=== PATIENT | male | born 1965 | race Caucasian/White ===

== ENCOUNTER 2019-03-06 11:40 | Emergency (ER) | payer BC, SELFPAY ==
[2019-03-06 11:44] VITALS: BP 145/80; PULSE 71; RESP 18; TEMP 36.6; O2SAT 97; BMI 24.0
--- NOTE | 2019-03-06 11:58 | RAD_ITS ---
STUDY: X-RAY - RIGHT SHOULDER REASON FOR EXAM: Male, 53 years old. Injury. TECHNIQUE: 4 view(s) of the shoulder. COMPARISON: None. FINDINGS: Normal glenohumeral articulation. Normal acromioclavicular joint. Normal acromion. There is evidence of cystic changes of the glenoid most likely degenerative in nature. No acute abnormality is seen. The soft tissue structures are unremarkable. Normal visualized pulmonary apex. RAD/Shoulder min 2 Views IMPRESSION: Findings suggestive of degenerative changes of the glenoid. Electronically Signed: Andrzej Neal, at 12:48 EDT , Service support ,
[2019-03-06 13:06] VITALS: BP 126/85; PULSE 71; RESP 13; O2SAT 97
--- NOTE | 2019-03-06 14:09 | ED.VIS.GEN ---
History of Present Illness Chief Complaint: Upper Extremity Injury Informant: Patient Onset: Days - 5 Context: Gradual Onset Timing: Continuous Current Severity: Severe Maximum Severity: Severe Narrative: Patient is a 53-year-old male with no known medical history presenting with right shoulder pain. Patient states he has a very physical job and repeatedly throws things over his right shoulder. He denies any injury or trauma to the area. He denies associated numbness or tingling. He states he had pain for the past 5 days which is been worsening which is why he came to the emergency room. He has not taken anything at home for the pain. He is concerned because he has to work today and tomorrow. He denies any other complaints at this time including chest pain, shortness of breath, nausea, fever or chills. He has no associated rash. Patient does not regularly see a primary care doctor. Past Medical History - Allergies and Home Meds Allergies/Adverse Reactions: Allergies No Known Allergies Allergy (Verified 03/06/19 11:44) Primary Care Physician: Melina Bailey DO [Primary Care Provider] - Past Medical History: None Surgical History: noncontributory Smoking Status: Current every day smoker Review of Systems All systems negative except as indicated Musculoskeletal: Reports: Arthralgias - Right shoulder Physical Exam Vital Signs/Narrative: Vital Signs Temp Pulse Resp BP Pulse Ox 03/06/19 13:06 71 13 126/85 H 97 03/06/19 11:44 98 F 71 18 145/80 H 97 Inital Vital Signs reviewed: Yes General: Well nourished, Well developed, No Acute Distress Head: Normocephalic, Atraumatic Eyes: Perrl, EOMI ENT: Moist mucous membranes, No rhinorrhea Neck: Supple, Nontender Cardiovascular: Regular rate, Regular rhythm, No murmurs Respiratory: No distress, CTA bilaterally, Chest nontender Abdomen: Soft, Nontender Back: Nontender, Normal Inspection Extremities: No edema, Tenderness - Mild right shoulder tenderness to palpation diffusely, - - Normal range of motion in all planes of the right shoulder however pain is reproduced with abduction beyond 90 degrees Skin: Normal color, No rash Neurological: Alert, Oriented x3, Cranial nerves II-XII grossly intact, Normal Strength, Normal Sensation, - - Strength and sensation of intrinsic hand muscles normal Psychological: Normal affect, Normal Mood Diagnostic/Tx/Re-eval Diagnostic Data Shoulder X-Ray 03/06/19 11:58 IMPRESSION: Findings suggestive of degenerative changes of the glenoid. Electronically Signed: Andrzej Neal, at 12:48 EDT , Service support , - Medical Decision Making Patient evaluated for atraumatic right shoulder pain. He does not have an associated joint effusion or warmth of the joint. Do not suspect an infection or gouty arthropathy. X-ray shows degenerative changes consistent with osteoarthritis. Patient is treated with 600 mg ibuprofen for pain. He is neurovascularly intact. He is given a work note for today and tomorrow. He is counseled on rice therapy. He is counseled that he needs to follow-up with a primary care doctor. He will be referred to PCP. Patient is counseled on signs and symptoms requiring return to the emergency room. Patient verbalizes agreement and understand this plan. Patient discharged home in stable and improved condition. ED Disposition - Plan for ED Patient: Disposition: Home or Assisted Living Diagnosis: Right shoulder pain Instructions: SHOULDER PAIN (Uncertain Cause) Prescriptions: Ibuprofen [Motrin] 600 mg PO Q6H PRN PRN #20 tab PRN Reason: Pain Or Fever Prescription Printed Referrals: Melina Bailey DO [Primary Care Provider] - Additional Instructions: Please make sure to follow-up with her primary care doctor. Apply ice and icy hot to the shoulder. Rest the shoulder this weekend. Shoulder x-ray showed signs of arthritis which is likely cause of pain. Return to emergency room if you have worsening or changing symptoms.
[2019-03-06] MEDS: Ibuprofen 600 MG Tablet PO (14:21)
[2019-03-06 14:22] VITALS: RESP 18
== END 2019-03-06 14:23 | disposition home or self-care (01) ==
PROVIDERS: Emergency Provider Emergency Medicine; Family Provider Internal Medicine; PCP Internal Medicine
DX: M25.511 Pain in right shoulder (principal); F17.200 Nicotine dependence, unspecified, uncomplicated
CPT/HCPCS: 73030; 99283

== ENCOUNTER 2019-07-05 19:38 | Emergency (ER) | payer BC, SELFPAY ==
[2019-07-05 19:39] VITALS: BP 142/76; PULSE 80; RESP 18; TEMP 36.1; O2SAT 98; BMI 22.1
[2019-07-05 19:59] VITALS: BP 123/81; PULSE 80; RESP 16; O2SAT 97
--- NOTE | 2019-07-05 20:01 | RAD_ITS ---
We are attempting to reach an attending provider to discuss findings. An addendum with communication details will be sent when the communication is complete. STUDY: X-RAY CHEST REASON FOR EXAM: Male, 53 years old. RT SIDED CHEST PAIN RADIATING DOWN ARM X 1-2 WKS, WORSE TONIGHT TECHNIQUE: Single AP portable view of the chest. COMPARISON: None. FINDINGS: 5 cm round opacity in the mid left lung worrisome for a mass namely bronchogenic carcinoma. Correlation with CT the chest with contrast is recommended. There is no demonstrated pleural abnormality. Normal size heart. Normal mediastinum and katerina. Normal visualized pulmonary arteries. Normal visualized aortic arch and descending thoracic aorta. Normal visualized thoracic spine. Normal visualized ribs, clavicles, and shoulders. There is no demonstrated abnormality of the visualized soft tissue structures of the upper abdomen. RAD/Chest 1 View (Portable) IMPRESSION: Suspect left lung mass worrisome for bronchogenic carcinoma in correlation with CT the chest with contrast is recommended. Electronically Signed: Luis Pineda MD at 20:36 EST Tel , Service support ,
--- NOTE | 2019-07-05 20:01 | EKG12_ITS ---
Test Reason : CP Blood Pressure : / mmHG Vent. Rate : 072 BPM Atrial Rate : 072 BPM P-R Int : 144 ms QRS Dur : 094 ms QT Int : 402 ms P-R-T Axes : 011 075 057 degrees QTc Int : 440 ms Normal sinus rhythm Normal ECG Confirmed by EDGARD LENNON ([id number]), medical transcription editor HAMLET BAUTISTA ([id number]) on 07/08/2019 2:04:24 PM Referred By: GABY Confirmed By:EDGARD LENNON
[2019-07-05 20:04] VITALS: O2SAT 97
[2019-07-05 20:17] LABS: Absolute Lymphocyte Count 3.19 X10^3/uL (0.83-4.51); Absolute Neutrophil Count 6.7 X10^3/uL (2.0-7.7); Basophil# 0.11 X10^3/uL; Eosinophil# 0.58 X10^3/uL; Eosinophils% 5.2 % (0-5); Hematocrit 46.8 % (40-54); Hemoglobin 15.4 g/dL (13.0-16.5); Lymphocyte # 3.19 X10^3/ul (4.0); Lymphocyte % 28.4 % (19-41); Mean Corp Hgb Conc 32.9 g/dL (32-36); Mean Corpuscular Hgb 30.7 pg (27.0-32.0); Mean Corpuscular Volume 93.2 fL (80-94); Mean Platelet Vol. 8.8 fl (6.2-12.0); Monocyte% 5.3 % (0-10); NRBC Flagged by Analyzer 0 % (0-5); Neutrophil # 6.74 X10^3/uL (2.7-7.7); Neutrophil % 59.8 % (47-70); Platelet Count 304 K/mm3 (150-450); RBC Distribution Width CV 13.1 % (11.6-14.6); Red Blood Count 5.02 M/mm3 (4.6-6.2); White Blood Count 11.3 K/mm3 (4.4-11.0)
--- NOTE | 2019-07-05 20:25 | ED.VIS.GEN ---
History of Present Illness Chief Complaint: Chest Pain Informant: Patient Onset: Weeks Current Severity: Moderate Maximum Severity: Moderate Narrative: Patient presents with mid chest pain that radiates to the right shoulder and down his right arm for the past week or 2. Pain seems to be worsened recently. Patient was here couple months ago for right shoulder pain and it was felt that he had arthritis. He has not seen anyone for follow-up. Patient denies cardiac history. Past Medical History - Allergies and Home Meds Allergies/Adverse Reactions: Allergies No Known Allergies Allergy (Verified 07/05/19 20:04) Primary Care Physician: Jose Carlos Schultz MD [STAFF PHYSICIAN] - As soon as possible Mateus Velarde DO [STAFF PHYSICIAN] - As soon as possible Justin Ramachandran MD [NON-STAFF] - As soon as possible Past Medical History: None Surgical History: noncontributory Smoking Status: Current every day smoker Review of Systems General: Denies: Chills, Fever Eyes: Denies: Visual changes - bilaterally ENT: Denies: Bilateral ear pain Cardiovascular: Reports: Chest pain, - - Occasional increased pain with deep breath. Denies: Palpitations, Heart racing Respiratory: Denies: Dyspnea Gastrointestinal: Denies: Abdominal pain, Nausea, Vomiting, Diarrhea Genitourinary: Denies: Dysuria Musculoskeletal: Denies: Swelling, Extremity Pain Skin: Denies: Rash Neurological: Denies: Headache Allergy: Denies: Uticaria Physical Exam Vital Signs/Narrative: Vital Signs Temp Pulse Resp BP Pulse Ox 07/05/19 20:04 97 07/05/19 19:59 80 16 123/81 H 97 07/05/19 19:39 97.0 F L 80 18 142/76 H 98 Inital Vital Signs reviewed: Yes General: Well nourished, Well developed Head: Normocephalic ENT: Moist mucous membranes Neck: Supple Cardiovascular: Regular rate, Regular rhythm Respiratory: No distress, CTA bilaterally, Chest nontender Back: Nontender Extremities: Nontender Skin: Normal color, No rash Neurological: Alert, Oriented x3, Normal Strength, Normal Sensation Psychological: Normal affect Diagnostic/Tx/Re-eval Impressions Chest X-Ray 07/05/19 20:01 IMPRESSION: Suspect left lung mass worrisome for bronchogenic carcinoma in correlation with CT the chest with contrast is recommended. Electronically Signed: Luis Pineda MD at 20:36 EST Tel , Service support , ADDENDUM: 07/05/192109 IMPRESSION: Suspect left lung mass worrisome for bronchogenic carcinoma in correlation with CT the chest with contrast is recommended. N.B. : The above information has been verbally conveyed by Luis Pineda MD to Pamela Arellano MD, on 07/05/2019 21:03:16 (ET). Electronically Signed: Luis Pineda MD at 20:36 EST Tel , Service support , Chest CT 07/05/19 21:06 IMPRESSION: 6.5 cm probably malignant mass of the left lower lobe. Biopsy is recommended. Underlying COPD. Electronically Signed: Tomas Farrell MD at 21:40 EST , Service support , 07/05/19 20:01 Chest 1 View (Portable) [RAD] Stat 07/05/19 21:06 CT Chest [Chest WITH Contrast] [CT] Stat Laboratory Results 07/05/19 07/05/19 07/05/19 19:59 19:59 19:59 WBC 11.3 H RBC 5.02 Hgb 15.4 Hct 46.8 MCV 93.2 MCH 30.7 MCHC 32.9 RDW Std Deviation 45.0 H RDW Coeff of Isaiah 13.1 Plt Count 304 MPV 8.8 Immature Gran % (Auto) 0.300 Neut % (Auto) 59.8 Lymph % (Auto) 28.4 [place] % (Auto) 5.3 Eos % (Auto) 5.2 H Baso % (Auto) 1.0 Absolute Neuts (auto) 6.7 Absolute Lymphs (auto) 3.19 Nucleated RBC % 0 PT 13.6 INR 1.1 D-Dimer Quant (PE/DVT) Sodium 140 Potassium 4.2 Chloride 109 H Carbon Dioxide 27.0 Anion Gap 4 L BUN 19 H Creatinine 1.05 Estim Creat Clear Calc 81.18 Est GFR (MDRD) Af Amer 94 Est GFR (MDRD) Non-Af 78 BUN/Creatinine Ratio 18.1 Glucose 99 Calcium 8.5 Troponin I 0.143 H 07/05/19 19:59 WBC RBC Hgb Hct MCV MCH MCHC RDW Std Deviation RDW Coeff of Isaiah Plt Count MPV Immature Gran % (Auto) Neut % (Auto) Lymph % (Auto) [place] % (Auto) Eos % (Auto) Baso % (Auto) Absolute Neuts (auto) Absolute Lymphs (auto) Nucleated RBC % PT INR D-Dimer Quant (PE/DVT) 0.38 Sodium Potassium Chloride Carbon Dioxide Anion Gap BUN Creatinine Estim Creat Clear Calc Est GFR (MDRD) Af Amer Est GFR (MDRD) Non-Af BUN/Creatinine Ratio Glucose Calcium Troponin I - EKG Initial EKG Interpretation: Sinus Rhythm - Sinus at 72 with no acute ischemia. - Medical Decision Making Patient was given morphine, Toradol, and Zofran on arrival. Upon return of labs with elevation in troponin he is given aspirin. Test results are discussed with the patient. He does have evidence of a new left lung mass which is highly suspicious for malignancy. He also has an indeterminate troponin. I recommended hospitalization for further cardiac evaluation and to help arrange biopsy for this left lung mass. Patient is adamant that he wants to leave AGAINST MEDICAL ADVICE. Patient was advised that he may be having a heart attack. He was advised the symptoms can worsen and he can have sudden cardiac arrest and . He voices understanding and agreement. Family is with him at bedside and is aware of his decision. Phone numbers and addresses for oncology, pulmonology, and cardiology are provided for close follow-up. ED Disposition - Plan for ED Patient: Disposition: Home or Assisted Living Diagnosis: Lung tumor, Chest pain, Elevated troponin Referrals: Justin Ramachandran MD [NON-STAFF] - As soon as possible Mateus Velarde DO [STAFF PHYSICIAN] - As soon as possible Jose Carlos Schultz MD [STAFF PHYSICIAN] - As soon as possible Additional Instructions: As discussed, your chest xray and CT scan confirms a lung mass in your left lung. A biopsy is needed to determine how best to treat this. It appears highly suspicious for a cancerous tumor. Follow-up with Pulmonology and Oncology as soon as possible. Your bloodwork for your heart is also abnormal. Please return to the emergency room immediately if you choose to pursue further care. Please follow-up with the independent film maker as soon as possible if you are not willing to be admitted to the emergency room. As discussed, you could be having a heart attack. If this progressed you could go into cardiac arrest and .
[2019-07-05 20:31] LABS: International Normalized Ratio 1.1; Prothrombin Time (Protime)PT. 13.6 SECONDS (11.7-14.9)
[2019-07-05 20:34] LABS: Anion Gap 4 (5-15); BUN 19 mg/dL (7-18); BUN/Creat Ratio 18.1 RATIO (10-20); Calcium,Total 8.5 mg/dL (8.5-10.1); Chloride 109 mmol/L (98-107); Creatinine, Serum 1.05 mg/dL (0.70-1.30); EST Glomerular Filtration Rate 78 mL/min (>60); Est Glom Filt Rate - Afr Amer 94 mL/min (>60); Estimated Creatinine Clearance 81.18 ml/min; Glucose 99 mg/dL (74-106); Potassium 4.2 mmol/L (3.5-5.1); Sodium Level 140 mmol/L (136-145)
[2019-07-05 20:43] LABS: D-Dimer Quantitative (DVT/PE) 0.38 FEU/ug/m (0.27-0.49)
[2019-07-05] MEDS: Ondansetron 4 MG/2 ML Vial IV (20:53)
[2019-07-05] MEDS: Ketorolac 30 MG/ML Syringe IV (20:55)
[2019-07-05] MEDS: Morphine 4 MG/ML Syringe IV (20:56)
[2019-07-05] MEDS: 0.9% Normal Saline 1,000 ML 150 ML IV (20:59)
--- NOTE | 2019-07-05 21:06 | CT_ITS ---
STUDY: CT CHEST WITH CONTRAST REASON FOR EXAM: Male, 53 years old. ABNORMAL CXR, PT PRESENTS WITH RT SIDED CHEST PAIN TODAY RADIATION DOSAGE (If Supplied By Facility): CTDIvol = ( 12.83 ) mGy, DLP = ( 522.60 ) mGycm TECHNIQUE: Transaxial imaging was performed following intravenous administration of IV 100mL Isovue-300. Individualized dose optimization techniques were used for this CT. COMPARISON: None. FINDINGS: Images are degraded by patient motion. There is hyperinflation of the lungs consistent with chronic obstructive lung disease (COPD). There is a lobulated and spiculated 6.5 cm mass in the left lower lobe almost certainly representing malignancy. Biopsy is recommended. There is evidence of underlying COPD. In the left lower lobe, inferior to the mass there is a parenchymal density suggestive of postobstructive pneumonitis No other evidence of infiltrate. No effusions. There is no demonstrated pleural abnormality. Normal heart and pericardium. Normal mediastinum. There is probable mild left hilar adenopathy. Normal enhanced pulmonary arteries. Normal aorta arch and descending thoracic aorta. There are multi-level degenerative changes of the thoracic spine. Numerous low-attenuation lesions throughout the liver are most likely cysts. Metastatic disease cannot be excluded however. CT/Chest WITH Contrast IMPRESSION: 6.5 cm probably malignant mass of the left lower lobe. Biopsy is recommended. Underlying COPD. Electronically Signed: Tomas Farrell MD at 21:40 EST , Service support ,
[2019-07-05] MEDS: Aspirin 81 MG TAB.CHEW 324 MG PO (21:55)
[2019-07-05 22:54] VITALS: PULSE 62; RESP 16; O2SAT 98
== END 2019-07-05 23:02 | disposition home or self-care (01) ==
PROVIDERS: Emergency Provider Emergency Medicine
DX: D49.1 Neoplasm of unspecified behavior of respiratory system (principal); R07.89 Other chest pain; R79.89 Other specified abnormal findings of blood chemistry; Z72.0 Tobacco use
CPT/HCPCS: 71045; 71260; 80048; 84484; 85025; 85379; 85610; 93005; 96361; 96374; 96375; 99285; J7030; Q9967; A4216; J2405

== ENCOUNTER 2019-07-09 09:46 | Observation (INO) | payer BC, SELFPAY ==
[2019-07-09] VITALS (9 sets, daily range): BP systolic 112–139; BP diastolic 71–107; PULSE 60–75; RESP 14–16; TEMP 36.4–36.6; O2SAT 95–99; BMI 22.6; BMI 23.3
--- NOTE | 2019-07-09 10:10 | CT_ITS ---
STUDY: CTA CHEST REASON FOR EXAM: Male, 53 years old. CHEST PAIN, KNOWN LLL MASS RADIATION DOSAGE (If Supplied By Facility): CTDIvol = ( 10.42 ) mGy, DLP = ( 324.71 ) mGycm TECHNIQUE: The examination was performed with the intravenous administration of 75cc ISOVUE 370. Post-processing of the angiographic images was performed, with multiplanar reformation and 3D reconstruction. Individualized dose optimization techniques were used for this CT. COMPARISON: 07/05/2019 FINDINGS: Normal enhancement of the main pulmonary artery and right and left pulmonary arteries. Normal enhancement of the bilateral peripheral pulmonary arteries. There is no demonstrated pulmonary embolism. Normal thoracic aorta and visualized great vessels. There is no demonstrated aortic dissection. Normal heart and pericardium. Scattered subcentimeter axillary and mediastinal lymph nodes. There are borderline enlarged perihilar lymph nodes measuring up to 1.4 cm in short axis dimension. There is peribronchial thickening. The lungs are hyper expanded, with flattening of the hemidiaphragms. There is underlying emphysema with stable suspicious 6.5 cm spiculated mass in the left lower lobe. Normal pleura. Normal chest wall structures. There are degenerative changes of thoracic spine. Limited cuts through the upper abdomen show low-density likely cysts within the liver but metastatic foci cannot be completely excluded. CT/CTA Chest W/WO Contrast IMPRESSION: No demonstrated PE, or thoracic aortic aneurysm or dissection Stable suspicious 6.5 cm spiculated left lower lobe mass Stable borderline enlarged perihilar adenopathy Low-density hepatic lesions, likely simple cysts Electronically Signed: Acosta Salas MD at 11:48 EST , Service support ,
--- NOTE | 2019-07-09 10:10 | EKG12_ITS ---
Test Reason : CP Blood Pressure : / mmHG Vent. Rate : 056 BPM Atrial Rate : 056 BPM P-R Int : 154 ms QRS Dur : 100 ms QT Int : 428 ms P-R-T Axes : -06 074 071 degrees QTc Int : 413 ms Sinus bradycardia Otherwise normal ECG Confirmed by STEVE FLEMING, ROSALINDA ([id number]), health editor LU ROBERTS ([id number]) on 07/14/2019 8:43:33 AM Referred By: Jack Rodriguez Confirmed By:RC WILSON MD
--- NOTE | 2019-07-09 10:15 | ED.VIS.CHEST ---
History of Present Illness Chief Complaint: Chest Pain Informant: Patient Onset: Today Activity at onset: Sleep Timing: Intermittent Quality: Heaviness Location: Right Chest Narrative: Patient is a 53-year-old male with history of left-sided lung mass questionably cancer presenting with chest pain. Patient states this morning he had a 10-minute episode of chest pain that woke him up from sleep. It did not radiate. He states it is in his right lower chest and felt more like a heaviness or pressure. Is not worse with deep breathing. 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 He was then sent to the emergency room for further evaluation of his chest pain. Patient states he also has an appointment to see a metallurgy teacher next week because during his last ER visit he had an elevated troponin. Patient did sign out AGAINST MEDICAL ADVICE at that time. Patient states he feels a slight pressure in that area. He notes he also an episode of sweating in his head in his hands earlier today. He denies any associated nausea, GI symptoms or symptoms. He denies any shortness of breath. He does have a chronic cough but feels it is slightly worse lately. He cannot tell me for how long. He denies any swelling of his legs. Denies any other complaints at this time. Past Medical History - Allergies and Home Meds Allergies/Adverse Reactions: Allergies No Known Allergies Allergy (Verified 07/09/19 09:46) Past Medical History: - - lung mass Surgical History: noncontributory Smoking Status: Current every day smoker - Family History Maternal Family History: Family History (Last Updated 07/09/19 @ 09:06 by Saskia Ambriz) Mother Heart disease COPD (chronic obstructive pulmonary disease) Kidney disease Aunt Diabetes Family History: Reports: COPD, Renal Disease Paternal Family History: Family History (Last Updated 07/09/19 @ 09:06 by Saskia Ambriz) Mother Heart disease COPD (chronic obstructive pulmonary disease) Kidney disease Aunt Diabetes Family History: Reports: Unknown Sibling Family History: Family History (Last Updated 07/09/19 @ 09:06 by Saskia Ambriz) Mother Heart disease COPD (chronic obstructive pulmonary disease) Kidney disease Aunt Diabetes Family History: Reports: Cancer Review of Systems General: Reports: Sweats. Denies: Chills, Fever Eyes: Denies: Visual changes - bilaterally, Diplopia ENT: Denies: Rhinorrhea, Sore throat Cardiovascular: Reports: Chest pain. Denies: Palpitations Respiratory: Reports: Cough. Denies: Dyspnea, Dyspnea on exertion Gastrointestinal: Denies: Abdominal pain, Nausea, Vomiting, Diarrhea, Melena, Hematochezia Genitourinary: Denies: Dysuria, Hematuria, Frequency Musculoskeletal: Denies: Back pain, Extremity Pain Skin: Denies: Rash, Wounds Neurological: Denies: Headache, Weakness, Numbness Physical Exam Vital Signs/Narrative: Vital Signs Temp Pulse Resp BP Pulse Ox 07/09/19 09:47 97.8 F 63 16 125/76 H 99 Inital Vital Signs reviewed: Yes General: Well nourished, Well developed, No Acute Distress Head: Normocephalic, Atraumatic Eyes: Perrl, EOMI ENT: Moist mucous membranes, No rhinorrhea, TM's clear Neck: Supple, Nontender, No JVD Cardiovascular: Regular rate, Regular rhythm, No murmurs Respiratory: No distress, Chest nontender, Rhonchi - mild expiratory . Negative for: Decreased Air Movement Abdomen: Soft, Nontender, Nondistended, Normal bowel sounds Back: Nontender, Normal Inspection Extremities: Nontender, No edema Skin: Normal color, No rash Neurological: Alert, Oriented x3, Cranial nerves II-XII grossly intact, Normal Strength, Normal Sensation Psychological: Normal affect, Normal Mood Diagnostic/Tx/Re-eval Chest X-Ray - ED: 1 View, Read by ED Physician, Read by Radiologist, No Acute Disease Clinical Impression(s) from Imaging Studies Chest CTA 07/09/19 10:10 IMPRESSION: No demonstrated PE, or thoracic aortic aneurysm or dissection Stable suspicious 6.5 cm spiculated left lower lobe mass Stable borderline enlarged perihilar adenopathy Low-density hepatic lesions, likely simple cysts Electronically Signed: Acosta Salas MD at 11:48 EST , Service support , Chest X-Ray 07/09/19 10:24 IMPRESSION: Stable 5 cm left lung mass unchanged since the previous study. No new suspicious or acute findings. Electronically Signed: Acosta Salas MD at 10:51 EST , Service support , Laboratory Data 07/09/19 07/09/19 10:25 10:25 WBC 9.3 RBC 5.24 Hgb 16.2 Hct 48.8 MCV 93.1 MCH 30.9 MCHC 33.2 RDW Std Deviation 45.1 H RDW Coeff of Isaiah 13.1 Plt Count 295 MPV 8.4 Immature Gran % (Auto) 0.300 Neut % (Auto) 62.0 Lymph % (Auto) 27.5 [place] % (Auto) 5.8 Eos % (Auto) 3.4 Baso % (Auto) 1.0 Absolute Neuts (auto) 5.8 Absolute Lymphs (auto) 2.56 Nucleated RBC % 0 Sodium 138 Potassium 4.2 Chloride 107 Carbon Dioxide 28.0 Anion Gap 3 L BUN 12 Creatinine 0.83 Estim Creat Clear Calc 107.10 Est GFR (MDRD) Af Amer 124 Est GFR (MDRD) Non-Af 102 BUN/Creatinine Ratio 14.5 Glucose 90 Calcium 9.1 Troponin I 0.062 H - Rhythm Strip Rhythm Strip: Sinus Rhythm Rate: 56 Ectopy: None - EKG Initial EKG Interpretation: Sinus Rhythm, - - Sinus bradycardia at a rate of 56 Normal intervals Normal axis Normal ST segments Treatment: Aspirin ADRIÁN Risk: Elevated Enzymes Score: 1 - Medical Decision Making Patient is evaluated for episode of chest pain. Chest pain is still present but slightly improving. He is given aspirin the emergency room. He was recently diagnosed with a left-sided lung mass. It is highly concerning for lung cancer. CTA obtained because of my concern for PE. This is negative. Troponin is mildly elevated at 0.06. It is slightly lower than it was during his last ER visit. At that time patient left AGAINST MEDICAL ADVICE. I did recommend that patient should come in for further cardiac evaluation as I am concerned that his pain could be an anginal equivalent. He eventually agrees. Patient does state that he is very nervous about coming to the hospital. He is given a nicotine patch as well as Ativan to help. Patient is stable for general medical floor at time of disposition. ED Disposition - Plan for ED Patient: Disposition: [facility] Diagnosis: Chest pain
--- NOTE | 2019-07-09 10:24 | RAD_ITS ---
STUDY: X-RAY CHEST REASON FOR EXAM: Male, 53 years old. Chest pain/pressure, history of lung mass TECHNIQUE: 2 AP portable views COMPARISON: 07/05/2019 FINDINGS: EKG leads overlie the chest. Stable appearance of a 5 cm rounded opacity in the left lower lung field unchanged from the previous study. The lungs are otherwise clear and expanded. There is no demonstrated pleural abnormality. Normal size heart. Normal mediastinum and katerina. Normal visualized pulmonary arteries. Normal visualized aortic arch and descending thoracic aorta. Normal visualized thoracic spine. Normal visualized ribs, clavicles, and shoulders. There is no demonstrated abnormality of the visualized soft tissue structures of the upper abdomen. RAD/Chest 1 View (Portable) IMPRESSION: Stable 5 cm left lung mass unchanged since the previous study. No new suspicious or acute findings. Electronically Signed: Acosta Salas MD at 10:51 EST , Service support ,
[2019-07-09 10:37] LABS: Absolute Lymphocyte Count 2.56 X10^3/uL (0.83-4.51); Absolute Neutrophil Count 5.8 X10^3/uL (2.0-7.7); Basophil# 0.09 X10^3/uL; Eosinophil# 0.32 X10^3/uL; Eosinophils% 3.4 % (0-5); Hematocrit 48.8 % (40-54); Hemoglobin 16.2 g/dL (13.0-16.5); Lymphocyte # 2.56 X10^3/ul (4.0); Lymphocyte % 27.5 % (19-41); Mean Corp Hgb Conc 33.2 g/dL (32-36); Mean Corpuscular Hgb 30.9 pg (27.0-32.0); Mean Corpuscular Volume 93.1 fL (80-94); Mean Platelet Vol. 8.4 fl (6.2-12.0); Monocyte# 0.54 X10^3/uL; Monocyte% 5.8 % (0-10); NRBC Flagged by Analyzer 0 % (0-5); Neutrophil # 5.76 X10^3/uL (2.7-7.7); Platelet Count 295 K/mm3 (150-450); RBC Distribution Width CV 13.1 % (11.6-14.6); RBC Distribution Width SD 45.1 fl (35.1-43.9); Red Blood Count 5.24 M/mm3 (4.6-6.2); White Blood Count 9.3 K/mm3 (4.4-11.0)
[2019-07-09] MEDS: Aspirin 81 MG TAB.CHEW 324 MG PO (10:45)
[2019-07-09] MEDS: 0.9% Normal Saline 1,000 ML 1000 ML IV (10:45)
[2019-07-09 10:54] LABS: Anion Gap 3 (5-15); BUN 12 mg/dL (7-18); BUN/Creat Ratio 14.5 RATIO (10-20); Calcium,Total 9.1 mg/dL (8.5-10.1); Chloride 107 mmol/L (98-107); Creatinine, Serum 0.83 mg/dL (0.70-1.30); EST Glomerular Filtration Rate 102 mL/min (>60); Est Glom Filt Rate - Afr Amer 124 mL/min (>60); Glucose 90 mg/dL (74-106); Potassium 4.2 mmol/L (3.5-5.1); Sodium Level 138 mmol/L (136-145)
--- NOTE | 2019-07-09 13:10 | NURSING ---
PCU OBS MARLEEN GARDUNO
[2019-07-09] MEDS: LORazepam 2 MG/ML Syringe 0.5 MG IV (13:30)
--- NOTE | 2019-07-09 14:30 | EKG12_ITS ---
Test Reason : AM EKG Blood Pressure : / mmHG Vent. Rate : 061 BPM Atrial Rate : 061 BPM P-R Int : 168 ms QRS Dur : 096 ms QT Int : 442 ms P-R-T Axes : 035 040 059 degrees QTc Int : 444 ms Normal sinus rhythm Normal ECG When compared with ECG of 09-JUL-2019 13:54, MANUAL COMPARISON REQUIRED, DATA IS UNCONFIRMED Confirmed by STEVE FLEMING, ROSALINDA ([id number]), legal editor LU ROBERTS ([id number]) on 07/14/2019 8:57:45 AM Referred By: Jack Rodriguez Confirmed By:RC WILSON MD
--- NOTE | 2019-07-09 15:31 | PCM.HP.STD ---
Problem List (1) Chest pain Status: Acute Qualifiers: Chest pain type: precordial pain Qualified Code(s): R07.2 - Precordial pain History of Present Illness Date of Admission: 07/09/19 Chief Complaint: Chest pain The patient is a 53 year old M who was seen in the emergency room at [facility] with chief complaint of right-sided chest pain which began this morning, patient was at rest when the pain began, did not radiate into the arm or neck area, it was not accompanied by shortness of breath or diaphoresis. Patient describes the discomfort as an ache, it lasted approximately 10 minutes. He had also been seen in the emergency room on 07/05/2019 with a chief complaint of achy chest pain in the middle of his chest. At that time the patient stated that he became diaphoretic. He was worked up in the emergency room at that time and had an elevated troponin at 0.143, it was recommended at that time that he be admitted for further work-up but the patient refused and signed out AMA. A CT scan obtained on that date also showed a 6.5 cm spiculated mass of the left lower lobe concerning for a neoplasm. Patient was supposed to see a pulmonary physician today but had chest pain this morning and came to the ER for evaluation. Work-up in the ER today revealed an EKG which showed a normal sinus rhythm without evidence of ischemic changes, CTA of the chest was performed to rule out a PE, no PE was noted to be present and there was continued visualization of a 6.5 cm spiculated left lower lobe mass. Patient's troponin was elevated at 0.062, CBC and chemistry screen was unremarkable. Patient will be placed in observation status for chest pain, cardiac enzymes be cycled, if these remain negative he will undergo an exercise nuclear stress test tomorrow. Past Medical History Medical History: Medical History (Last Updated 07/08/19 @ 09:00 by Dory Myles) Chest pain (Acute) R07.9 Mass of left lung (Acute) R91.8 Allergies No Known Allergies Allergy (Verified 07/09/19 09:46) Home Medications: Ambulatory Orders Medication Instructions Recorded NK 07/09/19 Surgical History: no surgical history Psychiatric History: No pertinent psych hx Lives: Spouse/ Significant Other Smoking Status: Current every day smoker Tobacco Use: Cigarettes Alcohol: None Drugs: None - *Family History Maternal Family History: Family History (Last Updated 07/09/19 @ 09:06 by Saskia Ambriz) Mother Heart disease COPD (chronic obstructive pulmonary disease) Kidney disease Aunt Diabetes History Items: COPD, Renal Disease Paternal Family History: Family History (Last Updated 07/09/19 @ 09:06 by Saskia Ambriz) Mother Heart disease COPD (chronic obstructive pulmonary disease) Kidney disease Aunt Diabetes History Items: Unknown Sibling Family History: Family History (Last Updated 07/09/19 @ 09:06 by Saskia Ambriz) Mother Heart disease COPD (chronic obstructive pulmonary disease) Kidney disease Aunt Diabetes History Items: Cancer Review of Systems Constitutional: Denies: Anorexia, Chills, Fever, Night Sweats, Malaise, Weakness, Weight Change, Fatigue Eyes: Denies: Cataracts, Conjunctivae Inflammation, Double vision, Drainage, Redness, Vision Change HEENT: Denies: Difficulty Swallowing, Dysphasia, Ear Pain, Eye Pain, Hearing Changes, Nasal bleeding, Nasal Congestion, Post Nasal Drip Cardiovascular: Reports: Chest Pain. Denies: Claudication, Chest Pressure, Chest Tightness, Edema, Heaviness, Light Headedness, Orthopnea, Palpitations, Paroxysmal Noc. Dyspnea Respiratory: Denies: Cough, Hemoptysis, Pleuritic Pain, Shortness of Breath, Shortness of breath at rest, Shortness of breath upon exertion Gastrointestinal: Denies: Abdominal Pain, Constipation, Diarrhea, Hematemesis, Hematochezia, Nausea, Melena, Vomiting Genitourinary: Denies: Dysuria, Frequency, Hematuria, Hesitancy, Incontinence, Nocturia, Urgency Musculoskeletal: Denies: Foot Pain, Hand Pain, Joint Pain, Joint stiffness, Joint swelling, Joint Tenderness, Leg Pain Skin: Denies: Dryness, Pruritis, Rash Neurological: Denies: Balance problems, Blurred vision, Double vision, Slurred speech, Difficulty swallowing, Focal weakness, Headaches, Numbness, Tingling Psychiatric: Denies: Anxiety, Depression, Homicidal Ideations, Suicidal Ideations Endocrine: Denies: Change in Body Habitus, Heat/ Cold Intolerance, Polydipsia, Polyuria Hematologic/ Lymphatic: Denies: Adenopathy, Anemia, Easy Bruising, Easy Bleeding, Petechiae, Purpura VTE Information - Inpt Only VTE Present on Admission: No VTE Mechan Device Prophylaxis: None VTE Pharm Prophylaxis ordered?: Yes - Physical Exam Vitals/I&O's: Vital Signs Temp Pulse Resp BP Pulse Ox 97.8 F 62 16 139/107 H 99 07/09/19 09:47 07/09/19 13:32 07/09/19 13:32 07/09/19 13:32 07/09/19 13:32 Oxygen Delivery Method Room Air Weight: 75.75 kg Body Mass Index (BMI) 23.3 Intake and Output for Last 24 Hours 07/07/19 07/08/19 07/09/19 23:59 23:59 23:59 Intake Total 1000 / 1000 Balance 1000 / 1000 General: Alert, Oriented x3, Cooperative, No apparent distress, Well developed, Well nourished HEENT: Atraumatic, PERRLA, EOMI, Normocephalic Oral: Moist Mucosa Neck: Supple, No JVD, Negative Carotid Bruits, No Nuchal Rigidity, Trachea Midline, Thyroid Normal Size and Texture Lungs: Clear to auscultation, Normal air movement, No rhonchi, No wheeze, No rales Cardiovascular: Regular rate, Regular Rhythm, Normal S1, Normal S2, No murmurs, PMI Normal, No rub noted, No Gallop Abdomen: Bowel Sounds Present, Soft, Non Tender, Non-Distended Extremities: No clubbing, No cyanosis, No edema, Capillary Refill Less than 3 Seconds Skin: No rashes, No breakdown Musculoskeletal: No Tenderness to Palpation of Joints or Extremities Neurological: Cranial nerves II-XII grossly intact, Neuro grossly intact, Sensory exam intact to light touch and pain, Coordination normal Psych/Mental Status: Normal Affect, Appropriate, Alert and oriented to time, place, person, mood and affect Laboratory Results 07/09/19 10:25: WBC 9.3, RBC 5.24, Hgb 16.2, Hct 48.8, MCV 93.1, MCH 30.9, MCHC 33.2, RDW Std Deviation 45.1 H, RDW Coeff of Isaiah 13.1, Plt Count 295, MPV 8.4, Immature Gran % (Auto) 0.300, Neut % (Auto) 62.0, Lymph % (Auto) 27.5, Hardee % (Auto) 5.8, Eos % (Auto) 3.4, Baso % (Auto) 1.0, Absolute Neuts (auto) 5.8, Absolute Lymphs (auto) 2.56, Nucleated RBC % 0 07/09/19 10:25: Sodium 138, Potassium 4.2, Chloride 107, Carbon Dioxide 28.0, Anion Gap 3 L, BUN 12, Creatinine 0.83, Estim Creat Clear Calc 107.10, Est GFR (MDRD) Af Amer 124, Est GFR (MDRD) Non-Af 102, BUN/Creatinine Ratio 14.5, Glucose 90, Calcium 9.1, Troponin I 0.062 H 07/09/19 14:52: Troponin I 0.080 H Current Medications Lorazepam (Ativan) 1 mg PO Q6H PRN PRN PRN Reason: ANXIETY Morphine Sulfate () 4 mg IV Q3H PRN PRN PRN Reason: Pain Score 6-10/10 Temazepam (Restoril) 15 mg PO QHS PRN PRN PRN Reason: INSOMNIA Assessment/Plan All Active Problems (Last Updated 07/08/19 @ 09:00 by Dory Myles) Mediastinal lymphadenopathy (Acute) Chest pain (Acute) Mass of left lung (Acute) #1 chest pain-patient was placed in observation status on PCU, cardiac enzymes will be cycled, if they remain stable he will undergo a treadmill nuclear stress test tomorrow. #2 left lower lung mass-probably neoplastic, patient will need follow-up as an outpatient regarding this Code Visit OBSV E&M: 91461 Initial observation care L3
[2019-07-09] MEDS: Morphine 4 MG/ML Syringe IV (21:52)
[2019-07-09] MEDS: Temazepam 15 MG Capsule PO (21:52)
[2019-07-09] MEDS: Heparin Injection (Vial) 5,000 UNIT/ML VIAL 5000 UNIT SC (21:52)
[2019-07-10 02:59] VITALS: PULSE 64
[2019-07-10 03:50] VITALS: BP 113/74; PULSE 64; RESP 14; TEMP 36.7; O2SAT 96
--- NOTE | 2019-07-10 05:55 | EKG12_ITS ---
Test Reason : Blood Pressure : / mmHG Vent. Rate : 053 BPM Atrial Rate : 053 BPM P-R Int : 160 ms QRS Dur : 090 ms QT Int : 444 ms P-R-T Axes : -16 029 045 degrees QTc Int : 416 ms Sinus bradycardia Otherwise normal ECG When compared with ECG of 05-JUL-2019 19:47, No significant change was found Confirmed by STEVE FLEMING, ROSALINDA ([id number]), research editor LU ROBERTS ([id number]) on 07/14/2019 8:59:41 AM Referred By: Jack Rodriguez Confirmed By:RC WILSON MD
[2019-07-10 06:00] VITALS: BP 104/57; PULSE 59; RESP 14; TEMP 37; O2SAT 97
[2019-07-10 06:40] VITALS: PULSE 81
[2019-07-10] MEDS: LORazepam 1 MG Tablet PO (11:54)
[2019-07-10 11:56] VITALS: BP 129/76; PULSE 60; RESP 16; TEMP 37; O2SAT 98
--- NOTE | 2019-07-10 12:10 | DCINST_ITS ---
- Discharge Diagnoses Current Active Problems: Current Active and Chronic Problems (Last Updated 07/08/19 @ 09:00 by Dory Myles) Chest pain (Acute) You will use the following diet at home:: No restrictions Your food should be the consistency of: Regular Your liquids should be the consistency of: Regular/Thin Discharge Activity: Return to Normal Activity Weight Bearing Status: Full weight bearing Allergies/Adverse Reactions: Allergies No Known Allergies Allergy (Verified 07/09/19 09:46) Medications to take at Discharge NK 07/09/19 Primary Care Physician: Care Physician,No Primary [Primary Care Provider] - Test Results: Test results from this visit will be discussed in further detail at your follow- up appointment, if applicable. Please Follow Up With: Mateus Velarde, DO When: as soon as possible
--- NOTE | 2019-07-10 14:05 | STRESSREP_ITS ---
Stress Test Report Date: 07/10/2019 Procedure: Exercise tolerance test/imaging study Indications: Chest pain Consent: Per the patient Procedure: The patient exercised on a Pedro protocol for 7 minutes and 13 seconds achieving a peak heart rate of 130 bpm (83 % predicted maximal heart rate) with a peak blood pressure 140/84 mmHg and a peak MET capacity of 8.8 METs. The baseline ECG demonstrated sinus bradycardia. The peak exercise ECG demonstrated no significant ischemic changes. EKG during recovery revealed no significant ischemic changes [There were no cardiac dysrhythmias pretest, during exercise, or recovery]. The functional capacity was considered normal for age. There was [3/10 right-sided chest discomfort early in exercise which resolved later in exercise]. The examination was discontinued secondary to shortness of breath. Impression: 1. Stress test is negative for exercise-induced EKG changes of ischemia 2. Patient had right-sided chest discomfort early in exercise that resolved later in exercise. The test is negative for typical anginal chest pain. 3. Functional capacity is normal for age 4. Nuclear images pending Myocardial perfusion imaging study: Technique: The patient was injected with [12] mCi of technetium 99m Cardiolite and subsequently rest SPECT Cardiolite nuclear imaging was obtained in the horizontal long, vertical long, and short axis views. The patient exercised on a Pedro protocol. Please see above for details. The patient was injected with [33.6] mCi of technetium 99m Cardiolite and subsequently stress SPECT Cardiolite nuclear imaging was obtained in the horizontal long, vertical long, and short axis views. A gated Cardiolite study at peak stress was obtained. Interpretation: Rest and stress SPECT Cardiolite nuclear imaging status post realignment, normalization, and attenuation correction, demonstrates mildly decreased radioisotope uptake in the inferior wall before attenuation correction. After attenuation correction there is normalization of the radioisotope uptake in the inferior wall. This is suggestive of diaphragmatic attenuation artifact. Overall after attenuation correction there is no significant reversible or fixed defects suggestive of significant ischemia or infarction. The gated Cardiolite study demonstrates no significant regional wall motion abnormalities. The reported LVEF is 59 %. Impression: 1. There is no evidence of significant ischemia or infarction. 2. The gated Cardiolite study reports an LVEF of 59 %. This note was generated with [employer] software. It may contain incorrect words, spelling, and punctuation that were not noted in checking the note before signing.
--- NOTE | 2019-07-13 08:56 | DS.PCM_ITS ---
Discharge Date and Diagnosis Date of Admission: 07/09/19 Date of Discharge: 07/10/19 - Primary Discharge Diagnosis #1 musculoskeletal chest pain #2 left lower lung mass Hospital Course and Treatment Operations: None Procedures: Nuclear stress test Summary of Care Provided: The patient is a 53 year old M was seen in the emergency room at [facility] with a chief complaint of chest pain. Work-up in the emergency room included cardiac enzymes, EKG, and a CTA of the chest. CT of the chest showed no PE, there was noted the presence of a 6.5 cm spiculated left lower lobe lung mass which had been present on previous imaging studies and the patient was being worked up for this as an outpatient. Patient was placed in observation status on PCU, serial enzymes were cycled and these remained normal. On 07/10/2019, patient underwent a nuclear exercise stress test that was negative for reversible ischemia. On 07/10/2019, patient was seen and examined: On examination he appeared in good health and spirits. Vital signs as documented. Skin warm and dry and without overt rashes. Neck without JVD. Lungs clear. Heart exam notable for regular rhythm, normal sounds and absence of murmurs, rubs or gallops. Abdomen unremarkable and without evidence of organomegaly, masses, or abdominal aortic enlargement. Extremities nonedematous. Neuro: Cranial nerves II through XII are grossly intact, no focal motor deficits were noted, sensation to light touch and pinprick intact. Psych: Patient is alert and oriented x3, he does not appear anxious or depressed On 07/10/2019, patient was seen and examined and felt to be in stable condition for discharge home - Physical Exam Vitals/I&O's: Vital Signs Temp Pulse Resp BP Pulse Ox 98.6 F 60 16 129/76 H 98 07/10/19 11:56 07/10/19 11:56 07/10/19 11:56 07/10/19 11:56 07/10/19 11:56 Oxygen Delivery Method Room Air Weight: 73.6 kg Body Mass Index (BMI) 22.6 Discharge Activity: Return to Normal Activity Weight Bearing Status: Full weight bearing Home Medications: Medications to take at Discharge NK 07/09/19 Primary Care Physician: Care Physician,No Primary [Primary Care Provider] - Please Follow Up With: Mateus Velarde DO When: as soon as possible Disposition: Home Minutes spent on discharge:: 30 Patient Condition:: Stable Medical Necessity - Tobacco Use Smoking Status: Current every day smoker Tobacco Use: Cigarettes Meaningful Use Info Meaningful Use Diagnoses (Choose all that apply): None applicable Code Visit OBSV E&M: 96147 Observation care discharge
== END 2019-07-10 12:12 | disposition home or self-care (01) ==
LOC: ED 10:31 → PCU 13:39
PROVIDERS: Admitting Provider Internal Medicine; Emergency Provider Emergency Medicine; Referring Provider Internal Medicine; Visit Provider Internal Medicine
DX: R07.89 Other chest pain (principal); R22.2 Localized swelling, mass and lump, trunk; R00.1 Bradycardia, unspecified; F17.210 Nicotine dependence, cigarettes, uncomplicated
CPT/HCPCS: 36415; 71045; 71275; 78452; 80048; 84484; 85025; 93005; 93017; 96361; 96372; 96374; 96375; 99218; 99285; 99406; A9500; Q9967; A4216; G0378

== ENCOUNTER → 2019-07-18 08:58 | Outpatient (CLI) | payer BC, MEDICAID, SELFPAY ==
[2019-07-15 09:05] VITALS: BMI 22.6
[2019-07-18] VITALS (11 sets, daily range): BP systolic 109–127; BP diastolic 72–94; PULSE 63–79; RESP 11–23; TEMP 36.6; O2SAT 93–99; BMI 22.6
--- NOTE | 2019-07-18 | ASPIGT_PTH ---
PATIENT: LÁZARO MIMS LOC: CT U#:[id number] AGE/SX: 59/M ROOM: RE07/18/[address]: CRISTINA De Los Santos : 1965 BED: DIS: SPEC #: [id number] RECD: 07/18/19 13:00 STATUS: PAIGE TOLLIVER #: [id number] NOE: 07/18/19 00:[address]: Sulma Yoon NP DEPT: SURGICAL PATHOLOGY RECD BY: Randy Duran ENTERED: 07/18/19 13:01 SP TYPE: ASP RAD OTHR DR: No Primary Care Phys Tissues: Lung, NOS Procedures: FNA Specimen Adequacy Special Stain Group II Surgery Specimen Level IV Imprint (control) HEADER OPERATION: CT-guided left lung biopsy PRE-OP DIAGNOSIS: Left lung mass TISSUE SUBMITTED: Left lung mass 10 gauge MICROSCOPIC DIAGNOSIS Left lung mass, CT-guided needle core biopsy: Non-small cell carcinoma, adenocarcinoma. See comment. AM:analy 07/21/19 COMMENT The specimen is evaluated at the time of biopsy by Dr. Su. Immediate Evaluation = Malignant cells present derived from non-small cell carcinoma. Immunohistochemistry ([id number]) supports the lung primary. Clinical correlation is suggested. MICROSCOPIC DESCRIPTION Slides are reviewed. GROSS DESCRIPTION Received in fixative is one container labeled with the patient's name and designated left lung biopsy. The specimen consists of multiple irregular fragments of light key soft tissue that in aggregate measure 2 x 0.1 x <0.1 cm. The specimen is totally submitted in one cassette. One touch imprint is prepared at the time of core biopsy. / SJ:analy 07/18/19 TC:0 [facility]: [id number], [id number] ADDENDUM ADDENDUM ADDENDUM ADDENDUM ADDENDUM ADDENDUM 02/16/2020 11:06 ADDENDUM 02/16/2020 11:06 ADDENDUM 02/16/2020 11:06 ADDENDUM 02/16/2020 11:06 ADDENDUM 02/16/2020 11:06 PD-L1 (KEYTRUDA) IMMUNOHISTOCHEMICAL ANALYSIS FROM [facility] RESULTS: Tumor proportion score: 80% / Positive Please see complete report in e-chart or EMR
--- NOTE | 2019-07-18 | IMM_PTH ---
PATIENT: LÁZARO MIMS LOC: CT U#:[id number] AGE/SX: 59/M ROOM: RE07/18/[address]: CRISTINA De Los Santos : 1965 BED: DIS: SPEC #: [id number] RECD: 07/21/19 14:04 STATUS: SCOTTAnai REMarybeth #: [id number] NOE: 07/18/19 00:[address]: Sulma Yoon NP DEPT: IMMUNOHISTOCHEMISTRY RECD BY: hTalia Benson ENTERED: 07/21/19 14:06 SP TYPE: IMMUNO OTHR DR: No Primary Care Phys Tissues: Lung, NOS Procedures: Synapto (add) RCC (add) Thyroglobulin (add) NAPSIN A (add) Liam Ret (add) CD56 (add) CHROMO (add) CK20 (add) CK5-6 (add) CK7 (add) PIERSON-2 (add) HEP PAR (add) P53 (add) TTF1 (add) Pankeratin (initial) P40 (add) CD44 (add) PSAP (add) NSE (add) S-100 (add) PHYSICIAN & INSTITUTION [place] [id number] SPECIMEN INFORMATION: Tissue Source: Left lung mass Clinical Info: Left lung mass Specimen Number: [id number] CPT code: 64553, 24553 x19 METHODOLOGY: Deparaffinized sections of prefer/formalin-fixed tissue or PAP/DQ stained slides are incubated with monoclonal/polyclonal antibodies/oligonucleotide probes. Localization is made via biotin free immunoperoxidase method. Appropriate controls are performed and reacted as expected. Results on target cell population are indicated in the following table: RESULTS: ANTIBODY / CLONE RESULT AE1-3 (AE1/AE3/PCK26) positive CK7 (OV-TL12/30) positive CK20 (KS20.8) negative PIERSON-2 (SP21) positive S-100 (4C4.9) negative CD56 (123C3.D5) negative Chromo (LK2H10) negative Synapto (polyclonal) negative NSE Neuron Specific Enolase positive, focal TTF-1 (8G7G3/1) positive Napsin A (Rabbit Polyclonal) positive HepPar (OCh1E5) negative RCC (PN-15) negative PSAP (PASE/4LJ) negative Thyro (2H11+6E1) negative CALRET (polyclonal) negative anti-CD44 (SP37) negative CK5-6 (D5 & 1684) negative P40 (BC28) negative P53 (DO-7) positive, 3% These tests were developed and their performance characteristics determined by [facility]. They may not have been cleared or approved by the U.S. Food and Drug Administration. The FDA has determined that such clearance or approval is not necessary. The above immunohistochemical/dualISH markers are ordered and reviewed by the Pathologist. INTERPRETATION: Left lung, CT-guided biopsy: Consistent with adenocarcinoma of lung origin. AM:analy 07/22/19
--- NOTE | 2019-07-18 09:30 | CT_ITS ---
PROCEDURE: CT GUIDED CORE NEEDLE BIOPSY OF A left lower lobe LUNG LESION INDICATION: Male, 53 years old. LEFT LUNG BX PHYSICIAN: Dr. Val Alvarez CONSENT: Written informed consent was obtained having explained the risks, benefits and alternatives in detail with the patient who accepted the risks and agreed to proceed. Laboratory review and clinical assessment was performed. CONSCIOUS SEDATION PROTOCOL: The Drugs used were: 2 mg Versed, IV., and 50 mcg Fentanyl, IV. The sedation time was: 12 minutes. Conscious sedation was started at 10:09 AM and terminated at 10:21 AM. The conscious sedation protocol was independently monitored. RADIATION DOSAGE (If Supplied By Facility): CTDIvol = ( 14.5 ) mGy, DLP = ( 150.53 ) mGycm Individualized dose optimization techniques were used for this CT. TECHNIQUE: The patient was placed in the pleural position. A noncontrast CT was performed to localize the lesion in the left lower lobe . The skin surface was prepped and draped in a sterile fashion. 1% lidocaine was used for local anesthesia. Using CT guidance, a 20-gauge coaxial biopsy device was advanced to the periphery of the lesion. A total of 3 core specimens were obtained. The specimens were placed in a formalin solution. A post procedure CT demonstrated no adverse sequelae or pneumothorax. The patient tolerated the procedure well without adverse event. A negative biopsy does not exclude malignancy. Further imaging or clinical followup based on patient condition and degree of clinical suspicion for malignancy. Suggest rebiopsy, if biopsy results do not match with clinical scenario. CT/Biopsy/Inj or Needle Placement IMPRESSION: 1. CT directed core needle biopsy of the left lower lobe pulmonary nodule using CT image guidance with image documentation as described. Pathology results are pending. 2. Conscious Sedation protocol utilized with independent monitoring. Electronically Signed: Andrzej Neal, at 10:39 EST , Service support ,
[2019-07-18] MEDS: Midazolam 2 MG/2 ML Syringe IV (10:09)
[2019-07-18] MEDS: fentaNYL 100 MCG/2 ML Ampul IV (10:11)
--- NOTE | 2019-07-18 10:15 | RAD_ITS ---
STUDY: X-RAY CHEST REASON FOR EXAM: Male, 53 years old. Shortness of breath after lung biopsy TECHNIQUE: Respiratory and x-ray views were performed after lung biopsy COMPARISON: Earlier today FINDINGS: There is respiratory and axial belkis views were performed after left lung biopsy. No clear evidence of postbiopsy pneumothorax noted. There is no mediastinal shift. Stable appearance of the 5 cm mass in the left lower lobe. There is no demonstrated pleural abnormality. Normal size heart. Normal mediastinum and katerina. Normal visualized pulmonary arteries. Normal visualized aortic arch and descending thoracic aorta. Normal visualized thoracic spine. Normal visualized ribs, clavicles, and shoulders. There is no demonstrated abnormality of the visualized soft tissue structures of the upper abdomen. RAD/Chest Insp/Exp 2 View IMPRESSION: No demonstrated post biopsy pneumothorax Electronically Signed: Acosta Salas MD at 12:42 EST , Service support ,
--- NOTE | 2019-07-18 10:30 | RAD_ITS ---
STUDY: X-RAY CHEST REASON FOR EXAM: Male, 53 years old. IMMEDIATE POST LUNG BIOPSY IN AND EX AP CXR. TECHNIQUE: AP inspiration expiration views. COMPARISON: Comparison is made with prior chest radiograph dated July 05, 2019. FINDINGS: The patient is status post left lung biopsy. No evidence of pneumothorax on the immediate post left lung biopsy radiograph. RAD/Chest Insp/Exp 2 View IMPRESSION: No evidence of pneumothorax on the immediate post left lung biopsy radiograph. Electronically Signed: Andrzej Neal, at 14:08 EST , Service support ,
== END ==
PROVIDERS: Referring Provider Nurse Practitioner Acute Care; Visit Provider Nurse Practitioner Acute Care
DX: C34.32 Malignant neoplasm of lower lobe, left bronchus or lung (principal)
CPT/HCPCS: 32405; 71046; 77012; 88172; 88305; 88313; 88341; 88342; 99156; J7040; A4216

== ENCOUNTER → 2019-07-30 12:22 | Outpatient (CLI) | payer BC, SELFPAY ==
[2019-07-23 14:32] VITALS: BMI 22.6
[2019-07-29 08:37] VITALS: BMI 23.4
--- NOTE | 2019-07-31 05:53 | PFTCOMP_ITS ---
COMPLETE PULMONARY FUNCTION TEST INTERPRETATION Brief HPI: Patient is a 53 year old male, currently under the care of Sulma Yoon, who presents to [facility] for complete pulmonary function tests secondary to diagnosis of COPD. Respiratory therapist reports good effort and reproducible results. Interpretation: Forced expiration spirometry shows no large airways obstructive ventilatory defect with an FEV1 of 103% predicted. There is no significant bronchodilator response by strict ATS criteria. Spirograms are of good quality and plateau slowly, indicating slowly emptying areas of the lungs. The respiratory flow volume loop shows decreased expiratory flow rates at high lung volumes consistent with small airways obstruction. Lung volumes by body plethysmography show a normal total lung capacity at 7.67 L, 110% predicted. All other lung volumes are within normal limits. Diffusion capacity by carbon monoxide is normal at 89% predicted. The airway resistance is normal. No previous pulmonary function tests were available for review. Impression: These pulmonary function tests are grossly within normal limits. However, there is stigmata consistent with small airways disease
== END ==
PROVIDERS: Referring Provider Nurse Practitioner Acute Care; Visit Provider Nurse Practitioner Acute Care
DX: R06.02 Shortness of breath (principal)
CPT/HCPCS: 94060; 94726; 94729

== ENCOUNTER → 2019-08-07 12:05 | Outpatient (CLI) | payer BC, SELFPAY ==
[2019-07-29 08:37] VITALS: BMI 23.4
--- NOTE | 2019-08-07 12:07 | MRI_ITS ---
STUDY: MRI BRAIN WITH AND WITHOUT CONTRAST REASON FOR EXAM: Male, 53 years old. staging lung ca, no neuro symptoms TECHNIQUE: Standardized multiplanar fat and water weighted pulse sequences were obtained. IV Yes YES was administered for the contrast portion of the examination. COMPARISON: CTA of the chest dated July 09, 2019. PET/CT scan dated August 04, 2019. FINDINGS: Small 8.1 mm rounded subcutaneous nodule seen at the periphery of the mandible and mid right facial region. Normal size of the ventricles and extra-axial spaces for the patient''s age. Normal white matter tracts of the supratentorial brain. There is no evidence for recent intracranial ischemia or other cause of cytotoxic edema on diffusion weighted imaging (DWI). Normal T2* images of the brain without demonstrated susceptibility artifact. There is no demonstrated hemosiderin stain. Normal bilateral basal ganglia. Normal thalami. There is no extra-axial fluid accumulation. Normal flow voids within the major intracranial circulation suggesting patency by spin echo criteria. Normal venous enhancement. There is no enhancing intra-axial or extra-axial abnormality. No ring-enhancing lesions are seen. No demonstrated dural or meningeal enhancement. Normal sella turcica, pituitary gland, infundibular stalk, optic chiasm and hypothalamus. Normal tectal plate and pineal gland. Normal midbrain, glory and medulla. Normal cerebellum. Normal basal cisterns. Normal bilateral temporal bones. Normal bilateral internal auditory canals. Asymmetric blood flow signal seen in the portion of jugular vein within the jugular foramen versus slight dehiscence on the right which is nonpathologic. No demonstrated orbital abnormality, within the constraints of a routine brain study. Mild mucosal thickening is present in the frontal sinuses. Mild opacification of the right anterior ethmoid air cells also noted. Normal calvarium and skull base. Normal visualized soft tissue structures. MRI/Brain W/WO Contrast IMPRESSION: 1. No demonstrated acute or significant intracranial process. 2. No focal lesions are present. 3. No edema is present. 4. No ring-enhancing lesions are seen. No demonstrated dural or meningeal enhancement. Electronically Signed: Jovani Ahumada MD at 15:36 EDT , Service support ,
--- NOTE | 2019-08-08 11:21 | PCM.PSN.6M ---
PSN 6 Minute Walk Test - Interpretation Interpretation: The patient ambulated 1282 feet over the course of 6 minutes beginning on room air without assistive devices or breaks. Pretesting oxygen saturation was noted to be 98% on room air. With ambulation, the viv oxygen saturation was 94%. There was no significant exertional oxygen desaturation. - Recommendations Recommendations: There is no indication for the use of supplemental oxygen at this time.
== END ==
PROVIDERS: Referring Provider Nurse Practitioner Acute Care; Visit Provider Nurse Practitioner Acute Care
DX: C34.32 Malignant neoplasm of lower lobe, left bronchus or lung (principal); R06.02 Shortness of breath
CPT/HCPCS: 70553; 94618; A9575

== ENCOUNTER 2019-08-15 06:51 | Day surgery (SDC) | payer MEDICAID, SELFPAY ==
[2019-08-13 09:30] VITALS: BMI 23.6
[2019-08-15 07:22] VITALS: BP 118/70; PULSE 70; RESP 14; TEMP 36.4; O2SAT 96; BMI 22.6
[2019-08-15] MEDS: Lactated Ringers 1,000 ML 100 ML IV (07:35)
--- NOTE | 2019-08-15 07:55 | HP.PCM_ITS ---
History of Present Illness Date of Admission: 08/15/19 The patient is a 53 year old M who has a known history of lung cancer. PET scan revealed illumination of the wall of the stomach. EGD was recommended to rule this out. Patient is having no abdominal pain or blood in stool at this time. Past Medical/Surgical History - Planned Operation Planned Operative Procedure/s: EGD Date of Operative Procedure: 08/15/19 Permit Signed: Yes S.O.S: No Is This Patient Having a Total Joint: No - Previous Hospitalizations/Surgeries HX Hospitalizations: No HX of Surgeries: CYST REMOVAL CHILD Any Problems With Anesthesia: No You/Your Family Experience Fever (Hyperthermia) With Anes: No Cholinesterase deficiency: No - Cardiovascular Hx Chest Pain within Last 2 months: No - 07/09/19 PAIN R SHOULDER R/O THROUGH ER Hx of Irregular Heartbeat and/or Afib: No Hx Heart Attack: No Hx Congestive Heart Failure: No Hx Rheumatic Fever: No Hx Hypertension: No Hx Internal Defibrillator: No Hx Pacemaker: No Hx Cardiac Catheterization: No Hx Cardiac Surgery/Stents/Etc.: No Hx Stress Test: Yes - 07/10/19 [facility] HX Edema: No Hx Pain in Legs when Walking/Leg Cramps: Yes - Respiratory Chronic Cough: No HX of Shortness of Breath: No Hoarseness: No Hx Chronic Obstructive Pulmonary Disease (COPD): No Hx Asthma: No Hx Emphysema: No Hx Sleep Apnea: No Hx Oxygen Use at Home: No Hx Respiratory Tract Infection/Cold (presently): No Do You Snore Loudly (louder than talking or can be heard): Yes Do You Often Feel Tired/ Fatigued/ Sleepy Dring Daytime?: No Has Anyone Observed You Stop Breathing During Sleep?: No Result (for STOP score): Negative Hx Smoking: Yes Smoking Status: Current every day smoker - Gastrointestinal Hx Gastroesophageal Reflux: No Hx Gastrointestinal Disorders: No Hx Gastrointestinal Bleed: No Hx Ulcer: No Hx Hiatal Hernia: No Difficulty Chewing/Swallowing: No Recent Onset of Swallowing Problems: No Special diet followed at home: No Hx Unplanned Weight Loss of 20#: No HX Unplanned Weight Gain of 20#: No - Neurological Hx Seizures: No HX Syncope/Blackout Spells/Unconsciousness: No Hx CVA/Stroke: No Hx Transient Ischemic Attacks (TIA): No Hx Multiple Sclerosis: No Hx Parkinson's Disease: No Hx Head/Neck Injury: No Hx Headaches: No Hx Back Injury/Pain: No Recent Onset of Speech Difficulty: No Restless Legs: No Does patient have nerve stimulator: No - Blood Disorder Hx Leukemia: No Bleeding Tendencies: No Hx Deep Vein Thrombosis: No Hx High Cholesterol: No Blood Transmitted Disease: No Hx Hepatitis: No Hx Cirrhosis: No Hx Anemia: No Hx Blood Disorders: No - Genitourinary Hx Renal Disease: No Hx Dialysis: No - Musculoskeletal Hx Arthritis: No Hx Rheumatoid Arthritis: No Hx Gout: No Recent Onset of an Orthopedic Problem: No - Endocrine Hx Diabetes: No Thyroid Disease: No Hx Steroid Therapy: No - Psycho/Social Hx Substance Use: No Hx Alcohol Use: No Hx Anxiety: No Hx Depression: Yes Mental Illness: No Hx Dementia: No - Miscellaneous Hx Cancer: Yes - LUNG Recent Exposure to Contagious Disease: No Active MRSA: No Hx of C-Diff: No Any Loose Teeth: No Additional information pertinent to anesthesia:: SMOKES 1 1/2 PPD FOR 35+ YRS Allergies No Known Allergies Allergy (Verified 08/14/19 09:32) Maternal Family History: Family History (Last Reviewed 08/13/19 @ 09:[address] Ozzy Knight MD) Mother Heart disease COPD (chronic obstructive pulmonary disease) Kidney disease Aunt Diabetes COPD, Renal Disease Paternal Family History: Family History (Last Reviewed 08/13/19 @ 09:[address] Ozzy Knight MD) Mother Heart disease COPD (chronic obstructive pulmonary disease) Kidney disease Aunt Diabetes Unknown Sibling Family History: Family History (Last Reviewed 08/13/19 @ 09:[address] Ozzy Knight MD) Mother Heart disease COPD (chronic obstructive pulmonary disease) Kidney disease Aunt Diabetes Cancer - Discharge Is Pt Admitted From a [place] [facility], or a Jail: No Who Could Help: GIRLFRIEND After D/C, Where Do you Plan to Go: Return Home - Physical Exam Vitals/I&O's: Vital Signs Temp Pulse Resp BP Pulse Ox 97.6 F L 70 14 118/70 96 08/15/19 07:22 08/15/19 07:22 08/15/19 07:22 08/15/19 07:22 08/15/19 07:22 Oxygen Delivery Method Room Air Weight: 162 lb Body Mass Index (BMI) 22.6 General: Alert, Oriented x3 Neck: No JVD Lungs: Normal air movement Cardiovascular: Regular rate, Regular Rhythm Abdomen: Soft, Non Tender, Non-Distended Current Medications Lactated Ringer's () 1,000 mls @ 100 mls/hr IV .Q10H MACY Last Admin: 08/15/19 07:35 Dose: 100 mls/hr Documented by: Assessment/Plan All Active Problems (Last Reviewed 08/12/19 @ 14:08 by Anita Chopra) Shortness of breath (Acute) Adenocarcinoma of lung (Acute) Mediastinal lymphadenopathy (Acute) Chest pain (Acute) Mass of left lung (Acute) The patient had a PET scan which did show activity in the stomach which was rated as abnormal. Oncology would like an EGD to rule out stomach malignancy. I explained endoscopy in detail to the patient. I explained the risks including but not limited to stroke or heart attack with anesthesia, perforation of the GI tract, bleeding, infection. I explained that any of these could necessitate further emergency surgery. The patient understands and all questions were answered sufficiently. The patient wishes to proceed with procedure. On 07/29/2019 the [place] Department of Health ([facility]) Public Order signed by [facility] Director Sydni Meyer M.D., regarding the Management of Non-Essential Surgeries and Procedures for the purpose of preserving Personal Protective Equipment (PPE) and critical hospital capacity and resources within [place] went into effect as of 07/30/2019 at 5:00PM. According to the [facility] Public Order: This action will remain in full force and effect until the State of Emergency declared by the Governor no longer exists or the Director of the [facility] rescinds or modifies this Order. This [facility] order stated all non-essential or elective surgeries and procedures that utilize PPE should be delayed unless there is undue risk to the current or future health of a patient. After reviewing the aforementioned [facility] Public Order and the patients clinical case, I have determined that the scheduled procedure meets the criteria to go forward. Reason for performing procedure: There is a risk of metastasis or progression of staging. Ozzy Knight MD Pager: [facility] [address] [place] [address], [address] [place] [address] Office: Surgery Risks - Colonoscopy Risks Include but are not Limited To: Risks include but are not limited to: Bleeding, perforation requiring further surgery, inability to complete colonoscopy requiring barium enema.
--- NOTE | 2019-08-15 08:00 | GASB_PTH ---
PATIENT: LÁZARO MIMS LOC: EN U#:[id number] AGE/SX: 53/M ROOM: RE08/15/[address]: Dr. Ozzy Knight MD : 1965 BED: DIS: 08/15/2019 SPEC #: [id number] RECD: 08/15/19 08:39 STATUS: PAIGE UNRULY #: [id number] NOE: 08/15/19 08:[address]: Ozzy Knight DEPT: SURGICAL PATHOLOGY RECD BY: Randy Duran ENTERED: 08/15/19 10:29 SP TYPE: Gastric Bx OTHR DR: No Primary Care Phys Tissues: Gastric mucous membrane Procedures: Surgery Specimen Level IV HEADER OPERATION: EGD ([facility]) PRE-OP DIAGNOSIS: History lung CA; abnormal PET scan TISSUE SUBMITTED: Antrum biopsy for histo and H. pylori MICROSCOPIC DIAGNOSIS Antrum biopsy: Mild gastritis. See microscopic description and comment. SJ:analy 08/18/19 COMMENT The results of immunohistochemistry for Helicobacter pylori will be reported separately ([id number]). MICROSCOPIC DESCRIPTION Slides are reviewed. The specimen shows fragments of gastric mucosa with chronic inflammatory cell infiltrates in the lamina propria consisting of lymphocytes and plasma cells, consistent with mild chronic gastritis. GROSS DESCRIPTION Received in fixative is one container labeled with the patient's name and designated antrum biopsy. The specimen consists of multiple irregular fragments of light key soft tissue that in aggregate measure 0.8 x 0.2 x 0.1 cm. The specimen is totally submitted in one cassette. / SJ:rg 08/15/19 TC:3 CPT: 98316
--- NOTE | 2019-08-15 08:00 | IMM_PTH ---
PATIENT: LÁZARO MIMS LOC: EN U#:[id number] AGE/SX: 53/M ROOM: RE08/15/[address]: Dr. Ozzy Knight MD : 1965 BED: DIS: 08/15/2019 SPEC #: [id number] RECD: 08/15/19 10:35 STATUS: PAIGE REMarybeth #: [id number] NOE: 08/15/19 08:[address]: Ozzy Knight DEPT: IMMUNOHISTOCHEMISTRY RECD BY: Thalia Benson ENTERED: 08/15/19 10:35 SP TYPE: IMMUNO OTHR DR: No Primary Care Phys Tissues: Stomach, NOS Procedures: H Pylori (initial) PHYSICIAN & INSTITUTION [place] [address] SPECIMEN INFORMATION: Tissue Source: Antrum biopsy Clinical Info: History lung CA; abnormal PET scan Specimen Number: [id number] CPT code: 92729 METHODOLOGY: Deparaffinized sections of prefer/formalin-fixed tissue or PAP/DQ stained slides are incubated with monoclonal/polyclonal antibodies/oligonucleotide probes. Localization is made via biotin free immunoperoxidase method. Appropriate controls are performed and reacted as expected. Results on target cell population are indicated in the following table: RESULTS: ANTIBODY / CLONE RESULT H Pylori (polyclonal) negative These tests were developed and their performance characteristics determined by [facility]. They may not have been cleared or approved by the U.S. Food and Drug Administration. The FDA has determined that such clearance or approval is not necessary. INTERPRETATION: Antrum, biopsy: Negative for Helicobacter pylori organisms. SJ:analy 08/18/19
[2019-08-15 08:26] VITALS: BP 100/75; BP 118/70; PULSE 76; RESP 16; TEMP 36.5; O2SAT 95
[2019-08-15 08:31] VITALS: BP 118/70; BP 99/57; PULSE 75; RESP 16; O2SAT 94
[2019-08-15 08:36] VITALS: BP 118/70; BP 92/68; PULSE 74; RESP 16; O2SAT 95
[2019-08-15 08:41] VITALS: BP 118/70; BP 98/75; PULSE 76; RESP 16; TEMP 36.6; O2SAT 96
[2019-08-15 08:53] VITALS: BP 118/70
--- NOTE | 2019-08-27 09:16 | OP.CCLET_ITS ---
09/10/2019 No Primary Care Physician Re : Upper GI endoscopy procedure for Aravind Gill Dear Care Physician This procedure was performed on Thursday, August 15, 2019. My impressions and recommendations are as follows: Impressions : - Gastritis with hemorrhage. Biopsied. - Normal esophagus. - Normal examined duodenum. - No malignancy identified in stomach. Recommendations : - Discharge patient to home. - Resume previous diet. - Continue present medications. - Use Prilosec (omeprazole) 20 mg PO daily. My findings are described in the full procedure note, which is enclosed. If I can be of further assistance, please feel free to contact me at Doctor phone number(s): , Work: . Sincerely, Ozzy Knight MD 08/15/2019 8:23:42 AM This report has been signed electronically.
--- NOTE | 2019-08-27 09:16 | OP.EGD_ITS ---
Patient Name: Aravind Gill Procedure Date: 08/15/2019 7:44 AM Date of : 1965 Age: 53 Procedure: Upper GI endoscopy Indications: Abnormal PET scan of the GI tract Providers: Ozzy Knight MD Referring MD: Ozzy Knight MD Medicines: Monitored Anesthesia Care Patient Profile: This is a 53 year old male. Refer to note in patient chart for documentation of history and physical. Complications: No immediate complications. Estimated blood loss: Minimal. Procedure: Pre-Anesthesia Assessment: - Prior to the procedure, a History and Physical was performed, and patient medications and allergies were reviewed. The patient's tolerance of previous anesthesia was also reviewed. The risks and benefits of the procedure and the sedation options and risks were discussed with the patient. All questions were answered, and informed consent was obtained. Prior Anticoagulants: The patient has taken no previous anticoagulant or antiplatelet agents. After reviewing the risks and benefits, the patient was deemed in satisfactory condition to undergo the procedure. After obtaining informed consent, the endoscope was passed under direct vision. Throughout the procedure, the patient's blood pressure, pulse, and oxygen saturations were monitored continuously. The gastroscope was introduced through the mouth, and advanced to the second part of duodenum. The upper GI endoscopy was accomplished without difficulty. The patient tolerated the procedure well. Scope In: 8:14:03 AM Scope Out: 8:16:49 AM Total Procedure Duration Time 0 hours 2 minutes 46 seconds Findings: Scattered mild inflammation with hemorrhage was found in the prepyloric region of the stomach. Biopsies were taken with a cold forceps for histology. Biopsies were taken with a cold forceps for Helicobacter pylori testing. The examined esophagus was normal. The examined duodenum was normal. Stomach appeared normal with no malignancy identified Impression: - Gastritis with hemorrhage. Biopsied. - Normal esophagus. - Normal examined duodenum. - No malignancy identified in stomach. Recommendation: - Discharge patient to home. - Resume previous diet. - Continue present medications. - Use Prilosec (omeprazole) 20 mg PO daily. Procedure Code(s): --- Professional --- 05573, Esophagogastroduodenoscopy, flexible, transoral; with biopsy, single or multiple Diagnosis Code(s): --- Professional --- K29.71, Gastritis, unspecified, with bleeding R93.3, Abnormal findings on diagnostic imaging of other parts of digestive tract CPT copyright 2017 [employer]. All rights reserved. The codes documented in this report are preliminary and upon superintendent drilling review may be revised to meet current compliance requirements. Ozzy Knight MD 08/15/2019 8:23:42 AM This report has been signed electronically. Number of Addenda: 0 Note Initiated On: 08/15/2019 7:44 AM
== END 2019-08-15 08:54 | disposition home or self-care (01) ==
LOC: EN 06:54 → AC 06:54
PROVIDERS: Referring Provider Surgery; Visit Provider Surgery
PROC: 0DJ08ZZ Inspection of Upper Intestinal Tract, Via Natural or Artificial Opening Endoscopic (ICD-10-PCS; CPT 43235; principal; 2019-08-15 07:55)
DX: R93.3 Abnormal findings on diagnostic imaging of other parts of digestive tract (principal); K29.71 Gastritis, unspecified, with bleeding; Z85.118 Personal history of other malignant neoplasm of bronchus and lung; F17.200 Nicotine dependence, unspecified, uncomplicated; R59.0 Localized enlarged lymph nodes
CPT/HCPCS: 43239; 88305; 88342; J7120; J2405

== ENCOUNTER 2019-08-26 15:52 | Inpatient (IN) | payer MEDICAID, SELFPAY ==
[2019-08-26] VITALS (25 sets, daily range): BP systolic 100–129; BP diastolic 72–91; PULSE 79–98; RESP 11–23; TEMP 36.6–36.8; O2SAT 93–100; BMI 22.6; BMI 23.0; BMI 23.3; BMI 23.4
--- NOTE | 2019-08-26 16:04 | EKG12_ITS ---
Test Reason : STEMI Blood Pressure : / mmHG Vent. Rate : 085 BPM Atrial Rate : 085 BPM P-R Int : 160 ms QRS Dur : 088 ms QT Int : 418 ms P-R-T Axes : 049 048 115 degrees QTc Int : 497 ms Normal sinus rhythm Septal infarct , age undetermined T wave abnormality, consider anterolateral ischemia Abnormal ECG When compared with ECG of 26-AUG-2019 16:02, MANUAL COMPARISON REQUIRED, DATA IS UNCONFIRMED Confirmed by EDGARD CAGE ([id number]), pictures editor VANESSA ESQUEDA ([id number]) on 08/28/2019 10:35:36 AM Referred By: Edgard Cage Confirmed By:EDGARD CAGE
--- NOTE | 2019-08-26 16:06 | RAD_ITS ---
STUDY: X-RAY CHEST REASON FOR EXAM: Male, 53 years old. Chest pain. STEMI. TECHNIQUE: Single AP portable view of the chest. COMPARISON: PET/CT scan, August 04, 2019. Chest, July 18, 2019. FINDINGS: Telemetry wires overlie the chest. The lungs are expanded. There is a partially ill-defined 6.9 x 5 cm mass adjacent to the left hilum which correlates with the lower lobe mass seen on the PET/CT scan. Lungs are otherwise clear. There is no demonstrated pleural abnormality. Normal size heart. Normal mediastinum and katerina. Normal visualized pulmonary arteries. Normal visualized aortic arch and descending thoracic aorta. The thoracic spine is obscured by the mediastinum. There is degenerative osteoarthritis of the bilateral shoulders. There is no demonstrated abnormality of the visualized soft tissue structures of the upper abdomen. RAD/Chest 1 View (Portable) IMPRESSION: Left lower lobe mass. This appears essentially unchanged in size when compared to the PET scan and slightly decreased in size from prior chest film. Electronically Signed: Charlie De Guzman DO at 16:25 EDT Tel [phone], Service support ,
[2019-08-26] MEDS: TICAGRELOR 90 MG TABLET 180 MG PO (16:10)
[2019-08-26] MEDS: Aspirin 81 MG TAB.CHEW 324 MG PO (16:11)
[2019-08-26] MEDS: Heparin Injection (Vial) 5,000 UNIT/ML VIAL 4000 UNIT IV (16:14)
[2019-08-26] MEDS: 0.9% Normal Saline 1,000 ML 150 ML IV (16:23)
--- NOTE | 2019-08-26 16:30 | PCM.HP.STD ---
<Dory Crain - Last Filed: 08/26/19 17:05> Problem List (1) GERD (gastroesophageal reflux disease) Status: Chronic (2) Tobacco abuse Status: Chronic (3) Adenocarcinoma of lung Status: Chronic (4) Mediastinal lymphadenopathy Status: Chronic History of Present Illness Date of Admission: 08/26/19 Chief Complaint: Chest pain. The patient is a 53 year old M who presents to the emergency room due to chest pain. Patient reports intermittent chest pain over the past few days. Patient describes pressure in the center of his chest which radiates to his right chest and axillary region and down his right arm to elbow. He denies shortness of breath, dizziness, lightheadedness, palpitations. He reports associated diaphoresis and jitters. Hand tremors during exam. Patient states he has actually had this over the past month or so however worsened over the past few days. Denies history of heart disease. Patient was recently diagnosed with non-small cell lung cancer. He is not yet undergone treatment. Patient had normal stress test July 10, 2019. His other past medical history includes GERD and tobacco dependence. Past Medical History Past Medical History (Chronic Problems): Chronic Problems (Last Updated 08/26/19 @ 16:[address] Praveen Torres MD) GERD (gastroesophageal reflux disease) (Chronic) Tobacco abuse (Chronic) Adenocarcinoma of lung (Chronic) Mediastinal lymphadenopathy (Chronic) Medical History: Medical History (Last Updated 08/26/19 @ 16:[address] Praveen Torres MD) Adenocarcinoma of lung (Chronic) C34.90 Mediastinal lymphadenopathy (Chronic) R59.0 Allergies No Known Allergies Allergy (Verified 08/26/19 16:01) Home Medications: Ambulatory Orders Medication Instructions Recorded Omeprazole 20 mg PO DAILY #60 tablet. 08/15/19 Mirtazapine [Remeron] 15 mg PO QHS 30 Days #30 tab 08/26/19 Surgical History: - - CT-guided biopsy left lower lobe Psychiatric History: No pertinent psych hx Lives: Spouse/ Significant Other Smoking Status: Current every day smoker Alcohol: None Drugs: None - *Family History Maternal Family History: Family History (Last Reviewed 08/26/19 @ 16:38 by Dory Crain NP-C) Mother Heart disease COPD (chronic obstructive pulmonary disease) Kidney disease Aunt Diabetes History Items: COPD, Renal Disease Paternal Family History: Family History (Last Reviewed 08/26/19 @ 16:38 by CRISTINA Johnson) Mother Heart disease COPD (chronic obstructive pulmonary disease) Kidney disease Aunt Diabetes History Items: - - Denies known paternal medical history including cardiac history Sibling Family History: Family History (Last Reviewed 08/26/19 @ 16:38 by CRISTINA Johnson) Mother Heart disease COPD (chronic obstructive pulmonary disease) Kidney disease Aunt Diabetes History Items: Cancer Review of Systems Constitutional: Reports: - - Diaphoresis and tremors intermittently associated with chest pain. Denies: Chills, Fever, Weight Change HEENT: Denies: Head Aches, Sinus Congestion, Sinus Drainage Cardiovascular: Reports: Chest Pain. Denies: Edema, Light Headedness, Palpitations, Syncope Respiratory: Denies: Cough, Shortness of breath at rest, Sputum production Gastrointestinal: Denies: Abdominal Pain, Nausea, Vomiting Genitourinary: Denies: Dysuria Musculoskeletal: Denies: Joint Pain, Joint Tenderness Skin: Denies: Rash, Wounds Neurological: Denies: Numbness, Tingling, Focal weakness Psychiatric: Denies: Anxiety, Depression, Homicidal Ideations, Suicidal Ideations Hematologic/ Lymphatic: Denies: Easy Bruising, Easy Bleeding VTE Information - Inpt Only VTE Present on Admission: No VTE Mechan Device Prophylaxis: None VTE Pharm Prophylaxis ordered?: Yes - Physical Exam Vitals/I&O's: Vital Signs Temp Pulse Resp BP Pulse Ox 98.2 F 96 16 119/91 H 99 08/26/19 16:18 08/26/19 16:18 08/26/19 16:18 08/26/19 16:18 08/26/19 16:18 Oxygen Flow Rate (L/min) 2 Oxygen Delivery Method Nasal Cannula Weight: 164 lb 14.492 oz Body Mass Index (BMI) 23.0 General: Alert, Oriented x3, Cooperative, - - Appears anxious, upper extremity tremors HEENT: Atraumatic, PERRLA, EOMI, Normocephalic Oral: Dry Mucosa Neck: Supple, No JVD, Negative Carotid Bruits Lungs: Clear to auscultation, Diminished Cardiovascular: Regular rate, Regular Rhythm, Normal S1, Normal S2, No murmurs Abdomen: Bowel Sounds Present, Soft, Non Tender, Non-Distended Extremities: No clubbing, No cyanosis, No edema, Capillary Refill Less than 3 Seconds Skin: No rashes, No breakdown Musculoskeletal: No Tenderness to Palpation of Joints or Extremities Neurological: Cranial nerves II-XII grossly intact, Neuro grossly intact Psych/Mental Status: Anxious Laboratory Results 08/26/19 16:19: WBC Pending, RBC Pending, Hgb Pending, Hct Pending, MCV Pending, MCH Pending, MCHC Pending, RDW Std Deviation Pending, RDW Coeff of Isaiah Pending, Plt Count Pending, Neut % (Auto) Pending, Absolute Neuts (auto) Pending 08/26/19 16:19: PT Pending, INR Pending, APTT Pending 08/26/19 16:19: Sodium Pending, Potassium Pending, Chloride Pending, Carbon Dioxide Pending, Anion Gap Pending, BUN Pending, Creatinine Pending, Est GFR (MDRD) Af Amer Pending, Est GFR (MDRD) Non-Af Pending, BUN/Creatinine Ratio Pending, Glucose Pending, Calcium Pending, Troponin I Pending Current Medications Sodium Chloride () 1,000 mls @ 150 mls/hr IV .Q6H40M [facility] Last Admin: 08/26/19 16:23 Dose: 150 mls/hr Documented by: Assessment/Plan 1. STEMI- EKG with anterior ST elevation. Trop, BMP pending. Cath pending. Patient received asa Brilinta X1. Management per cardiology. 2. Non-small cell lung cancer- following with Dr. Ramachandran. Referred for thoracic surgery which was planned for the near future. 3. Tobacco dependence- encouraged cessation. 4. GERD- continue PPI. 5. Suspected COPD- following with Dr. Velarde, pulmonary medicine. Has not yet undergone PFTs. Continue outpatient follow-up. DVT prophylaxis- Lovenox sc This patient was seen by TINA JohnsonC under the supervision of Dr. Torres. <Praveen Torres - Last Filed: 08/26/19 17:42> History of Present Illness The patient is a 53 year old M [] Past Medical History Medical History: Medical History (Last Updated 08/26/19 @ 16:[address] Praveen Torres MD) Adenocarcinoma of lung (Chronic) C34.90 Mediastinal lymphadenopathy (Chronic) R59.0 Allergies No Known Allergies Allergy (Verified 08/26/19 16:01) - *Family History Maternal Family History: Family History (Last Reviewed 08/26/19 @ 16:38 by CRISTINA Johnson) Mother Heart disease COPD (chronic obstructive pulmonary disease) Kidney disease Aunt Diabetes Paternal Family History: Family History (Last Reviewed 08/26/19 @ 16:38 by CRISTINA Johnson) Mother Heart disease COPD (chronic obstructive pulmonary disease) Kidney disease Aunt Diabetes Sibling Family History: Family History (Last Reviewed 08/26/19 @ 16:38 by CRISTINA Johnson) Mother Heart disease COPD (chronic obstructive pulmonary disease) Kidney disease Aunt Diabetes - Physical Exam Vitals/I&O's: Vital Signs Temp Pulse Resp BP Pulse Ox 98.2 F 96 16 119/91 H 99 08/26/19 16:18 08/26/19 16:18 08/26/19 16:18 08/26/19 16:18 08/26/19 16:18 Oxygen Flow Rate (L/min) 2 Oxygen Delivery Method Nasal Cannula Weight: 164 lb 14.492 oz Body Mass Index (BMI) 23.0 Laboratory Results 08/26/19 16:19: WBC 12.2 H, RBC 5.05, Hgb 15.5, Hct 46.0, MCV 91.1, MCH 30.7, MCHC 33.7, RDW Std Deviation 42.0, RDW Coeff of Isaiah 12.7, Plt Count 267, MPV 9.0, Immature Gran % (Auto) 0.300, Neut % (Auto) 55.4, Lymph % (Auto) 31.8, Perkins % (Auto) 8.3, Eos % (Auto) 3.5, Baso % (Auto) 0.7, Absolute Neuts (auto) 6.8, Absolute Lymphs (auto) 3.89, Nucleated RBC % 0 08/26/19 16:19: PT 14.9, INR 1.2, APTT > 250.0 H* 08/26/19 16:19: Sodium 138, Potassium 3.5, Chloride 105, Carbon Dioxide 28.0, Anion Gap 5, BUN 17, Creatinine 0.94, Estim Creat Clear Calc 93.94, Est GFR (MDRD) Af Amer 107, Est GFR (MDRD) Non-Af 89, BUN/Creatinine Ratio 18.1, Glucose 111 H, Calcium 9.1, Troponin I 7.380 H* Current Medications Sodium Chloride () 1,000 mls @ 150 mls/hr IV .Q6H40M [facility] Last Admin: 08/26/19 16:23 Dose: 150 mls/hr Documented by: Assessment/Plan Hospitalist note: I am seeing this patient in conjunction with Dory Crain. I independently seen and examined the patient. History and physical, laboratory data and imaging studies reviewed and I concur with the above admission and treatment plan. Patient was referred to the emergency department by his oncologist for chest pain after he had virtual visit. Chest pain started 2 days ago, intermittent, pressure-like pain, 5-6 out of 10 in severity, radiates to the right side of his chest, associated with diaphoresis and hand tremors. He denied associated shortness of breath, palpitation, syncope or presyncope. STEMI alert was called to the emergency department because patient was found to have ST elevation in leads V2 and V3 which was more prominent in V3 as well as deep ST depression in leads V4, V5 and V6. His troponin was elevated at 7.3. Patient was taken for emergent cardiac catheterization, found to have proximal LAD disease, status post PTCA/ACOSTA to proximal LAD. He is being admitted for acute ST elevation AL status post emergent cardiac catheterization. - Physical Exam General: Alert, Oriented x3, Cooperative, No apparent distress. HEENT: Atraumatic, PERRLA, EOMI. Neck: Supple, No JVD, Negative Carotid Bruits, Trachea Midline, Thyroid Normal. Lungs: Clear to auscultation, Normal air movement, No rhonchi, No wheeze, No rales. Cardiovascular: Regular rate, Regular Rhythm, Normal S1, Normal S2, PMI Normal. Abdomen: Bowel Sounds Present, Soft, Non Tender, Non-Distended, No Hepato-splenomegaly. Extremities: No clubbing, No cyanosis, No edema Skin: No rashes, No breakdown Neurological: Cranial nerves are intact, neuro grossly intact Vital Signs are stable. Assessment and plan: #[address] elevation AL: Status post emergent cardiac catheterization, PTCA/ACOSTA to proximal LAD. Troponin was elevated. Routine blood work was remarkable for mild leukocytosis, otherwise normal. Chest x-ray showed left midlung mass consistent with recent diagnosis of lung cancer. Plan: Admit to ICU, critical care monitoring, complete bedrest, start aspirin daily, Brilinta twice daily, Coreg twice daily, statins, fasting lipid profile, 2D echocardiogram, repeat CBC and CMP tomorrow morning, IV fluids, Tylenol PRN, IV morphine PRN, urine drug screen, blood alcohol level. #2 other chronic medical problems: Stable, continue current medications as above. This note was generated with [employer] dictation software. It may contain incorrect words, spelling, and punctuation that were not noted in checking the note before signing. Inpatient E&M: 11908 Init Hosp L3
--- NOTE | 2019-08-26 16:34 | ED.DCSUM_ITS ---
- ER Visit Summary Date of Service: 08/26/19 Chief Complaint: Sternal and right-sided chest pain History of Present Illness: The patient is a 53 M recently diagnosed with lung cancer and history of reflux. Patient denies prior surgeries. For weeks may be months he has had right-sided chest pain. More recently to become sternal chest pain. States he had a negative stress test in June. He had a telemedicine visit today and there was concern to the chest pain so the same the ER for evaluation. Physical Examination: Middle-aged male vital signs are stable. Pulse ox 99% on 2 L. He does not look septic or toxic. He is having some mild midsternal and right-sided chest pain. HEENT exam unremarkable. Neck nontender no lymphadenopathy. Lungs clear to auscultation bilaterally. Heart regular rhythm rate about 90 no murmur. Chest wall nontender. Abdomen soft nontender. Extremities moves all 4. Calves are nontender without edema or cords. Equal symmetrical radial pulses. Neurologically is awake alert with no focal motor deficits. Test Results: Patient's EKG done shortly after arrival shows what looks like an acute anterior MD with ST elevation in leads V2, V3 and V4. With deep symmetrical T wave inversion in leads V4 5 and 6. This is changed from prior EKG from June. Portable chest x-ray 1 view read both by myself and the radiologist shows a left lower lung mass which she has known cancer no other acute abnormalities. Chemistries unremarkable. Troponin elevated 7.38 Emergency Department Course and Treatment: Patient has atypical chest pain symptoms. But his EKG appears to be either an acute or subacute MD. With Q waves anteriorly. I have already spoken interventional cardiology. Dr. Vernon Cage. Patient will be given p.o. aspirin, heparin bolus 4000 units and p.o. Brilinta. He was prepared for the [facility] and is being taken down there. Treatment Plan: To cardiac catheterization lab. Disposition: admission Impression: Acute anterior MD History left lower lobe lung cancer This note was generated with [employer] dictation software. It may contain incorrect words, spelling, and punctuation that were not noted in review of the chart prior to signing ED Disposition - Plan for ED Patient: Disposition: Acute Care [facility]
[2019-08-26 16:36] LABS: Absolute Lymphocyte Count 3.89 X10^3/uL (0.83-4.51); Absolute Neutrophil Count 6.8 X10^3/uL (2.0-7.7); Basophil# 0.08 X10^3/uL; Basophil% 0.7 % (0-1); Eosinophil# 0.43 X10^3/uL; Eosinophils% 3.5 % (0-5); Hemoglobin 15.5 g/dL (13.0-16.5); Lymphocyte # 3.89 X10^3/ul (4.0); Lymphocyte % 31.8 % (19-41); Mean Corp Hgb Conc 33.7 g/dL (32-36); Mean Corpuscular Hgb 30.7 pg (27.0-32.0); Mean Corpuscular Volume 91.1 fL (80-94); Monocyte# 1.01 X10^3/uL; Monocyte% 8.3 % (0-10); NRBC Flagged by Analyzer 0 % (0-5); Neutrophil # 6.77 X10^3/uL (2.7-7.7); Neutrophil % 55.4 % (47-70); Platelet Count 267 K/mm3 (150-450); RBC Distribution Width CV 12.7 % (11.6-14.6); Red Blood Count 5.05 M/mm3 (4.6-6.2); White Blood Count 12.2 K/mm3 (4.4-11.0)
[2019-08-26 16:47] LABS: International Normalized Ratio 1.2; Prothrombin Time (Protime)PT. 14.9 SECONDS (11.7-14.9)
[2019-08-26 17:05] LABS: Partial Thromboplast Time > 250.0 Seconds (24.1-36.2)
--- NOTE | 2019-08-26 17:11 | ED.RN ---
THIS NURSE CALLED CHINEDU PETIT AT [phone] AND INFORMED HER THAT PT WAS TAKEN TO [facility] AT 1640 AND WAS BEING PREPPED FOR PROCEDURE.
[2019-08-26 17:12] LABS: Anion Gap 5 (5-15); BUN 17 mg/dL (7-18); BUN/Creat Ratio 18.1 RATIO (10-20); Calcium,Total 9.1 mg/dL (8.5-10.1); Chloride 105 mmol/L (98-107); Creatinine, Serum 0.94 mg/dL (0.70-1.30); EST Glomerular Filtration Rate 89 mL/min (>60); Est Glom Filt Rate - Afr Amer 107 mL/min (>60); Estimated Creatinine Clearance 93.94 ml/min; Glucose 111 mg/dL (74-106); Potassium 3.5 mmol/L (3.5-5.1); Sodium Level 138 mmol/L (136-145)
--- NOTE | 2019-08-26 17:18 | ED.RN ---
CALLED AREN IN ICU AND GAVE THE PT'S FIANCE'S NAME & NUMBER, CHINEDU RAND [phone], SHE WOULD LIKE TO BE UPDATED ON PT'S CONDITION, AREN VERBALIZED ADEQUATE UNDERSTANDING.
--- NOTE | 2019-08-26 17:40 | ECHOD_ITS ---
Reason For Study: CAD/ASHD Procedure This was a 2D Doppler, Color Flow transthoracic echocardiogram. Exam performed portable in ICU/CCU. Left Ventricle Moderately dilated left ventricle. The estimated ejection fraction is 25 %. Stage 1 diastolic dysfunction. There are regional wall motion abnormalities as specified. Mid-Anterior : Akinetic. Mid-Lateral : Akinetic. Mid-anteroseptal : Akinetic. Anterior Warren : Akinetic. Right Ventricle Normal size and thickness. Normal systolic function. Atria Normal left atrium. Normal right atrium. Normal atrial septum. Mitral Valve The mitral valve is structurally normal. No prolapse or stenosis seen. Tricuspid Valve Normal tricuspid valve. Trivial tricuspid valve insufficiency. Right ventricular systolic pressure estimated to be 22 mmHg. Aortic Valve Trisinus/trileaflet aortic valve. Mild diffuse aortic valve thickening. Trivial aortic valve insufficiency. Pulmonic Valve Normal pulmonic valve. Great Vessels Normal aortic root. Normal arch. Normal inferior vena cava. Pericardium/Pleural No pericardial effusion. MMode/2D Measurements & Calculations LVIDd: 5.3 cm IVSd: 1.1 cm Ao root diam: 3.5 cm LVIDs: 4.4 cm LVPWd: 1.2 cm RVDd: 3.4 cm FS: 17.4 % LAV(MOD-bp): 61.7 ml EDV(MOD-sp4): 166.7 ml EDV(MOD-sp2): 134.2 ml LAV(MOD-bp) Indexed: 31.9 ml/m2 ESV(MOD-sp4): 115.0 ml EF(MOD-sp2): 35.2 % LAV(MOD-sp2): 60.8 ml EF(MOD-sp4): 31.0 % LAV(MOD-sp4): 54.9 ml SV(MOD-sp4): 51.6 ml SV(MOD-sp2): 47.2 ml LA A4 area: 18.4 cm2 LA dimension(2D): 4.0 cm RA A4 area: 14.2 cm2 Time Measurements MV dec time: 0.15 sec Doppler Measurements & Calculations MV E max lizandro: 75.8 cm/sec Lat Peak E' Lizandro: 12.2 cm/sec Med Peak E' Lizandro: 6.5 cm/sec MV A max lizandro: 84.8 cm/sec E/E' lat: 6.2 E/E' med: 11.6 MV E/A: 0.89 Ao V2 max: 97.5 cm/sec LV V1 max: 72.0 cm/sec PA V2 max: 82.5 cm/sec Ao max P.8 mmHg LV V1 max P.1 mmHg Ao V2 mean: 76.2 cm/sec LV V1 mean P.2 mmHg Ao mean P.5 mmHg LV V1 mean: 53.6 cm/sec Ao V2 VTI: 17.1 cm LV V1 VTI: 12.3 cm Interpretation Summary Moderately dilated left ventricle. The estimated ejection fraction is 25 %. There are regional wall motion abnormalities as specified. Trivial tricuspid valve insufficiency. Right ventricular systolic pressure estimated to be 22 mmHg. Stage 1 diastolic dysfunction. Trivial aortic valve insufficiency. There is no comparison study available. Ordering Physician: Olvin Cage Referring Physician: NO PCP Performed By: Smitha Babb RDCS, RVT
--- NOTE | 2019-08-26 17:49 | CL.I_ITS ---
Patient Name: LÁZARO MIMS Study Date: 08/26/2019 Performing: Olvin Cage MD Ht: 70.86 inches 180 cm : 1965 Wt: 165.35 lbs 75 kg Age: 53 Gender: male BSA: 1.94 PROCEDURE(S) PERFORMED OQ67-CKP/COR/LV KS13-UDX, ACOSTA AND/OR PTCA, ARTERY OR GRAFT, SINGLE VESSEL CLINICAL PROFILE AND CO-MORBIDITIES Patient presents with STEMI for emergent cardiac cath. Indications: ACS > 24 hrs, New Onset Angina <= 2 months, Suspected CAD, LV Dysfunction Heart Failure: NYHA Class: 1, Newly Diagnosed: Yes, Heart Failure Type: Systolic Stress/Imaging Stress/Image Study Performed: No Angina Classification Anginal Classification w/in 2 Weeks: CCS III CAD Presentations: Unstable angina. STEMI. Symptom onset Date/Time: 07/26/2019 Time Not Available Comorbidities/Risk Factors: Current/Recent Smoker (< 1year) Hypertension Dyslipidemia Chronic Lung Disease CONCLUSIONS Segmented LV systolic dysfunction- Severe LVEF: by LV gram 20 % Depressed Left Ventricular systolic function - Severe Elevated Left Ventricular End Diastolic Pressure Single vessel CAD of the LAD Successful PTCA/ACOSTA proximal LAD with a 3.0 x 24 Promus Synergy, post dilated throughout with a 3.5 x 8 NC Balloon; 75%-->0%, no dissection. Pt may have had previous occluded LAD recently with spontane ous reperfusion given severe anterior LV dysfuncition. RECOMMENDATIONS Referred for immediate PCI Highly recommend quitting all tobacco products Follow up with primary reptile keeper Risk factor modification ASA Indefinitley Plavix for at least 12 months Routine post interventional care Refer for Outpatient Cardiac Rehab Manual sheath removal per protocol Follow up with Dr. Cage Repeat echo in 3-4 months. Manual sheath removal as pt is too thin for closure. DESCRIPTION OF PROCEDURE The patient arrived to the procedure lab. The risks and benefits of the procedure as well as a full d escription of our services here and lack of surgical backup were fully explained to the patient and/o r their significant other prior to the catheterization. The Timeout was completed, verifying the leigh ann ect patient and procedure. The patient's procedural site was prepped and draped in the usual fashion. Local anesthetic was given subcutaneously to right groin region with Lidocaine 2%. Using a modified Seldinger technique, arterial access was obtained via the right femoral artery, a 6Fr sheath was inse rted.. Right Coronary Artery selective angiography was then performed in multiple views using a 4 Fr . 3DRC catheter. Left Coronary Artery selective angiography was performed in multiple views using a 6 Fr.. Left Ventriculography was performed in YUAN projection using a 4 Fr. Pigtail catheter. LV to AO pullback pressures were then recordedThe images were reviewed and options discussed. A decision was then made to proceed with an Intervention, IVUS or other adjunct procedure. ebu 3.5 Guide catheter was inserted and engaged into the LCA. runthrough Guide wire was advanced to the LAD. bmw Guide wire was advanced to the Diagonal. emerge 2.00 x 12 Balloon catheter was advanc ed across lesion in the LAD, proximal. PTCA balloon inflated at 8 atms for 12 secs. PTCA balloon infl ated at 6 atms for 11 secs. Angiogram performed post balloon dilatation. synergy 3.00x 24 Drug Elutin g stent was advanced across the lesion in the LAD, proximal. Angiogram performed post stent deploymen t. Balloon catheter was inserted post stent. Angiogram performed post stent deployment. nc emerge 3.5 x 8 Balloon catheter was inserted post stent. Angiogram performed post balloon dilatation. The art erial sheath was exchanged to upsize due to bleeding around the insertion site. The arterial sheath w as sutured in place and capped CORONARY ANGIOGRAPHY DOMINANCE: Right Dominant LEFT HEART ASSESSMENT Left Ventricular Ejection Fraction: by LV Gram 20 % LVEDP: 27 mmHg Elevated Left Ventricular End Diastolic Pressure Depressed Left Ventricular systolic function Anterior Hypokinesis - Severe LEFT MAIN: Angiographically normal LEFT ANTERIOR DESCENDING ARTERY: PROX LAD: 75 % Stenosis CIRCUMFLEX ARTERY: Non-obstructive RIGHT CORONARY ARTERY: Mild luminal irregularities less than 30% DISTAL RCA: Non-obstructive RT PDA: Proximal - No significant disease noted INTERVENTION INFORMATION LESION SITE: LAD (Proximal) Lesion Complexity: High/C, lesion at bifurcation: No, thrombus present: No, lesion length: 24 mm, cul prit lesion: Yes Pre Stenosis: 75 % Pre intervention ADRIÁN flow: 3 PROCEDURE: Drug Eluting Stent with pre and post dilatation Post Stenosis: 0 % Post intervention ADRIÁN flow: 3 Lesion Devices: Terumo .014 Runthrough Extra Floppy 180cm straight Adalberto Sci EMERGE MR 2.00x12 BALLOON Bassett .014 [employer] [place] Straight 190cm Converged Accesstronic 6 Fr EBU3.5 100cm Guide Catheter Adalberto Sci Synergy MR ACOSTA 3.00x24 Adalberto Sci NC EMERGE MR 3.50x08 BALLOON COMPLICATIONS No Complications PROCEDURE MEDICATIONS Oxygen: 2 L/min via nasal cannula Heparin 6000 unit(s) IV 08/26/2019 17:08:28 Nitro 200 mcg IC 08/26/2019 17:11:08 SUMMARY OF HEMODYNAMIC DATA Time AIR REST ECG 16:50:52 AO 107/67 (88) SA 17:04:24 LV 111/-5, 23 17:31:02 LV 112/-5, 27 17:31:09 LVp 109/-6, 27 17:31:19 AOp 110/66 (86) 17:31:24 Signed By Olvin Cage MD On 08/26/2019 17:48:25 Olvin Cage MD
--- NOTE | 2019-08-26 17:58 | EKG12_ITS ---
Test Reason : AM EKG Blood Pressure : / mmHG Vent. Rate : 092 BPM Atrial Rate : 092 BPM P-R Int : 148 ms QRS Dur : 098 ms QT Int : 418 ms P-R-T Axes : 037 010 089 degrees QTc Int : 516 ms Normal sinus rhythm Anteroseptal infarct , age undetermined T wave abnormality, consider lateral ischemia Prolonged QT Abnormal ECG When compared with ECG of 26-AUG-2019 18:04, MANUAL COMPARISON REQUIRED, DATA IS UNCONFIRMED Confirmed by EDGARD CAGE ([id number]), school photograph editor VANESSA ESQUEDA ([id number]) on 08/28/2019 10:36:02 AM Referred By: Edgard Cage Confirmed By:EDGARD CAGE
[2019-08-26 18:58] LABS: CPK Total, Creatine Kinase 122 U/L (39-308)
[2019-08-26 19:16] LABS: ACT Activated Clotting Time 191 sec (74-137)
[2019-08-26 19:31] LABS: Alcohol, Blood (Medical)-Serum < 3.0 mg/dL
[2019-08-26 20:16] LABS: ACT Activated Clotting Time 164 sec (74-137)
[2019-08-26 20:28] LABS: Amphetamine Urine VISTA NEGATIVE (<1000 ng/mL); Barbiturate Urine VISTA NEGATIVE (< 200 ng/mL); Benzodiazepine Urine VISTA NEGATIVE (< 200 ng/mL); Cocaine Urine VISTA NEGATIVE (< 300 ng/mL); Ecstacy Urine VISTA NEGATIVE (< 500 ng/mL); Methadone Urine VISTA NEGATIVE (< 300 ng/mL); PCP Urine VISTA NEGATIVE (< 25 ng/mL); THC Urine VISTA POSITIVE (< 50 ng/mL); Vista UDS pH Range 6
[2019-08-26] MEDS: Atorvastatin Calcium 80 MG Tablet PO (21:43)
[2019-08-26] MEDS: Carvedilol 3.125 MG TABLET PO (21:43)
[2019-08-27] VITALS (18 sets, daily range): BP systolic 93–108; BP diastolic 50–77; PULSE 86–105; RESP 17–23; TEMP 36.6–37; O2SAT 94–96; BMI 23.1
[2019-08-27] MEDS: diazePAM 5 MG Tablet PO (01:12)
[2019-08-27] MEDS: Morphine 4 MG/ML Syringe IV (02:37)
[2019-08-27 04:32] LABS: Absolute Lymphocyte Count 1.99 X10^3/uL (0.83-4.51); Absolute Neutrophil Count 9.9 X10^3/uL (2.0-7.7); Basophil# 0.07 X10^3/uL; Basophil% 0.5 % (0-1); Eosinophil# 0.39 X10^3/uL; Eosinophils% 2.9 % (0-5); Hematocrit 41.1 % (40-54); Hemoglobin 13.8 g/dL (13.0-16.5); Lymphocyte # 1.99 X10^3/ul (4.0); Lymphocyte % 14.7 % (19-41); Mean Corp Hgb Conc 33.6 g/dL (32-36); Mean Corpuscular Volume 92.4 fL (80-94); Mean Platelet Vol. 8.7 fl (6.2-12.0); Monocyte# 1.17 X10^3/uL; Monocyte% 8.6 % (0-10); NRBC Flagged by Analyzer 0 % (0-5); Neutrophil # 9.87 X10^3/uL (2.7-7.7); Neutrophil % 72.7 % (47-70); Platelet Count 225 K/mm3 (150-450); RBC Distribution Width CV 12.8 % (11.6-14.6); RBC Distribution Width SD 43.3 fl (35.1-43.9); Red Blood Count 4.45 M/mm3 (4.6-6.2); White Blood Count 13.6 K/mm3 (4.4-11.0)
[2019-08-27 04:48] LABS: AST(SGOT) 26 U/L (15-37); Alanine Aminotransfer ALT/SGPT 26 U/L (16-61); Albumin, Serum 3.2 g/dL (3.2-5.0); Alkaline Phosphatase 78 U/L (45-117); Anion Gap 5 (5-15); BUN 13 mg/dL (7-18); BUN/Creat Ratio 15.1 RATIO (10-20); Calcium,Total 8.2 mg/dL (8.5-10.1); Chloride 106 mmol/L (98-107); Cholesterol 163 mg/dL (200); Creatinine, Serum 0.86 mg/dL (0.70-1.30); EST Glomerular Filtration Rate 98 mL/min (>60); Est Glom Filt Rate - Afr Amer 118 mL/min (>60); Estimated Creatinine Clearance 103.37 ml/min; Globulin 3.1 g/dL (2.2-4.2); Glucose 101 mg/dL (74-106); High Density Lipoprotein 36 mg/dL; Potassium 4.3 mmol/L (3.5-5.1); Protein, Total 6.3 g/dL (6.4-8.2); Sodium Level 137 mmol/L (136-145); Triglycerides 96 mg/dL; Very Low Density Lipoprotein 19 mg/dL (5-40)
[2019-08-27] MEDS: Aspirin 81 MG TAB.CHEW PO (08:06)
[2019-08-27] MEDS: Losartan Potassium 25 MG Tablet 12.5 MG PO (08:07)
[2019-08-27] MEDS: Carvedilol 3.125 MG TABLET PO ×2 (08:07→20:54)
[2019-08-27] MEDS: Pantoprazole Sodium 20 MG Tablet PO (08:08)
[2019-08-27] MEDS: TICAGRELOR 90 MG TABLET PO ×2 (08:08→20:54)
[2019-08-27] MEDS: Mirtazapine 15 MG Tablet PO (08:08)
--- NOTE | 2019-08-27 08:49 | PCM.PN.CARD ---
Subjectve: Patient doing much better today. No 24-hour events. Telemetry negative. Hemoglobin and creatinine are within nominal limits. Right groin is clean/dry/intact, no thrills, bruits or hematoma. EKG shows normal sinus rhythm with resolved ST elevation in resolving anterior lateral T wave inversion. Patient does complain of back pain sleeping in his bed. Objective: Vital Signs Temp Pulse Resp BP Pulse Ox 98.6 F 93 18 100/72 95 08/27/19 04:00 08/27/19 07:00 08/27/19 07:00 08/27/19 07:00 08/27/19 07:00 Oxygen Flow Rate (L/min) 2 Oxygen Delivery Method Room Air Weight: 164 lb 10.965 oz Body Mass Index (BMI) 23.3 Intake and Output for Last 24 Hours 08/25/19 08/26/19 08/27/19 23:59 23:59 23:59 Intake Total 1120 / 1120 240 / 240 Output Total 450 / 450 450 / 450 Balance 670 / 670 -210 / -210 General: Awake, Alert, Oriented x 3 HEENT: PERRL, EOMI, Sclera Non Icteric Neck: Supple, Good ROM, No Lymph Node Enlargement Lungs: Clear to auscultation Cardiovascular: Regular Rhythm, Normal S1, Normal S2, No Murmurs, No Rubs, No Gallops, Pericardial Friction Rub Vascular: No Carotid Bruits, Normal Femoral Pulses, Normal Radial Pulses, Normal Dorsalis Pedal Pulse, Normal Posterior Tibial Pulses Abdomen: Bowel Sounds Present, Soft, Non Tender, No HSM, No Organomegaly Extremities: No Cyanosis, No Clubbing, No edema Neurological: No Focal Motor or Sensory Deficit 08/26/19 16:19: WBC 12.2 H, RBC 5.05, Hgb 15.5, Hct 46.0, MCV 91.1, MCH 30.7, MCHC 33.7, Plt Count 267, MPV 9.0, Immature Gran % (Auto) 0.300, Neut % (Auto) 55.4, Lymph % (Auto) 31.8, [place] % (Auto) 8.3, Eos % (Auto) 3.5, Baso % (Auto) 0.7, Absolute Neuts (auto) 6.8, Nucleated RBC % 0 08/26/19 16:19: PT 14.9, INR 1.2, APTT > 250.0 H* 08/26/19 16:19: Sodium 138, Potassium 3.5, Chloride 105, Carbon Dioxide 28.0, Anion Gap 5, BUN 17, Creatinine 0.94, Est GFR (MDRD) Af Amer 107, Est GFR (MDRD) Non-Af 89, BUN/Creatinine Ratio 18.1, Glucose 111 H, Calcium 9.1, Troponin I 7.380 H* 08/27/19 04:20: WBC 13.6 H, RBC 4.45 L, Hgb 13.8, Hct 41.1, MCV 92.4, MCH 31.0, MCHC 33.6, Plt Count 225, MPV 8.7, Immature Gran % (Auto) 0.600, Neut % (Auto) 72.7 H, Lymph % (Auto) 14.7 L, [place] % (Auto) 8.6, Eos % (Auto) 2.9, Baso % (Auto) 0.5, Absolute Neuts (auto) 9.9 H, Nucleated RBC % 0 08/27/19 04:20: Sodium 137, Potassium 4.3, Chloride 106, Carbon Dioxide 26.0, Anion Gap 5, BUN 13, Creatinine 0.86, Est GFR (MDRD) Af Amer 118, Est GFR (MDRD) Non-Af 98, BUN/Creatinine Ratio 15.1, Glucose 101, Calcium 8.2 L, Total Bilirubin 0.80, Triglycerides 96, Cholesterol 163, LDL Cholesterol 108, VLDL Cholesterol 19, HDL Cholesterol 36 L Rhythm: EKG: ECHO: Stress Test: Cardiac Cath: PCI: CT Surgery: Holter monitor: EPS: PPM: CXR: Chest CT Scan: Medical Necessity - Tobacco Use Smoking Status: Current every day smoker Tobacco Use: Cigarettes Assessment/Plan 1. Coronary artery disease: The patient presents with what appears to be stuttering presentation of midsternal chest pressure, culminating in a visit to the emergency room for presumed pulmonary embolus evaluation given his lung cancer, and found to have acute anterior lateral wall ST elevation myocardial infarction. Emergent catheterization demonstrated a critical lesion in his proximal LAD however the vessel was patent. A 3.0X 24 drug-eluting stent was placed in the proximal LAD postdilated through its entire course with a 3.5 mm noncompliant balloon with an excellent result. Final LV ejection fraction shows severe anterior apical hypokinesis with an EF around 20%. 2D echo is pending, and will repeat echo in 3 to 4 months time after cardiac rehab is been completed. In the meantime he will be treated with baby aspirin, Brilinta, Coreg, losartan and Lipitor therapy. The patient will require at least 3 months time of dual antiplatelet therapy given his drug-eluting proximal LAD stent. I would recommend if the patient requires surgical correction of his lung cancer that he be switched to Plavix in 30 days time as this may decrease complications of bleeding. I will defer this decision to Dr. Rosales. Patient has no other lesions that require intervention. A copy of the catheterization film was made on a CD to be given to Dr. Rosales when he visits him for his lung cancer evaluation in the near future. 2. LV dysfunction: The patient has severe LV dysfunction, but hopefully will improve with intervention, medical therapy, cardiac rehab and time. We will repeat his echocardiogram in 3 to 4 months time. If his EF does not improve, we may need to consider an AICD therapy. He does not have a left bundle branch block and therefore does not require LIVESTOCK NUTRITIONIST at this time. 3. The patient has a very faint high-pitched late systolic, possible pericardial friction rub versus a valvular regurgitant murmur.. We will monitor this going forward. 2D echo pending. 4. Tobacco cessation: I had a long thorough discussion with the patient regarding tobacco cessation, and strongly encouraged him to discontinue all tobacco and cannabis products. 5. Patient is agreed to stay overnight for 1 more day and if his telemetry is negative, vital signs are okay, and he is tolerating his medications he may be discharged home in an attempt to get to Dr. Rosales's visit [facility] given his lung cancer. 6. Thank you very much for the opportunity to participate in the cardiac care of your patient. Inpatient E&M: 39899 Subs Hosp L2
--- NOTE | 2019-08-27 10:10 | CASEMGMT ---
RN CM Face to Face with patient for initial transition planning/care coordination assessment. RN CM introduced self and role at [facility]. Patient sitting in chair, alert and oriented. Patient willing to participate in assessment and is able to answer all questions appropriately. Care providers, pharmacy, and demographics verified. Patient wishes to discharge home, denies need for home health at this time. Patient states he has no further needs or concerns at this time. CM to follow for discharge planning needs that may arise. PCP: None, list of PCP provided to patient Specialists: none Preferred Pharmacy: [facility] Insurance: Via Prescription Benefit: yes Living Will/HPOA: none, provided information LNOK: girlfriend Living Arrangements: Patient lives with girlfriend in 1 story home with no steps to enter. Patient is indpendent at home. Transportation: self, girlfriend's daughter DME/HHC: Patient denies any DME in the home. Patient denies previous HHC. Patient provided with [employer] savings card Disposition Plan: Patient to discharge home with family support and follow-up plans in place. Vickie HERNADEZ, RN, CM
--- NOTE | 2019-08-27 10:52 | NURSING ---
report called to GABBY Clark RN
--- NOTE | 2019-08-27 10:56 | CRPHASE1 ---
Patient Communication Former Patient:: Phase I PHII Cardiac Rehab Discussed with Patient:: Yes Guide to Cardiac Rehab Given to Patient:: Yes Cardiac Rehab Facility Choice List Given to Patient:: Yes - [facility] Choice Program [facility] CR PHII:: Communication Given to CR, Refer to [facility] Python Developer:: Olvin Cage Sessions:: 36 sessions - 3 days/wk, 12 weeks Risk Factors/Lifestyle Smoking Status: Current every day smoker Packs Smoked per Day: 1 Hx Hypertension: Yes Hx Diabetes Mellitus Type 2: No Height: 1.8 m Weight:: 74.8 kg BMI: 23.1 ETOH: No Caffeine: Yes Substance Abuse: No Risk Factor for Sedentary Lifestyle: Moderate Risk Family History: Family History (Last Reviewed 08/26/19 @ 16:38 by CRISTINA Johnson) Mother Heart disease COPD (chronic obstructive pulmonary disease) Kidney disease Aunt Diabetes Laboratory Values: Cardiac Rehab Phase I Labs Triglycerides 96 mg/dL (-199) 08/27/19 04:20 Cholesterol 163 mg/dL (200) 08/27/19 04:20 LDL Cholesterol 108 mg/dL (0-130) 08/27/19 04:20 HDL Cholesterol 36 mg/dL (40-) L 08/27/19 04:20 Issues Affecting Care:: None Knowledge of Condition:: Yes Learning Preferences: Verbal Hospital Course Cardiac Cath Date:: 08/26/19 Medical/Surgical History SC:: Yes Pulmonary:: Yes COPD:: Yes Diabetes:: No Hypertension:: Yes Discharge/Home/Social Eval Discharge Disposition: Home Marital Status: Cardiac Rehabilitation Info Cardiac Rehabilitation Program Information: Cardiac Rehabilitation is important for patients like you who are recovering from a heart problem. Cardiac rehabilitation programs are recognized as integral to the continued care of the patient with coronary heart disease. The cardiac rehabilitation program is designed to optimize a patient's physical, psychological, and social functioning. Health property caretaker work in cardiac rehabilitation programs and assist you with getting the treatments you need to get stronger and healthier - like exercise, healthy eating habits, and medications. Cardiac rehabilitation has been show to help people with heart problems live longer and have better life enjoyment than people who do not go to cardiac rehabilitation. Please contact the Cardiac Rehabilitation Program at [facility] at in two weeks if you have not heard from them.
--- NOTE | 2019-08-27 11:01 | CRPH1.INSTRU ---
General Education CAD and cardiac anatomy and function:: Patient communicates acknowledgment Explanation of diagnoses and procedures:: Patient communicates acknowledgment Sign/Symptoms of RI:: Patient communicates acknowledgment Antiplatelet therapy: Not instructed Proper use of NTG-SL: Not instructed Emergency procedures and activation of EMS: Not instructed Compliance of all prescribed medications: Not instructed Smoking Patient Nicotine/Smoking Risk Factors Are:: Cigarettes Recommendations Include:: Smoking cessation strategies/Smoking packet, Participation in a smoking cessation program Nicotine/Smoking Response Code:: Patient communicates acknowledgment Dyslipidemia Recommendations Include:: Lipid profile not available Overweight/Obesity Overweight/Obesity:: Patient communicates acknowledgment Hypertension Recommendations Include:: Maintain BP <130/85 Hypertension:: Patient communicates acknowledgment Heart Disease Patient Heart Disease Risk Factors Are:: Family history of heart disease < 65 years old Heart Disease Response Code:: Patient communicates acknowledgment Diabetes Patient Diabetes Risk Factors Are:: No documented hx of diabetes Metabolic Syndrome Patient Metabolic Syndrome Risk Factors Are [3 of 5]:: Hypertension Metabolic Syndrome Response Code:: Patient communicates acknowledgment Sedentary Recommendations Include:: Benefits of regular exercise, Monitored Outpatient Cardiac Rehab Sedentary Response Code:: Patient communicates acknowledgment Stress Patient Stress Risk Factors Are:: Patient denies stress as a risk factor
--- NOTE | 2019-08-27 11:10 | NURSING ---
to [id number] per WC, PRODUCTION CONTROL MANAGER in attendance
--- NOTE | 2019-08-27 13:10 | PCM.PROGNOTE ---
<Adi Crainssica - Last Filed: 08/27/19 13:18> Patient Problems: Active and Suspected Problems (Last Updated 08/27/19 @ 11:30 by Lou Heard) STEMI (ST elevation myocardial infarction) (Acute 08/26/19) Subjective: Patient seen and examined. Denies further chest pain. Anxious to return home. Plan to monitor overnight with anticipated discharge home tomorrow. - Physical Exam Vitals/I&O's: Vital Signs Temp Pulse Resp BP Pulse Ox 98.4 F 99 20 H 102/69 96 08/27/19 11:33 08/27/19 11:36 08/27/19 11:33 08/27/19 11:33 08/27/19 11:33 Oxygen Flow Rate (L/min) 2 Oxygen Delivery Method Room Air Weight: 164 lb 14.492 oz Body Mass Index (BMI) 23.3 Intake and Output for Last 24 Hours 08/25/19 08/26/19 08/27/19 23:59 23:59 23:59 Intake Total 1120 / 1120 340 / 340 Output Total 450 / 450 875 / 875 Balance 670 / 670 -535 / -535 General: Alert, Oriented x3, Cooperative HEENT: Atraumatic, PERRLA, EOMI, Normocephalic Neck: Supple, No JVD, Negative Carotid Bruits Lungs: Clear to auscultation, Diminished Cardiovascular: Regular rate, Regular Rhythm, Normal S1, Normal S2, Murmur Abdomen: Bowel Sounds Present, Soft, Non Tender, Non-Distended Extremities: No clubbing, No cyanosis, No edema, Capillary Refill Less than 3 Seconds Skin: No rashes, No breakdown Musculoskeletal: No Tenderness to Palpation of Joints or Extremities Neurological: Cranial nerves II-XII grossly intact, Neuro grossly intact Psych/Mental Status: Anxious Laboratory Results 08/26/19 16:19: WBC 12.2 H, RBC 5.05, Hgb 15.5, Hct 46.0, MCV 91.1, MCH 30.7, MCHC 33.7, RDW Std Deviation 42.0, RDW Coeff of Isaiah 12.7, Plt Count 267, MPV 9.0, Immature Gran % (Auto) 0.300, Neut % (Auto) 55.4, Lymph % (Auto) 31.8, [place]idan % (Auto) 8.3, Eos % (Auto) 3.5, Baso % (Auto) 0.7, Absolute Neuts (auto) 6.8, Absolute Lymphs (auto) 3.89, Nucleated RBC % 0 08/26/19 16:19: PT 14.9, INR 1.2, APTT > 250.0 H* 08/26/19 16:19: Sodium 138, Potassium 3.5, Chloride 105, Carbon Dioxide 28.0, Anion Gap 5, BUN 17, Creatinine 0.94, Estim Creat Clear Calc 93.94, Est GFR (MDRD) Af Amer 107, Est GFR (MDRD) Non-Af 89, BUN/Creatinine Ratio 18.1, Glucose 111 H, Calcium 9.1, Troponin I 7.380 H* 08/26/19 18:35: Ethyl Alcohol < 3.0 08/26/19 18:35: Total Creatine Kinase 122 08/26/19 19:01: Activated Clotting Time 191 H 08/26/19 20:00: Urine Opiates Screen NEGATIVE, Urine Methadone Screen NEGATIVE, Ur Barbiturates Screen NEGATIVE, Ur Phencyclidine Scrn NEGATIVE, Ur Amphetamines Screen NEGATIVE, U Methamphetamin-MDMA NEGATIVE, U Benzodiazepines Scrn NEGATIVE, Urine Cocaine Screen NEGATIVE, U Cannabinoids Screen POSITIVE H, Ur Drug Screen Comment 08/26/19 20:02: Activated Clotting Time 164 H 08/27/19 04:20: WBC 13.6 H, RBC 4.45 L, Hgb 13.8, Hct 41.1, MCV 92.4, MCH 31.0, MCHC 33.6, RDW Std Deviation 43.3, RDW Coeff of Isaiah 12.8, Plt Count 225, MPV 8.7, Immature Gran % (Auto) 0.600, Neut % (Auto) 72.7 H, Lymph % (Auto) 14.7 L, Sheridan % (Auto) 8.6, Eos % (Auto) 2.9, Baso % (Auto) 0.5, Absolute Neuts (auto) 9.9 H, Absolute Lymphs (auto) 1.99, Nucleated RBC % 0 08/27/19 04:20: Sodium 137, Potassium 4.3, Chloride 106, Carbon Dioxide 26.0, Anion Gap 5, BUN 13, Creatinine 0.86, Estim Creat Clear Calc 103.37, Est GFR (MDRD) Af Amer 118, Est GFR (MDRD) Non-Af 98, BUN/Creatinine Ratio 15.1, Glucose 101, Calcium 8.2 L, Total Bilirubin 0.80, AST 26, ALT 26, Alkaline Phosphatase 78, Total Protein 6.3 L, Albumin 3.2, Globulin 3.1, Albumin/Globulin Ratio 1.0, Triglycerides 96, Cholesterol 163, LDL Cholesterol 108, VLDL Cholesterol 19, HDL Cholesterol 36 L Current Medications Acetaminophen (Tylenol) 650 mg PO Q6H PRN PRN PRN Reason: Pain Score 1-10/Temp > 100.7 F Aspirin (Aspirin, Baby) 81 mg PO DAILY@0800 [facility] Last Admin: 08/27/19 08:06 Dose: 81 mg Documented by: Atorvastatin Calcium (Lipitor) 80 mg PO QHS [facility] Last Admin: 08/26/19 21:43 Dose: 80 mg Documented by: Atropine Sulfate () 0.5 mg IV UD PRN PRN Reason: HR <50 bpm Carvedilol (Coreg) 3.125 mg PO BID [facility] Last Admin: 08/27/19 08:07 Dose: 3.125 mg Documented by: Diazepam (Valium) 5 mg PO Q6H PRN PRN PRN Reason: BACK SPASMS/ANXIETY Last Admin: 08/27/19 01:12 Dose: 5 mg Documented by: Losartan Potassium (Cozaar) 12.5 mg PO DAILY [facility] Last Admin: 08/27/19 08:07 Dose: 12.5 mg Documented by: Metoclopramide HCl (Reglan) 5 mg IV Q6H PRN PRN PRN Reason: NAUSEA/VOMITING Mirtazapine (Remeron) 15 mg PO DAILY [facility] Last Admin: 08/27/19 08:08 Dose: 15 mg Documented by: Morphine Sulfate () 2 - 4 mg IV Q4H PRN PRN PRN Reason: Pain Score 1-10/10 Last Admin: 08/27/19 02:37 Dose: 4 mg Documented by: Nicotine (Nicoderm Cq (Pbkc)) 21 mg TRANSDERM. DAILY [facility] Last Admin: 08/27/19 10:41 Dose: Not Given Documented by: Ondansetron HCl (Zofran) 4 mg IV Q8H PRN PRN PRN Reason: NAUSEA/VOMITING Pantoprazole Sodium (Protonix) 20 mg PO DAILY [facility] Last Admin: 08/27/19 08:08 Dose: 20 mg Documented by: Sodium Chloride () 500 ml IV BOLUS PRN PRN Reason: VASO-VAGAL PROTOCOL Ticagrelor (Brilinta) 90 mg PO BID [facility] Last Admin: 08/27/19 08:08 Dose: 90 mg Documented by: Zolpidem Tartrate (Ambien (Generic)) 5 mg PO QHS PRN PRN PRN Reason: INSOMNIA Medical Necessity - Tobacco Use Smoking Status: Current every day smoker Tobacco Use: Cigarettes Assessment/Plan All Active Problems (Last Updated 08/27/19 @ 11:30 by Lou Heard) STEMI (ST elevation myocardial infarction) (Acute 08/26/19) 1. STEMI s/p PCI to proximal LAD-cardiac catheterization demonstrated 75% stenosis left anterior descending artery. Patient underwent immediate PTCA/ACOSTA to proximal LAD. Dr. Cage, cardiology following. Continue aspirin, Brilinta, statin, carvedilol, losartan. 2. Heart failure with reduced ejection fraction-echocardiogram demonstrates an EF of 25% with regional wall motion abnormalities, stage I diastolic dysfunction. Patient had prior stress test 07/10/2019 with EF 59% and no evidence of ischemia. Plan for repeat echo in 3 to 4 months. Continue carvedilol, losartan. 3. Non-small cell lung cancer- following with Dr. Ramachandran. Referred for thoracic surgery which was planned for the near future. 4. Tobacco dependence- encouraged cessation. 5. GERD- continue PPI. 6. Suspected COPD- following with Dr. Velarde, pulmonary medicine. Has not yet undergone PFTs. Continue outpatient follow-up. DVT prophylaxis- Lovenox sc This patient was seen by CRISTINA Johnson under the supervision of Dr. Cunningham. <Red Cunningham - Last Filed: 08/27/19 15:02> Subjective: Seen and examined in ICU. Patient does not have chest pain or shortness of breath. Further said could not sleep last night because of mattress and wants to go home. monitoring engineer shows sinus tachycardia at 108 bpm. - Physical Exam Vitals/I&O's: Vital Signs Temp Pulse Resp BP Pulse Ox 98.4 F 99 20 H 102/69 96 08/27/19 11:33 08/27/19 11:36 08/27/19 11:33 08/27/19 11:33 08/27/19 11:33 Oxygen Flow Rate (L/min) 2 Oxygen Delivery Method Room Air Weight: 164 lb 14.492 oz Body Mass Index (BMI) 23.3 Intake and Output for Last 24 Hours 08/25/19 08/26/19 08/27/19 23:59 23:59 23:59 Intake Total 1120 / 1120 340 / 340 Output Total 450 / 450 875 / 875 Balance 670 / 670 -535 / -535 General: Alert, Oriented x3, Cooperative HEENT: Atraumatic, PERRLA, EOMI, Normocephalic Neck: Supple, No JVD, Negative Carotid Bruits Lungs: Clear to auscultation, No rhonchi, No wheeze, No rales, Diminished - Air entry diminished in bilateral lung Cardiovascular: Regular rate, Regular Rhythm, Normal S1, Normal S2, Murmur - Colic murmur present over left lower sternal border Abdomen: Bowel Sounds Present, Soft, Non Tender, Non-Distended Extremities: No clubbing, No edema, Capillary Refill Less than 3 Seconds Skin: No rashes, No breakdown Musculoskeletal: No Tenderness to Palpation of Joints or Extremities, Arthritic Changes, Muscle Wasting Neurological: Cranial nerves II-XII grossly intact, Deep Tendon Reflexes 2+/4 and Symmetrical, Neuro grossly intact, Motor Exam 5/5 strength throughout Psych/Mental Status: Normal Affect, Appropriate Laboratory Results 08/26/19 16:19: WBC 12.2 H, RBC 5.05, Hgb 15.5, Hct 46.0, MCV 91.1, MCH 30.7, MCHC 33.7, RDW Std Deviation 42.0, RDW Coeff of Isaiah 12.7, Plt Count 267, MPV 9.0, Immature Gran % (Auto) 0.300, Neut % (Auto) 55.4, Lymph % (Auto) 31.8, Sheridan % (Auto) 8.3, Eos % (Auto) 3.5, Baso % (Auto) 0.7, Absolute Neuts (auto) 6.8, Absolute Lymphs (auto) 3.89, Nucleated RBC % 0 08/26/19 16:19: PT 14.9, INR 1.2, APTT > 250.0 H* 08/26/19 16:19: Sodium 138, Potassium 3.5, Chloride 105, Carbon Dioxide 28.0, Anion Gap 5, BUN 17, Creatinine 0.94, Estim Creat Clear Calc 93.94, Est GFR (MDRD) Af Amer 107, Est GFR (MDRD) Non-Af 89, BUN/Creatinine Ratio 18.1, Glucose 111 H, Calcium 9.1, Troponin I 7.380 H* 08/26/19 18:35: Ethyl Alcohol < 3.0 08/26/19 18:35: Total Creatine Kinase 122 08/26/19 19:01: Activated Clotting Time 191 H 08/26/19 20:00: Urine Opiates Screen NEGATIVE, Urine Methadone Screen NEGATIVE, Ur Barbiturates Screen NEGATIVE, Ur Phencyclidine Scrn NEGATIVE, Ur Amphetamines Screen NEGATIVE, U Methamphetamin-MDMA NEGATIVE, U Benzodiazepines Scrn NEGATIVE, Urine Cocaine Screen NEGATIVE, U Cannabinoids Screen POSITIVE H, Ur Drug Screen Comment 08/26/19 20:02: Activated Clotting Time 164 H 08/27/19 04:20: WBC 13.6 H, RBC 4.45 L, Hgb 13.8, Hct 41.1, MCV 92.4, MCH 31.0, MCHC 33.6, RDW Std Deviation 43.3, RDW Coeff of Isaiah 12.8, Plt Count 225, MPV 8.7, Immature Gran % (Auto) 0.600, Neut % (Auto) 72.7 H, Lymph % (Auto) 14.7 L, Sheridan % (Auto) 8.6, Eos % (Auto) 2.9, Baso % (Auto) 0.5, Absolute Neuts (auto) 9.9 H, Absolute Lymphs (auto) 1.99, Nucleated RBC % 0 08/27/19 04:20: Sodium 137, Potassium 4.3, Chloride 106, Carbon Dioxide 26.0, Anion Gap 5, BUN 13, Creatinine 0.86, Estim Creat Clear Calc 103.37, Est GFR (MDRD) Af Amer 118, Est GFR (MDRD) Non-Af 98, BUN/Creatinine Ratio 15.1, Glucose 101, Calcium 8.2 L, Total Bilirubin 0.80, AST 26, ALT 26, Alkaline Phosphatase 78, Total Protein 6.3 L, Albumin 3.2, Globulin 3.1, Albumin/Globulin Ratio 1.0, Triglycerides 96, Cholesterol 163, LDL Cholesterol 108, VLDL Cholesterol 19, HDL Cholesterol 36 L Current Medications Acetaminophen (Tylenol) 650 mg PO Q6H PRN PRN PRN Reason: Pain Score 1-10/Temp > 100.7 F Aspirin (Aspirin, Baby) 81 mg PO DAILY@0800 [facility] Last Admin: 08/27/19 08:06 Dose: 81 mg Documented by: Atorvastatin Calcium (Lipitor) 80 mg PO QHS [facility] Last Admin: 08/26/19 21:43 Dose: 80 mg Documented by: Atropine Sulfate () 0.5 mg IV UD PRN PRN Reason: HR <50 bpm Carvedilol (Coreg) 3.125 mg PO BID [facility] Last Admin: 08/27/19 08:07 Dose: 3.125 mg Documented by: Diazepam (Valium) 5 mg PO Q6H PRN PRN PRN Reason: BACK SPASMS/ANXIETY Last Admin: 08/27/19 01:12 Dose: 5 mg Documented by: Losartan Potassium (Cozaar) 12.5 mg PO DAILY [facility] Last Admin: 08/27/19 08:07 Dose: 12.5 mg Documented by: Metoclopramide HCl (Reglan) 5 mg IV Q6H PRN PRN PRN Reason: NAUSEA/VOMITING Mirtazapine (Remeron) 15 mg PO DAILY [facility] Last Admin: 08/27/19 08:08 Dose: 15 mg Documented by: Morphine Sulfate () 2 - 4 mg IV Q4H PRN PRN PRN Reason: Pain Score 1-10/10 Last Admin: 08/27/19 02:37 Dose: 4 mg Documented by: Nicotine (Nicoderm Cq (Pbkc)) 21 mg TRANSDERM. DAILY [facility] Last Admin: 08/27/19 10:41 Dose: Not Given Documented by: Ondansetron HCl (Zofran) 4 mg IV Q8H PRN PRN PRN Reason: NAUSEA/VOMITING Pantoprazole Sodium (Protonix) 20 mg PO DAILY [facility] Last Admin: 08/27/19 08:08 Dose: 20 mg Documented by: Sodium Chloride () 500 ml IV BOLUS PRN PRN Reason: VASO-VAGAL PROTOCOL Ticagrelor (Brilinta) 90 mg PO BID [facility] Last Admin: 08/27/19 08:08 Dose: 90 mg Documented by: Zolpidem Tartrate (Ambien (Generic)) 5 mg PO QHS PRN PRN PRN Reason: INSOMNIA Assessment/Plan This patient was seen in conjunction with INSURANCE CLAIMS SUPERVIS[employer]. I have independently interviewed and examined the patient and reviewed pertinent history, examination findings, laboratory and plan of management. I have reviewed the note and agree with the documented findings with the few additional points. In brief, patient is admitted for Midsternal chest pain and EKG finding consistent with STEMI. Patient underwent emergent cardiac cath as per STEMI protocol. Cardiac cath showed segmented severe LV systolic dysfunction with EF 20%. Single-vessel coronary disease proximal LAD 75% which required PCI/ACOSTA. Dr. Cage is following. Patient is on aspirin, Brilinta, statin, carvedilol and losartan. The echo was done and reported as below suggestive of acute on chronic systolic heart failure valvular heart disease Interpretation Summary Severe segmental systolic dysfunction. The estimated ejection fraction is 25 %. The left atrium is mildly enlarged. Mild-Moderate (1-2+) mitral valve insufficiency. Mild to moderate (1-2+) tricuspid valve insufficiency. Severe focal aortic valve calcification. Mild to moderate aortic stenosis. Mild (1+) aortic valve insufficiency. Right ventricular systolic pressure estimated to be 47 mmHg. Patient also non-small cell lung cancer being followed by Dr. Ramachandran, chest x-ray reviewed and chest x-ray intermittently reviewed and shows left lower lobe mass 6.9 x 5 cm adjacent to the left hilum. Patient has history of COPD and cigarette smoking, started in teenage about 1 pack/day, 40 pack years of his smoking. Looking cessation advised. Other comorbidities as mentioned above I have discussed my assessment with Dory BAXTER and orders have been reviewed. Total time of the visit including total time spent in counseling or coordination of care, (more than 50% of the total time, spent in obtaining medical information from nurses and other ancillary care providers) , review of labs and imaging is 35 minutes Clinical Impression(s) from Imaging Studies Chest X-Ray 08/26/19 16:06 IMPRESSION: Left lower lobe mass. This appears essentially unchanged in size when compared to the PET scan and slightly decreased in size from prior chest film. Electronically Signed: Charlie De Guzman DO at 16:25 EDT Tel [phone], Service support , Inpatient E&M: [id number] Subs Hosp L3
[2019-08-27] MEDS: Acetaminophen 325 MG Tablet 650 MG PO (20:47)
[2019-08-27] MEDS: Atorvastatin Calcium 80 MG Tablet PO (20:54)
[2019-08-28 02:43] VITALS: BP 97/70; PULSE 85; RESP 18; TEMP 36.9; O2SAT 97
[2019-08-28 02:58] VITALS: PULSE 83
[2019-08-28 06:06] LABS: Absolute Lymphocyte Count 2.63 X10^3/uL (0.83-4.51); Absolute Neutrophil Count 6.3 X10^3/uL (2.0-7.7); Basophil% 0.9 % (0-1); Eosinophil# 0.55 X10^3/uL; Eosinophils% 5.2 % (0-5); Hematocrit 45.2 % (40-54); Hemoglobin 15.3 g/dL (13.0-16.5); Lymphocyte # 2.63 X10^3/ul (4.0); Lymphocyte % 24.8 % (19-41); Mean Corp Hgb Conc 33.8 g/dL (32-36); Mean Corpuscular Hgb 30.6 pg (27.0-32.0); Mean Corpuscular Volume 90.4 fL (80-94); Mean Platelet Vol. 8.8 fl (6.2-12.0); Monocyte# 1.04 X10^3/uL; Monocyte% 9.8 % (0-10); NRBC Flagged by Analyzer 0 % (0-5); Neutrophil # 6.25 X10^3/uL (2.7-7.7); Neutrophil % 58.9 % (47-70); Platelet Count 259 K/mm3 (150-450); RBC Distribution Width CV 12.5 % (11.6-14.6); RBC Distribution Width SD 41.1 fl (35.1-43.9); White Blood Count 10.6 K/mm3 (4.4-11.0)
[2019-08-28 06:28] LABS: Anion Gap 10 (5-15); BUN 14 mg/dL (7-18); BUN/Creat Ratio 19.4 RATIO (10-20); Calcium,Total 8.4 mg/dL (8.5-10.1); Chloride 105 mmol/L (98-107); Creatinine, Serum 0.72 mg/dL (0.70-1.30); EST Glomerular Filtration Rate 120 mL/min (>60); Est Glom Filt Rate - Afr Amer 145 mL/min (>60); Glucose 98 mg/dL (74-106); Sodium Level 136 mmol/L (136-145)
[2019-08-28 06:34] VITALS: PULSE 85
[2019-08-28 07:36] VITALS: O2SAT 93
[2019-08-28 08:38] VITALS: BP 101/69; PULSE 86; RESP 16; TEMP 36.6; O2SAT 98
[2019-08-28] MEDS: Pantoprazole Sodium 20 MG Tablet PO (08:40)
[2019-08-28] MEDS: TICAGRELOR 90 MG TABLET PO (08:40)
[2019-08-28] MEDS: Aspirin 81 MG TAB.CHEW PO (08:40)
[2019-08-28] MEDS: Losartan Potassium 25 MG Tablet 12.5 MG PO (08:40)
[2019-08-28] MEDS: Carvedilol 3.125 MG TABLET PO (08:40)
[2019-08-28] MEDS: Mirtazapine 15 MG Tablet PO (08:41)
--- NOTE | 2019-08-28 09:42 | PCM.DC ---
- Discharge Diagnoses Current Active Problems: Current Active and Chronic Problems (Last Updated 08/27/19 @ 11:30 by Lou Heard) Ischemic cardiomyopathy (Chronic) EF 25% per echo done 08/27/19 Atherosclerosis of coronary artery (Chronic) STEMI (ST elevation myocardial infarction) (Acute 08/26/19) Stented coronary artery (Chronic 08/26/19) LVEF: by LV gram 20 %, Depressed Left Ventricular systolic function - Severe. Elevated Left Ventricular End Diastolic Pressure. Single vessel CAD of the LAD: Successful PTCA/ACOSTA proximal LAD with a 3.0 x 24 [employer]. Per [facility] @ [facility] 08/26/2019 GERD (gastroesophageal reflux disease) (Chronic) Tobacco abuse (Chronic) You will use the following diet at home:: Cardiac Your food should be the consistency of: Regular Your liquids should be the consistency of: Regular/Thin Discharge Activity: Return to Normal Activity Allergies/Adverse Reactions: Allergies No Known Allergies Allergy (Verified 08/26/19 16:01) Medications to take at Discharge Omeprazole 20 mg PO DAILY #60 tablet. 08/15/19 Mirtazapine [Remeron] 15 mg PO QHS 30 Days #30 tab 08/26/19 Aspirin [Aspirin, Baby] 81 mg PO DAILY@0800 tab.chew 08/28/19 Atorvastatin Calcium [Lipitor] 80 mg PO QHS #30 tab 08/28/19 Carvedilol [Coreg (Beta Michael)] 3.125 mg PO BID #60 tab 08/28/19 Losartan Potassium [Cozaar] 12.5 mg PO DAILY #30 tab 08/28/19 Ticagrelor [Brilinta] 90 mg PO BID #60 tab 08/28/19 The following prescriptions were given: Ticagrelor [Brilinta] 90 mg PO BID #60 tab Transmission Status: Pending to [facility] #30 Carvedilol [Coreg (Beta Michael)] 3.125 mg PO BID #60 tab Transmission Status: Pending to [facility] #30 Losartan Potassium [Cozaar] 12.5 mg PO DAILY #30 tab Transmission Status: Pending to [facility] #30 Atorvastatin Calcium [Lipitor] 80 mg PO QHS #30 tab Transmission Status: Pending to [facility] #30 Orders to be completed after discharge: Phase II, Outpatient Cardiac Rehab Location: None Selected Primary Care Physician: Care Physician,No Primary [Primary Care Provider] - Please follow up with your Primary Care Physician in: 1-2 weeks Test Results: Test results from this visit will be discussed in further detail at your follow-up appointment, if applicable. Please Follow Up With: Olvin Cage MD When: as directed Proposed Discharge Date: 08/28/19
--- NOTE | 2019-08-28 09:42 | PCM.PN.CARD ---
Subjectve: Patient doing very well this morning. Telemetry negative. Right groin is clean/dry/intact, no thrills, bruits or hematoma. Hemoglobin and creatinine are within normal limits. Objective: Vital Signs Temp Pulse Resp BP Pulse Ox 97.8 F 86 16 101/69 98 08/28/19 08:38 08/28/19 08:38 08/28/19 08:38 08/28/19 08:38 08/28/19 08:38 Oxygen Flow Rate (L/min) 2 Oxygen Delivery Method Room Air Weight: 165 lb 2.02 oz Body Mass Index (BMI) 23.3 Intake and Output for Last 24 Hours 08/26/19 08/27/19 08/28/19 23:59 23:59 23:59 Intake Total 1120 / 1120 840 / 840 240 / 240 Output Total 450 / 450 875 / 875 Balance 670 / 670 -35 / -35 240 / 240 General: Awake, Alert, Oriented x 3 HEENT: PERRL, EOMI, Sclera Non Icteric Neck: Supple, Good ROM, No Lymph Node Enlargement Lungs: Clear to auscultation Cardiovascular: Regular Rhythm, Normal S1, Normal S2, No Murmurs, No Rubs, No Gallops Vascular: No Carotid Bruits, Normal Femoral Pulses, Normal Radial Pulses, Normal Dorsalis Pedal Pulse, Normal Posterior Tibial Pulses Abdomen: Bowel Sounds Present, Soft, Non Tender, No HSM, No Organomegaly Extremities: No Cyanosis, No Clubbing, No edema Neurological: No Focal Motor or Sensory Deficit 08/28/19 05:54: WBC 10.6, RBC 5.00, Hgb 15.3, Hct 45.2, MCV 90.4, MCH 30.6, MCHC 33.8, Plt Count 259, MPV 8.8, Immature Gran % (Auto) 0.400, Neut % (Auto) 58.9, Lymph % (Auto) 24.8, [place] % (Auto) 9.8, Eos % (Auto) 5.2 H, Baso % (Auto) 0.9, Absolute Neuts (auto) 6.3, Nucleated RBC % 0 08/28/19 05:54: Sodium 136, Potassium 4.0, Chloride 105, Carbon Dioxide 21.0, Anion Gap 10, BUN 14, Creatinine 0.72, Est GFR (MDRD) Af Amer 145, Est GFR (MDRD) Non-Af 120, BUN/Creatinine Ratio 19.4, Glucose 98, Calcium 8.4 L Rhythm: EKG: ECHO: Stress Test: Cardiac Cath: PCI: CT Surgery: Holter monitor: EPS: PPM: CXR: Chest CT Scan: Medical Necessity - Tobacco Use Smoking Status: Current every day smoker Tobacco Use: Cigarettes Assessment/Plan 1. Coronary artery disease: The patient presents with what appears to be stuttering presentation of midsternal chest pressure, culminating in a visit to the emergency room for presumed pulmonary embolus evaluation given his lung cancer, and found to have acute anterior lateral wall ST elevation myocardial infarction. Emergent catheterization demonstrated a critical lesion in his proximal LAD however the vessel was patent. A 3.0X 24 drug-eluting stent was placed in the proximal LAD postdilated through its entire course with a 3.5 mm noncompliant balloon with an excellent result. Final LV ejection fraction shows severe anterior apical hypokinesis with an EF around 20%. 2D echo On 08/27/2019 showed the following: Moderately dilated left ventricle. The estimated ejection fraction is 25 %. There are regional wall motion abnormalities as specified. Trivial tricuspid valve insufficiency. Right ventricular systolic pressure estimated to be 22 mmHg. Stage 1 diastolic dysfunction. Trivial aortic valve insufficiency. There is no comparison study availab In the meantime he will be treated with baby aspirin, Brilinta, Coreg, losartan and Lipitor therapy. The patient will require at least 3 months time of dual antiplatelet therapy given his drug-eluting proximal LAD stent. I would recommend if the patient requires surgical correction of his lung cancer that he be switched to Plavix in 30 days time as this may decrease complications of bleeding. I will defer this decision to Dr. Rosales. Patient has no other lesions that require intervention. A copy of the catheterization film was made on a CD to be given to Dr. Rosales when he visits him for his lung cancer evaluation in the near future. 2. LV dysfunction: The patient has severe LV dysfunction, but hopefully will improve with intervention, medical therapy, cardiac rehab and time. We will repeat his echocardiogram in 3 to 4 months time. If his EF does not improve, we may need to consider an AICD therapy. He does not have a left bundle branch block and therefore does not require CONSUMER LOAN PROCESSOR at this time. 3. Patient may be discharged home today and follow-up with Dr. Cage going forward. 4. Tobacco cessation: I had a long thorough discussion with the patient regarding tobacco cessation, and strongly encouraged him to discontinue all tobacco and cannabis products. 5. Thank you very much for the opportunity to participate in the cardiac care of your patient.Patient would be discharged home and follow-up with Dr. Cage going forward. Inpatient E&M: [id number] Subs Hosp L2
--- NOTE | 2019-08-28 10:00 | EKG12_ITS ---
Test Reason : AM EKG Blood Pressure : / mmHG Vent. Rate : 079 BPM Atrial Rate : 079 BPM P-R Int : 156 ms QRS Dur : 100 ms QT Int : 398 ms P-R-T Axes : 008 047 049 degrees QTc Int : 456 ms Normal sinus rhythm T wave abnormality, consider anterolateral ischemia Abnormal ECG When compared with ECG of 27-AUG-2019 04:41, MANUAL COMPARISON REQUIRED, DATA IS UNCONFIRMED Confirmed by STEVE FLEMING, ROSALINDA ([id number]), makeup editor VANESSA ESQUEDA ([id number]) on 09/02/2019 9:17:30 AM Referred By: Olvin Cage Confirmed By:RC WILSON MD
[2019-08-28 12:10] LABS: ACT Activated Clotting Time 235 sec (74-137)
[2019-08-28 12:15] LABS: ACT Activated Clotting Time 180 sec (74-137)
--- NOTE | 2019-08-28 13:12 | DS.PCM_ITS ---
Discharge Date and Diagnosis Date of Admission: 08/26/19 Date of Discharge: 08/28/19 - Primary Discharge Diagnosis STEMI, s/p ACOSTA to proximal LAD. Ischemic CM Non small cell lung cancer Ongoing nicotine abuse GERD - Secondary Discharge Diagnosis Chronic Problems (Last Updated 08/27/19 @ 11:30 by Lou Heard) Ischemic cardiomyopathy (Chronic) EF 25% per echo done 08/27/19 Atherosclerosis of coronary artery (Chronic) Stented coronary artery (Chronic 08/26/19) LVEF: by LV gram 20 %, Depressed Left Ventricular systolic function - Severe. Elevated Left Ventricular End Diastolic Pressure. Single vessel CAD of the LAD: Successful PTCA/ACOSTA proximal LAD with a 3.0 x 24 Promus Synergy. Per [facility] @ [facility] 08/26/2019 GERD (gastroesophageal reflux disease) (Chronic) Tobacco abuse (Chronic) Adenocarcinoma of lung (Chronic) Mediastinal lymphadenopathy (Chronic) Hospital Course and Treatment Imaging Results: DIAGNOSTICS: RAD/Chest 1 View (Portable) IMPRESSION: Left lower lobe mass. This appears essentially unchanged in size when compared to the PET scan and slightly decreased in size from prior chest film. Echo: Interpretation Summary Moderately dilated left ventricle. The estimated ejection fraction is 25 %. There are regional wall motion abnormalities as specified. Trivial tricuspid valve insufficiency. Right ventricular systolic pressure estimated to be 22 mmHg. Stage 1 diastolic dysfunction. Trivial aortic valve insufficiency. There is no comparison study available. Left Heart Cath: CONCLUSIONS Segmented LV systolic dysfunction- Severe LVEF: by LV gram 20 % Depressed Left Ventricular systolic function - Severe Elevated Left Ventricular End Diastolic Pressure Single vessel CAD of the LAD Successful PTCA/ACOSTA proximal LAD with a 3.0 x 24 Promus Synergy, post dilated throughout with a 3.5 x 8 NC Balloon; 75%-->0%, no dissection. Pt may have had previous occluded LAD recently with spontaneous reperfusion given severe anterior LV dysfuncition. Consults: [place] - Cardiology Operations: None Procedures: 2-D Echocardiogram, Cardiac catheterization Summary of Care Provided: Hospital Course: The patient is a 53 year old M with pmhx of nicotine abuse, NSCLC followed by Dr. Ramachandran, who presented to the ER with c/o chest pain. He was found to have ST elevation in V2/V3, ST depression V4,5,6. Troponin was 7.3. He was taken for emergent heart cath with Dr. Cage and had a ACOSTA placed to the prox LAD. He went to the ICU following the stent placement and did well. Echo showed EF 25%, stage 1 diastolic dysfunction, regional wall abnormalities. He was transitioned to PCU with no events overnight. He was started on aspirin, brillinta, losartan, atorvastatin, and coreg. He had no further chest pain. He was discharged home in stable condition. He will follow up with his PCP in 1-2 weeks, and with cardiology as directed. He will need to follow up with his oncologist as previously directed regarding his lung cancer. He needs complete smoking cessation. This patient was seen by Hi Madden PA-C under the supervision of Dr. Rodriguez. [] - Physical Exam Vitals/I&O's: Vital Signs Temp Pulse Resp BP Pulse Ox 97.8 F 86 16 101/69 98 08/28/19 08:38 08/28/19 08:38 08/28/19 08:38 08/28/19 08:38 08/28/19 08:38 Oxygen Flow Rate (L/min) 2 Oxygen Delivery Method Room Air Weight: 165 lb 2.02 oz Body Mass Index (BMI) 23.3 Intake and Output for Last 24 Hours 08/26/19 08/27/19 08/28/19 23:59 23:59 23:59 Intake Total 1120 / 1120 840 / 840 240 / 240 Output Total 450 / 450 875 / 875 Balance 670 / 670 -35 / -35 240 / 240 General: Alert, Oriented x3, Cooperative HEENT: Atraumatic, PERRLA, EOMI, Normocephalic Neck: Supple, No JVD, Negative Carotid Bruits Lungs: Clear to auscultation, Normal air movement Cardiovascular: Regular rate, No murmurs Abdomen: Bowel Sounds Present, Soft, Non Tender Extremities: No edema, Capillary Refill Less than 3 Seconds Skin: No rashes, No breakdown Musculoskeletal: No Tenderness to Palpation of Joints or Extremities Neurological: Cranial nerves II-XII grossly intact Psych/Mental Status: Normal Affect, Appropriate, Alert and oriented to time, place, person, mood and affect Laboratory Results 08/26/19 17:03: Activated Clotting Time 180 H 08/26/19 17:31: Activated Clotting Time 235 H 08/28/19 05:54: WBC 10.6, RBC 5.00, Hgb 15.3, Hct 45.2, MCV 90.4, MCH 30.6, MCHC 33.8, RDW Std Deviation 41.1, RDW Coeff of Isaiah 12.5, Plt Count 259, MPV 8.8, Immature Gran % (Auto) 0.400, Neut % (Auto) 58.9, Lymph % (Auto) 24.8, Mathews % (Auto) 9.8, Eos % (Auto) 5.2 H, Baso % (Auto) 0.9, Absolute Neuts (auto) 6.3, Absolute Lymphs (auto) 2.63, Nucleated RBC % 0 08/28/19 05:54: Sodium 136, Potassium 4.0, Chloride 105, Carbon Dioxide 21.0, Anion Gap 10, BUN 14, Creatinine 0.72, Estim Creat Clear Calc 119.70, Est GFR (MDRD) Af Amer 145, Est GFR (MDRD) Non-Af 120, BUN/Creatinine Ratio 19.4, Glucose 98, Calcium 8.4 L Discharge Diet: Low fat/ Low Cholesterol, 2000 mg Sodium Diet Discharge Activity: Return to Normal Activity Home Medications: Medications to take at Discharge Omeprazole 20 mg PO DAILY #60 tablet. 08/15/19 Mirtazapine [Remeron] 15 mg PO QHS 30 Days #30 tab 08/26/19 Aspirin [Aspirin, Baby] 81 mg PO DAILY@0800 tab.chew 08/28/19 Atorvastatin Calcium [Lipitor] 80 mg PO QHS #30 tab 08/28/19 Carvedilol [Coreg (Beta Michael)] 3.125 mg PO BID #60 tab 08/28/19 Losartan Potassium [Cozaar] 12.5 mg PO DAILY #30 tab 08/28/19 Ticagrelor [Brilinta] 90 mg PO BID #60 tab 08/28/19 Following Prescrptions Were Given to Patient: Ticagrelor [Brilinta] 90 mg PO BID #60 tab Transmission Status: Received by [facility] Carvedilol [Coreg (Beta Michael)] 3.125 mg PO BID #60 tab Transmission Status: Received by [facility] Losartan Potassium [Cozaar] 12.5 mg PO DAILY #30 tab Transmission Status: Received by [facility] Atorvastatin Calcium [Lipitor] 80 mg PO QHS #30 tab Transmission Status: Received by [facility] Other Amb Orders: Phase II, Outpatient Cardiac Rehab Location: None Selected Primary Care Physician: Care Physician,No Primary [Primary Care Provider] - Please follow up with your Primary Care Physician in: 1-2 weeks Please Follow Up With: Olvin Cage MD When: as directed Disposition: Home Minutes spent on discharge:: 35 Patient Condition:: Stable Medical Necessity - Tobacco Use Smoking Status: Current every day smoker Tobacco Use: Cigarettes Meaningful Use Info Meaningful Use Diagnoses (Choose all that apply): AMI - AMI/Post PCI/Angioplasty Aspirin given w/in 24hrs of arrival?: Yes ASA at discharge?: Yes Antiplatelet Therapy at Discharge:: Yes Statins at discharge?: Yes Abhinav/ARB at discharge?: Yes Beta Michael at discharge?: Yes Done w/ Acute [place] measure.: Yes Documented LVEF (%): 35
--- NOTE | 2019-08-29 13:02 | CASEMGMT ---
TERRA DC PHONE CALL DC DATE: 08.28.2019 DC DISPOSITION: Home DC DIAGNOSIS: STEMI, s/p ACOSTA to proximal LAD LACE/STRATA: 04/15 F/U APPTS MADE PRIOR TO DC: yes with Dr. Cage, cardiology PRESCRIPTIONS ACQUIRED BY PT: yes Call to patient's home. Girlfriend answered, pt was sitting @ table with her. No questions re: dc instructions, appointments or medications. No care improvement suggestions given. Erika ALVAREZN RN ACM
== END 2019-08-28 10:23 | disposition home or self-care (01) | DRG 174 ==
LOC: ED 16:13 → ICU 18:54 → PCU 08-27 11:16
PROVIDERS: Emergency Medicine; Hospitalist; Internal Medicine; Admitting Provider Internal Medicine Cardiovascular Disease; Emergency Provider Emergency Medicine; Referring Provider Internal Medicine Cardiovascular Disease; Visit Provider Internal Medicine
DX: I21.09 ST elevation (STEMI) myocardial infarction involving other coronary artery of anterior wall (principal); C34.90 Malignant neoplasm of unspecified part of unspecified bronchus or lung; K21.9 Gastro-esophageal reflux disease without esophagitis; R59.0 Localized enlarged lymph nodes; F17.210 Nicotine dependence, cigarettes, uncomplicated; I25.110 Atherosclerotic heart disease of native coronary artery with unstable angina pectoris; I50.20 Unspecified systolic (congestive) heart failure; I11.0 Hypertensive heart disease with heart failure; E78.5 Hyperlipidemia, unspecified; I25.5 Ischemic cardiomyopathy
CPT/HCPCS: 36415; 71045; 80048; 80053; 80061; 80307; 80320; 82550; 84484; 85025; 85347; 85610; 85730; 92941; 93005; 93306; 93458; 96360; 97802; 99285; 99406; J7030; J7040; Q9957; Q9967; A4216; C1725; C1769; C1874; C1887; C1894; C9606; G0480

== ENCOUNTER → 2019-09-22 10:10 | Outpatient (CLI) | payer MEDICAID, SELFPAY ==
[2019-08-27 11:00] VITALS: BMI 23.1
[2019-09-09 08:47] VITALS: BMI 24.0
--- NOTE | 2019-09-22 10:16 | CR.ITP_ITS ---
Diagnosis - General Information Admitting Diagnosis: STEMI, S/P PCI INTERVENTION Personal Learning Style:: Audio/Visual Barriers to Learning: Cognitive/Learning Impairment, Low Literacy Stage of change r/t lifestyle modifications:: Contemplation Gave educational material for:: Treating Heart Disease, Emotions & Heart Disease, Stress Management & Relaxation, Sleep Disorders & Heart Disease, How The Heart Works, What it means to have Heart Disease, How Coronary Artery Disease is Diagnosed, Heart Procedures, What Heart Medications Do, Risk Factors & Modifications, Living an Active Life, Nutrition - Education/Goals Individual Counseling: Initial Assessment: Nicotine/Smoking, Abnormal Cholesterol Levels, High Blood Pressure Cardiac Rehabilitation Goals: 1. Maintain the individual as the primary focus of care. 2. To improve the patient's quality of life. 3. Identification of cardiac risk factors and provide cardiac risk factor management. 4. Enhance the psychosocial status of the patient. 5. Reconditioning enough to allow the patient to resume customary activities. 6. Control symptoms of cardiac disease Personal Goals: Initial Assessment: Quit smoking (participate in smoking cessation - <10 PER DAY NOW, Improve energy level, Improve knowledge of cardiac disease, Improve muscle strength and endurance, Improve diet and eating habits (eat healthier), Control risk factors (learn risk factor modification) Scale for measuring improvement of personal goals: Enter appropriate number in Comments. 2 = Unchanged. 3 = Slightly Better. 4 = Moderate Improvement. 5 = Met my Goal - Diagnosis & Disease Process Outcomes/Goals: Pt IDs own risk factors & lifestyle modifications by Session 10, Verbalizes symptoms of angina & response by session 3., Pt independently manages Plan/Interventions: Assist Pt to ID & engage in lifestyle modification to reduce CVD risk, Instruct on individual risk factors, Review symptoms of angina & emergency actions, Review secondary diagnosis & identify educational needs. - Safety Referral to Physical Therapy: No Referral to [facility] Case Management: No Fall Risk Assessed:: Yes Assistive Devices:: None Exercise - Initial Assessment - Visit Date of Eval: 09/22/19 - SCHEDULED TO START CR ON Session #:: 0 - INITIAL EVALUATION Mets: Pre-: >5 METS for 30 minutes by discharge - Physician Prescribed Exercise Modalities: Treadmill, Airdyne, NuStep Frequency: 3x/week for 12 weeks [36 sessions] Intensity: 60-80% of age predicted maximum heart rate reserve Current METSs:: 3.0 Target Heart Rate:: 107-140 Resting Blood Pressure: 112/74 EKG Type: NSR WITH T WAVE ABNORMALITY - ISCHEMIC CARDIOMYOPATHY Current Physical Activity or Exercising minutes: 0 - Outcomes & Goals Goals:: Verbalizes understanding of THR, RPE & goal METS by session 6, Documents in home exercise log/reports 30 min aerobic 5 day/wk by DC, Demonstrates accurate pulse taking by DC - Intervention & Plan Exercise Program Goals: Instruct on personal THR & RPE, Instruct on MET level & personal MET goal, Show patient to take own pulse /validate performance until accurate, Instruct on home exercise - Physical Activity Home Exercise Physical Activity - Home Exercise: Safe Exercise, Warm-up, Self-monitoring, Cool-Down, Home Exercise > 30 min Daily, Sitting Time <3 hours/daily - Outcomes & Goals Outcomes/Goals: Demonstrates correct Warm-up/exercise Cool-Down (S3) if = 2.5 METs, Verbalizes symptoms of exercise intolerance by Session 3 (S3), Demonstrate safe equipment use (S3) & follows exercise prescrition (6) - Intervention & Plan Plan/Intervention: Instruct warm-up & cool-down if exercising at > 2 METs, Instruct on symptoms of exercise intolerance & actions to take, Instruct & monitor on saf, Assess intial functional capacity & safety risk Nutrition - Initial Assessment - Program Goals Nutrition Program Goals: LDL <100 optimal. 100 - 129 Near optimal. 130 - 159 Borderline High. 160 - 189 High. Total Cholesterol <200 desirable. 200 - 239 Borderline High. >/= 240 High. HDL < 40 Low >/=60 High. Triglycerides <150 desirable. <199 optimal. VlDL 5 - 40. HgbA1C <7%. BMI <25 Patient has diagnosis of Hyperlipidemia (ICD E78)?: Yes - Visit Date of Assessment:: 09/22/19 Session #:: 0 - INITIAL EVALUATION - Cholesterol/Lipids Triglycerides (mg/dL): 96 Total Cholesterol (mg/dL): 163 LDL Cholesterol (mg/dL): 108 HDL Cholesterol (mg/dL): 36 Determine presence & major risk factors that modify LDL goal: Cigarette smoking, Hypertension or hypertensive medication, Low HDL cholesterol <40 mg/dL*, Family history of premature CHD in Male < 55 years: female <65 yearsFa Outcomes/Goals: Pt IDs own risk factors & lifestyle modifications by Session 10, Verbalizes symptoms of angina & response by session 3., Pt independently manages Intervention/Plan: Instruct on personal lipid levels & lipid goals/NCEP guidelines, Instruct on cholesterol - Diabetes (Other Core Measures) Diabetes Type: Not Applicable - Weight Mgt (Other Care) Not Applicable: Yes Height: 5 ft 10 in Weight:: 172 lb BMI: 24.7 Diagnosis Overweight/Obesity BMI> 30% ICD-10 E66: No Diagnosis High BMI/Morbid Obesity BMI> 35% ICD-10 Z68: No Outcomes/Goals: Pt sets, maintains & shows weight loss goal & trend during rehab Intervention/Plan: Instruct on ideal BMI & set weight loss goal w/patient - Healthy Eating Habits Outcomes/Goals:: Consume diet rich in vegs,fruits,whole grain/high fiber,fish,lean meat, Limit sat/trans fats,cholesterol & added salts & sugars Intervention/Plan:: Assess current eating habits - Education Gave educational materials for:: Healthy eating Medical - Initial Assessment - Visit Date of Eval: 09/22/19 Session #:: 0 - INITIAL EVALUATION - Medication Compliance Preventative Medication(s):: Aspirin, Ticagrelor/P2Y12 inhibitor, Statin/lipid, Beta sabra H/O mental health issues: depression, anxiety, or addiction?: No Doesn?t believe in the benefits of treatment?: No Believes medications are unnecessary or harmful?: No Has a concern about medication side effects?: No Outcomes/Goals: Verbalizes medications,desired effect & common side effects @ DC, Pt self-reports following medication regimen, Keeps card in wallet w/medications listed by DC Interventions/plans: Instruct on medication effects & side effects, Review medication list w/patient every two weeks, Instruct importance of taking meds as ordered & assist problem solving - Tobacco Use Tobacco Use: Cigarettes How many cigarettes do you smoke per day?: 10 Years Smokin Do you use smokeless tobacco?: No Outcomes/Goals: Smoking cessation achieved or maintained by discharge, Identify aids/strategies for achieving smoking cessation by session 6 Interventions/plan: Instruct on effects of smoking & provide smoking cessation resource, Assist pt to set quit date & provide encouragement, Assist pt to develop strategies to achieve/maintain quit date, Assist pt w/nicotine replacement & medication for cessation success - Hypertension Resting Blood Pressure:: 112/74 [place] [employer] Hypertension Guidelines: [place] [employer] Hypertension Guidelines. Normal BP Less than 120/80. Elevated BP 120/80. Hypertension Stage 1: BP 130-139/80-89. Hypertesnion Stage 2: BP 140 or higher/90 or higher. Hypertension Crisis: BP higher than 180/120 Outcomes/Goals: Able to verbalize/achieve optimal blood pressure <130/80, Incorporates diet changes & exercise for blood pressure control by DC Interventions/plan: Instruct on optimal blood pressure, hypertension & medications, Instruct on effects of sodium, alcohol, stress, exercise &hypertension - Tobacco Cessation Referral Smoking Cessation Referral:: Yes Individual Education/Counseling:: No Education Schedule Given:: Yes Psychosocial - Initial Assess - VIsit Date of Eval: 09/22/19 Session #:: 0 - INITIAL EVALUATION Not Applicable: No History of previous Mental disease:: No - Target Goals Target Goals: Assess presence or absence of depression. Using a valid screening tool, maximizes coping skills. Positive support system - Psychosocial Test Tool Used:: Ewa Bustillos QOL Cardiac, PHQ-9 Questionnaire phq-9 Severity: Severity. 1-4 Minimal Depression. 5-9 Mild Depression. 10-14 Moderate Depression. 15-19 Moderately Sever Depression. 20-27 Severe Depression. Rule: Total Score:: 2 - MINIMAL DEPRESSION - Referral to Behavioral Health PS - Interventions: Yes Attend Stress Management Classes, No Referral to Behavioral Health if PHQ-9 score >9: - SCORED 2, No Referral to [facility], No Referral to Physician if PHQ-9 if score is 5-9: - Outcomes/Goals: See list Psychosocial Outcomes/Goals:: ID's personal stressors & 2 strategies to manage stress by discharge - Intervention/Plan: See List Interventions/Plan:: Assess stressors,coping strategies & signs of derpression on admission, Instruct/assist pt to develop coping & personal stress Mgt strategies, Instruct patient to recognize signs & symptoms of depression, Instruct patient to recog Patient Health Questionnaire Initial Assessment 1. Little interest or pleasure in doing things: Not at all 2. Feeling down, depressed, or hopeless: Not at all 3. Trouble falling or staying asleep, or sleeping too much: Not at all 4. Feeling tired or having little energy: Not at all 5. Poor appetite or overeating: More than half the days 6. Feeling bad about yourself -- or that you are a failure or have let yourself or your family down: Not at all 7. Trouble concentrating on things, such as reading the newspaper or watching television: Not at all 8. Moving or speaking so slowly that other people could have noticed. Or the opposite - being so fidgety or restless that you have been moving around a lot more than usual: Not at all 9. Thoughts that you would be better off , or of hurting yourself in some way: Not at all How difficult have these problems made it for you to do your work, take care of things at home, or get along with other people?: Somewhat difficult Total Score: 2 JEREMY-Q SV Test - Statements CAD is a disease of the arteries in the heart: False Examples of risk factors for heart disease: True Angina is chest pain or discomfort: True The benefits of resistance training include: True Eating more meat and dairy products: False Anti-platelet medications such as aspirin are important: True The only effective way to manage stress: False An exercise warm-up slowly increases heart rate: True Prepared, processed foods usually have high sodium: False Depression is common after a heart attack: True The statin medications lower cholesterol: I Don't Know To control blood pressure, lower the amount of sodium: True If someone gets chest discomfort during walking: False Transfats are partially hydrogenated vegetable oils: I Don't Know Sleep apnea that is not treated increases the risk: I Don't Know To control cholesterol, one should become a vegetarian: False Someone knows if he/she is exercising at the right level: I Don't Know Diabetes cannot be prevented with exercise & health eating: False Stress is a large risk for heart attack: True A diet that can help lower blood pressure is rich in: I Don't Know - Total Score Total Correct Responses: 14 Self-Efficacy Initial Assessment We would like to know how confident you are in doing certain activities. Please select your confidence level for:: Select your confidence level for the following using the scale 1-10 where 1 is not at all confident and 10 is totally confident. Your score is the average of all 6 responses. Fatigue: How confident are you that you can keep the fatigue caused by your disease from interfering with the things you want to do? Select Number: 10 Physical Discomfort or Pain: How confident are you that you can keep the physical discomfort or pain of your disease from interfering with the things you want to do? Select Number: 10 Emotional Distress: How confident are you that you can keep the emotional distress caused by your disease from interfering with the things you want to do? Select Number: 10 Other Symptoms or Health Problems: How confident are you that you can keep other symptoms or health problems from interfering with the things you want to do? Select Number: 10 Different Tasks and Activities: How confident are you that you can do the different tasks and activities needed to manage your health condition so as to reduce your need to see a doctor? Select Number: 10 Medication: How confident are you that you can do things other than just taking medication to reduce how much your illness affects your everyday life? Select Number: 10 Total Score:: 10 Nutrition Survey - Nutrition Survey Instructions Scoring Instructions: Scoring is as follows: Yes = 1 points. No = 0 point. Patient score that is >/=12 is considered to be at potential nutritional risk and could benefit from a referral to a registered dietitian. - Nutrition Survey Initial Have you lost >10 lbs over the past 2 months without trying?: No Are you following a special diet at home for diabetes, low fat, or low salt?: No Are you interested in meeting with a dietitian for help understanding your diet?: Yes Do you eat less than 3 meals a day?: No Do you eat fatty meats (moody, sausage, ribs, etc), fried foods, desserts, large amounts of salad dressings, margarine, butter, or cheese most days?: Yes Do you have food allergies? [Enter types in comment field]: No Do you eat in restaurants more than 3 times a week?: No Do you season food with salt, seasoning salt, or garlic salt?: No Do you used canned, boxed, frozen meals, or soups, seasoning packets?: No Total Score:: 2
--- NOTE | 2019-09-22 10:16 | CR.HP_ITS ---
CR - History & Physical - General Arrival date:: 09/22/19 Arrival time:: 10:21 Date of Referral:: 08/26/19 Date of CR Evaluation:: 09/22/19 Referring Physician: DR. EDGARD LENNON Primary Diagnosis: STEMI, S/P PCI INTERVENTION - History of Present Cardiac Event Onset Date: Enter Onset Date of cardiac illnesses in Comment field below Acute Myocardial Infarction within 12 months:: Yes - STEMI 08/26/2019 PTCA or coronary stenting:: Yes - 08/26/2019 Type of Symptoms:: ACUTE CHEST PAIN, RIGHT SHOULDER PAIN, NAUSEA VOMITTING, Interventions with present event:: SENT TO LAB FOR BLOOD WORK AND WAS SENT TO EMERGENCY ROOM DISCOVERED HE WAS - Medications Home Medications: Ambulatory Orders Medication Instructions Recorded Mirtazapine [Remeron] 15 mg PO QHS 30 Days #30 tab 08/26/19 aspirin 81 mg chewable tablet 81 mg PO DAILY@0800 #30 tab 09/09/19 atorvastatin 80 mg tablet 80 mg PO QHS #30 tab 09/09/19 carvedilol 3.125 mg tablet 3.125 mg PO BID #60 tab 09/09/19 losartan 25 mg tablet 12.5 mg PO DAILY #30 tab 09/09/19 omeprazole 20 mg tablet,delayed 20 mg PO DAILY #30 tab 09/09/19 release ticagrelor 90 mg tablet 90 mg PO BID #60 tab 09/09/19 - Allergies Allergies/Adverse Reactions: Allergies No Known Allergies Allergy (Verified 09/03/19 13:07) - Sleep Disorder Evaluation Hx of Sleep Apnea: No Do you snore loudly (louder than talking or can be heard through closed doors)?: No - SIGNIFICANT OTHER DESCRIBES HE SNORED ALOT BEFORE THE STENT, BUT RESTING WELL NOW. Do you often feel tired/ fatigued/ sleepy during daytime?: No Has anyone observed you stop breathing during sleep?: No History of Hypertension (for STOP score): No STOP Results: Negative Advanced Directives - Advanced Directives Power of Medical Record Clerk: No Living Will: No Advance Directives Information Provided: Yes Advance Directives on File: No DNR Order?:: No - MOLST See MOLST form: No Past Medical History - Past Medical Illness Medical History: Past Medical History (Last Reviewed 09/09/19 @ 08:47 by Lou Heard) Ischemic cardiomyopathy (Chronic) I25.5 EF 25% per echo done 08/27/19 Atherosclerosis of coronary artery (Chronic) I25.10 STEMI (ST elevation myocardial infarction) (Acute) Onset Date: 08/26/19 I21.3 Adenocarcinoma of lung (Chronic) C34.90 Mediastinal lymphadenopathy (Chronic) R59.0 - Past Surgical History Surgical History: Past Surgical History (Last Reviewed 09/09/19 @ 08:47 by Lou Heard) Stented coronary artery (Chronic) Onset Date: 08/26/19 Z95.5 LVEF: by LV gram 20 %, Depressed Left Ventricular systolic function - Severe. Elevated Left Ventricular End Diastolic Pressure. Single vessel CAD of the LAD: Successful PTCA/ACOSTA proximal LAD with a 3.0 x 24 Promus Synergy. Per MAGI @ [facility] 08/26/2019 Surgical History: - - CT-guided biopsy left lower lobe - Family History Summary Family History: Family History (Last Reviewed 09/09/19 @ 08:47 by Lou Heard) Mother Heart disease COPD (chronic obstructive pulmonary disease) Kidney disease Aunt Diabetes Social History - Smoking History Smoking Status: Current every day smoker Years Smokin Hx Tobacco Use: Yes Hx Smoking Exposure: Yes - Alcohol Use Alcohol Usage: No - Substance Abuse Hx Substance Use: No - Occupation Occupation (List type of work in comments):: Unemployed - APPLIED FOR DIABILITY- [employer] - Hobbies, Recreation, Social Activities Hobbies: Other - HIKING, FISHING HUNTING Recreational Activities: I am able to engage in most, but not all activities Social Environment - Status Marital Status: Single - Current Living Arrangements Living Environment:: Spouse - Children How many children do you have?: 3 Do any of your children live nearby?: Yes - Safety Do you feel safe in your surroundings?: Yes Review of Systems - Review of Systems Hints: Right click = Denies (Slash). Left click = Reports ([place]) Review of Present Symptoms: Reports: Appetite - Normal - MORE THAN NORMAL, Sleep - Normal. Denies: Shortness of Breath at Rest, Shortness of Breath with Exertion, Dizziness/Lightheadedness, Fatigue, Heart Arrhythmia/Irregularities, Appetite - Special Diet, Sexual Changes - Pain Is Patient Pain Free?: Yes Pain Location: none Pain Level: 0/10 Risk Factor Assessment - Vital Signs Temperature: 97.7 F Respiratory Rate: 16 Blood Pressure: 112/74 - Pulse Pulse Rate: 68 Pulse Rhythm: Regular - 96 - Hypertension Blood Pressure Sitting - Left Arm: 112/74 - Blood Cholesterol/Lipids Total Cholesterol (mg/dL) Goal = less than 200 mg/dL: 163 HDL Cholesterol (mg/dL) Goal = less than 40 mg/dL: 36 LDL Cholesterol (mg/dL) Goal = less than 70 mg/dL: 108 Triglycerides (mg/dL) Goal = less than 150 mg/dL: 96 - Diabetes Nutrition Referral for Diabetes: No - Obesity Height: 5 ft 10 in Weight:: 172 lb Weight in Pounds: 172.0 lbs Weight Source: Standing Scale Body Mass Index (BMI): 24.7 Nutritional Referral for Obesity: No - Physical Inactivity Physical Inactivity: Recreational activity - HUNTING FISHING - Risk Stratification Risk Guidelines: Lowest Risk: Risk Factor for Diabetes, Risk Factor for Obesity, Risk Factor for Hypertension, Risk Factor for Depression, Moderate Risk: Risk Factor for Dyslipidemia, Risk Factor for Sedentary Lifestyle, Highest Risk: Risk Factor for Smoking - For Smoking Smoking Risk Guidelines: Smoking Low Risk: None or quit greater than 6 months ago. Smoking Moderate Risk: Smoker or quit 6 months or less ago. Smoking High Risk: Smoker - For Dyslipidemia Dyslipidemia Risk Guidelines: Low Risk: Moderate Risk: High Risk: 15-25% fat 25.1-29% fat >/= 30% fat. <7% sat fat 7-9% sat fat >9% sat fat. <150 mg chol 150-299 mg chol >/= 300 mg chol. LDL <100 LDL 100-129 LDL >/= 130. Chol/HDL ratio <5.0 Chol/HDL ratio 5.0-6.0 Chol/HDL ratio >6.0. Triglycerides <100 Triglycerides 100- 149 Triglycerides >/= 150 - For Diabetes Mellitus Diabetes Risk Guidelines: Diabetes Low Risk: HgA1c <6.5% and/or FBG <120. Diabetes Moderate Risk: HgA1c 6.6-7.9% and/or FBG 120-180. Diabetes High Risk: HgA1c >/= 8% and/or FBG >180 - For Obesity/Overweight Obesity/Overweight Risk Guidelines: Obesity Low Risk: BMI <25.0. Obesity Moderate Risk: BMI 25-29.9. Obesity High Risk: BMI >/= 30.0 - For Hypertension Hypertension Risk Guidelines: Hypertension Low Risk: Systolic <120 and Diastolic <80. Hypertension Moderate Risk: Systolic 120-139 and Diastolic 80-89. Hypertension High Risk: Systolic >/= 140 and Diastolic >/= 90 - For Sedentary Lifestyle Sedentary Lifestyle Risk Guidelines: Sedentary Lifestyle Low Risk: >/= 1,500 kcal/week. Sedentary Lifestyle Moderate Risk: 700-1,499 kcal/week. Sedentary Lifestyle High Risk: < 700 kcal/week - For Depression Depression Risk Guidelines: Depression Low Risk: Not clinically depressed. Depression Moderate Risk: Mildly depressed. Depression High Risk: Clinically depressed - Family History Family History: Family History (Last Reviewed 09/09/19 @ 08:47 by Lou Heard) Mother Heart disease COPD (chronic obstructive pulmonary disease) Kidney disease Aunt Diabetes Motivation - Motivation to Participate On a scale of 1 to 10, how prepared are you to commit to attending program?: 9 What do you see as barriers to successfully being able to complete the program?: NONE What do you see as the benefits of succesfully completing the program? In other words, what do you hope to get out of participating in the program?: FEELIG BETTER, BEING HEALTHIER Are there issues you are dealing with that will interfere with completing the program?: NO Do you have a spouse or signficant other, family or friends who will help support you to complete the program?: YES
[2019-09-22 10:44] VITALS: BP 112/74; BMI 24.7
[2019-09-22 10:57] VITALS: BP 112/74; PULSE 68; RESP 16; TEMP 36.5; BMI 24.7
== END ==
PROVIDERS: Referring Provider Internal Medicine Cardiovascular Disease; Visit Provider Internal Medicine Cardiovascular Disease
DX: K21.9 Gastro-esophageal reflux disease without esophagitis (principal); I25.5 Ischemic cardiomyopathy; I25.10 Atherosclerotic heart disease of native coronary artery without angina pectoris; R59.0 Localized enlarged lymph nodes; C34.90 Malignant neoplasm of unspecified part of unspecified bronchus or lung

== ENCOUNTER 2019-09-29 06:23 | Outpatient (RCR) | payer MEDICAID, SELFPAY ==
[2019-09-22 10:44] VITALS: BMI 24.7
[2019-09-22 10:57] VITALS: BMI 24.7
== END 2019-10-12 23:59 ==
LOC: CR 06:23
PROVIDERS: Referring Provider Internal Medicine Cardiovascular Disease; Visit Provider Internal Medicine Cardiovascular Disease
DX: I25.10 Atherosclerotic heart disease of native coronary artery without angina pectoris (principal); Z95.5 Presence of coronary angioplasty implant and graft; I25.2 Old myocardial infarction
CPT/HCPCS: 93798

== ENCOUNTER → 2019-10-02 10:23 | Outpatient (CLI) | payer MEDICAID, SELFPAY ==
[2019-08-27 11:00] VITALS: BMI 23.1
[2019-09-09 08:47] VITALS: BMI 24.0
[2019-09-22 10:44] VITALS: BMI 24.7
[2019-10-01 14:46] VITALS: BMI 24.0
--- NOTE | 2019-10-02 10:24 | ECHOD_ITS ---
Reason For Study: CAD, Isch. CMP Procedure This was a 2D Doppler, Color Flow transthoracic echocardiogram. Myocardial strain analysis was performed in this exam to aid in the assessment of cardiac function. Exam performed in department. Left Ventricle Moderately dilated left ventricle. The estimated ejection fraction is 35 %. Stage 1 diastolic dysfunction. There is moderate to severe global hypokinesis of the left ventricle. Right Ventricle Normal size and thickness. Normal systolic function. Atria Normal left atrium. Normal right atrium. Normal atrial septum. Mitral Valve The mitral valve is structurally normal. No prolapse or stenosis seen. Trivial mitral valve insufficiency. Tricuspid Valve Normal tricuspid valve. Trivial tricuspid valve insufficiency. Unable to estimate RV systolic pressure due to insufficient tricuspid regurgitant envelope. Aortic Valve Trisinus/trileaflet aortic valve. Normal aortic valve. Trivial aortic valve insufficiency. Pulmonic Valve Normal pulmonic valve. Trivial pulmonic valve insufficiency. Great Vessels Normal aortic root. Normal arch. Normal inferior vena cava. Inferior vena cava collapse with sniff. Pericardium/Pleural No pericardial effusion. MMode/2D Measurements & Calculations LVIDd: 5.3 cm IVSd: 0.81 cm Ao root diam: 3.4 cm LVIDs: 3.8 cm LVPWd: 0.76 cm RVDd: 3.4 cm FS: 28.3 % LAV(MOD-bp): 34.1 ml EDV(MOD-sp4): 98.2 ml EDV(MOD-sp2): 106.4 ml LAV(MOD-bp) Indexed: 17.6 ml/m2 ESV(MOD-sp4): 61.5 ml EF(MOD-sp2): 33.1 % LAV(MOD-sp2): 32.5 ml EF(MOD-sp4): 37.4 % LAV(MOD-sp4): 33.4 ml SV(MOD-sp4): 36.7 ml SV(MOD-sp2): 35.2 ml LA A4 area: 13.4 cm2 LA dimension(2D): 3.5 cm RA A4 area: 12.7 cm2 Doppler Measurements & Calculations MV E max lizandro: 48.4 cm/sec Lat Peak E' Lizandro: 7.2 cm/sec Med Peak E' Lizandro: 4.2 cm/sec MV A max lizandro: 74.4 cm/sec E/E' lat: 6.7 E/E' med: 11.5 MV E/A: 0.65 Ao V2 max: 105.6 cm/sec LV V1 max: 80.7 cm/sec PA V2 max: 66.3 cm/sec Ao max P.5 mmHg LV V1 max P.6 mmHg Interpretation Summary Moderately dilated left ventricle. The estimated ejection fraction is 35 %. Stage 1 diastolic dysfunction. There is moderate to severe global hypokinesis of the left ventricle. Trivial mitral valve insufficiency. Trivial tricuspid valve insufficiency. Unable to estimate RV systolic pressure due to insufficient tricuspid regurgitant envelope. Trivial aortic valve insufficiency. Trivial pulmonic valve insufficiency. The global longitudinal strain = -11.9% (abnormal). Compared to echo report dated 08/27/2019, LV function has had some mild improvement from 25% to 35%. The global longitudinal strain = -11.9% (abnormal). Ordering Physician: Olvin Cage Referring Physician: Olvin Cage Performed By: Ria Urrutia RDCS
== END ==
PROVIDERS: Referring Provider Internal Medicine Cardiovascular Disease; Visit Provider Internal Medicine Cardiovascular Disease
DX: I25.10 Atherosclerotic heart disease of native coronary artery without angina pectoris (principal); I21.3 ST elevation (STEMI) myocardial infarction of unspecified site; Z95.5 Presence of coronary angioplasty implant and graft; C34.90 Malignant neoplasm of unspecified part of unspecified bronchus or lung
CPT/HCPCS: 93306

== ENCOUNTER → 2019-10-30 06:47 | Outpatient (CLI) | payer MEDICAID, SELFPAY ==
[2019-09-22 10:44] VITALS: BMI 24.7
[2019-10-01 14:46] VITALS: BMI 24.0
[2019-10-30 07:14] VITALS: PULSE 63; PULSE 66; PULSE 72; PULSE 74; PULSE 76; PULSE 77; O2SAT 98; O2SAT 99
--- NOTE | 2019-10-30 10:40 | PCM.PSN.6M ---
PSN 6 Minute Walk Test - 6 Minute Walk Test 6 Minute Walk Test: 6 Minute Walk Test PSN:6-Minute Walk Test Start: 10/30/19 07:14 Freq: Status: Active Protocol: [id number].6MINW Document 10/30/19 07:14 TRINO (Rec: 10/30/19 07:16 TRINO [id number]) 6 Minute Walk Test Date Performed 10/30/19 Time Performed 07:00 Height 5 ft 11 in Weight: 175 lb Weight in Pounds 175.[address]: Mateus Velarde Assistive device used: None Pre-test Oxygen Delivery Method Room Air Pulse Ox (%) 99 Pulse Rate (60-100 beats/min) 63 Dyspnea Janet Scale (0-10) 0 Exertion Janet Scale (6-20) 6 1st minute Oxygen Delivery Method Room Air Pulse Ox (%) 99 Pulse Rate (60-100 beats/min) 74 2nd minute Oxygen Delivery Method Room Air Pulse Ox (%) 98 Pulse Rate (60-100 beats/min) 76 3rd minute Oxygen Delivery Method Room Air Pulse Ox (%) 98 Pulse Rate (60-100 beats/min) 77 4th minute Oxygen Delivery Method Room Air Pulse Ox (%) 98 Pulse Rate (60-100 beats/min) 74 5th minute Oxygen Delivery Method Room Air Pulse Ox (%) 98 Pulse Rate (60-100 beats/min) 72 6th minute Oxygen Delivery Method Room Air Pulse Ox (%) 98 Pulse Rate (60-100 beats/min) 74 Dyspnea Janet Scale (0-10) 0 Exertion Janet Scale (6-20) 11 Post-test Oxygen Delivery Method Room Air Pulse Ox (%) 99 Pulse Rate (60-100 beats/min) 66 Full Laps Walked 18 Partial Lap, Number of Tiles Walked 36 Total Distance Walked (ft) 1098 - Interpretation Interpretation: The patient ambulated 1098 feet over the course of 6 minutes beginning on room air without assistive devices or breaks. Pretesting oxygen saturation was noted to be 99% on room air. With ambulation, the viv oxygen saturation was 98%. There was no significant exertional oxygen desaturation. - Recommendations Recommendations: There is no indication for the use of supplemental oxygen at this time.
== END ==
PROVIDERS: Referring Provider Internal Medicine Critical Care Medicine; Visit Provider Internal Medicine Critical Care Medicine
DX: C34.90 Malignant neoplasm of unspecified part of unspecified bronchus or lung (principal)
CPT/HCPCS: 94618

== ENCOUNTER → 2019-12-25 10:41 | Outpatient (CLI) | payer MEDICAID, SELFPAY ==
[2019-11-04 08:14] VITALS: BMI 23.7
[2019-12-15 10:27] VITALS: BMI 23.4
--- NOTE | 2019-12-25 10:42 | ECHOD_ITS ---
Reason For Study: CAD/ASHD Procedure This was a 2D Doppler, Color Flow transthoracic echocardiogram. Myocardial strain analysis was performed in this exam to aid in the assessment of cardiac function. Exam performed in department. Left Ventricle Mild concentric left ventricular hypertrophy. Mildly dilated left ventricle. The estimated ejection fraction is 35-40 %. The global longitudinal strain = -17.5% (borderline). Stage 1 diastolic dysfunction. There is moderate global hypokinesis of the left ventricle. Right Ventricle Normal size and thickness. Normal systolic function. Atria Normal left atrium. Normal right atrium. Normal atrial septum. Mitral Valve The mitral valve is structurally normal. No prolapse or stenosis seen. Tricuspid Valve Normal tricuspid valve. Trivial tricuspid valve insufficiency. Right ventricular systolic pressure estimated to be 30 mmHg. Aortic Valve Trisinus/trileaflet aortic valve. Trivial aortic valve insufficiency. Pulmonic Valve Normal pulmonic valve. Trivial pulmonic valve insufficiency. Great Vessels Normal aortic root. Normal arch. Normal inferior vena cava. Inferior vena cava collapse with sniff. Pericardium/Pleural No pericardial effusion. MMode/2D Measurements & Calculations LVIDd: 4.9 cm IVSd: 1.3 cm Ao root diam: 3.2 cm LVIDs: 3.4 cm LVPWd: 1.2 cm RVDd: 3.4 cm FS: 30.5 % LAV(MOD-bp): 37.4 ml LA A4 area: 12.1 cm2 LA dimension(2D): 3.7 cm LAV(MOD-bp) Indexed: 18.8 ml/m2 LAV(MOD-sp2): 37.6 ml LAV(MOD-sp4): 29.7 ml RA A4 area: 13.4 cm2 Doppler Measurements & Calculations MV E max lizandro: 63.7 cm/sec Lat Peak E' Lizandro: 10.3 cm/sec Med Peak E' Lizandro: 9.4 cm/sec MV A max lizandro: 75.4 cm/sec E/E' lat: 6.2 E/E' med: 6.8 MV E/A: 0.85 Ao V2 max: 99.8 cm/sec LV V1 max: 68.9 cm/sec PA V2 max: 78.5 cm/sec Ao max P.0 mmHg LV V1 max P.9 mmHg Ao V2 mean: 71.0 cm/sec Ao mean P.2 mmHg Ao V2 VTI: 21.0 cm TR max lizandro: 247.6 cm/sec TR max P.5 mmHg Interpretation Summary Mild concentric left ventricular hypertrophy. Mildly dilated left ventricle. The estimated ejection fraction is 35-40 %. The global longitudinal strain = -17.5% (borderline). Stage 1 diastolic dysfunction. There is moderate global hypokinesis of the left ventricle. Trivial tricuspid valve insufficiency. Right ventricular systolic pressure estimated to be 30 mmHg. Trivial aortic valve insufficiency. Compared to echo report dated 10/02/2019, LV function has remained about the same, global longitudinal strain has improved from -11.9% to -17.5%. Ordering Physician: Keyon Schrader Referring Physician: Keyon Schrader Performed By: Desi Dacosta RDCS, RONNI
== END ==
PROVIDERS: Referring Provider Student in an Organized Health Care Education/Training Program; Visit Provider Student in an Organized Health Care Education/Training Program
DX: I21.3 ST elevation (STEMI) myocardial infarction of unspecified site (principal); C34.90 Malignant neoplasm of unspecified part of unspecified bronchus or lung; I25.10 Atherosclerotic heart disease of native coronary artery without angina pectoris
CPT/HCPCS: 93306

== ENCOUNTER → 2019-12-26 15:37 | Outpatient (CLI) | payer MEDICAID, SELFPAY ==
[2019-11-04 08:14] VITALS: BMI 23.7
[2019-12-15 10:27] VITALS: BMI 23.4
--- NOTE | 2019-12-26 15:38 | CT_ITS ---
STUDY: CT CHEST WITH CONTRAST REASON FOR EXAM: Male, 54 years old. LUNG CANCER RESTAGING RADIATION DOSAGE (If Supplied By Facility): CTDIvol = ( 14.627 ) mGy, DLP = ( 1176.27 ) mGycm TECHNIQUE: Transaxial imaging was performed following intravenous administration of IV 100mL Isovue-300. Individualized dose optimization techniques were used for this CT. COMPARISON: 07/09/2019. FINDINGS: The lungs are expanded. The previous noted left lower lobe lobulated mass measures 4.8 x 6.0 cm in the superior-inferior and anteroposterior dimensions in the sagittal plane, compared to 4.4 x 4.7 cm in the same dimensions in the sagittal plane. It measures 5.8 cm in the maximum axial dimension versus 4.7 cm on the previous study as measured on the sagittal images. That there is associated distal scarring/atelectasis in the left lung base laterally. Stable 3 mm pleural-based left upper lobe nodule, image 25 series 6. Normal heart and pericardium. Normal mediastinum. Normal hilar regions. Normal enhanced pulmonary arteries. Normal aorta arch and descending thoracic aorta. Degenerative vertebral changes. CT/Chest WITH Contrast IMPRESSION: Slightly larger left lower lobe lobulated mass as noted. Electronically Signed: Renato Dupree DO at 16:28 EDT Tel [phone], Service support ,
--- NOTE | 2019-12-26 15:38 | CT_ITS ---
STUDY: CT ABDOMEN AND PELVIS WITH CONTRAST REASON FOR EXAM: Male, 54 years old. RESTAGING FOR LUNG CANCER. RADIATION DOSAGE (If Supplied By Facility): CTDIvol = ( 14.627 ) mGy, DLP = ( 1176.27 ) mGycm TECHNIQUE: Transaxial images were obtained from the dome of the diaphragm to the symphysis pubis without oral contrast. IV 100mL Isovue-300 was administered. Sagittal and coronal images were reconstructed. Individualized dose optimization techniques were used for this CT. COMPARISON: None. FINDINGS: Up to 1.4 cm hypoattenuated nodules in the liver, likely cysts. Normal gallbladder and extrahepatic biliary system. Normal spleen. Normal pancreas. Normal bilateral adrenal glands. Subcentimeter cysts in the right kidney. Normal left kidney. Normal visualized stomach. Normal small intestine. Normal colon. The appendix is visualized and appears normal. Normal abdominal aorta. Normal inferior vena cava. Normal retroperitoneum. Normal urinary bladder. Fatty density at the inguinal canals. Normal abdominal wall. Degenerative vertebral changes. Minimal spondylolisthesis at L5-S1 with spondylolysis of L5. CT/Abdomen/Pelvis WITH Contrast IMPRESSION: Hepatic and right renal cysts. Mild fatty density in the inguinal canals. Electronically Signed: Renato Dupree DO at 16:38 EDT Tel [phone], Service support ,
== END ==
PROVIDERS: Referring Provider Student in an Organized Health Care Education/Training Program; Visit Provider Student in an Organized Health Care Education/Training Program
DX: C34.90 Malignant neoplasm of unspecified part of unspecified bronchus or lung (principal)
CPT/HCPCS: 71260; 74177; Q9967; A4216

== ENCOUNTER 2020-01-30 07:10 | Day surgery (SDC) | payer MEDICAID, SELFPAY ==
[2019-12-15 10:27] VITALS: BMI 23.4
[2020-01-20 14:56] VITALS: BMI 24.2
[2020-01-27 08:39] VITALS: BMI 24.3
[2020-01-30] VITALS (7 sets, daily range): BP systolic 106–120; BP diastolic 75–83; PULSE 59–69; RESP 16; TEMP 36.1–36.4; O2SAT 94–98; BMI 24.5
[2020-01-30] MEDS: Lactated Ringers 1,000 ML 100 ML IV (07:59)
--- NOTE | 2020-01-30 08:38 | HP.PCM_ITS ---
Problem List (1) Encounter for adjustment and management of vascular access device Status: Acute History and Physical Date of Admission: 01/30/20 Intake Vital Signs 01/20/20 BMI 24.2 01/20/20 Height 5 ft 11 in 01/20/20 Weight: 174 lb 01/20/20 BMI 24.3 01/20/20 BP 107/71 01/20/20 Blood Pressure Location Rt brachial 01/20/20 Position Sitting 01/20/20 Respiration 18 01/20/20 Pulse 91 01/20/20 Pulse Source Monitor 01/20/20 Temp 98.0 F 01/20/20 Temp Source Temporal 01/20/20 Pulse Oximetry (%) 96 01/20/20 Oxygen Delivery Method room air Intake Visit Reasons: PORT PLACEMENT Chief Complaint: Port Placement Health Sanitarian Required: No Accompanied by: Is patient in pain?: No Allergies No Known Allergies Allergy (Verified 01/20/20 14:55) Medications aspirin 81 mg chewable tablet 81 mg PO DAILY@0800 #30 tab 09/09/19 [Rx Confirmed 01/20/20] carvedilol 3.125 mg tablet 3.125 mg PO BID #60 tab 09/09/19 [Rx Confirmed 01/20/20] omeprazole 20 mg tablet,delayed release 20 mg PO DAILY #30 tab 09/09/19 [Rx Confirmed 01/20/20] ticagrelor 90 mg tablet 90 mg PO BID #60 tab 09/09/19 [Rx Confirmed 01/20/20] atorvastatin 80 mg tablet 80 mg PO QHS #30 tab 10/23/19 [Rx Confirmed 01/20/20] losartan 25 mg tablet 12.5 mg PO DAILY #15 tab 10/23/19 [Rx Confirmed 01/20/20] albuterol sulfate 90 mcg/actuation aerosol inhaler 2 puff INHALATION Q4H PRN #1 device 11/04/19 [Rx Confirmed 01/20/20] Lidocaine/Prilocaine [Lidocaine-Prilocaine Cream] 1 applicatio TP DAILY PRN PRN 30 Days #1 tube 01/15/20 [Rx Confirmed 01/20/20] Ondansetron [Zofran] 8 mg PO Q8H PRN PRN 10 Days #30 tab 01/15/20 [Rx Confirmed 01/20/20] Prochlorperazine Maleate 10 mg PO Q6H PRN PRN 10 Days #30 tab 01/15/20 [Rx Confirmed 01/20/20] PFSH Medical History Ischemic cardiomyopathy (Chronic) Atherosclerosis of coronary artery (Chronic) STEMI (ST elevation myocardial infarction) (Acute 08/26/19) Adenocarcinoma of lung (Chronic) Mediastinal lymphadenopathy (Chronic) Surgical History Stented coronary artery (Chronic 08/26/19) Family History Mother Heart disease COPD (chronic obstructive pulmonary disease) Kidney disease Aunt Diabetes Social History (Updated 01/20/20 @ 15:[address] Ozzy Knight MD) Smoking Status: Current every day smoker tobacco type: cigarettes HPI HPI HPI: LÁZARO MIMS, is a 54 M who presents to the office today for HPI HPI HPI: LÁZARO MIMS, is a 54 M who presents to the office today for Port placement. The patient was recently found to have left lower lobe lung cancer and requires chemotherapy. ROS General General: No weight change, appetite, fatigue, colon cancer, breast cancer or weakness HEENT HEENT: No difficulty swallowing, eye injury, eye surgery, swollen glands or hoarseness Endo Endocrine: No thyroid disease, diabetes mellitus, thyroid cancer, Hair loss, heat intolerance or cold intolerance Skin Skin: No rash or changing moles Breast Breast: No left breast lump, right breast lump, nipple discharge, breast pain, abnormal mammogram, abnormal US or breast enlargement Musc Musculoskeletal: No back problems, arthritis, rheumatoid arthritis, gout or joint pain Cardio Cardiovascular: Yes pacemaker, heart attack and heart stent; no murmur, heart disease, atrial fibrillation, high blood pressure, palpitations, shortness of breat with exertion or chest pain Psych Psychiatric: No depression, anxiety or hearing voices Resp Respiratory: Yes shortness of breath, No sleep apnea, No cough, No COPD, No asthma, No emphysema, No wheezing Gastro Gastrointestinal: No abdominal pain, No nausea or vomiting, No diarrhea, No constipation, No blood in stool, Yes acid reflux, No hemorrhoids, No ulcers, No gallbladder problem, No black,tarry stools Ede Hematologic: Yes blood thinners, No blood disorders, No bleeding, No anemia, No blood clots Neuro Neurologic: No system reviewed and no additional complaints, except as docu, No as per HPI, No abnormal walking, No abnormal hearing, No abnormal movements, No abnormal speech, No behavioral changes, No burning sensations, No confusion, No seizure-like activity, No unsteadiness, No dizziness, No localized weakness, No frequent falls, No headache(s), No lack of coordination, No loss of vision, No memory loss, No numbness, No other visual disturbances, No radiating pain, No restless legs, No sensory deficit, No fainting, No tingling, No tremor(s), No weakness, No other Exam Const General: cooperative Orientation: alert, oriented x3 Chest Breast Palpation: No nipple discharge Resp Effort & Inspection: normal respiratory effort Auscultation: clear to auscultation bilaterally Cardio Rate: regular rate Rhythm: regular rhythm Heart Sounds: no murmurs GI Inspection: non-distended Palpation: soft, nontender Assessment & Plan Problems 1. Adenocarcinoma of left lung C34.92 2. Encounter for insertion of venous access port Z45.2 Plan The patient has lung cancer and requires port. I discussed port placement with the patient in detail. I discussed the risks including not limited to bleeding, infection, pneumothorax, line infection, DVT. The patient understands the risks as well to proceed. Patient had heart stent in July and did stop his Brilinta for 1 week previously. I would recommend that he stop Brilinta for 1 week but continues aspirin for this procedure. We discussed the current risks associated with COVID-19. While it is understood that there is a community spread of COVID-19, the risk of kimberly COVID-19 while at [facility] ([facility]) is very low; however, the risk cannot be completely mitigated because of the community spread of the disease. We discussed in detail the risk of exposure to and/or potential harm posed by the COVID-19 virus with having a surgery/procedure at this time versus the risk of delaying the surgery/procedure. It is not possible to know either the risk of delaying the surgery or procedure or chance of getting an infection with perfect accuracy, but a joint decision was made to proceed at this time with the scheduled surgery/procedure as indicated on the consent form. Patient was notified that we will need to comply with any screening or testing [facility] wishes to perform or that surgery may be delayed for any positive results. Ozzy Knight MD Pager: [facility] [address] [place] [address] [address] [place] [address] Office: I have re-examined the patient. There are no clinical changes since date of exam.
[2020-01-30] MEDS: Cefazolin 2 GM in 0.9% Normal Saline 100 ML IV (08:39)
[2020-01-30] MEDS: Bupiv/Epi 0.5% Mpf 30 ML Vial (09:00)
--- NOTE | 2020-01-30 09:22 | OP.PCM_ITS ---
Problem List (1) Encounter for adjustment and management of vascular access device Status: Resolved Report of Operation Date of Procedure: 01/30/20 Pre-Operative Diagnosis: Need for vascular access for chemotherapy Post-Operative Diagnosis: Same Surgery/Procedure Performed:: Ultrasound and fluoroscopy guided right chest port placement utilizing right IJ Description of Procedure: After obtaining informed consent patient was brought back to the operating room MAC anesthesia was induced and the right chest and neck were prepped in normal sterile fashion. Ultrasound was used to evaluate both IJs and the right IJ was selected. Next, using a needle, the right IJ was accessed and a guidewire was passed on into the superior vena cava under fluoroscopy guidance. A small incision was made over the puncture site and the dilator introducer was placed over the guidewire. Next this was capped and the pocket was made for the port. 1% lidocaine with epinephrine was injected in the proposed port site. An incision was made with scalpel. Electrocautery was used to make a pocket under the skin and subcutaneous tissue. Hemostasis was obtained. Next, the catheter was tunneled up to the neck incision site and placed through the introducer. The peel-away introducer was removed and the position of the catheter was confirmed on fluoroscopy. Next, the catheter was trimmed and attached to the port with the locking device. Interrupted 2-0 Vicryl sutures were used to anchor the port to the chest wall and then the port was placed inside the pocket. The pocket was then flushed with saline and the port irrigated with saline. There was good blood return and the port flushed easily. Next, heparin was injected into the port. The skin was closed with subcutaneous interrupted 3-0 Vicryl sutures. A single 3-0 Vicryl sutures placed under the skin at the neck incision site. Steri-Strips were placed as well as op sites. Patient tolerated procedure well, was taken to PACU in stable condition. Chest x-ray will be obtained. Grafts/Implants Used: 8 Setswana PowerPort - Admit VTE Documentation VTE Mechan Device Prophylaxis: SCD's
--- NOTE | 2020-01-30 09:23 | DCINST_ITS ---
Discharge Diet: No Restrictions - Pain medication may cause nausea. You should typically eat light foods as you take your pain medication. Discharge Activity: Return to Normal Activity, May Shower - with your bandage in place in 1-2 days after surgery. DO NOT SHOWER WHEN YOUR PORT IS ACCESSED. Call your doctor if your incision/area has: Continuous Slow Oozing, Sudden Increased Bleeding, Increased Pain/ Swelling, Increased Redness Call your doctor if you observe: Fever of 101 or Higher Remove Dressing in (days):: 3 - When you remove the bandage, leave the steri- strips intact until they fall off. Allergies/Adverse Reactions: Allergies No Known Allergies Allergy (Verified 01/30/20 07:26) Medications to take at Discharge aspirin 81 mg chewable tablet 81 mg PO DAILY@0800 #30 tab 09/09/19 carvedilol 3.125 mg tablet 3.125 mg PO BID #60 tab 09/09/19 omeprazole 20 mg tablet,delayed release 20 mg PO DAILY #30 tab 09/09/19 ticagrelor 90 mg tablet 90 mg PO BID #60 tab 09/09/19 atorvastatin 80 mg tablet 80 mg PO QHS #30 tab 10/23/19 losartan 25 mg tablet 12.5 mg PO DAILY #15 tab 10/23/19 albuterol sulfate 90 mcg/actuation aerosol inhaler 2 puff INHALATION Q4H PRN #1 device 11/04/19 Ondansetron [Zofran] 8 mg PO Q8H PRN PRN 10 Days #30 tab 01/15/20 Prochlorperazine Maleate 10 mg PO Q6H PRN PRN 10 Days #30 tab 01/15/20 Test Results: Test results from this visit will be discussed in further detail at your follow- up appointment, if applicable. Please Follow Up With: Ozzy Knight MD When: Please call to schedule 2 week follow up appointment. [phone]
--- NOTE | 2020-01-30 09:25 | RAD_ITS ---
STUDY: X-RAY CHEST REASON FOR EXAM: Male, 54 years old. POST OP PORT INSERTION TECHNIQUE: Single AP portable view of the chest. COMPARISON: Comparison is made with prior study dated 08/26/2019. FINDINGS: A right-sided portacatheter has been placed. The tip is at the junction of the superior vena cava and right atrium. There is a 5.5 cm x 5.7 cm mass in the left lower lobe. There is no demonstrated pleural abnormality. Normal size heart. Normal mediastinum and katerina. Normal visualized pulmonary arteries. Normal visualized aortic arch and descending thoracic aorta. There are diffuse degenerative changes of the visualized thoracic spine. Normal visualized ribs, clavicles, and shoulders. There is no demonstrated abnormality of the visualized soft tissue structures of the upper abdomen. RAD/CXR for Line Placement IMPRESSION: The tip of the right leslee catheter is at the junction of the superior vena cava and right atrium. Left lower lobe mass. Electronically Signed: Andrzej Neal, at 9:53 EDT , Service support ,
== END 2020-01-30 10:12 | disposition home or self-care (01) ==
LOC: SDC 07:10 → AC 07:11
PROVIDERS: Anesthesiology; Referring Provider Surgery; Visit Provider Surgery
PROC: (CPT 36561; principal; 2020-01-30 08:45)
DX: Z45.2 Encounter for adjustment and management of vascular access device (principal); Z11.59 Encounter for screening for other viral diseases; I25.2 Old myocardial infarction; I25.10 Atherosclerotic heart disease of native coronary artery without angina pectoris; I25.5 Ischemic cardiomyopathy; R59.0 Localized enlarged lymph nodes; F17.210 Nicotine dependence, cigarettes, uncomplicated; K21.9 Gastro-esophageal reflux disease without esophagitis; E78.00 Pure hypercholesterolemia, unspecified; C34.32 Malignant neoplasm of lower lobe, left bronchus or lung; Z79.899 Other long term (current) drug therapy; Z79.82 Long term (current) use of aspirin; I10 Essential (primary) hypertension
CPT/HCPCS: 00532; 36561; 71045; 77001; 77386; 87635; C9803; J7120; C1788; U0003

== ENCOUNTER → 2020-02-09 08:38 | Outpatient (CLI) | payer MEDICAID, SELFPAY ==
[2019-12-15 10:27] VITALS: BMI 23.4
[2020-02-03 09:00] VITALS: BMI 24.3
[2020-02-03 09:08] VITALS: BMI 24.5
--- NOTE | 2020-02-09 08:39 | NM_ITS ---
CLINICAL: 84-year-old male with reported history of primary lung carcinoma with current complaint of low back discomfort. WHOLE BODY 99m Tc MDP RADIONUCLIDE BONE SCINTIGRAPHY COMPARISON: FDG PET/CT study report 01/06/2020 FINDINGS: Following the intravenous administration of approximately 25.0 mCi of 99m Tc MDP, whole body bone images reveal: 1. Focal enhanced tracer distribution is observed in the lateral border of the left scapula, the distal right femoral diaphysis and distal left femoral metaphysis. 2. Increased radiopharmaceutical concentration is identified in the acromioclavicular and glenohumeral compartments of both shoulders, the medial femoral compartment of the right knee. 3. The remaining skeletal structures are scintigraphically unremarkable with normal-appearing renal images and urinary bladder activity identified. NM/Bone Scan Whole Body IMPRESSION: 1. 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 Plain film radiography correlation may be of benefit for further evaluation. 2. Degenerative arthritis appears expressed in the bilateral shoulders and right knee articulation. Electronically Signed: Luis Larose DO at 10:47 EDT Tel , Service support ,
[2020-02-09] MEDS: 0.9% Saline Lock 10 ML Syringe IV (10:25)
== END ==
PROVIDERS: Referring Provider Internal Medicine Medical Oncology; Visit Provider Internal Medicine Medical Oncology
DX: M54.5 Low back pain (principal); C34.32 Malignant neoplasm of lower lobe, left bronchus or lung
CPT/HCPCS: 78306; A4216

== ENCOUNTER → 2020-02-26 17:29 | Outpatient (CLI) | payer MEDICAID, SELFPAY ==
[2019-12-15 10:27] VITALS: BMI 23.4
[2020-02-26 10:45] VITALS: BMI 24.0
== END ==
PROVIDERS: Referring Provider Student in an Organized Health Care Education/Training Program; Visit Provider Student in an Organized Health Care Education/Training Program
DX: C34.90 Malignant neoplasm of unspecified part of unspecified bronchus or lung (principal); R05 Cough
CPT/HCPCS: 87635; C9803; U0003

== ENCOUNTER → 2020-03-30 08:17 | Outpatient (CLI) | payer MEDICAID, SELFPAY ==
[2019-12-15 10:27] VITALS: BMI 23.4
[2020-03-02 08:26] VITALS: BMI 23.3
--- NOTE | 2020-03-30 08:18 | CT_ITS ---
STUDY: CT CHEST WITH CONTRAST REASON FOR EXAM: Male, 54 years old. LUNG CA, POST CHEMO/RAD RADIATION DOSAGE (If Supplied By Facility): CTDIvol = ( 10.85 ) mGy, DLP = ( 433.10 ) mGycm TECHNIQUE: Transaxial imaging was performed following intravenous administration of IV 100mL Isovue-300. Multiplanar coronal and sagittal images were reformatted. Individualized dose optimization techniques were used for this CT. COMPARISON: Comparison is made with prior study dated 12/26/2019. FINDINGS: A right-sided portacatheter is seen with the tip in the superior vena cava. Mild degree of emphysematous changes slightly worse in the upper lobes. Persistent 3.3 cm x 4.1 cm mass in the peripheral lateral aspect of the left lower lobe superior segment. This has decreased in size as compared to prior study where it measured 4.4 size by 4.7 cm. There is no demonstrated pleural abnormality. There are calcifications of the coronary arteries. There are multiple small lymph nodes within the mediastinum, which are normal in size and morphology most compatible with reactive lymph hyperplasia. There is a 2.1 cm lymph node in the right hilum. This is unchanged. Normal enhanced pulmonary arteries. Normal aorta arch and descending thoracic aorta. There are multi-level degenerative changes of the thoracic spine. Stable scattered hypodense nodules in the liver suggestive of hepatic cysts. CT/Chest WITH Contrast IMPRESSION: Mild interval decrease in size of the previously noted mass in the left lower lobe. Electronically Signed: Andrzej Neal, at 10:29 EST , Service support ,
[2020-03-30] MEDS: 0.9% Saline Lock 10 ML Syringe IV (08:35)
[2020-04-13 13:16] LABS: Absolute Lymphocyte Count 1.11 X10^3/uL (0.83-4.51); Absolute Neutrophil Count 2.7 X10^3/uL (2.0-7.7); Basophil# 0.02 X10^3/uL; Basophil% 0.4 % (0-1); Eosinophil# 0.23 X10^3/uL; Eosinophils% 5.2 % (0-5); Hematocrit 34.4 % (40-54); Hemoglobin 11.5 g/dL (13.0-16.5); Lymphocyte # 1.11 X10^3/ul (4.0); Lymphocyte % 24.9 % (19-41); Mean Corp Hgb Conc 33.4 g/dL (32-36); Mean Corpuscular Hgb 33.5 pg (27.0-32.0); Mean Corpuscular Volume 100.3 fL (80-94); Mean Platelet Vol. 8.8 fl (6.2-12.0); Monocyte# 0.41 X10^3/uL; Monocyte% 9.2 % (0-10); NRBC Flagged by Analyzer 0 % (0-5); Neutrophil # 2.67 X10^3/uL (2.7-7.7); Neutrophil % 60.1 % (47-70); POSITIVE MORPHOLOGY YES; Platelet Count 175 K/mm3 (150-450); RBC Distribution Width CV 18.7 % (11.6-14.6); RBC Distribution Width SD 68.4 fl (35.1-43.9); Red Blood Count 3.43 M/mm3 (4.6-6.2); White Blood Count 4.5 K/mm3 (4.4-11.0)
[2020-04-13 13:17] LABS: Differential Indicated SCAN CRITERIA MET
[2020-04-13 13:39] LABS: ALB/GLOB Ratio 1.1 RATIO (0.9-2.4); AST(SGOT) 12 U/L (15-37); Alanine Aminotransfer ALT/SGPT 19 U/L (16-61); Albumin, Serum 3.5 g/dL (3.2-5.0); Alkaline Phosphatase 97 U/L (45-117); Anion Gap 2 (5-15); Anisocytosis 1+; BUN 13 mg/dL (7-18); Calcium,Total 8.3 mg/dL (8.5-10.1); Chloride 108 mmol/L (98-107); Creatinine, Serum 0.59 mg/dL (0.70-1.30); EST Glomerular Filtration Rate 150 mL/min (>60); Est Glom Filt Rate - Afr Amer 182 mL/min (>60); Free T3 2.5 pg/mL (2.18-3.98); Globulin 3.3 g/dL (2.2-4.2); Glucose 78 mg/dL (74-106); LDH 141 U/L (87-241); Potassium 3.7 mmol/L (3.5-5.1); Protein, Total 6.8 g/dL (6.4-8.2); Sodium Level 137 mmol/L (136-145)
[2020-04-13 21:13] LABS: Xtra Tube EP Lab EXTRA TUBE
== END ==
PROVIDERS: Referring Provider Internal Medicine Medical Oncology; Visit Provider Internal Medicine Medical Oncology
DX: C34.32 Malignant neoplasm of lower lobe, left bronchus or lung (principal)
CPT/HCPCS: 71260; 80053; 83615; 84439; 84443; 84481; 85025; Q9967; A4216

== ENCOUNTER → 2020-04-15 18:34 | Outpatient (CLI) | payer MEDICAID, SELFPAY ==
[2019-12-15 10:27] VITALS: BMI 23.4
[2020-04-13 14:41] VITALS: BMI 24.0
== END ==
PROVIDERS: Referring Provider Nurse Practitioner Family; Visit Provider Nurse Practitioner Family
DX: R52 Pain, unspecified (principal); R19.7 Diarrhea, unspecified
CPT/HCPCS: 87635; C9803; U0003

== ENCOUNTER → 2020-05-05 11:54 | Outpatient (CLI) | payer MEDICAID, SELFPAY ==
[2019-12-15 10:27] VITALS: BMI 23.4
[2020-04-27 09:32] VITALS: BMI 23.9
--- NOTE | 2020-05-05 11:56 | CT_ITS ---
STUDY: CT CHEST WITH CONTRAST REASON FOR EXAM: Male, 54 years old. LUNG CANCER. FINISHED CHEMO AND RADIATION. NOW ON IMMUNOTHERAPY RADIATION DOSAGE (If Supplied By Facility): CTDIvol = ( 13.15 ) mGy, DLP = ( 559.04 ) mGycm TECHNIQUE: Transaxial imaging was performed following intravenous administration of IV 100ML ISOVUE 370. Multiplanar coronal and sagittal images were reformatted. Individualized dose optimization techniques were used for this CT. COMPARISON: Comparison is made with prior study dated 03/30/2020. FINDINGS: A right-sided portacatheter is seen with the tip in the superior vena cava. 29, there is a 3.4 cm x 3.2 cm mass in the peripheral lateral aspect of the left lower lobe in its superior segment. This has decreased in size as compared to prior study. Persistent linear density is seen along the inferior aspect of the mass. This most likely represents an area of scarring. There is no demonstrated pleural abnormality. Normal heart and pericardium. There are multiple small lymph nodes within the mediastinum, which are normal in size and morphology most compatible with reactive lymph hyperplasia. Stable 2 cm lymph node is seen in the right hilum. Normal enhanced pulmonary arteries. Normal aorta arch and descending thoracic aorta. There are multi-level degenerative changes of the thoracic spine. With scan, multiple small well-defined hypodensities are seen throughout the liver suggestive of liver hepatic cysts. CT/Chest WITH Contrast IMPRESSION: Since prior study, there is been a decrease in size of the left lower lobe nodule in the superior segment of the left lower lobe. Electronically Signed: Andrzej Neal, at 13:18 EST , Service support ,
[2020-05-05] MEDS: 0.9% Saline Lock 10 ML Syringe IV (12:28)
== END ==
PROVIDERS: Referring Provider Nurse Practitioner Family; Visit Provider Nurse Practitioner Family
DX: C34.90 Malignant neoplasm of unspecified part of unspecified bronchus or lung (principal); R06.00 Dyspnea, unspecified; R05 Cough; Z92.3 Personal history of irradiation
CPT/HCPCS: 71260; Q9967; A4216

== ENCOUNTER → 2020-05-31 09:37 | Outpatient (CLI) | payer MEDICAID, SELFPAY ==
[2019-12-15 10:27] VITALS: BMI 23.4
[2020-04-27 09:32] VITALS: BMI 23.9
[2020-05-25 09:15] VITALS: BMI 23.3
--- NOTE | 2020-05-31 09:38 | NM_ITS ---
CLINICAL: 54-year-old male with history of STEMI and primary lung carcinoma presenting for evaluation of resting left ventricular myocardial function. RESTING RADIONUCLIDE VENTRICULOGRAPHY COMPARISON: None available FINDINGS: Following the intravenous administration of 25.5 mCi of 99m Tc Ultratag RBCs, the resting labeled blood pool radionuclide ventriculogram reveals: 1. The left ventricular ejection fraction was calculated to be 44.0 % by equilibrium technique. 2. Left and right ventricular wall motion is considered normal and uniform in all projections. NM/MUGA Rest or Stress - Multi IMPRESSION: 1. NORMAL resting labeled blood pool radionuclide ventriculography. A. Preservation of left ventricular systolic function as described above. Electronically Signed: Luis Larose DO at 21:58 EST Tel , Service support ,
[2020-05-31] MEDS: 0.9% Saline Lock 10 ML Syringe IV (11:05)
== END ==
PROVIDERS: Referring Provider Specialist; Visit Provider Specialist
DX: I21.3 ST elevation (STEMI) myocardial infarction of unspecified site (principal); I25.5 Ischemic cardiomyopathy; I25.10 Atherosclerotic heart disease of native coronary artery without angina pectoris; C34.90 Malignant neoplasm of unspecified part of unspecified bronchus or lung; Z72.0 Tobacco use
CPT/HCPCS: 78473; A9560; A4216

== ENCOUNTER → 2020-09-01 13:31 | Outpatient (CLI) | payer MEDICAID, SELFPAY ==
[2019-12-15 10:27] VITALS: BMI 23.4
[2020-08-12 11:13] VITALS: BMI 24.3
[2020-08-26 11:20] VITALS: BMI 24.9
--- NOTE | 2020-09-01 13:40 | CT_ITS ---
STUDY: CT CHEST WITH CONTRAST REASON FOR EXAM: Male, 54 years old. Adenocarcinoma lung- assess treatment response RADIATION DOSAGE (If Supplied By Facility): CTDIvol = ( 10.89 ) mGy, DLP = ( 352.50 ) mGycm TECHNIQUE: Transaxial imaging was performed following intravenous administration of IV 100mL Isovue-370. Multiplanar coronal and sagittal images were reformatted. Individualized dose optimization techniques were used for this CT. COMPARISON: Comparison is made with prior study dated 05/05/2020. FINDINGS: A right-sided portacatheter is seen with the tip in the superior vena cava. Since prior study, there has been in size of the left lower lobe irregular pulmonary mass. It presently measures 3.1 cm x 2.5 cm. The previously seen nodular mass in the peripheral lateral aspect of the left lower lobe just inferior to the dominant mass is decreased in size as well. It presently measures 1.3 cm. Mild degree of emphysematous changes. No evidence of pleural effusion. Normal heart and pericardium. There are multiple small lymph nodes within the mediastinum, which are normal in size and morphology most compatible with reactive lymph hyperplasia. Stable 2 cm lymph node in the right hilum. Normal enhanced pulmonary arteries. Normal aorta arch and descending thoracic aorta. There are multi-level degenerative changes of the thoracic spine. Stable hepatic cysts. CT/Chest WITH Contrast IMPRESSION: Interval decrease in size of the left lower lobe predominant nodular density with persistent scarring. Electronically Signed: Andrzej Neal MD at 15:03 EDT , Service support ,
[2020-09-01] MEDS: 0.9% Saline Lock 10 ML Syringe IV (13:55)
== END ==
PROVIDERS: Referring Provider Nurse Practitioner Family; Visit Provider Nurse Practitioner Family
DX: C34.90 Malignant neoplasm of unspecified part of unspecified bronchus or lung (principal)
CPT/HCPCS: 71260; Q9967; A4216

== ENCOUNTER → 2020-12-20 13:08 | Outpatient (CLI) | payer MEDICAID, SELFPAY ==
[2019-12-15 10:27] VITALS: BMI 23.4
[2020-12-02 12:02] VITALS: BMI 24.6
[2020-12-16 11:43] VITALS: BMI 24.8
--- NOTE | 2020-12-20 13:12 | CT_ITS ---
STUDY: CT CHEST WITH CONTRAST REASON FOR EXAM: Male, 55 years old. Surveillance- NSCLC RADIATION DOSAGE (If Supplied By Facility): CTDIvol = ( 13.76 ) mGy, DLP = ( 575.40 ) mGycm TECHNIQUE: Transaxial imaging was performed following intravenous administration of IV 100mL Isovue-300. Multiplanar coronal and sagittal images were reformatted. Individualized dose optimization techniques were used for this CT. COMPARISON: Comparison is made with prior examination dated 09/01/2020. FINDINGS: A right-sided portacatheter is seen with the tip in the superior vena cava. Stable inhomogeneous spiculated nodular density in the superior segment of the left lower lobe. Stable 1.3 cm nodule in the peripheral lateral aspect of the left lower lobe just caudad to the previously mentioned density. Stable mild degree of diffuse bilateral emphysematous changes. There is no demonstrated pleural abnormality. Normal heart and pericardium. There are multiple small lymph nodes within the mediastinum, which are normal in size and morphology most compatible with reactive lymph hyperplasia. Normal hilar regions. Normal enhanced pulmonary arteries. Normal aorta arch and descending thoracic aorta. There are multi-level degenerative changes of the thoracic spine. Stable hepatic cysts. CT/Chest WITH Contrast IMPRESSION: Stable examination. Electronically Signed: Andrzej Neal MD at 13:39 EDT , Service support ,
[2020-12-20] MEDS: 0.9% Saline Lock 10 ML Syringe IV (13:38)
== END ==
PROVIDERS: Referring Provider Nurse Practitioner Family; Visit Provider Nurse Practitioner Family
DX: C34.92 Malignant neoplasm of unspecified part of left bronchus or lung (principal)
CPT/HCPCS: 71260; Q9967; A4216

== ENCOUNTER → 2021-03-21 12:54 | Outpatient (CLI) | payer MEDICAID, SELFPAY ==
[2019-12-15 10:27] VITALS: BMI 23.4
--- NOTE | 2021-03-21 12:57 | CT_ITS ---
STUDY: CT CHEST WITH CONTRAST REASON FOR EXAM: Male, 55 years old. ASSESS TREATMENT RESPONSE. History of lung cancer. RADIATION DOSAGE (If Supplied By Facility): CTDIvol = ( 12.09 ) mGy, DLP = ( 392.43 ) mGycm TECHNIQUE: Transaxial imaging was performed following intravenous administration of IV 100mL Isovue-300. Multiplanar coronal and sagittal images were reformatted. Individualized dose optimization techniques were used for this CT. COMPARISON: Comparison is made with prior study dated 12/20/2020. FINDINGS: A right-sided portacatheter is seen with the tip in the superior vena cava. Essentially stable heterogeneous spiculated nodular density in the superior segment of the left lower lobe. Adjacent to this, there is a stable 1.3 cm nodule in the peripheral lateral aspect of the left lower lobe just caudad to the larger nodule. Stable emphysematous changes. There is no demonstrated pleural abnormality. There are calcifications of the coronary arteries. There are multiple small lymph nodes within the mediastinum, which are normal in size and morphology most compatible with reactive lymph hyperplasia. There is a 1.2 cm lymph node in the right hilum. Normal enhanced pulmonary arteries. Normal aorta arch and descending thoracic aorta. There are multi-level degenerative changes of the thoracic spine. Stable 1.2 cm cyst in the posterior right lobe of the liver. Tiny smaller cysts are seen in the left lobe and lower aspect of the right lobe. CT/Chest WITH Contrast IMPRESSION: Stable examination. Electronically Signed: Andrzej Neal MD at 14:28 EST , Service support ,
[2021-03-21] MEDS: 0.9% Saline Lock 10 ML Syringe IV (13:00)
== END ==
PROVIDERS: Visit Provider Internal Medicine Medical Oncology
DX: C34.32 Malignant neoplasm of lower lobe, left bronchus or lung (principal)
CPT/HCPCS: 71260; Q9967; A4216

== ENCOUNTER → 2021-09-19 | Outpatient (CLI) | payer MEDICAID, SELFPAY ==
[2019-12-15 10:27] VITALS: BMI 23.4
--- NOTE | 2021-09-19 12:51 | CT_ITS ---
STUDY: CT CHEST T ABDOMEN WITH CONTRAST REASON FOR EXAM: Male, 55 years old. NSCLC assessment following chemotherapy and radiation therapy. RADIATION DOSAGE (If Supplied By Facility): CTDIvol = ( 17.46 ) mGy, DLP = ( 1321.43 ) mGycm TECHNIQUE: Transaxial imaging was performed following intravenous administration of IV 100mL Isovue-300. Individualized dose optimization techniques were used for this CT. COMPARISON: Comparison is made with prior study dated 03/21/2021. FINDINGS: CHEST A right-sided leslee catheter is seen with the tip in the superior vena cava. Stable small benign-appearing bilateral axillary lymph nodes. Once again, there is evidence of a spiculated nodular density in the superior segment of the left lower lobe. It presently measures 1.6 x 4 cm. Adjacent to this, there is a stable 1.3 cm nodule in the peripheral lateral aspect of the left lower lobe just caudad to the larger nodule. Stable mild emphysematous changes. There are calcifications of the coronary arteries. Normal mediastinum. Normal hilar regions. Normal unenhanced pulmonary arteries. Normal aorta arch and descending thoracic aorta. There are multi-level degenerative changes of the thoracic spine. Stable hepatic cysts. ABDOMEN Stable hepatic cysts. Normal gallbladder and extrahepatic biliary system. Normal spleen. Normal pancreas. Normal bilateral adrenal glands. Normal right kidney. Normal left kidney. Normal visualized stomach. Normal small intestine. Normal colon. The appendix is visualized and appears normal. There is scattered atherosclerotic calcification of the abdominal aorta, without a demonstrated aneurysm. Normal inferior vena cava. Normal retroperitoneum. Normal abdominal wall. There are diffuse degenerative changes of the visualized lumbar spine. There is evidence of a spondylolysis of the pars interarticularis of the L5 vertebrae. CT/CT Chest AND Abd W/ Contrast IMPRESSION: Hepatic cysts. Stable nodular densities in the left lower lobe. Electronically Signed: Andrzej Neal MD at 13:37 EDT ,
[2021-09-19 13:00] LABS: CREATININE FINGERSTICK 0.9 mg/dL (0.70-1.30); EGFR FINGERSTICK > 60.0000 mL/min (>60)
[2021-09-19] MEDS: 0.9% Saline Lock 10 ML Syringe IV (13:14)
== END | disposition home or self-care (01) ==
LOC: CT 12:50
PROVIDERS: Visit Provider Internal Medicine Medical Oncology
DX: C34.92 Malignant neoplasm of unspecified part of left bronchus or lung (principal)
CPT/HCPCS: 71260; 74160; Q9967; A4216

== ENCOUNTER → 2021-12-08 | Outpatient (CLI) | payer MEDICAID, SELFPAY ==
[2019-12-15 10:27] VITALS: BMI 23.4
[2021-12-08 08:45] VITALS: PULSE 70; PULSE 71; PULSE 74; PULSE 78; PULSE 79; PULSE 84; PULSE 98; O2SAT 100; O2SAT 98; O2SAT 99
--- NOTE | 2021-12-09 07:04 | PCM.PSN.6M ---
PSN 6 Minute Walk Test 6 Minute Walk Test 6 Minute Walk Test: 6 Minute Walk Test PSN:6-Minute Walk Test Start: 12/08/21 08:52 Freq: Status: Active Protocol: [id number].[id number] Document 12/08/21 08:45 [facility] (Rec: 12/08/21 08:55 [facility] [id number]) 6 Minute Walk Test Date Performed 12/08/21 Time Performed 08:45 Height 5 ft 11 in Weight: 218 lb Weight in Pounds 218.[address]: Dr Velarde Assistive device used: None Pre-test Oxygen Delivery Method Room Air Pulse Ox (%) 100 Pulse Rate (60-100 beats/min) 71 Dyspnea Janet Scale (0-10) 0 Exertion Janet Scale (6-20) 0 1st minute Oxygen Delivery Method Room Air Pulse Ox (%) 100 Pulse Rate (60-100 beats/min) 70 2nd minute Oxygen Delivery Method Room Air Pulse Ox (%) 99 Pulse Rate (60-100 beats/min) 74 3rd minute Oxygen Delivery Method Room Air Pulse Ox (%) 98 Pulse Rate (60-100 beats/min) 78 4th minute Oxygen Delivery Method Room Air Pulse Ox (%) 99 Pulse Rate (60-100 beats/min) 79 5th minute Oxygen Delivery Method Room Air Pulse Rate (60-100 beats/min) 98 Dyspnea Janet Scale (0-10) 81 6th minute Oxygen Delivery Method Room Air Pulse Ox (%) 98 Pulse Rate (60-100 beats/min) 84 Dyspnea Janet Scale (0-10) 0.5 Exertion Janet Scale (6-20) 8 Post-test Oxygen Delivery Method Room Air Pulse Ox (%) 99 Pulse Rate (60-100 beats/min) 74 Full Laps Walked 22 Partial Lap, Number of Tiles Walked 28 Total Distance Walked (ft) 1326 Interpretation Interpretation: The patient ambulated 1326 feet over the course of 6 minutes beginning on room air without assistive devices. Pretesting oxygen saturation was noted to be 100% on room air. With ambulation, the viv oxygen saturation was 98%. There was no significant exertional oxygen desaturation. Recommendations Recommendations: There is no indication for the use of supplemental oxygen at this time.
== END | disposition home or self-care (01) ==
PROVIDERS: Referring Provider Internal Medicine Critical Care Medicine; Visit Provider Internal Medicine Critical Care Medicine
DX: R06.02 Shortness of breath (principal)
CPT/HCPCS: 94618

== ENCOUNTER → 2022-03-15 | Outpatient (CLI) | payer MEDICARE, MEDICAID, SELFPAY ==
[2019-12-15 10:27] VITALS: BMI 23.4
--- NOTE | 2022-03-15 07:45 | CT_ITS ---
STUDY: CT CHEST T ABDOMEN WITH CONTRAST REASON FOR EXAM: Male, 56 years old. MONITOR LUNG CA-IV ONLY RADIATION DOSAGE (If Supplied By Facility): CTDIvol = ( 18.12 ) mGy, DLP = ( 1279.42 ) mGycm TECHNIQUE: Transaxial imaging was performed following intravenous administration of IV 100mL Isovue-300. Multiplanar coronal and sagittal images were reformatted. Individualized dose optimization techniques were used for this CT. COMPARISON: Comparison is made with prior study of 09/19/2021. FINDINGS: CHEST A right-sided port catheter seen with the tip in the superior vena cava. Stable small benign-appearing bilateral axillary lymph nodes. There now is evidence of infiltration in the left lower lobe with minimal left pleural effusion. The previously seen small nodular densities in the superior segment of the left lower lobe are not seen with certainty at this time. This may represent either post chemotherapy or radiation changes. Mild atelectasis at the right lung base. There is no demonstrated pleural abnormality. There are calcifications of the coronary arteries. There are multiple small lymph nodes within the mediastinum, which are normal in size and morphology most compatible with reactive lymph hyperplasia. Normal hilar regions. Normal unenhanced pulmonary arteries. Normal aorta arch and descending thoracic aorta. There are multi-level degenerative changes of the thoracic spine. ABDOMEN Stable scattered cysts in the right and left lobes of the liver. Normal gallbladder and extrahepatic biliary system. Normal spleen. Normal pancreas. Normal bilateral adrenal glands. Normal right kidney. Normal left kidney. Normal visualized stomach. Normal small intestine. Normal colon. The appendix is visualized and appears normal. Normal abdominal aorta. Normal inferior vena cava. Normal retroperitoneum. Normal abdominal wall. There are diffuse degenerative changes of the visualized lumbar spine. CT/CT Chest AND Abd W/ Contrast IMPRESSION: Interval progressive infiltrate in the left lower lobe most likely representing post therapeutic changes. The previously seen tiny nodular densities in the left lower lobe are not well seen at this time. Stable hepatic cysts. Electronically Signed: Andrzej Neal MD at 10:25 EDT ,
[2022-03-15] MEDS: 0.9% Saline Lock 10 ML Syringe IV (08:25)
[2022-03-15 08:35] LABS: CREATININE FINGERSTICK < 0.9 mg/dL (0.70-1.30); EGFR FINGERSTICK > 60.0000 mL/min (>60)
== END | disposition home or self-care (01) ==
PROVIDERS: Referring Provider Internal Medicine Medical Oncology; Visit Provider Internal Medicine Medical Oncology
DX: C34.32 Malignant neoplasm of lower lobe, left bronchus or lung (principal)
CPT/HCPCS: 71260; 74160; Q9967; A4216

== ENCOUNTER → 2022-07-14 | Outpatient (CLI) | payer MEDICARE, MEDICAID, SELFPAY ==
[2019-12-15 10:27] VITALS: BMI 23.4
--- NOTE | 2022-07-14 12:48 | CT_ITS ---
STUDY: CT CHEST WITH CONTRAST REASON FOR EXAM: Male, 56 years old. LUNG CANCER 2020, CHEMO AND RADIATION RADIATION DOSAGE (If Supplied By Facility): CTDIvol = ( 11.46 ) mGy, DLP = ( 496.77 ) mGycm TECHNIQUE: Transaxial imaging was performed following intravenous administration of IV 100mL Isovue-300. Multiplanar coronal and sagittal images were reformatted. Individualized dose optimization techniques were used for this CT. COMPARISON: Comparison is made with prior study dated March 15, 2022. FINDINGS: CHEST A right-sided Port-A-Cath is seen with the tip in the superior vena cava. Infiltration is once again visualized in the left lower lobe. There has been improvement as compared to prior study. Further follow-up is recommended to rule out possible underlying mass lesion. There is no demonstrated pleural abnormality. There are calcifications of the coronary arteries. There are multiple small lymph nodes within the mediastinum, which are normal in size and morphology most compatible with reactive lymph hyperplasia. Normal hilar regions. Normal unenhanced pulmonary arteries. Normal aorta arch and descending thoracic aorta. There are multi-level degenerative changes of the thoracic spine. There is no demonstrated abnormality of the visualized upper abdomen. CT/Chest WITH Contrast IMPRESSION: Persistent infiltrate in the posterior medial segment of the left lower lobe although this has improved as compared to prior study. Follow-up recommended. Electronically Signed: Andrzej Neal MD at 14:32 EST ,
[2022-07-14] MEDS: 0.9% Saline Lock 10 ML Syringe IV (13:00)
== END | disposition home or self-care (01) ==
LOC: CT 12:47
PROVIDERS: Visit Provider Internal Medicine Medical Oncology
DX: C34.32 Malignant neoplasm of lower lobe, left bronchus or lung (principal)
CPT/HCPCS: 71260; A4216

== ENCOUNTER → 2022-07-21 | Outpatient (CLI) | payer MEDICARE, MEDICAID, SELFPAY ==
[2019-12-15 10:27] VITALS: BMI 23.4
[2022-07-21 13:10] LABS: AST(SGOT) 21 U/L (15-37); Alanine Aminotransfer ALT/SGPT 19 U/L (16-61); Albumin, Serum 3.4 g/dL (3.2-5.0); Alkaline Phosphatase 126 U/L (45-117); Bilirubin, Direct 0.16 mg/dL (0.00-0.30); Cholesterol 108 mg/dL (200); Globulin 3.9 g/dL (2.2-4.2); High Density Lipoprotein 42 mg/dL; Protein, Total 7.3 g/dL (6.4-8.2); Triglycerides 84 mg/dL; Very Low Density Lipoprotein 17 mg/dL (5-40)
== END | disposition home or self-care (01) ==
LOC: LAB 11:47
PROVIDERS: Referring Provider Physician Assistant Medical; Visit Provider Physician Assistant Medical
DX: I25.10 Atherosclerotic heart disease of native coronary artery without angina pectoris (principal); Z95.5 Presence of coronary angioplasty implant and graft
CPT/HCPCS: 36415; 80061; 80076

== ENCOUNTER → 2022-08-01 | Outpatient (CLI) | payer MEDICARE, MEDICAID, SELFPAY ==
[2019-12-15 10:27] VITALS: BMI 23.4
--- NOTE | 2022-08-01 14:37 | ECHOD_ITS ---
Reason For Study: DIALTED CARDIOMYOPATHY Procedure This was a 2D Doppler, Color Flow transthoracic echocardiogram. Exam performed in department. Left Ventricle Normal left ventricle. Left ventricular systolic function is lower limits of normal. The left ventricular ejection fraction is 50 %. No regional wall motion abnormalities noted. Right Ventricle Normal RV size. Normal systolic function. Atria Normal left atrium. Normal right atrium. Mitral Valve Normal mitral valve. Mild (1+) eccentric mitral valve insufficiency. Tricuspid Valve Normal tricuspid valve. Aortic Valve Normal aortic valve. Trisinus/trileaflet aortic valve. Mild (1+) aortic valve insufficiency. Pulmonic Valve Normal pulmonic valve. Great Vessels Normal aortic root. The pulmonary artery is normal size. Normal inferior vena cava. Pericardium/Pleural No pericardial effusion. MMode/2D Measurements & Calculations LVIDd: 4.2 cm IVSd: 1.5 cm Ao root diam: 3.3 cm LVIDs: 3.4 cm LVPWd: 1.2 cm RVDd: 3.4 cm FS: 19.5 % LAV(MOD-bp): 46.6 ml LVAd ap4: 33.9 cm2 SV(MOD-sp4): 60.2 ml LAV(MOD-bp) Indexed: 21.4 ml/m2 LVLd ap4: 8.5 cm LAV(MOD-sp2): 50.2 ml EDV(MOD-sp4): 112.2 ml LAV(MOD-sp4): 39.8 ml EDV(sp4-el): 115.2 ml LVAs ap4: 20.7 cm2 LVLs ap4: 6.7 cm ESV(MOD-sp4): 52.0 ml ESV(sp4-el): 54.2 ml EF(MOD-sp4): 53.6 % EF(sp4-el): 52.9 % SV(sp4-el): 61.0 ml LA A4 area: 15.3 cm2 LA dimension(2D): 3.9 cm RA A4 area: 16.3 cm2 Time Measurements MV dec time: 0.33 sec Doppler Measurements & Calculations MV E max lizandro: 69.1 cm/sec Lat A' lizandro: 16.4 cm/sec Med Peak E' Lizandro: 4.4 cm/sec MV A max lizandro: 84.5 cm/sec E/E' med: 15.9 MV E/A: 0.82 MV V2 max: 81.3 cm/sec Ao V2 max: 98.9 cm/sec MV max P.6 mmHg MV dec slope: 219.3 cm/sec2 Ao max P.9 mmHg MV V2 mean: 53.7 cm/sec Ao V2 mean: 72.2 cm/sec MV mean P.2 mmHg Ao mean P.4 mmHg MV V2 VTI: 29.9 cm Ao V2 VTI: 20.3 cm AV (velocity ratio): 0.93 LV V1 max: 89.1 cm/sec PA V2 max: 86.5 cm/sec LV V1 max P.2 mmHg PA V2 mean: 62.1 cm/sec LV V1 mean P.7 mmHg LV V1 mean: 61.4 cm/sec LV V1 VTI: 18.8 cm ECHO/Echo Complete Interpretation Summary Normal left ventricle. Left ventricular systolic function is lower limits of normal. The left ventricular ejection fraction is 50 %. Mild (1+) aortic valve insufficiency. Compared to previous study, the left ventricular systolic function has improved .. Ordering Physician: Myra Renteria Referring Physician: Myra Renteria Performed By: Janel Pagan RCS
== END | disposition home or self-care (01) ==
PROVIDERS: Referring Provider Physician Assistant Medical; Visit Provider Physician Assistant Medical
DX: I25.10 Atherosclerotic heart disease of native coronary artery without angina pectoris (principal)
CPT/HCPCS: 93306

== ENCOUNTER → 2023-01-16 | Outpatient (CLI) | payer MEDICARE, MEDICAID, SELFPAY ==
[2019-12-15 10:27] VITALS: BMI 23.4
--- NOTE | 2023-01-16 11:55 | CT_ITS ---
INDICATION: MONITOR LUNG CA EXAMINATION: CT CHEST WITH CONTRAST - CT Chest W/ Contrast Injection TECHNIQUE: Helically acquired images were obtained of the chest following IV contrast. A radiation dose optimization technique was used for this scan. IV Contrast dosage and agent: 100 cc of Isovue-300 RADIATION DOSAGE (If Supplied By Facility): CTDIvol = ( 9.92 ) mGy, DLP = ( 504.01 ) mGycm COMPARISON: Prior exam of 07/14/2022 and 09/19/2021. FINDINGS: LUNGS, PLEURA AND LARGE AIRWAYS: Persistent left lower lung soft tissue density moderate stranding extending to the left hilar region for the most part unchanged since the prior examination. Hypoventilatory and compressive atelectatic changes in the right lower lobe. Mild hyperinflation and bullous changes in the lung apices. No pleural effusion or thickening. No pneumothorax. THYROID: No thyroid lesions. HEART AND PERICARDIUM: Heart size is normal. No pericardial effusion. VESSELS: Right-sided Port-A-Cath is again seen with the tip in the distal superior vena cava. Tortuosity of the thoracic aorta without evidence of aneurysm. No aortic dissection. The pulmonary arteries are not well enhanced. MEDIASTINUM AND DELORES: Few small mediastinal nodes are again seen. No evidence of adenopathy. Esophagus is unremarkable. No hiatal hernia. UPPER ABDOMEN: Multiple small hepatic cysts are again seen unchanged. BONES: No suspicious lytic or blastic abnormality. CT/Chest WITH Contrast IMPRESSION: 1. Persistent left lower lobe infiltrate extending to the left hilum for the most part unchanged since prior examinations could be due to scarring or tumor. 2. No evidence of new metastatic disease. 3. Hepatic cysts unchanged. Electronically Signed: Jeremy Sykes MD at 13:50 EDT ,
[2023-01-16] MEDS: 0.9% Saline Lock 10 ML Syringe IV (12:00)
[2023-01-16 12:04] LABS: CREATININE FINGERSTICK 1.2 mg/dL (0.70-1.30); EGFR FINGERSTICK > 60.0000 mL/min (>60)
== END | disposition home or self-care (01) ==
LOC: CT 11:31
PROVIDERS: Referring Provider Internal Medicine Medical Oncology; Visit Provider Internal Medicine Medical Oncology
DX: C34.32 Malignant neoplasm of lower lobe, left bronchus or lung (principal)
CPT/HCPCS: 71260; Q9967; A4216

== ENCOUNTER → 2023-08-27 | Outpatient (CLI) | payer MEDICARE, MEDICAID, SELFPAY ==
[2019-12-15 10:27] VITALS: BMI 23.4
[2023-08-27 09:56] LABS: AST(SGOT) 20 U/L (15-37); Alanine Aminotransfer ALT/SGPT 20 U/L (16-61); Albumin, Serum 3.7 g/dL (3.2-5.0); Alkaline Phosphatase 99 U/L (45-117); Bilirubin, Direct 0.17 mg/dL (0.00-0.30); Cholesterol 126 mg/dL (200); Globulin 3.8 g/dL (2.2-4.2); High Density Lipoprotein 48 mg/dL; Protein, Total 7.5 g/dL (6.4-8.2); Triglycerides 71 mg/dL; Very Low Density Lipoprotein 14 mg/dL (5-40)
== END | disposition home or self-care (01) ==
PROVIDERS: Referring Provider Internal Medicine Cardiovascular Disease; Visit Provider Internal Medicine Cardiovascular Disease
DX: I25.10 Atherosclerotic heart disease of native coronary artery without angina pectoris (principal)
CPT/HCPCS: 36415; 80061; 80076

== ENCOUNTER → 2024-01-17 | Outpatient (CLI) | payer MEDICARE, MEDICAID, SELFPAY ==
[2019-12-15 10:27] VITALS: BMI 23.4
--- NOTE | 2024-01-17 12:07 | CT_ITS ---
STUDY: CT CHEST T ABDOMEN WITH CONTRAST REASON FOR EXAM: Male, 58 years old. 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 Prior radiation and chemotherapy. RADIATION DOSAGE (If Supplied By Facility): CTDIvol = ( 18.79 ) mGy, DLP = ( 1147.84 ) mGycm TECHNIQUE: Transaxial imaging was performed following intravenous administration of IV 100mL Isovue-370. Individualized dose optimization techniques were used for this CT. COMPARISON: Comparison is made with prior study January 16, 2023. FINDINGS: CHEST Persistent left lower lobe airspace disease with the stranding and the findings suggestive of bronchiectasis. This extends into the left infrahilar region. Minimal residual increased markings at the right lung base suggests mild scarring. Stable mild degree of emphysematous changes in the lung apices. There are calcifications of the coronary arteries. There are small lymph nodes within the mediastinum, which are normal in size and morphology most compatible with reactive lymph hyperplasia. Normal hilar regions. Normal unenhanced pulmonary arteries. Normal aorta arch and descending thoracic aorta. There are multi-level degenerative changes of the thoracic spine. Stable well-defined hypodensities in the liver suggestive of multiple small cysts. ABDOMEN Stable scattered low-density lesions in both lobes of the liver suggestive of a hepatic cysts. Normal gallbladder and extrahepatic biliary system. Normal spleen. Normal pancreas. Normal bilateral adrenal glands. Normal right kidney. Normal left kidney. Normal visualized stomach. Normal small intestine. Normal colon. The appendix is visualized and appears normal. Normal abdominal aorta. Normal inferior vena cava. Normal retroperitoneum. Normal abdominal wall. Normal osseous structures. CT/CT Chest AND Abd W/ Contrast IMPRESSION: Stable left lower lobe infiltration/postobstructive pneumonitis extending to the inferior aspect of the left hilum. Stable findings suggestive of hepatic cysts. Electronically Signed: Andrzej Neal MD at 13:45 EDT ,
[2024-01-17 12:32] LABS: EGFR FINGERSTICK > 60.0000 mL/min (>60)
== END | disposition home or self-care (01) ==
LOC: CT 12:00
PROVIDERS: Referring Provider Internal Medicine Medical Oncology; Visit Provider Internal Medicine Medical Oncology
DX: C34.32 Malignant neoplasm of lower lobe, left bronchus or lung (principal)
CPT/HCPCS: 71260; 74160; Q9967; A4216

== ENCOUNTER → 2024-09-03 | Outpatient (CLI) | payer MEDICARE, MEDICAID, SELFPAY ==
[2019-12-15 10:27] VITALS: BMI 23.4
[2024-09-03 12:30] VITALS: PULSE 80; PULSE 83; PULSE 84; PULSE 85; PULSE 86; PULSE 87; O2SAT 96; O2SAT 97; O2SAT 98
--- NOTE | 2024-09-05 12:24 | PCM.PSN.6M ---
PSN 6 Minute Walk Test 6 Minute Walk Test 6 Minute Walk Test: 6 Minute Walk Test PSN:6-Minute Walk Test Start: 09/03/24 12:30 Freq: Status: Active Protocol: [id number].[id number] Document 09/03/24 12:30 [facility] (Rec: 09/03/24 12:35 [facility] [id number]) 6 Minute Walk Test Date Performed 09/03/24 Time Performed 12:30 Height 5 ft 11 in Weight: 165 lb Weight in Pounds 165.[address]: Antony Assistive device None used: Pre-test Oxygen Delivery Room Air Method Pulse Ox (%) 98 Pulse Rate (60-100 85 beats/min) Dyspnea Janet Scale ( 0 0-10) Exertion Janet Scale 6 (6-20) 1st minute Oxygen Delivery Room Air Method Pulse Ox (%) 98 Pulse Rate (60-100 84 beats/min) 2nd minute Oxygen Delivery Room Air Method Pulse Ox (%) 97 Pulse Rate (60-100 80 beats/min) 3rd minute Oxygen Delivery Room Air Method Pulse Ox (%) 96 Pulse Rate (60-100 87 beats/min) 4th minute Oxygen Delivery Room Air Method Pulse Ox (%) 97 Pulse Rate (60-100 86 beats/min) 5th minute Oxygen Delivery Room Air Method Pulse Ox (%) 98 Pulse Rate (60-100 83 beats/min) 6th minute Oxygen Delivery Room Air Method Pulse Ox (%) 97 Pulse Rate (60-100 83 beats/min) Dyspnea Janet Scale ( 0 0-10) Exertion Janet Scale 12 (6-20) Post-test Oxygen Delivery Room Air Method Pulse Ox (%) 97 Pulse Rate (60-100 80 beats/min) Full Laps Walked 20 Partial Lap, Number 0 of Tiles Walked Total Distance 1180 Walked (ft) Interpretation Interpretation: The patient ambulated 1180 feet over the course of 6 minutes beginning on room air without assistive vices. Pretesting oxygen saturation was noted to be 98% on room air. With ambulation, the viv oxygen saturation was 97%. There was no significant exertional oxygen desaturation. Recommendations Recommendations: There is no indication for the use of supplemental oxygen at this time.
== END | disposition home or self-care (01) ==
LOC: PSN 12:13
PROVIDERS: Referring Provider Nurse Practitioner Acute Care; Visit Provider Nurse Practitioner Acute Care
DX: R06.02 Shortness of breath (principal)
CPT/HCPCS: 94618

== ENCOUNTER → 2024-09-11 | Outpatient (CLI) | payer MEDICARE, MEDICAID, SELFPAY ==
[2019-12-15 10:27] VITALS: BMI 23.4
== END | disposition home or self-care (01) ==
LOC: PSN 08:31
PROVIDERS: Referring Provider Nurse Practitioner Acute Care; Visit Provider Nurse Practitioner Acute Care
DX: R06.02 Shortness of breath (principal)
CPT/HCPCS: 94060; 94726; 94729

== ENCOUNTER → 2025-01-19 | Outpatient (CLI) | payer MEDICARE, MEDICAID, SELFPAY ==
[2019-12-15 10:27] VITALS: BMI 23.4
--- NOTE | 2025-01-19 07:09 | CT_ITS ---
PROCEDURE: CT CHEST AND ABD W/ CONTRAST 01/19/2025 REASON FOR EXAM: LUNG CA Follow-up examination. TECHNIQUE: Chest and abdomen CT with intravenous contrast. Coronal and Sagittal reconstruction series were provided. One or more dose reduction techniques were used (e.g., Automated exposure control, adjustment of the mA and/or kV according to patient size, use of iterative reconstruction technique. PATIENT PREPARATION: Per protocol ORAL CONTRAST TYPE: None. CONTRAST: Isovue-300 VOLUME: 90mL RADIATION DOSE SUMMARY: CTDlvol: 14.4 mGy DLP: 971.34 mGycm COMPARISON: Prior study dated January 17, 2024. FINDINGS: CT CHEST: Hardware: None Lymph nodes: Stable small benign-appearing bilateral axillary lymph nodes. Stable small benign-appearing mediastinal lymph nodes. Heart and Vasculature: The heart is nonenlarged. Thoracic aorta and pulmonary arteries are unremarkable. Coronary artery calcification. Lungs and Airways: Stable airspace disease in the left lower lobe with areas of bronchiectasis and scarring. Persistent soft tissue density. 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 Once again, this extends into the left infrahilar region. Pleura: No pleural effusion. CT ABDOMEN: Liver: Borderline hepatomegaly. Stable well-defined hypodense nodules throughout the liver suggestive of cysts. These are unchanged. Gallbladder: No evidence of gallstones. Spleen: Normal size. Pancreas: Normal size without evidence of mass surrounding inflammation or ductal dilation. Adrenals: The adrenal glands are unremarkable. Kidneys: Normal renal sizes. No hydronephrosis. Bowel: Unremarkable Lymph nodes: Unremarkable. Vasculature: Mild diffuse atherosclerotic calcifications are noted. Peritoneum / Retroperitoneum: Unremarkable Bones: Degenerative changes of the spine. CT/CT Chest AND Abd W/ Contrast IMPRESSION: Coronary artery calcification (CAC) is is present Stable examination. 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 Stable appearance of the hepatic hypodensity suggestive of multiple small cysts . Reading Location: [id number]
--- OUTSIDE RECORDS SUMMARY | 2025-01-19 07:20 | XMS RPT_ITS | CCD ---
Author Organization [facility]iniSy[facility] Care Team Providers Care Supervisor Wrapping Room Name Role Phone Jack Tavarez Unavailable Unavailable PROVIDER, UNKNOWN Unavailable Unavailable No, PCP Unavailable Unavailable [facility] Unavailable Unavailable NO REFERRING DR Unavailable Unavailable BERTHA WOO Unavailable Unavailable Sulma Martinez Primary Care Provider [phone] Care Physician, No Primary Primary Care Provider Unavailable Car COTTON CLASSER AIDE, COTTON CLASSER AIDE-C Sulma Attending Provider Car BAXTER COTTON CLASSER AIDE-C Sulma Referring Provider Care Physician, No Primary Referring Provider Un available GIANNI Carrero Attending Provider Care Physician, No Primary Primary Care Provider Unavailable Dr. Mateus Velarde Attending Provider [phone] Dr. Mateus Velarde Referring Provider [phone] Dr. Mateus Velarde Other Provider Care Physician, No Primary Primary Care Provider Unavailable Care Physician, No Primary Referring Provider Un available Dr. Justin Ramachandran Attending Provider Care Physician, No Primary Primary Care Provider Unavailable Care Physician, No Primary Referring Provider Un available Dr. Justin Ramachandran Attending Provider [phone] GIANNI Carrero Attending Provider Dr. Jose Carlos Schultz Attending Provider [phone] Care Physician, No Primary Primary Care Provider Unavailable Care Physician, No Primary Referring Provider Un available Dr. Mateus Velarde Attending Provider [phone] Care Physician, No Primary Primary Care Provider Unavailable Care Physician, No Primary Referring Provider Un available Saurabh BAXTER NP-C Nat Attending Provider Care Physician, No Primary Primary Care Provider Unavailable Care Physician, No Primary Referring Provider Un available Car BAXTER-Sulma Chacon Attending Provider Car COTTON CLASSER AIDE-C, Sulma Referring Provider Yoon COTTON CLASSER AIDE-C, Sulma Other Provider [phone] Dr. Mateus Velarde DO Attending Provider Care Physician, No Primary Primary Care Unava ilable Care Physician, No Primary Referring Unava ilable Saurabh COTTON CLASSER AIDE, Nat Attending Unavailable Care Physician, No Primary Primary Care Unava ilable Care Physician, No Primary Referring Unava ilable Yoon COTTON CLASSER AIDE, Sulma Attending Unavailable Care Physician, No Primary Primary Care Unava ilable Keyon Schrader Consulting Unavailable Car COTTON CLASSER AIDE, Sulma Referring Unavailable Pramadalyn, Justin Attending Unavailable Care Physician, No Primary Referring Unava ilable Care Physician, No Primary Primary Care Unava ilable Prah, Justin Attending Unavailable Mateus Velarde Attending Unavailable Care Physician, No Primary Primary Care Unava ilable Yoon COTTON CLASSER AIDE, Sulma Referring Unavailable Care Physician, No Primary Primary Care Unava ilable Yoon COTTON CLASSER AIDE, Sulma Attending Unavailable Yoon COTTON CLASSER AIDE, Sulma Referring Unavailable Care Physician, No Primary Primary Care Unava ilable Prah, Justin Referring Unavailable Prah, Justin Attending Unavailable Care Physician, No Primary Primary Care Unava ilable Saurabh COTTON CLASSER AIDE, Nat Attending Unavailable Saurabh COTTON CLASSER AIDE, Nat Referring Unavailable Care Physician, No Primary Primary Care Unava ilable Car COTTON CLASSER AIDE, Sulma Attending Unavailable Yoon COTTON CLASSER AIDE, Sulma Referring Unavailable Mateus Velarde Attending Unavailable Care Physician, No Primary Primary Care Unava ilable Yoon COTTON CLASSER AIDE, Sulma Consulting Unavailable Yoon COTTON CLASSER AIDE, Sulma Referring Unavailable Care Physician, No Primary Primary Care Unava ilable Care Physician, No Primary Referring Unava ilable Car COTTON CLASSER AIDE, Sulma Attending Unavailable Care Physician, No Primary Primary Care Unava ilable Care Physician, No Primary Referring Unava ilable Yoon COTTON CLASSER AIDE, Sulma Attending Unavailable Allergies Allergy Classification Reported Allergen(s) Allergy Type Date of Onset Reaction(s) Facility (7 sources) Acetaminophen Drug Allergy 08-16-2021 [facility] (7 sources) Codeine Drug Allergy 08-16-2021 [facility] (7 sources) Naproxen Drug Allergy 08-16-2021 [facility] (1 source) Acetaminophen Drug Allergy 10-01-2024 [facility] (1 source) Codeine Drug Allergy 10-01-2024 [facility] (1 source) Naproxen Drug Allergy 10-01-2024 [facility] Medications Current Medications Medication Drug Class(es) Dates Sig (Normalized) Sig (Original) [id number] actuat albuterol 0.09 mg/actuat metered dose inhaler (20 sources) beta2-Adrenergic Agonist Start: 06-02-2021 take 1 puff(s) by inhalation every four hours Albuterol Sulfate Active 2 PUFF INHALATION Q4H June 02, 2021 11:13am administer with spacer Start: 05-19-2021 End: 06-02-2021 take 1 puff(s) by inhalation every four hours Albuterol Sulfate Discontinued 2 PUFF INHALATION Q4H May 19, 2021 2:19pm June 02, 2021 11:13am administer with spacer Start: 11-04-2019 End: 02-18-2024 Albuterol Sulfate 90 mcg/act uation HFA aerosol inhaler Active 2 NMA INHALATION Q4H as needed for shortness of breath or wheezing February 18, 2024 12:57pm administer with spacer Start: 11-04-2019 End: 04-13-2023 take 1 puff(s) by inhalation every four hours Albuterol Sulfate Active 2 PUFF INHALATION Q4H April 13, 2023 10:41am administer with spacer take 2 puff(s) by in halation every four hours as needed for wheezing albuterol sulfate HFA (VENTOLIN HFA) 108 (90 Base) MCG/ACT inhaler Inhale 2 puffs into the lungs every 4 hours as needed for Wheezing 0 Active albuterol 0.833 mg/ml / ipratropium bromide 0.167 mg/ml inhalation solution (2 sources) Anticholinergic, beta2-Adrenergic Agonist Start: 08-20-2024 End: 08-21-2024 take 1 mL by inhalation every four hours as needed for wheezing Ipratropium-Albuterol 0.5 mg-3 mg(2.5 mg base)/3 mL solution for nebulization Active 3 mL INHALATION EVERY 4 HOURS NEEDED as needed for SOB &/OR WHEEZING August 21, 2024 8:24am atorvastatin 80 mg oral tablet (20 sources) HMG-CoA Reductase Inhibitor Start: 08-28-2019 End: 03-25-2024 take 1 tablet by mouth at bedtime Atorvastatin 80 mg tablet Active 80 mg PO AT BEDTIME 90 March 25, 2024 3:24pm smoking cessation 12 hr buPROPion hydrochloride 150 mg extended release oral tablet (14 sources) Aminoketone Start: 01-27-2021 End: 03-14-2021 take 1 tablet by mouth once daily, then take 1 tablet by mouth twice daily Bupropion Hcl (Smoking Deter) 150 mg tablet extended release 12 hr Active 150 mg PO TWICE A DAY 60 March 14, 2021 12:06pm Take one tablet by mouth once daily x 3 days, then one tablet by mouth twice daily carvedilol 3.125 mg oral tablet (20 sources) alpha-Adrenergic Michael, beta-Adrenergic Michael Start: 08-28-2019 End: 03-25-2024 take 1 tablet by mouth twice daily Carvedilol 3.125 mg tablet Active 3.125 mg PO TWICE A DAY 180 March 25, 2024 3:24pm Food Supplemt, Lactose-Reduced (6 sources) Start: 02-10-2020 take 1 mL by mouth once daily Food Supplemt, Lactose-Reduced Active 120 ML PO DAILY February 10, 2020 11:42am Start: 02-10-2020 take 1 mL by mouth once daily Food Supplemt, Lactose-Reduced Active 120 ML PO DAILY February 10, 2020 12:00am Start: 02-10-2020 take 1 mL by mouth once daily Food Supplemt, Lactose-Reduced Active 120 ML PO DAILY February 09, 2020 11:00pm Food Supplemt, Lactose-Reduced 120 ML liquid (1 source) Start: 02-10-2020 take 1 mL by mouth once daily Food Supplemt, Lactose-Reduced 120 ML liquid Active 120 mL PO DAILY February 10, 2020 12:00am levothyroxine (20 sources) l-Thyrox ine Start: 10-01-2024 take 1 tablet by mouth once daily Levothyroxine 112 mcg tablet Active 112 ug PO daily October 01, 2024 12:00am Start: 08-20-2024 End: 10-01-2024 take 1 tablet by mouth once daily Levothyroxine 100 mcg tablet Discontinued 100 ug PO daily August 20, 2024 12:00am October 01, 2024 9:15am Start: 12-24-2023 End: 08-20-2024 take 1 tablet by mouth once daily Levothyroxine 112 mcg tablet Discontinued 112 ug PO DAILY January 22, 2024 3:11pm August 20, 2024 1:57pm Start: 03-23-2022 End: 12-24-2023 take 1 tablet by mouth once daily Levothyroxine 100 mcg tablet Discontinued 100 ug PO DAILY September 27, 2023 10:35am December 24, 2023 6:45pm Start: 12-02-2020 End: 03-23-2022 take 1 tablet by mouth once daily Levothyroxine 75 mcg tablet Discontinued 75 ug PO DAILY November 25, 2021 10:34am March 22, 2022 3:57pm Start: 10-07-2020 End: 12-02-2020 take 1 tablet by mouth once daily Levothyroxine 50 mcg tablet Discontinued 50 ug PO DAILY October 07, 2020 12:00am December 02, 2020 11:48am Start: 09-09-2020 End: 09-09-2020 Levothyroxine (Levo-T) 25 mc g tablet Discontinued 25 ug PO DAILY September 09, 2020 12:00am September 09, 2020 12:35pm Start: 08-12-2020 End: 10-07-2020 take 1 capsule by mouth once daily Levothyroxine 25 MCG capsule Discontinued 25 ug PO DAILY August 12, 2020 11:45am October 07, 2020 11:59am Take on an empty stomach losartan potassium 25 mg oral tablet (20 sources) Angiotensin 2 Receptor Michael Start: 08-28-2019 End: 03-25-2024 Losartan 25 mg tablet Active 12.5 mg PO DAILY March 25, 2024 3:24pm Start: 08-28-2019 End: 07-31-2023 take 12.5 mg by mouth once daily Losartan Discontinued 12.5 MG PO DAILY October 01, 2020 9:39am August 16, 2021 1:21pm take 1 tablet by kita th once daily losartan (COZAAR) 25 MG tablet Take 25 mg by mouth daily 0 Active Nebulizer machine (2 sources) Start: 08-21-2024 Nebulizer mach ine Active 0 .ROUTE .MEDSUPPLY August 21, 2024 8:24am As directed Start: 08-20-2024 End: 04-10-2025 Nebulizer machine Discontinu ed 0 .ROUTE .MEDSUPPLY August 20, 2024 12:00am August 21, 2024 8:25am As directed ondansetron 8 mg oral tablet (7 sources) Serotonin-3 Receptor Antagonist Start: 01-15-2020 take 1 tablet by mouth every eight hours as needed for nausea Ondansetron Hcl 8 MG tablet Active 8 mg PO EVERY 8 HOURS NEEDED as needed for Nausea 12 03January 15, 2020 12:00am pantoprazole 20 mg delayed release oral tablet (20 sources) Proton Pump Inhibitor Start: 02-25-2020 End: 09-26-2023 take 1 tablet by mouth once daily Pantoprazole 20 mg tablet,delayed release (DR/EC) Active 20 mg PO DAILY September 26, 2023 12:03pm prochlorperazine 10 mg oral tablet (7 sources) Phenothiazine Start: 01-15-2020 take 1 tablet by mouth every six hours as needed for nausea Prochlorperazine Maleate 10 MG tablet Active 10 mg PO EVERY 6 HOURS NEEDED as needed for Nausea 12 03January 15, 2020 3:49pm Completed/Discontinued Medications Medication Drug Class(es) Dates Sig (Normalized) Sig (Original) aspirin 81 mg chewable tablet (20 sources) Platelet Aggregation Inhibitor, Nonsteroidal Anti-inflammatory Drug Start: 08-28-2019 End: 07-31-2023 take 1 tablet by mouth once daily Aspirin 81 mg tablet,chewable Discontinued 81 mg PO DAILY@0800 90 September 15, 2021 4:06pm July 21, 2022 12:27pm take 1 tablet by mouth once asuncion y aspirin 81 MG tablet Take 81 mg by mouth daily 0 Active 120 actuat formoterol fumarate 0.0048 mg/actuat / glycopyrrolate 0.009 mg/actuat metered dose inhaler (4 sources) beta2-Adrenergic Agonist Start: 07-09-2023 End: 08-20-2024 Glycopyrrolate-Formoterol (Bevespi Aerosphere) 9-4.8 mcg HFA aerosol inhaler Discontinued 2 NMA INHALATION every day in the morning and in the evening February 18, 2024 12:57pm August 20, 2024 2:19pm Start: 07-09-2023 Glycopyrrolate -Formoterol (Bevespi Aerosphere) 9-4.8 mcg HFA aerosol inhaler Active 2 PUFF INHALATION every day in the morning and in the evening July 09, 2023 1:00am ibuprofen 600 mg oral tablet (8 sources) Nonsteroidal Anti-inflammatory Drug Start: 01-29-2017 End: 07-08-2019 take 1 tablet by mouth every six hours as needed for pain Ibuprofen 600 MG tablet Discontinued 600 mg PO EVERY 6 HOURS NEEDED as needed for Pain Or Fever March 06, 2019 12:00am July 08, 2019 10:26am Magic Mouth Wash (7 sources) Start: 02-06-2020 End: 12-01-2020 take 15 mL by mouth once daily at bedtime as needed for pain Magic Mouth Wash Discontinued 15 ML PO EVERY 6 HOURS NEEDED 300 February 06, 2020 10:32am December 01, 2020 12:29pm 15 ml po qAC and qHS prn pain Start: 02-06-2020 End: 12-01-2020 take 15 mL by mouth once daily at bedtime as needed for pain Magic Mouth Wash Discontinued 15 mL PO EVERY 6 HOURS NEEDED as needed for pain 300 February 06, 2020 12:00am December 01, 2020 12:29pm 15 ml po qAC and qHS prn pain Start: 02-06-2020 End: 12-01-2020 take 15 mL by mouth once daily at bedtime as needed for pain Magic Mouth Wash Discontinued 15 ML PO EVERY 6 HOURS NEEDED 300 February 06, 2020 12:00am December 01, 2020 12:29pm 15 ml po qAC and qHS prn pain Start: 02-06-2020 End: 12-01-2020 take 15 mL by mouth once daily at bedtime as needed for pain Magic Mouth Wash Discontinued 15 ML PO EVERY 6 HOURS NEEDED 300 February 05, 2020 11:00pm December 01, 2020 11:29am 15 ml po qAC and qHS prn pain mirtazapine 15 mg oral tablet (8 sources) Start: 08-26-2019 End: 09-25-2019 take 1 tablet by mouth at bedtime Mirtazapine 15 MG tablet Discontinued 15 mg PO AT BEDTIME August 26, 2019 12:00am September 24, 2019 12:00am September 25, 2019 12:02am nicotine 2 mg chewing gum (14 sources) Cholinergic Nicotinic Agonist Start: 01-27-2021 End: 02-10-2021 apply 1 dose transdermal route every twenty-four hours Nicotine 21 mg/24 hr patch 24 hour Discontinued 1 NMA TD DAILY January 27, 2021 12:00am February 10, 2021 10:44am Start: 01-27-2021 End: 02-10-2021 Nicotine (Polacrilex) 2 mg g um Discontinued 2 mg BUCCAL Q2H January 27, 2021 12:00am February 10, 2021 2:32pm Start: 01-27-2021 End: 02-10-2021 apply 1 dose transdermal route once daily Nicotine Discontinued 1 PATCH TD DAILY January 27, 2021 12:00am February 10, 2021 10:44am Tiotropium-Olodaterol (20 sources) Anticholinergic, beta2-Adrenergic Agonist Start: 05-22-2023 End: 07-09-2023 Tiotropium-Olodaterol (Stiolto Respimat) 2.5-2.5 mcg/actuation mist Discontinued 2 NMA INHALATION DAILY May 22, 2023 10:46am July 09, 2023 2:57pm Start: 05-22-2023 End: 07-09-2023 Tiotropium-Olodaterol (Stiol to Respimat) 2.5-2.5 mcg/actuation mist Discontinued 2 INH INHALATION DAILY May 22, 2023 10:46am July 09, 2023 2:57pm Start: 06-27-2021 End: 05-22-2023 Tiotropium-Olodaterol (Stiol to Respimat) 2.5-2.5 mcg/actuation mist Discontinued 2 NMA INHALATION DAILY June 27, 2021 11:23am May 22, 2023 10:46am Start: 06-27-2021 End: 05-22-2023 Tiotropium-Olodaterol (Stiol to Respimat) 2.5-2.5 mcg/actuation mist Discontinued 2 INH INHALATION DAILY June 27, 2021 11:23am May 22, 2023 10:46am Start: 06-27-2021 Tiotropium-Olo daterol (Stiolto Respimat) 2.5-2.5 mcg/actuation mist Active 2 INH INHALATION DAILY June 27, 2021 10:23am Start: 06-27-2021 Tiotropium-Olo daterol (Stiolto Respimat) 2.5-2.5 mcg/actuation mist Active 2 INH INHALATION DAILY June 27, 2021 11:23am Start: 06-02-2021 End: 06-27-2021 Tiotropium-Olodaterol (Stiol to Respimat) 2.5-2.5 mcg/actuation mist Discontinued 2 NMA INHALATION DAILY June 02, 2021 11:13am June 27, 2021 11:23am Start: 06-02-2021 End: 06-27-2021 Tiotropium-Olodaterol (Stiol to Respimat) 2.5-2.5 mcg/actuation mist Discontinued 2 INH INHALATION DAILY June 02, 2021 10:13am June 27, 2021 10:23am Start: 06-02-2021 End: 06-27-2021 Tiotropium-Olodaterol (Stiol to Respimat) 2.5-2.5 mcg/actuation mist Discontinued 2 INH INHALATION DAILY June 02, 2021 11:13am June 27, 2021 11:23am Start: 05-25-2021 End: 06-02-2021 Tiotropium-Olodaterol (Stiol to Respimat) 2.5-2.5 mcg/actuation mist Discontinued 2 NMA INHALATION DAILY May 25, 2021 12:16pm June 02, 2021 11:13am Start: 05-25-2021 End: 06-02-2021 Tiotropium-Olodaterol (Stiol to Respimat) 2.5-2.5 mcg/actuation mist Discontinued 2 INH INHALATION DAILY May 25, 2021 11:16am June 02, 2021 10:13am Start: 05-25-2021 End: 06-02-2021 Tiotropium-Olodaterol (Stiol to Respimat) 2.5-2.5 mcg/actuation mist Discontinued 2 INH INHALATION DAILY May 25, 2021 12:16pm June 02, 2021 11:13am Start: 05-25-2021 End: 05-25-2021 Tiotropium-Olodaterol (Stiol to Respimat) 2.5-2.5 mcg/actuation mist Discontinued 2 NMA INHALATION DAILY May 25, 2021 12:04pm May 25, 2021 12:16pm Start: 05-25-2021 End: 05-25-2021 Tiotropium-Olodaterol (Stiol to Respimat) 2.5-2.5 mcg/actuation mist Discontinued 2 INH INHALATION DAILY May 25, 2021 11:04am May 25, 2021 11:16am Start: 05-25-2021 End: 05-25-2021 Tiotropium-Olodaterol (Stiol to Respimat) 2.5-2.5 mcg/actuation mist Discontinued 2 INH INHALATION DAILY May 25, 2021 12:04pm May 25, 2021 12:16pm Start: 12-01-2020 End: 05-25-2021 Tiotropium-Olodaterol (Stiol to Respimat) 2.5-2.5 mcg/actuation mist Discontinued 2 NMA INHALATION DAILY December 01, 2020 12:50pm May 25, 2021 12:04pm Start: 12-01-2020 End: 05-25-2021 Tiotropium-Olodaterol (Stiol to Respimat) 2.5-2.5 mcg/actuation mist Discontinued 2 INH INHALATION DAILY December 01, 2020 11:50am May 25, 2021 11:04am Start: 12-01-2020 End: 05-25-2021 Tiotropium-Olodaterol (Stiol to Respimat) 2.5-2.5 mcg/actuation mist Discontinued 2 INH INHALATION DAILY December 01, 2020 12:50pm May 25, 2021 12:04pm Start: 10-01-2020 End: 12-01-2020 Tiotropium-Olodaterol (Stiol to Respimat) 2.5-2.5 mcg/actuation mist Discontinued 2 NMA INHALATION DAILY October 01, 2020 8:14am December 01, 2020 12:50pm Start: 10-01-2020 End: 12-01-2020 Tiotropium-Olodaterol (Stiol to Respimat) 2.5-2.5 mcg/actuation mist Discontinued 2 INH INHALATION DAILY October 01, 2020 7:14am December 01, 2020 11:50am Start: 10-01-2020 End: 12-01-2020 Tiotropium-Olodaterol (Stiol to Respimat) 2.5-2.5 mcg/actuation mist Discontinued 2 INH INHALATION DAILY October 01, 2020 8:14am December 01, 2020 12:50pm Start: 09-02-2020 End: 10-01-2020 Tiotropium-Olodaterol (Stiol to Respimat) 2.5-2.5 mcg/actuation mist Discontinued 2 NMA INHALATION DAILY September 02, 2020 12:00am October 01, 2020 8:14am Start: 09-02-2020 End: 10-01-2020 Tiotropium-Olodaterol (Stiol to Respimat) 2.5-2.5 mcg/actuation mist Discontinued 2 INH INHALATION DAILY September 02, 2020 12:00am October 01, 2020 8:14am Start: 09-02-2020 End: 10-01-2020 Tiotropium-Olodaterol (Stiol to Respimat) 2.5-2.5 mcg/actuation mist Discontinued 2 INH INHALATION DAILY September 02, 2020 12:00am October 01, 2020 8:14am omeprazole 20 mg delayed release oral tablet (20 sources) Proton Pump Inhibitor Start: 08-15-2019 End: 02-25-2020 take 1 tablet by mouth once daily Omeprazole 20 mg tablet,delayed release (DR/EC) Discontinued 20 mg PO DAILY February 25, 2020 2:26pm February 25, 2020 4:28pm take 1 capsule by mouth once mary ly omeprazole (PRILOSEC) 20 MG delayed release capsule Take 20 mg by mouth daily 0 Active ticagrelor 90 mg oral tablet (20 sources) Start: 08-28-2019 End: 05-31-2023 take 1 tablet by mouth twice daily Ticagrelor 90 mg tablet Discontinued 90 mg PO TWICE A DAY October 01, 2020 8:43am August 16, 2021 1:21pm Problems Active Problems Problem Classification Problem Date Documented Da te Episodic/Chronic Administrative/social admission (20 sources) Patient encounter status; Translations: [Counseling, unspecified] Episodic Cancer of bronchus; lung (20 sources) Carcinoma of lung; Translations: [Adenocarcinoma of lung] Onset: 5 Chronic Comment on above: Finished maintenance therapy with Durvalumab on 03/10/2021. On observation.Comes for follow up. CT on 01/17/2024 reviewed, stable density L lower lobe.No evidence of progressive disease. Chronic obstructive pulmonary disease and bronchiectasis (1 source) Chronic obstructive pulmonary disease, unspecified; Translations: [Chronic obstructive pulmonary disease, unspecified] Onset: 4 Chronic Coronary atherosclerosis and other heart disease (20 sources) History of acute ST segment elevation myocardial infarction; Translations: [Old myocardial infarction] Onset: 0 Chronic Comment on above: EF 25% per echo done 08/27/19 Esophageal disorders (9 sources) Gastroesophageal reflux disease; Translations: [Gastro-esophageal reflux disease without esophagitis] Chronic Lung disease due to external agents (5 sources) 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 Maintenance chemotherapy; radiotherapy (9 sources) Patient encounter status; Translations: [Encounter for antineoplastic chemotherapy] Chronic Neoplasms of unspecified nature or uncertain behavior (7 sources) Neoplasm of lung ; Translations: [Neoplasm of unspecified behavior of respiratory system] 07-06-2019 Episodic Nonspecific chest pain (7 sources) Chest pain; Translations: [Chest pain, unspecified] 07-06-2019 Episodic Other gastrointestinal disorders (7 sources) Swallowing painful; Translations: [Dysphagia, unspecified] 06-22-2022 Episodic Other gastrointestinal disorders (2 sources) Dysphagia, unspecified; Translations: [Dysphagia, unspecified] Episodic Other hematologic conditions (7 sources) Raised cardiac enzyme or marker; Translations: [Other specified abnormalities of plasma proteins] 07-06-2019 Episodic Other lower respiratory disease (1 source) Snoring; Translations: [Snoring] Episodic Other lower respiratory disease (7 sources) Dyspnea on exertion; Translations: [Dyspnea, unspecified] 06-22-2022 Episodic Other lower respiratory disease (1 source) Dyspnea, unspecified; Translations: [Other respiratory abnormalities] Episodic Other lower respiratory disease (8 sources) Dyspnea; Translations: [Shortness of breath] 06-22-2022 Episodic Other lower respiratory disease (3 sources) Shortness of breath; Translations: [Shortness of breath] Onset: 5 Episodic Other lower respiratory disease (1 source) Other forms of dyspnea; Translations: [Other respiratory abnormalities] Episodic Other lower respiratory disease (1 source) Cough; Translations: [Cough] 08-20-2024 Episodic Other male genital disorders (7 sources) Male erectile dysfunction, unspecified; Translations: [Erectile dysfunction] 06-22-2022 Chronic Other non-traumatic joint disorders (4 sources) Shoulder pain; Translations: [Pain in right shoulder] 03-07-2019 Episodic Other non-traumatic joint disorders (3 sources) Pain in right shoulder; Translations: [Right shoulder pain] 03-07-2019 Episodic Other screening for suspected conditions (not mental disorders or infectious disease) (5 sources) Increased thyroid hormone level; Translations: [Other specified abnormal findings of blood chemistry] 06-22-2022 Episodic Comment on above: May be related to Im munotherapy eventhough he has finished therapy. Residual codes; unclassified (7 sources) Tobacco user; Translations: [Tobacco use] 06-22-2022 Episodic Residual codes; unclassified (3 sources) Tobacco use; Translations: [Tobacco use disorder] Episodic Residual codes; unclassified (2 sources) Encounter for other specified prophylactic measures; Translations: [Need for prophylactic immunotherapy] Episodic Spondylosis; intervertebral disc disorders; other back problems (11 sources) Low back pain; Translations: [Low back pain] Onset: 7 Episodic Substance-related disorders (17 sources) Nicotine dependence, unspecified, uncomplicated; Translations: [Nicotine dependence, cigarettes, uncomplicated] Onset: 7 Chronic Thyroid disorders (18 sources) Acquired hypothyroidism; Translations: [Hypothyroidism, unspecified] Onset: 4 Chronic Comment on above: Due to Imfinzi, TSH is 11 today. Unclassified (1 source) Preprocedural examination done; Translations: [Pre-op exam] Unclassified (1 source) Cough, unspecified; Translations: [Cough, unspecified] Onset: 5 Past or Other Problems Problem Classification Problem Date Documented Da te Episodic/Chronic Abdominal pain (3 sources) Periumbilical pain; Translations: [PERIUMBILICAL PAIN] Onset: 08-04-2016 Episodic Chronic obstructive pulmonary disease and bronchiectasis (1 source) Bronchitis, not specified as acute or chronic; Translations: [Bronchitis, not specified as acute or chronic] Onset: 08-27-2024 Episodic Coronary atherosclerosis and other heart disease (3 sources) Presence of coronary angioplasty implant and graft; Translations: [Percutaneous transluminal coronary angioplasty status] Onset: 08-26-2019 05-31-2023 Episodic Lymphadenitis (8 sources) Mediastinal lymphadenopathy; Translations: [Localized enlarged lymph nodes] Onset: 02-18-2024 08-26-2019 Episodic Other aftercare (1 source) Encounter for adjustment and management of vascular access device; Translations: [Encounter for adjustment and management of vascular access device] Onset: 02-19-2024 Episodic Other gastrointestinal disorders (1 source) Diarrhea, unspecified; Translations: [DIARRHEA UNSPECIFIED] Onset: 08-04-2016 Episodic Other upper respiratory disease (2 sources) Nasal congestion; Translations: [Nasal congestion] Onset: 01-29-2017 Episodic Other upper respiratory infections (2 sources) Acute upper respiratory infection, unspecified; Translations: [Acute upper respiratory infection, unspecified] Onset: 01-29-2017 Episodic Results Test Name Value Interpretation Reference Range Facility Pulmonary Visit Reporton Pulmonary Visit Report [facility] [address] [place] [address] OFFICE VISIT Date of Service: 10/01/24 MR#: [id number] Acct: [id number] Name: PRASANNALÁZARO L Rep #: [id number] : 1965 Provider: CRISTINA Yoon Age/Sex: 58/M Location: [facility] [place].[facility] Status: Signed Assessment and Plan Assessment and Plan (1) SOB (shortness of breath): Status: Chronic Plan: Improved today. No additional testing at this time. PFT ruled out COPD. Walking oximetry ruled out exertional hypoxia. Follow-up in 1 year. (2) Adenocarcinoma of lung: Status: Chronic Qualifiers: Laterality: left Qualified Code(s): C34.92 - Malignant neoplasm of unspecified part of left bronchus or lung Comment: Finished maintenance therapy with Durvalumab on 03/10/2021. On observation. Comes for follow up. CT on 01/17/2024 reviewed, stable density L lower lobe. No evidence of progressive disease. Plan: Complicates exam, plan, care and prognosis. Oncology is managing serial imaging. He is now having a CT chest once yearly. It looks like this is probably due in January. Plan Details Additional Comments: This note was generated with [employer] dictation software. It may contain incorrect words, spelling, and punctuation that were not noted in checking the note before signing. Follow Up: 1 Year HPI 6 wk FU Chief Complaint: test results HPI Comments Details: This patient presents to the office today to follow-up on his shortness of breath and adenocarcinoma of the lung. He is ambulatory and currently on room air. He has not been seen in the ED or urgent care for any respiratory illnesses. He has not required any antibiotics or prednisone for any breathing problems. Is compliant with the use of DuoNebs. He uses it a couple times a week. He continues complete smoking cessation since 2020. He denies any shortness of breath. He denies any cough, sputum production or hemoptysis. He denies any chest pain or palpitations or chest tightness. He does occasionally experience some occasional wheezing. He has not had any fever, chills or body aches. Test results personally patient: Pulmonary stress test completed on September 03, 2024. The patient was able to ambulate total of 1180 feet over the course of 6 minutes. He did not become hypoxic and does not currently require supplemental oxygen. Pulmonary function test completed on September 11, 2024. Impression is grossly normal. Intake Vital Signs 08/20/24 08:05 10/01/24 08:32 Height 5 ft 11 in 5 ft 11 in Weight: 171 lb BMI 23.8 BP 121/78 H Blood Pressure Location Lt brachial Position Sitting Respiration 18 Pulse 58 L Pulse Source Monitor Temp 97.4 F L Temperature Source Temporal Artery Pulse Oximetry (%) 99 Oxygen Delivery Method room air Intake Visit Reasons: 6 wk FU Pilot Required: No Accompanied by: Self Allergies acetaminophen (From Tylenol-Codeine #3) Adverse Reaction (Severe, Verified 10/01/24 09:15) Nausea codeine (From Tylenol-Codeine #3) Adverse Reaction (Severe, Verified 10/01/24 09:15) Nausea naproxen (From Aleve) Adverse Reaction (Severe, Verified 10/01/24 09:15) Nausea Medications ???Medication ???Instructions ???Recorded ???Confirmed ???Type ondansetron HCl 8 mg tablet 8 mg PO Q8H PRN PRN Nausea 10 days 01/15/20 10/01/24 Rx #30 tabs prochlorperazine maleate 10 mg 10 mg PO Q6H PRN PRN Nausea 10 07/3110/01/24 Rx tablet days #30 tabs food supplemt, lactose-reduced 120 ml PO DAILY 30 days ##30 02/0910/01/24 Rx 0.08 gram-1.5 kcal/mL oral liquid bupropion HCl (smoking deter) 150 150 mg PO BID #60 tabs 03/14/21 0 10/01/24 Rx mg tablet,12 hr sustained-release(sm oking deterrent) aspirin 81 mg chewable tablet 81 mg PO DAILY #90 tabs 07/31/23 0 10/01/24 Rx pantoprazole 20 mg tablet,delayed 20 mg PO DAILY #90 tabs 09/26/23 10/01/24 Rx release albuterol sulfate 90 mcg/actuation 2 puff inhalation Q4H PRN 10/01/24 Rx aerosol inhaler shortness of breath or wheezing #1 device atorvastatin 80 mg tablet 80 mg PO QHS #90 tabs 03/25/24 Rx carvedilol 3.125 mg tablet 3.125 mg PO BID #180 tabs 03/25/24 10/01/24 Rx losartan 25 mg tablet 12.5 mg (1/2 x 25 mg) PO DAILY #45 03/25/24 10/01/24 Rx tabs Nebulizer machine #1 ea 08/21/24 10/01/24 Rx ipratropium 0.5 mg-albuterol 3 mg 3 ml inhalation Q4H PRN PRN SOB 0 08/21/24 10/01/24 Rx (2.5 mg base)/3 mL nebulization /OR WHEEZING #180 mL soln levothyroxine 112 mcg tablet 112 mcg PO QDAY 10/01/24 10/01/24 History PFSH Medical History SOB (shortness of breath) Increased thyroid stimulating hormone (TSH) level Radiation fibrosis of lung Nicotine depende (more content not included)... Normal [facility] 6 Minute Walk Teston 09-05-2 025 6 Minute Walk Test y [facility] Pulmonary Services/Neurology [address] [place] [address] MR#: [id number] Acct: [id number] Name: LÁZARO MIMS Rep #: [id number] : 1965 58 From: Mateus Velarde DO Referring Dr: Sulma Yoon COTTON CLASSER AIDE COTTON CLASSER AIDE-C Status: REG CLI Location: PSN Date: Sex: M C PSN 6 Minute Walk Test 6 Minute Walk Test 6 Minute Walk Test: 6 Minute Walk Test PSN:6-Minute Walk Test Start: 09/03/24 12:30 Freq: Status: Active Protocol: [id number] Document 09/03/24 12:30 AEH (Rec: 09/03/24 12:35 AEH [id number]) 6 Minute Walk Test Date Performed 09/03/24 Time Performed 12:30 Height 5 ft 11 in Weight: 165 lb Weight in Pounds 165.[address]: Antony Assistive device None used: Pre-test Oxygen Delivery Room Air Method Pulse Ox (%) 98 Pulse Rate (60-100 85 beats/min) Dyspnea Janet Scale ( 0 0-10) Exertion Janet Scale 6 (6-20) 1st minute Oxygen Delivery Room Air Method Pulse Ox (%) 98 Pulse Rate (60-100 84 beats/min) 2nd minute Oxygen Delivery Room Air Method Pulse Ox (%) 97 Pulse Rate (60-100 80 beats/min) 3rd minute Oxygen Delivery Room Air Method Pulse Ox (%) 96 Pulse Rate (60-100 87 beats/min) 4th minute Oxygen Delivery Room Air Method Pulse Ox (%) 97 Pulse Rate (60-100 86 beats/min) 5th minute Oxygen Delivery Room Air Method Pulse Ox (%) 98 Pulse Rate (60-100 83 beats/min) 6th minute Oxygen Delivery Room Air Method Pulse Ox (%) 97 Pulse Rate (60-100 83 beats/min) Dyspnea Janet Scale ( 0 0-10) Exertion Janet Scale 12 (6-20) Post-test Oxygen Delivery Room Air Method Pulse Ox (%) 97 Pulse Rate (60-100 80 beats/min) Full Laps Walked 20 Partial Lap, Number 0 of Tiles Walked Total Distance 1180 Walked (ft) Interpretation Interpretation: The patient ambulated 1180 feet over the course of 6 minutes beginning on room air without assistive vices. Pretesting oxygen saturation was noted to be 98% on room air. With ambulation, the viv oxygen saturation was 97%. There was no significant exertional oxygen desaturation. Recommendations Recommendations: There is no indication for the use of supplemental oxygen at this time. 09/05/24 1224 Date Mateus Velarde DO CC: Date Dictated: 09/05/244 Date Transcribed: 09/05/241223 Ship Rigger: Dr. Mateus Velarde DO Signed Normal [facility] Pulmonary Visit Reporton Pulmonary Visit Report [facility] Pulmonary Medicine of [address] [place] [address] OFFICE VISIT Date of Service: 08/20/24 MR#: [id number] Acct: [id number] Name: LÁZARO MIMS Rep #: [id number] : 1965 Provider: CRISTINA Yoon Age/Sex: 58/M Location: [facility] [place].[facility] Status: Signed Assessment and Plan Assessment and Plan (1) SOB (shortness of breath): Status: Chronic Plan: I continue to suspect COPD. Repeat baseline PFT and pulmonary stress test. Start Duonebs 1-3 times daily. He was given personal instruction on using a nebulizer in the office today. He was also given a DuoNeb treatment. Follow-up in 6-8 weeks. He has been encouraged to the office with any new or worsening symptoms in the meantime. (2) Adenocarcinoma of lung: Status: Chronic Qualifiers: Laterality: left Qualified Code(s): C34.92 - Malignant neoplasm of unspecified part of left bronchus or lung Comment: Finished maintenance therapy with Durvalumab on 03/10/2021. On observation. Comes for follow up. CT on 01/17/2024 reviewed, stable density L lower lobe. No evidence of progressive disease. Plan: Complicates exam, plan, care and prognosis. Oncology is managing serial imaging. He is now having a CT chest once yearly. Orders: Orders Simple Pulmonary Exercise Test 09/03/24 R06.02 - Shortness of breath PFT Complete - DLCO, Spirometry b/a bronchodilators, lung volumes 09/11/24 R06.02 - Shortness of breath Aerosol treatment (first) Today R06.02 - Shortness of breath Medications: New ipratropium-albutero l 0.5 mg-3 mg(2.5 mg base)/3 mL 3 mL inhalation Q4H PRN PRN 180 mL 6RF SOB /OR WHEEZING [Nebulizer machine] As directed 1 ea 0RF R05.9 - Cough, unspecified Discontinued glycopyrrolate-formo terol 9-4.8 mcg (Bevespi Aerosphere) Discontinued Reason: Order Changed 2 puffs inhalation QAM AND QPM 1 inh 3RF R59.0 - Localized enlarged lymph nodes Plan Details Follow Up: 6 Weeks HPI 6 M FU Chief Complaint: shortness of breath HPI Comments Details: This patient presents to the office today to follow-up on his shortness of breath and adenocarcinoma of the lung. He is ambulatory and currently on room air. He has not been seen in the ED or urgent care for any respiratory illnesses. He has not required any antibiotics or prednisone for any breathing problems. Is compliant with the use of Bevespi 2 puffs twice daily. He reports that Bevespi is no longer going to be covered under his prescription plan. He was on Breztri, it was dropped as well. He is currently utilizing his albuterol routinely twice per day. He continues complete smoking cessation since 2020. He states that his girlfriend still smokes. He is having shortness of breath. He currently has an occasional cough that is dry. He denies any sputum production or hemoptysis. He denies any chest pain or palpitations or chest tightness. He does occasionally experience some occasional wheezing. He has not had any fever, chills or body aches. Intake Vital Signs 02/18/24 07:41 08/20/24 08:05 Height 5 ft 11 in 5 ft 11 in Weight: 168 lb BMI 23.4 BP 105/70 Blood Pressure Location Lt brachial Position Sitting Respiration 18 Pulse 60 Pulse Source Monitor Temp 97.3 F L Temperature Source Temporal Artery Pulse Oximetry (%) 98 Oxygen Delivery Method room air Intake Visit Reasons: 6 M FU Chief Complaint: Cough Accompanied by: Self Allergies acetaminophen (From Tylenol-Codeine #3) Adverse Reaction (Severe, Verified 08/20/24 13:57) Nausea codeine (From Tylenol-Codeine #3) Adverse Reaction (Severe, Verified 08/20/24 13:57) Nausea naproxen (From Aleve) Adverse Reaction (Severe, Verified 08/20/24 13:57) Nausea Medications ???Medication ???Instructions ???Recorded ???Confirmed ???Type ondansetron HCl 8 mg tablet 8 mg PO Q8H PRN PRN Nausea 10 days 01/15/20 08/20/24 Rx #30 tabs prochlorperazine maleate 10 mg 10 mg PO Q6H PRN PRN Nausea 10 07/3108/20/24 Rx tablet days #30 tabs food supplemt, lactose-reduced 120 ml PO DAILY 30 days ##30 02/0908/20/24 Rx 0.08 gram-1.5 kcal/mL oral liquid bupropion HCl (smoking deter) 150 150 mg PO BID #60 tabs 03/14/21 0 08/20/24 Rx mg tablet,12 hr sustained-release(sm oking deterrent) aspirin 81 mg chewable tablet 81 mg PO DAILY #90 tabs 07/31/23 0 08/20/24 Rx pantoprazole 20 mg tablet,delayed 20 mg PO DAILY #90 tabs 09/26/23 08/20/24 Rx release albuterol sulfate 90 mcg/actuation 2 puff inhalation Q4H PRN 08/20/24 Rx aerosol inhaler shortness of breath or wheezing #1 device atorvastatin 80 mg tablet 80 mg PO QHS #90 tabs 03/25/2402/05 Rx carvedilol 3.125 mg tablet 3.125 mg PO BID #180 tabs 03/25/24 08/20/24 Rx losartan 25 mg tablet 12.5 (more content not included)... Normal [facility] Cardiology Visit Reporton Cardiology Visit Report [facility] [address] [place] [address] OFFICE VISIT Date of Service: 03/25/24 MR#: [id number] Acct: [id number] Name: LÁZARO MIMS Rep #: [id number] : 1965 Provider: CRISTINA delaney Age/Sex: 58/M Location: [facility] [place].[facility] Status: Signed HPI HPI History of Present Illness Details: Lázaro Mims is a 58-year-old gentleman who presents here today for a cardiovascular follow-up. He has a history of coronary artery disease with an acute ST elevation myocardial infarction and August 2019. He underwent an urgent heart catheterization at that time which demonstrated an ejection fraction of 20%. He did require stenting to his LAD. He did have a repeat echocardiogram in December which demonstrated an improved ejection fraction of 35 to 40%. He also has a history of lung carcinoma in which he had undergoing radiation for. He has been dated just been seen in the oncology clinic he started radiation in December 2019 and was on Taxol and carboplatin. He is now on maintenance durvalumab. His echocardiogram from July of 2022 demonstrated an ejection fraction of 50%. From a cardiac standpoint, the patient is doing well. He denies any palpitations, chest pain, pressure or heaviness. He denies SOB, Orthopnea, and PND. He does not have bleeding issues; no blood in urine, stool or nosebleeds. He denies any decrease in energy level, myalgias, or claudication. He does not have edema, or sudden weight gain. He denies dizziness, lightheadedness, syncopal or near syncopal episodes, and headaches. Intake Vital Signs 05/31/23 15:00 02/18/24 07:41 03/25/24 14:14 Height 5 ft 11 in 5 ft 11 in 5 ft 11 in Weight: 186 lb BMI 25.9 BP 111/77 Blood Pressure Location Lt brachial Position Sitting Respiration 18 Pulse 67 Pulse Source Monitor Pulse Oximetry (%) 96 Intake Visit Reasons: 9-12 M FU Pilot Required: No Is patient in pain?: No Allergies acetaminophen (From Tylenol-Codeine #3) Adverse Reaction (Severe, Verified 03/25/24 14:21) Nausea codeine (From Tylenol-Codeine #3) Adverse Reaction (Severe, Verified 03/25/24 14:21) Nausea naproxen (From Aleve) Adverse Reaction (Severe, Verified 03/25/24 14:21) Nausea Medications ???Medication ???Instructions ???Recorded ???Confirmed ???Type ondansetron HCl 8 mg tablet 8 mg PO Q8H PRN PRN Nausea 10 days 01/15/20 03/25/24 Rx #30 tabs prochlorperazine maleate 10 mg 10 mg PO Q6H PRN PRN Nausea 10 01/15/20 03/25/24 Rx tablet days #30 tabs food supplemt, lactose-reduced 120 ml PO DAILY 30 days ##30 02/10/20 03/25/24 Rx 0.08 gram-1.5 kcal/mL oral liquid bupropion HCl (smoking deter) 150 150 mg PO BID #60 tabs 03/14/21 03/25/24 Rx mg tablet,12 hr sustained-release(sm oking deterrent) aspirin 81 mg chewable tablet 81 mg PO DAILY #90 tabs 07/31/23 03/25/24 Rx pantoprazole 20 mg tablet,delayed 20 mg PO DAILY #90 tabs 09/26/23 03/25/24 Rx release levothyroxine 112 mcg tablet 112 mcg PO DAILY #30 tabs 01/22/24 03/25/24 Rx albuterol sulfate 90 mcg/actuation 2 puff inhalation Q4H PRN 02/18/24 03/25/24 Rx aerosol inhaler shortness of breath or wheezing #1 device glycopyrrolate 9 mcg-formoterol 2 puff inhalation QAM AND QPM #1 02/18/24 03/25/24 Rx 4.8 mcg HFA aerosol inhaler inh (Bevespi Aerosphere) atorvastatin 80 mg tablet 80 mg PO QHS #90 tabs 03/25/24 03/25/24 Rx carvedilol 3.125 mg tablet 3.125 mg PO BID #180 tabs 03/25/24 03/25/24 Rx losartan 25 mg tablet 12.5 mg (1/2 x 25 mg) PO DAILY #45 03/25/24 03/25/24 Rx tabs Nurse's Note: no medication list, has no idea what medications he is taking [facility] Medical History SOB (shortness of breath) Increased thyroid stimulating hormone (TSH) level Radiation fibrosis of lung Nicotine dependence, cigarettes, in remission Erectile dysfunction History of non-ST elevation myocardial infarction (NSTEMI) (06/[address]) History of [address] elevation myocardial infarction (STEMI) (08/26/19) Atherosclerotic heart disease of [place] coronary artery without angina pectoris Hypothyroidism Hypothyroidism (acquired) Exertional dyspnea Immunotherapy encounter Odynophagia Encounter for adjustment and management of vascular access device Low back pain Chemotherapy management, encounter for Encounter for education Ischemic cardiomyopathy GERD (gastroesophageal reflux disease) Tobacco abuse Adenocarcinoma of lung Mediastinal lymphadenopathy Surgical History History of removal of Port-a-Cath History of coronary artery stent placement (08/26/19) Family History Mother Heart disease COPD (chronic obstructive pulmonar (more content not included)... Normal [facility] Pulmonary Visit Reporton Pulmonary Visit Report [facility] [place] [address] [place] [address]. [address] [place] [address] OFFICE VISIT Date of Service: 02/18/24 MR#: [id number] Acct: [id number] Name: LÁZARO MIMS Rep #: [id number] : 1965 Provider: CRISTINA Yoon Age/Sex: 58/M Location: [facility] [place].[facility] Status: Signed Assessment and Plan Assessment and Plan (1) SOB (shortness of breath): Status: Chronic Plan: Likely secondary to COPD. He is using and benefiting from Breztri. No change in maintenance medication. No additional testing at this time. Follow-up in 6 months. He was provided with his annual influenza vaccination today. He has been encouraged to the office with any new or worsening symptoms in the meantime. He is agreeable with this plan. (2) Adenocarcinoma of lung: Status: Chronic Qualifiers: Laterality: left Qualified Code(s): C34.92 - Malignant neoplasm of unspecified part of left bronchus or lung Comment: Finished maintenance therapy with Durvalumab on 03/10/2021. On observation. Comes for follow up. CT on 01/17/2024 reviewed, stable density L lower lobe. No evidence of progressive disease. Plan: Complicates exam, plan, care and prognosis. Oncology managing serial imaging. Orders: Orders Influenza Immunization Today J44.9 - Chronic obstructive pulmonary disease, unspecified, R59.0 - Localized enlarged lymph nodes Medications: Refilled albuterol sulfate 90 mcg/actuation administer with spacer 2 puffs inhalation Q4H PRN 1 device 6RF shortness of breath or wheezing R59.0 - Localized enlarged lymph nodes glycopyrrolate-formo terol 9-4.8 mcg (Bevespi Aerosphere) 2 puffs inhalation QAM AND QPM 1 inh 3RF R59.0 - Localized enlarged lymph nodes Plan Details Follow Up: 6 Months (CSM) HPI 1 Y FU Chief Complaint: Routine follow-up HPI Comments Details: This patient presents to the office today to follow-up on his shortness of breath and adenocarcinoma of the lung. He is ambulatory and currently on room air. He has not been seen in the ED or urgent care for any respiratory illnesses. He has not required any antibiotics or prednisone for any breathing problems. Is compliant with the use of Bevespi 2 puffs twice daily. He does report rinsing his mouth out after each use. He denies any medication side effect such as sore throat or thrush. He is currently utilizing his albuterol routinely twice per day. He continues complete smoking cessation for the past 2 to 3 years. He denies any difficulty with shortness of breath. He currently has an occasional cough productive of clear to white-colored sputum. He denies any hemoptysis. He denies any chest pain or palpitations or chest tightness. He does occasionally experience some intermittent wheezing. He has not had any fever, chills or body aches. Intake Vital Signs 12/06/23 07:49 01/22/24 14:57 02/18/24 07:41 Height 5 ft 11 in 5 ft 11 in 5 ft 11 in Weight: 192 lb BMI 26.7 BP 107/71 Blood Pressure Location Lt brachial Position Sitting Respiration 18 Pulse 65 Pulse Source Monitor Temp 97.2 F L Temperature Source Temporal Artery Pulse Oximetry (%) 97 Oxygen Delivery Method room air Intake Visit Reasons: 1 Y FU Chief Complaint: Cough DME Vendor: NA Accompanied by: Self Allergies acetaminophen (From Tylenol-Codeine #3) Adverse Reaction (Severe, Verified 02/18/24 12:48) Nausea codeine (From Tylenol-Codeine #3) Adverse Reaction (Severe, Verified 02/18/24 12:48) Nausea naproxen (From Aleve) Adverse Reaction (Severe, Verified 02/18/24 12:48) Nausea Medications ???Medication ???Instructions ???Recorded ???Confirmed ???Type ondansetron HCl 8 mg tablet 8 mg PO Q8H PRN PRN Nausea 10 days 01/15/20 02/18/24 Rx #30 tabs prochlorperazine maleate 10 mg 10 mg PO Q6H PRN PRN Nausea 10 01/15/20 02/18/24 Rx tablet days #30 tabs food supplemt, lactose-reduced 120 ml PO DAILY 30 days ##30 02/10/20 02/18/24 Rx 0.08 gram-1.5 kcal/mL oral liquid bupropion HCl (smoking deter) 150 150 mg PO BID #60 tabs 03/14/21 02/18/24 Rx mg tablet,12 hr sustained-release(sm oking deterrent) aspirin 81 mg chewable tablet 81 mg PO DAILY #90 tabs 07/31/23 02/18/24 Rx atorvastatin 80 mg tablet 80 mg PO QHS #90 tabs 09/24/23 02/18/24 Rx carvedilol 3.125 mg tablet 3.125 mg PO BID #180 tabs 09/24/23 02/18/24 Rx losartan 25 mg tablet 12.5 mg (1/2 x 25 mg) PO DAILY #45 09/24/23 02/18/24 Rx tabs pantoprazole 20 mg tablet,delayed 20 mg PO DAILY #90 tabs 09/26/23 02/18/24 Rx release levothyroxine 112 mcg tablet 112 mcg PO DAILY #30 tabs 01/22/24 02/18/24 Rx albuterol sulfate 90 mcg/actuation 2 puff inhalation Q4H PRN 02/18/24 02/18/24 Rx aerosol inhaler shortness of breath or wheezing #1 device glycopyrrolate 9 mcg-formoterol 2 puff in (more content not included)... Normal [facility] Oncology Visit Reporton 01-12 Oncology Visit Report [facility] [place] [address] [address] [address] OFFICE VISIT Date of Service: 01/22/24 1455 MR#: [id number] Acct: [id number] Name: LÁZARO MIMS Rep #: [id number] : 1965 From: Justin Ramachandran MD Age/Sex: 58/M Location: [facility] [place] [place] Status: Signed HPI Subjective Date of Service 01/22/24 Chief Complaint F/u for NSCLC History of Present Illness 58 year-old man presented with right-sided chest pain. CT scan on 07/05/2019 showed left lower lobe 6.5 cm mass. Stress test on 07/10/2019 showed no significant ischemia or infarction. Ejection fraction was 59%. He went on to have a CT-guided biopsy on 07/18/2019. Pathology showed non-small cell lung cancer, adenocarcinoma type, PD-L1 TPS 80%. MRI brain demonstrated no evidence of VIDEO AND SOUND RECORDER involvement, PET showed no distant mets. Referred to thoracic surgery for evaluation. He had chest pain on 08/26/2019, was found to have VA, stenting was done. Echocardiogram showed 08/27/2019 [address] EF25%. Dr. Muñoz's note appreciated, Pt was scheduled for Lobectomy and mediastinal adenectomy in November 2019 but Pt declined. Has seen Dr. Schrader for radiation therapy. PET/CT 01/06/20 showed continued hypermetabolic activity in the left lower lobe with mediastinal adenopathy, SUV lower than Primary tumor. He was therefore upstaged to cT3 cN2 M0-stage IIIB. He started Chemotherapy with weekly Taxol/Carboplatin and Radiation therapy on 01/20/2020. Primary toxicity was retrosternal pain with swallowing. Finished C7 on 03/02/2020. Finished Radiation therapy on 03/04/2020. Post treatment CT chest demonstrated persistent 3.3cm x 4.1 cm mass in the peripheral lateral aspect of the left lower lobe???which decreased in size compared to previous study and 2.1 cm lymph node in the right hilum???unchanged. He started Durvalumab on 04/13/2020. He developed Flu like illness a few days after the first dose of Durvalumab. Underwent CT chest to r/o pneumonitis on 05/05/20. Study demonstrated decrease in size of the left lower lobe nodule with no pneumonitis. COVID19 testing negative. He resumed Durvalumab on 08/12/20. CT chest done on 09/01/2020 showed decreasing L lower lobe mass. Had CT chest with contrast on 12/20/2020- demonstrated stability of LLL nodules. Finished C12 on 03/10/2021. He had residual density in the left lower lobe. He is on observation, had a CT and comes for follow up. Feels well. FOR[facility]LY [facility] Medical History SOB (shortness of breath) Increased thyroid stimulating hormone (TSH) level Radiation fibrosis of lung Nicotine dependence, cigarettes, in remission Erectile dysfunction History of non-ST elevation myocardial infarction (NSTEMI) (06/2019) History of ST elevation myocardial infarction (STEMI) (08/26/19) Atherosclerotic heart disease of [place] coronary artery without angina pectoris Hypothyroidism Hypothyroidism (acquired) Exertional dyspnea Immunotherapy encounter Odynophagia Encounter for adjustment and management of vascular access device Low back pain Chemotherapy management, encounter for Encounter for education Ischemic cardiomyopathy GERD (gastroesophageal reflux disease) Tobacco abuse Adenocarcinoma of lung Mediastinal lymphadenopathy Surgical History History of removal of Port-a-Cath History of coronary artery stent placement (08/26/19) Family History Mother Heart disease COPD (chronic obstructive pulmonary disease) Kidney disease Aunt Diabetes Sister Cancer Social History Smoking Status: Former smoker quit date: 01/25/21 Tobacco: How many years used: 15 second hand exposure: Yes alcohol intake: never substance use type: marijuana caffeine: Yes Type: carbonated beverages Number of servings: 4 and coffee what type of physical activity do you participate in: walking seatbelt use: never do you feel safe at home: Yes Intake Vital Signs 05/31/23 15:00 01/22/24 14:56 01/22/24 14:57 Height 5 ft 11 in 5 ft 11 in 5 ft 11 in Weight: 85.899 kg BMI 26.4 BP 114/77 Blood Pressure Location Rt brachial Position Sitting Respiration 18 Pulse 70 Pulse Source Monitor Temp 98.7 F Temperature Source Temporal Artery Pulse Oximetry (%) 97 Oxygen Delivery Method room air Intake Is patient in pain?: No Allergies acetaminophen (From Tylenol-Codeine #3) Adverse Reaction (Severe, Verified 01/22/24 14:55) Nausea codeine (From Tylenol-Codeine #3) Adverse Reaction (Severe, Verified 01/22/24 14:55) Nausea naproxen (From Aleve) Adverse Reaction (Severe, Verified 01/22/24 14:55) Nausea Medications ???Medication ???Instructions ???Recorded ???Confirmed ???Type (more content not included)... Normal [facility] T4 Total, Thyroxinon 024 T4 [Mass/Vol] 12.1 ug/dL Normal 4.5-12.1 [facility] Comment on above: Performed By: #### L [id number], [id number] #### [facility] [address], [place], [address] Thyroid Stim Hormone (TSH)on 01-22-2024 TSH 11.400 uIU/mL High 0.358-3.740 [facility] Comment on above: Performed By: #### L [id number], [id number] #### [facility] [address] [place], [address] Basophil percentageOrdered B y: Jose Carlos Marion on 08-27-2023 Bilirubin [Mass/Vol] 0.70 mg/dL 0.20-1.00 [facility] Comment on above: For patients on eltr ombopag therapy, use of Dimension [place] TBIL is not recommended. Cholesterol [Mass/Vol] 126 mg/dL <200 [facility] Comment on above: <200 mg/dL Desirable 200-240 mg/dL Borderline >240 mg/dL High Risk Protein [Mass/Vol] 7.5 g/dL 6.4-8.2 [facility] Triglyceride [Mass/Vol] 71 mg/dL <199 [facility] Comment on above: The drugs N-Acetylcy steine and Metamizole may falsely depress this assay.Serum Triglycerides Reference Interval Normal <150 mg/dL Borderline high 150 - 199 mg/dL High 200 - 499 mg/dL Very High > or = 500 mg/dL Direct bilirubinOrdered By: Jose Carlos Schultz on 08-27-2023 Bilirubin.direct [Mass/Vol] 0.17 mg/dL 0.00-0.30 [facility] Laboratory - Chemistry and C hemistry - challengeOrdered By: Jose Carlos Schultz on 08-27-2023 ALP [Catalytic activity/Vol] 99 U/L 45-117 [facility] ALT [Catalytic activity/Vol] 20 U/L 16-61 [facility] Cholesterol in HDL [Mass/Vol] 48 mg/dL >40 [facility] Comment on above: The drugs N-Acetylcy steine and Metamizole may falsely depress this assay. Reference Range HDL <40 mg/dL Low HDL Cholesterol HDL >or= 60 mg/dL High HDL Cholesterol Cholesterol in LDL [Mass/Vol] 64 mg/dL 0-130 [facility] Globulin (S) [Mass/Vol] 3.8 g/dL 2.2-4.2 [facility] No Panel InformationOrdered By: Jose Carlos Schultz on 08-27-2023 VLDL Cholesterol 14 mg/dL 5-40 [facility] Thin prep Papanicolaou smear with manual screeningOrdered By: Jose Carlos Schultz on 08-27-2023 Thin prep Papanicolaou smear with manual screening 3.7 g/dL 3.2-5.0 [facility] Thin prep Papanicolaou smear with manual screening 20 U/L 15-37 [facility] Basophil percentageOrdered B y: Justin Ramachandran on 01-16-2023 Creatinine [Mass/Vol] 1.2 mg/dL 0.70-1.30 [facility] No Panel InformationOrdered By: Justin Ramachandran on 01-16-2023 Bedside Estimated GFR (eGFR) > 60.0000 mL/min >60 [facility] Basophil percentageOrdered B y: Myra Renteria on 07-21-2022 Bilirubin [Mass/Vol] 0.50 mg/dL 0.20-1.00 [facility] Comment on above: For patients on eltr ombopag therapy, use of Dimension [place] TBIL is not recommended. Cholesterol [Mass/Vol] 108 mg/dL <200 [facility] Comment on above: <200 mg/dL Desirable 200-240 mg/dL Borderline >240 mg/dL High Risk Protein [Mass/Vol] 7.3 g/dL 6.4-8.2 [facility] Triglyceride [Mass/Vol] 84 mg/dL <199 [facility] Comment on above: The drugs N-Acetylcy steine and Metamizole may falsely depress this assay.Serum Triglycerides Reference Interval Normal <150 mg/dL Borderline high 150 - 199 mg/dL High 200 - 499 mg/dL Very High > or = 500 mg/dL Direct bilirubinOrdered By: Myra Renteria on 07-21-2022 Bilirubin.direct [Mass/Vol] 0.16 mg/dL 0.00-0.30 [facility] Laboratory - Chemistry and C hemistry - challengeOrdered By: Myra Renteria on 07-21-2022 ALP [Catalytic activity/Vol] 126 U/L 45-117 [facility] ALT [Catalytic activity/Vol] 19 U/L 16-61 [facility] Globulin (S) [Mass/Vol] 3.9 g/dL 2.2-4.2 [facility] Serum or plasma albumin luis miguel urement (mass/volume)Ordered By: Myra Renteria on 07-21-2022 Albumin [Mass/Vol] 3.4 g/dL 3.2-5.0 [facility] Serum or plasma cholesterol in HDL measurement (mass/volume)Ordered By: Myra Renteria on 07-21-2022 Cholesterol in HDL [Mass/Vol] 42 mg/dL >40 [facility] Comment on above: The drugs N-Acetylcy steine and Metamizole may falsely depress this assay. Reference Range HDL <40 mg/dL Low HDL Cholesterol HDL >or= 60 mg/dL High HDL Cholesterol Serum or plasma cholesterol in VLDL measurement (mass/volume)Ordered By: Myra Renteria on 07-21-2022 Cholesterol in VLDL [Mass/Vol] 17 mg/dL 5-40 [facility] Serum or plasma low density lipoprotein (LDL) cholesterol measurement (mass/volume)Ordered By: Myra Renteria on 07-21-2022 Cholesterol in LDL [Mass/Vol] 49 mg/dL 0-130 [facility] Thin prep Papanicolaou smear with manual screeningOrdered By: Myra Renteria on 07-21-2022 Thin prep Papanicolaou smear with manual screening 21 U/L 15-37 [facility] Laboratory - Chemistry and C hemistry - challengeOrdered By: Ai Larios on 05-31-2022 Free T4 [Mass/Vol] 1.37 ng/dL 0.76-1.46 [facility] No Panel InformationOrdered By: Ai Larios on 05-31-2022 Thyroid Stimulating Hormone (TSH) 4.73 uIU/mL 0.358-3.74 [facility] Absolute lymphocyte countOrd ered By: Dr. Ramachandran on 03-22-2022 Lymphocytes Auto (Unsp spec) [#/Vol] 1.46 10*3/uL 0.83-4.51 [facility] Basophil percentageOrdered B y: Dr. Ramachandran on 03-22-2022 Basophils/100 WBC (Bld) 1.3 % 0-1 [facility] Bilirubin [Mass/Vol] 0.40 mg/dL 0.20-1.00 [facility] Comment on above: For patients on eltr ombopag therapy, use of Dimension [place] TBIL is not recommended. Chloride [Moles/Vol] 106 mmol/L 98-107 [facility] Eosinophils/100 WBC (Bld) 3.0 % 0-5 [facility] Glucose [Mass/Vol] 124 mg/dL 74-106 [facility] Comment on above: Fasting Glucose resu lt from 100 to 125 mg/dL suggests IMPAIRED HOMEOSTASIS per A.D.A. criteria. Neutrophils (Bld) [#/Vol] 4.8 10*3/uL 2.0-7.7 [facility] Neutrophils/100 WBC (Bld) 68.2 % 47-70 [facility] Potassium [Moles/Vol] 3.8 mmol/L 3.5-5.1 [facility] Protein [Mass/Vol] 6.9 g/dL 6.4-8.2 [facility] Sodium [Moles/Vol] 138 mmol/L 136-145 [facility] WBC (Bld) [#/Vol] 7.1 10*3/uL 4.4-11.0 [facility] Blood erythrocytes count (nu mber/volume)Ordered By: Dr. Ramachandran on 03-22-2022 RBC (Bld) [#/Vol] 4.37 10*6/uL 4.6-6.2 [facility] Blood hemoglobin measurement (mass/volume)Ordered By: Dr. Ramachandran on 03-22-2022 Hemoglobin (Bld) [Mass/Vol] 13.3 g/dL 13.0-16.5 [facility] Blood lymphocytes/100 leukoc ytesOrdered By: Dr. Ramachandran on 03-22-2022 Lymphocytes/100 WBC (Bld) 20.7 % 19-41 [facility] Blood monocytes/100 leukocyt esOrdered By: Dr. Ramachandran on 03-22-2022 Monocytes/100 WBC (Bld) 6.1 % 0-10 [facility] Blood platelet mean volumeOr dered By: Dr. Ramachandran on 03-22-2022 Platelet mean volume (Bld) [Entitic vol] 8.6 fL 6.2-12.0 [facility] Determination of erythrocyte mean corpuscular volume (MCV)Ordered By: Dr. Ramachandran on 03-22-2022 MCV (RBC) [Entitic vol] 93.4 fL 80-94 [facility] Free thyroxine indexOrdered By: Ai Larios on 03-22-2022 Free T4 index Calc [Mass/Vol] 0.3 1.4-4.5 [facility] Hematocrit Auto (Bld) [Volum e fraction]Ordered By: Dr. Ramachandran on 03-22-2022 Hematocrit (Bld) [Volume fraction] 40.8 % 40-54 [facility] Laboratory - Chemistry and C hemistry - challengeOrdered By: Dr. Ramachandran on 03-22-2022 ALP [Catalytic activity/Vol] 105 U/L 45-117 [facility] ALT [Catalytic activity/Vol] 18 U/L 16-61 [facility] CO2 [Moles/Vol] 27.0 mmol/L 21.0-32.0 [facility] Globulin (S) [Mass/Vol] 3.7 g/dL 2.2-4.2 [facility] Urea nitrogen/Creatinine [Mass ratio] 9.0 mg/mg 10-20 [facility] Laboratory - Hematology and Cell countsOrdered By: Dr. Ramachandran on 03-22-2022 Erythrocyte distribution width (RBC) [Entitic vol] 44.9 fL 35.1-43.9 [facility] Erythrocyte distribution width (RBC) [Ratio] 13.2 % 11.6-14.6 [facility] Immature granulocytes/100 WBC (Bld) 0.700 % 0.0-0.9 [facility] Comment on above: IG% - Immature Granu locytes (promyelocytes, myelocytes and metamyelocytes) > 1% indicates that a LEFT SHIFT is Present. MCH (RBC) [Entitic mass] 30.4 pg 27.0-32.0 [facility] Nucleated RBC/100 WBC (Bld) [Ratio] 0 % 0-5 [facility] MCHC Auto (RBC) [Mass/Vol]Or dered By: Dr. Ramachandran on 03-22-2022 MCHC (RBC) [Mass/Vol] 32.6 g/dL 32-36 [facility] No Panel InformationOrdered By: Dr. Ramachandran on 03-22-2022 Estimated Creatinine Clearance Calc 90.47 ml/min [facility] Estimated GFR (MDRD) Amer 113 mL/min >60 [facility] Comment on above: GFR Calc Estimated GFR (MDRD) Non-Af Amer 93 mL/min >60 [facility] Comment on above: Non- GFR Calc Platelets bldOrdered By: Dr. Ramachandran on 03-22-2022 Platelets (Bld) [#/Vol] 306 10*3/uL 150-450 [facility] Serum or plasma albumin luis miguel urement (mass/volume)Ordered By: Dr. Ramachandran on 03-22-2022 Albumin [Mass/Vol] 3.2 g/dL 3.2-5.0 [facility] Serum or plasma albumin/glob ulin mass ratioOrdered By: Dr. Ramachandran on 03-22-2022 Albumin/Globulin [Mass ratio] 0.9 {ratio} 0.9-2.4 [facility] Serum or plasma calcium luis miguel urement (mass/volume)Ordered By: Dr. Ramachandran on 03-22-2022 Calcium [Mass/Vol] 8.2 mg/dL 8.5-10.1 [facility] Serum or plasma creatinine m easurement (mass/volume)Ordered By: Dr. Ramachandran on 03-22-2022 Creatinine [Mass/Vol] 0.89 mg/dL 0.70-1.30 [facility] Comment on above: The validity of the calculated GFR & GFRAA in patients over 70 years has not been determined. Clinical correlation is essential. Serum or plasma urea nitroge n measurement (mass/volume)Ordered By: Dr. Ramachandran on 03-22-2022 Urea nitrogen [Mass/Vol] 8 mg/dL 7-18 [facility] T3 uptakeOrdered By: Ai melendez on 03-22-2022 T3RU 31 % 33-40 [facility] Thin prep Papanicolaou smear with manual screeningOrdered By: Dr. Ramachandran on 03-22-2022 Thin prep Papanicolaou smear with manual screening 14 U/L 15-37 [facility] Thin prep Papanicolaou smear with manual screening 5 5-15 [facility] Thin prep Papanicolaou smear with manual screening 147 U/L 87-241 [facility] Basophil percentageon 2021 Basophil percentage < 0.9 mg/dL 0.70-1.30 [facility] Work Phone: No Panel Informationon 03-15 Bedside Estimated GFR (eGFR) > 60.0000 mL/min >60 [facility] Work Phone: Absolute lymphocyte counton 09-22-2021 Lymphocytes Auto (Unsp spec) [#/Vol] 1.51 10*3/uL 0.83-4.51 [facility] Work Phone: Basophil percentageon 2021 Basophils/100 WBC (Bld) 1.1 % 0-1 [facility] Work Phone: Bilirubin [Mass/Vol] 0.40 mg/dL 0.20-1.00 [facility] Work Phone: Comment on above: For patients on eltr ombopag therapy, use of Dimension [place] TBIL is not recommended. Chloride [Moles/Vol] 105 mmol/L 98-107 [facility] Work Phone: Eosinophils/100 WBC (Bld) 4.6 % 0-5 [facility] Work Phone: Glucose [Mass/Vol] 73 mg/dL 74-106 [facility] Work Phone: [phone] Neutrophils (Bld) [#/Vol] 4.0 10*3/uL 2.0-7.7 [facility] Work Phone: Neutrophils/100 WBC (Bld) 61.2 % 47-70 [facility] Work Phone: [phone] Potassium [Moles/Vol] 3.7 mmol/L 3.5-5.1 [facility] Work Phone: [phone] Protein [Mass/Vol] 6.9 g/dL 6.4-8.2 [facility] Work Phone: [phone] Sodium [Moles/Vol] 137 mmol/L 136-145 [facility] Work Phone: WBC (Bld) [#/Vol] 6.5 10*3/uL 4.4-11.0 [facility] Work Phone: [phone] Blood erythrocytes count (nu mber/volume)on 09-22-2021 RBC (Bld) [#/Vol] 4.17 10*6/uL 4.6-6.2 [facility] Work Phone: Blood hemoglobin measurement (mass/volume)on 09-22-2021 Hemoglobin (Bld) [Mass/Vol] 13.0 g/dL 13.0-16.5 [facility] Work Phone: Blood lymphocytes/100 leukoc yteson 09-22-2021 Lymphocytes/100 WBC (Bld) 23.1 % 19-41 [facility] Work Phone: Blood monocytes/100 leukocyt eson 09-22-2021 Monocytes/100 WBC (Bld) 9.2 % 0-10 [facility] Work Phone: Blood platelet mean volumeon 09-22-2021 Platelet mean volume (Bld) [Entitic vol] 8.5 fL 6.2-12.0 [facility] Work Phone: Determination of erythrocyte mean corpuscular volume (MCV)on 09-22-2021 MCV (RBC) [Entitic vol] 92.3 fL 80-94 [facility] Work Phone: Hematocrit Auto (Bld) [Volum e fraction]on 09-22-2021 Hematocrit (Bld) [Volume fraction] 38.5 % 40-54 [facility] Work Phone: Laboratory - Chemistry and C hemistry - challengeon 09-22-2021 ALP [Catalytic activity/Vol] 110 U/L 45-117 [facility] Work Phone: ALT [Catalytic activity/Vol] 25 U/L 16-61 [facility] Work Phone: CO2 [Moles/Vol] 27.0 mmol/L 21.0-32.0 [facility] Work Phone: Free T4 [Mass/Vol] 0.88 ng/dL 0.76-1.46 [facility] Work Phone: Globulin (S) [Mass/Vol] 3.5 g/dL 2.2-4.2 [facility] Work Phone: Urea nitrogen/Creatinine [Mass ratio] 18.9 mg/mg 10-20 [facility] Work Phone: Laboratory - Hematology and Cell countson 09-22-2021 Erythrocyte distribution width (RBC) [Entitic vol] 42.7 fL 35.1-43.9 [facility] Work Phone: Erythrocyte distribution width (RBC) [Ratio] 12.6 % 11.6-14.6 [facility] Work Phone: Immature granulocytes/100 WBC (Bld) 0.800 % 0.0-0.9 [facility] Work Phone: Comment on above: IG% - Immature Granu locytes (promyelocytes, myelocytes and metamyelocytes) > 1% indicates that a LEFT SHIFT is Present. MCH (RBC) [Entitic mass] 31.2 pg 27.0-32.0 [facility] Work Phone: Nucleated RBC/100 WBC (Bld) [Ratio] 0 % 0-5 [facility] Work Phone: MCHC Auto (RBC) [Mass/Vol]on 09-22-2021 MCHC (RBC) [Mass/Vol] 33.8 g/dL 32-36 [facility] Work Phone: No Panel Informationon 09-22 Estimated Creatinine Clearance Calc 103.17 ml/min [facility] Work Phone: Estimated GFR (MDRD) Amer 129 mL/min >60 [facility] Work Phone: Comment on above: GFR Calc Estimated GFR (MDRD) Non-Af Amer 107 mL/min >60 [facility] Work Phone: Comment on above: Non- GFR Calc Thyroid Stimulating Hormone (TSH) 20.10 uIU/mL 0.358-3.74 [facility] Work Phone: Platelets bldon 09-22-2021 Platelets (Bld) [#/Vol] 261 10*3/uL 150-450 [facility] Work Phone: Serum or plasma albumin luis miguel urement (mass/volume)on 09-22-2021 Albumin [Mass/Vol] 3.4 g/dL 3.2-5.0 [facility] Work Phone: Serum or plasma albumin/glob ulin mass ratioon 09-22-2021 Albumin/Globulin [Mass ratio] 1.0 {ratio} 0.9-2.4 [facility] Work Phone: Serum or plasma calcium luis miguel urement (mass/volume)on 09-22-2021 Calcium [Mass/Vol] 8.8 mg/dL 8.5-10.1 [facility] Work Phone: Serum or plasma creatinine m easurement (mass/volume)on 09-22-2021 Creatinine [Mass/Vol] 0.79 mg/dL 0.70-1.30 [facility] Work Phone: Comment on above: The validity of the calculated GFR & GFRAA in patients over 70 years has not been determined. Clinical correlation is essential. Serum or plasma urea nitroge n measurement (mass/volume)on 09-22-2021 Urea nitrogen [Mass/Vol] 15 mg/dL 7-18 [facility] Work Phone: Thin prep Papanicolaou smear with manual screeningon 09-22-2021 Thin prep Papanicolaou smear with manual screening 16 U/L 15-37 [facility] Work Phone: Thin prep Papanicolaou smear with manual screening 5 5-15 [facility] Work Phone: Thin prep Papanicolaou smear with manual screening 135 U/L 87-241 [facility] Work Phone: Basophil percentageon 2021 Creatinine [Mass/Vol] 0.9 mg/dL 0.70-1.30 [facility] Work Phone: No Panel Informationon 09-19 Bedside Estimated GFR (eGFR) > 60.0000 mL/min >60 [facility] Work Phone: Basophil percentageon 2020 Bilirubin [Mass/Vol] 0.30 mg/dL 0.20-1.00 [facility] Work Phone: Comment on above: For patients on eltr ombopag therapy, use of Dimension [place] TBIL is not recommended. Chloride [Moles/Vol] 105 mmol/L 98-107 [facility] Work Phone: Glucose [Mass/Vol] 86 mg/dL 74-106 [facility] Work Phone: Comment on above: Please note revised GLUCOSE reference range effective 2017. Potassium [Moles/Vol] 3.8 mmol/L 3.5-5.1 [facility] Work Phone: Protein [Mass/Vol] 6.8 g/dL 6.4-8.2 [facility] Work Phone: Sodium [Moles/Vol] 138 mmol/L 136-145 [facility] Work Phone: Laboratory - Chemistry and C hemistry - challengeon 03-24-2021 Free T4 [Mass/Vol] 9.50 ng/dL 0.76-1.46 [facility] Work Phone: ALP [Catalytic activity/Vol] 106 U/L 45-117 [facility] Work Phone: ALT [Catalytic activity/Vol] 19 U/L 16-61 [facility] Work Phone: CO2 [Moles/Vol] 29.0 mmol/L 21.0-32.0 [facility] Work Phone: Globulin (S) [Mass/Vol] 3.6 g/dL 2.2-4.2 [facility] Work Phone: Urea nitrogen/Creatinine [Mass ratio] 12.6 mg/mg 10-20 [facility] Work Phone: No Panel Informationon 03-24 Thyroid Stimulating Hormone (TSH) 23.00 uIU/mL 0.358-3.74 [facility] Work Phone: Estimated Creatinine Clearance Calc 85.79 ml/min [facility] Work Phone: Estimated GFR (MDRD) Amer 104 mL/min >60 [facility] Work Phone: Comment on above: GFR Calc Estimated GFR (MDRD) Non-Af Amer 86 mL/min >60 [facility] Work Phone: Comment on above: Non- GFR Calc Serum or plasma albumin luis miguel urement (mass/volume)on 03-24-2021 Albumin [Mass/Vol] 3.2 g/dL 3.2-5.0 [facility] Work Phone: Serum or plasma albumin/glob ulin mass ratioon 03-24-2021 Albumin/Globulin [Mass ratio] 0.9 {ratio} 0.9-2.4 [facility] Work Phone: Serum or plasma calcium luis miguel urement (mass/volume)on 03-24-2021 Calcium [Mass/Vol] 8.2 mg/dL 8.5-10.1 [facility] Work Phone: Serum or plasma creatinine m easurement (mass/volume)on 03-24-2021 Creatinine [Mass/Vol] 0.95 mg/dL 0.70-1.30 [facility] Work Phone: Comment on above: The validity of the calculated GFR & GFRAA in patients over 70 years has not been determined. Clinical correlation is essential. Serum or plasma urea nitroge n measurement (mass/volume)on 03-24-2021 Urea nitrogen [Mass/Vol] 12 mg/dL 7-18 [facility] Work Phone: Thin prep Papanicolaou smear with manual screeningon 03-24-2021 Thin prep Papanicolaou smear with manual screening 12 U/L 15-37 [facility] Work Phone: Thin prep Papanicolaou smear with manual screening 4 5-15 [facility] Work Phone: No Panel Informationon 03-10 Prostate Specific Antigen Screen 0.65 ng/mL 0.00-4.00 [facility] Comment on above: This test was perfor med using the TPSA assay method for [facility]. Values obtained with differentassay methods cannot be used interchangably.When changing PSA assays in the course of monitoring apatient, additional sequential testing should be carriedout to confirm baseline values. Vitamin D 25-Hydroxy 16.0 ng/mL [facility] Comment on above: Vitamin D 25(OH) Sta tus Range Deficiency <20 ng/mL (50nmol/L) Insufficiency 20 - 30 ng/mL (50 - 75 nmol/L) Sufficiency 30 - 100 ng/mL (75 - 250 nmol/L) Toxicity >100 ng/mL (>250 nmol/L) Absolute lymphocyte counton 02-24-2021 Lymphocytes Auto (Unsp spec) [#/Vol] 1.01 10*3/uL 0.83-4.51 [facility] Work Phone: Basophil percentageon 2020 Eosinophils/100 WBC (Bld) 3.7 % 0-5 [facility] Work Phone: Neutrophils (Bld) [#/Vol] 4.4 10*3/uL 2.0-7.7 [facility] Work Phone: [phone] WBC (Bld) [#/Vol] 6.2 10*3/uL 4.4-11.0 [facility] Blood erythrocytes count (nu mber/volume)on 02-24-2021 RBC (Bld) [#/Vol] 4.23 10*6/uL 4.6-6.[address] [facility] [address] Work Phone: Blood hemoglobin measurement (mass/volume)on 02-24-2021 Hemoglobin (Bld) [Mass/Vol] 13.5 g/dL 13.0-16.5 [facility] Work Phone: Blood lymphocytes/100 leukoc yteson 02-24-2021 Lymphocytes/100 WBC (Bld) 16.3 % 19-41 [facility] Work Phone: Blood monocytes/100 leukocyt eson 02-24-2021 Monocytes/100 WBC (Bld) 7.4 % 0-10 [facility] Work Phone: Blood platelet mean volumeon 02-24-2021 Platelet mean volume (Bld) [Entitic vol] 8.3 fL 6.2-12.0 [facility] Work Phone: Determination of erythrocyte mean corpuscular volume (MCV)on 02-24-2021 MCV (RBC) [Entitic vol] 96.2 fL 80-94 [facility] Work Phone: Hematocrit Auto (Bld) [Volum e fraction]on 02-24-2021 Hematocrit (Bld) [Volume fraction] 40.7 % 40-54 [facility] Work Phone: Laboratory - Hematology and Cell countson 02-24-2021 Basophils/100 WBC (Unsp spec) 1.0 % 0-1 [facility] Work Phone: Erythrocyte distribution width (RBC) [Entitic vol] 46.5 fL 35.1-43.9 [facility] Work Phone: Erythrocyte distribution width (RBC) [Ratio] 13.2 % 11.6-14.6 [facility] Work Phone: Immature granulocytes/100 WBC (Bld) 0.500 % 0.0-0.9 [facility] Work Phone: Comment on above: IG% - Immature Granu locytes (promyelocytes, myelocytes and metamyelocytes) > 1% indicates that a LEFT SHIFT is Present. MCH (RBC) [Entitic mass] 31.9 pg 27.0-32.0 [facility] Work Phone: Neutrophils/100 WBC (Bld) 71.1 % 47-70 [facility] Work Phone: Nucleated RBC/100 WBC (Bld) [Ratio] 0 % 0-5 [facility] Work Phone: MCHC Auto (RBC) [Mass/Vol]on 02-24-2021 MCHC (RBC) [Mass/Vol] 33.2 g/dL 32-36 [facility] Work Phone: No Panel Informationon 02-24 Free Triiodothyronine (T3) pg/dL 1.7 pg/mL 2.18-3.98 [facility] Platelets bldon 02-24-2021 Platelets (Bld) [#/Vol] 237 10*3/uL 150-450 [facility] Work Phone: Thin prep Papanicolaou smear with manual screeningon 02-24-2021 Thin prep Papanicolaou smear with manual screening 127 U/L 87-241 [facility] Work Phone: Basophil percentageon 2020 Cholesterol [Mass/Vol] 115 mg/dL <200 [facility] Comment on above: <200 mg/dL Desirable 200-240 mg/dL Borderline >240 mg/dL High Risk Triglyceride [Mass/Vol] 107 mg/dL <199 [facility] Comment on above: The drugs N-Acetylcy steine and Metamizole may falsely depress this assay.Serum Triglycerides Reference Interval Normal <150 mg/dL Borderline high 150 - 199 mg/dL High 200 - 499 mg/dL Very High > or = 500 mg/dL Direct bilirubinon 1 Bilirubin.direct [Mass/Vol] 0.09 mg/dL 0.00-0.30 [facility] Serum or plasma cholesterol in HDL measurement (mass/volume)on 07-08-2020 Cholesterol in HDL [Mass/Vol] 39 mg/dL >40 [facility] Comment on above: The drugs N-Acetylcy steine and Metamizole may falsely depress this assay. Reference Range HDL <40 mg/dL Low HDL Cholesterol HDL >or= 60 mg/dL High HDL Cholesterol Serum or plasma cholesterol in VLDL measurement (mass/volume)on 07-08-2020 Cholesterol in VLDL [Mass/Vol] 21 mg/dL 5-40 [facility] Serum or plasma low density lipoprotein (LDL) cholesterol measurement (mass/volume)on 07-08-2020 Cholesterol in LDL [Mass/Vol] 55 mg/dL 0-130 [facility] Laboratory - Hematology and Cell countson 04-06-2020 Anisocytosis Ql (Bld) 2+ [facility] Macrocytes detectionon 04-06 Macrocytes Ql (Bld) 1+ [facility] No Panel Informationon 04-06 Differential Comment SCANNED [facility] RBC morphologyon 04-06-2020 RBC morphology finding Nom (Bld) N CHROM NORMAL NORM C&C [facility] Laboratory - Chemistry and C hemistry - challengeon 03-02-2020 Magnesium [Mass/Vol] 1.7 mg/dL 1.6-2.6 [facility] Review by pathologiston 02-12 Pathologist review Sd (Unsp spec) [Interp] Reviewed [facility] Comment on above: Previous reported re sult: Aster alexander Edited by: PERLA on 03/03/20:1546Leukopenia.Clinical correlation necessary.Aneudy Su M.D. 03/03/20 AMENDED REPORT 03/03/20 1546 PATH REV previously reported as: September catherine Blood platelet adequacy dete ction by light microscopyon 02-17-2020 Platelets LM Ql (Bld) SLT DEC ADEQ [facility] Leukodepleted Red Cellson Leukodepleted Red Cells Leukodepleted Re d Cells: No units selected for the patient. Normal [facility] Comment on above: Performed By: #### T SGL #### [address] #### LRC #### [place] [address] [place] [address] [id number] 12-09-2019 SARS-CoV-2 SARS-CoV-2 --> Status: F Not Detected Expected Result: Not Detected _ Real-time, RT-PCR performed on the [employer] System by the [facility]. Negative results do not preclude SARS-CoV-2 infection and should not be used as the sole basis for treatment or other patient management decisions. This assay was developed and its performance characteristics determined by the [facility]. This test has been developed under an Emergency Use Authorization (EUA) granted by the [facility] for the qualitative detection of SARS-CoV-2 nucleic acid (validation review pending). Expected Result: Not Detected _ Real-time, RT-PCR performed on the [employer] System by the [facility]. Negative results do not preclude SARS-CoV-2 infection and should not be used as the sole basis for treatment or other patient management decisions. This assay was developed and its performance characteristics determined by the [facility]. This test has been developed under an Emergency Use Authorization (EUA) granted by the FDA for the qualitative detection of SARS-CoV-2 nucleic acid (validation review pending). Normal [facility] Comment on above: Order Comment: Speci men Source Comment:Nasopharyngeal Swab Performed By: #### C OVID #### [facility] [address] [place], [place] Basic Metabolic Panelon 07-2 Anion gap [Moles/Vol] 8 Normal [facility] Comment on above: Performed By: #### H TRAVIS BMP3 #### [facility] [address], [place] Potassium [Moles/Vol] 3.9 mmol/L Normal 3.5-5.1 [facility] Comment on above: Performed By: #### H TRAVIS BMP3 #### [facility] [address], [place] Chloride [Moles/Vol] 102 mmol/L Normal 98-107 [facility] Comment on above: Performed By: #### H TRAVIS BMP3 #### [facility] [address], [place] Sodium [Moles/Vol] 135 mmol/L Normal 135-145 [facility] Comment on above: Performed By: #### H TRAVIS BMP3 #### [place] [address] [address] [place], [place] Calcium [Mass/Vol] 9.0 mg/dL Normal 8.4-10.4 [facility] Comment on above: Performed By: #### H TRAVIS BMP3 #### [facility] [address], [place] CO2 [Moles/Vol] 25 mmol/L Normal 22-30 [facility] Comment on above: Performed By: #### H TRAVIS BMP3 #### [facility] [address], [place] Glucose [Mass/Vol] 84 mg/dL Normal 70-100 [facility] Comment on above: Performed By: #### H TRAVIS BMP3 #### [facility] [address], [place] Urea nitrogen [Mass/Vol] 10 mg/dL Normal 7-20 [facility] Comment on above: Performed By: #### H CHRISTINE ROBLES #### [facility] [address], [place] Creatinine [Mass/Vol] 0.60 mg/dL Normal 0.52-1.25 [facility] Comment on above: Performed By: #### H JOHN ROBLES3 #### [facility] [address], [place] GFR/1.73 sq M predicted among blacks MDRD (S/P/Bld) [Vol rate/Area] mL/min/{1.73_m2} Normal >60 [facility] Comment on above: Performed By: #### H CHRISTINE ROBLES #### [facility] [address], [place] GFR/1.73 sq M predicted among non-blacks MDRD (S/P/Bld) [Vol rate/Area] mL/min/{1.73_m2} Normal >60 [facility] Comment on above: Result Comment: KDIG O guidelines provide the following GFR categories: Stage GFR(ml/min/1.73 m2) Terms G1 >=90 Normal or high G2 60-89 Mildly decreased* G3a 45-59 Mildly to moderately decreased G3b 30-44 Moderately to severely decreased G4 15-29 Severely decreased G5 <15 Kidney failure *Relative to young adult level. In the absence of evidence of kidney damage, neither GFR category G1 nor G2 fulfill the criteria for CKD. The CKD-EPI equation is validated in individuals 18 years of age and older. Currently the best equation for estimating glomerular filtration rate (GFR) from serum creatinine in children is the Bedside Olmedo equation. It is less accurate in patients with extremes of muscle mass, restriction of dietary protein, ingestion of creatine, extra-renal metabolism of creatinine, or treatment with medications that affect renal tubular creatinine secretion. Performed By: #### H JOHN ROBLES3 #### [facility] [address], [place] Anion gap [Moles/Vol] 8 mmol/L [facility] [place] Calcium [Mass/Vol] 9.0 mg/dL 8.4 - 10. 4 mg/dL [place], [place] Chloride [Moles/Vol] 102 mmol/L 98 - 10 7 mmol/L [place] CO2 [Moles/Vol] 25 mmol/L 22 - 30 mmol/L [place] Creatinine [Mass/Vol] 0.6 mg/dL 0.52 - 1.25 mg/dL [place], [place] EGFR IF NonAfrican [place] >90.0 >60 mL/min [place], [place] Comment on above: KDIGO guidelines pro vide the following GFR categories: Stage GFR(ml/min/1.73 m2) Terms G1 >=90 Normal or high G2 60-89 Mildly decreased* G3a 45-59 Mildly to moderately decreased G3b 30-44 Moderately to severely decreased G4 15-29 Severely decreased G5 <15 Kidney failure *Relative to young adult level. In the absence of evidence of kidney damage, neither GFR category G1 nor G2 fulfill the criteria for CKD. The CKD-EPI equation is validated in individuals 18 years of age and older. Currently the best equation for estimating glomerular filtration rate (GFR) from serum creatinine in children is the Bedside Olmedo equation. It is less accurate in patients with extremes of muscle mass, restriction of dietary protein, ingestion of creatine, extra-renal metabolism of creatinine, or treatment with medications that affect renal tubular creatinine secretion. GFR/1.73 sq M predicted among blacks MDRD (S/P/Bld) [Vol rate/Area] mL/min/{1.73_m2} >60 mL/min [place], [place] Glucose [Mass/Vol] 84 mg/dL 70 - 100 mg/dL [place], [place] Potassium [Moles/Vol] 3.9 mmol/L 3.5 - 5.1 mmol/L [place] Sodium [Moles/Vol] 135 mmol/L 135 - 145 mmol/L [place] Urea nitrogen [Mass/Vol] 10 mg/dL 7 - 20 mg/dL [place] Test Performed by [facility], [address] [place] [id number] [place], [place] COVID-19on 12-08-2019 SARS-CoV-2 Not Detected Expected Result: Not Detected _ Real-time, RT-PCR performed on the [employer] System by the [facility]. Negative results do not preclude SARS-CoV-2 infection and should not be used as the sole basis for treatment or other patient management decisions. This assay was developed and its performance characteristics determined by the [facility]. This test has been developed under an Emergency Use Authorization (EUA) granted by the FDA for the qualitative detection of SARS-CoV-2 nucleic acid (validation review pending). [place], [place] Test Performed by [address] [address] Specimen Source Comment:Nasopharynge al Swab [place], [place] Hemogramon 12-08-2019 Erythrocyte distribution width (RBC) [Ratio] 13.2 % Normal 11.5-14.5 [place] Comment on above: Performed By: #### H TRAVIS BMP3 #### [address] Hematocrit (Bld) [Volume fraction] 46.0 % Normal 40.0-52.0 [place] Comment on above: Performed By: #### H TRAVIS BMP3 #### [address] Hemoglobin (Bld) [Mass/Vol] 15.7 g/dL Normal 13.0-18.0 [place] Comment on above: Performed By: #### H TRAVIS BMP3 #### [address] MCH (RBC) [Entitic mass] 31.5 pg Normal 26.0-34.0 [place] Comment on above: Performed By: #### H TRAVIS BMP3 #### [address] MCHC (RBC) [Mass/Vol] 34.2 % Normal 32.0-36.0 [place], [place] Comment on above: Performed By: #### H EMOAstrid, BMP3 #### [address] MCV (RBC) [Entitic vol] 92.1 fL Normal 80.0-98.0 M [place], [place] Comment on above: Performed By: #### H JOHN ROBLES3 #### [place] [address] [place], [place] Platelet mean volume (Bld) [Entitic vol] 7.6 fL Normal 7.4-10.4 [place], [place] Comment on above: Performed By: #### JOHN HORNER3 #### [place] [address] [place], [place] Platelets (Bld) [#/Vol] 280 10*3/uL Normal 140-440 [place], [place] Comment on above: Performed By: #### H JOHN ROBLES3 #### [place] [address] [place], [place] RBC (Bld) [#/Vol] 5.00 10*6/uL Normal 4.40-5.90 [place] Comment on above: Performed By: #### JOHN HORNER3 #### [place] [address] [place], [place] WBC (Bld) [#/Vol] 10.2 10*3/uL Normal 3.6-10.7 [place] Comment on above: Performed By: #### JOHN HORNER3 #### [place] [address] [address] [place], [place] Otheron 12-08-2019 Test Performed by [place] [address] [place] [address] [place], [place] TS GELon 12-08-2019 TS GEL ABO Group: O Rh, Gel: POS Antibody Screen Gel: NEG Normal [facility] Comment on above: Performed By: #### T SGL #### [address] [place], [place] [id number] [place] [address] #### LRC #### [place] [address] [place] [address] TYPE AND SCREENon 12-08-2019 Sodium [Moles/Vol] Positive [place], [place] Sodium [Moles/Vol] Negative [place] Sodium [Moles/Vol] [facility] PROGRESS HNO ID: [id number] Author: Raúl Tinoco) Miguel A Service: ? Author Type: Physician Type: Progress Notes Filed: 08/26/2019 2:14 PM Note Text: This Team Access Model visit is a virtual encounter. It required patient-provider interaction for the medical decision making as documented below. Chief Complaint Patient presents with: Telemedicine HPI Lázaro Mims is a 53 year old male with PMH: lung cancer who presents here today for new limited Evaluation of right sided chest pain. Visit today with patient and . States that he has had pain in the right side of his chest which started in the last couple of months. States that he has been following up with Dr. Ramachandran through [facility] cancer center and they have obtained CTs, MRIs, chest x-rays, PET scan, stress test in the last 1-2 months and have not found and specific cause for his chest pain. Described as an intermittent pulled muscle sensation which radiates into his right shoulder and down to his elbow. Seems to come on at night. Given omeprazole after EGD for inflammation which has not helped. Not taking anything OTC for pain. Admits to shaking, hyperventilation, sweating, nausea, back pain with symptoms and occurs when he is worrying about surgery. Denies fever, rash, recent injury to his chest. Admits to excessive worrying, difficulty controlling his worry, racing thoughts, insomnia, and panic symptoms above. Past medical history, appointments, medications, allergies reviewed. Previous Medical History PAST MEDICAL HISTORY Diagnosis Date - Lung cancer (HCC) left Previous Surgical History No past surgical history on file. Family History No family history on file. Patient Allergies ALLERGIES Allergen Reactions - Penicillins Rash Current Medications No current outpatient medications on file prior to visit. No current facility-administere d medications on file prior to visit. Social History Social History Tobacco Use - Smoking status: Current Every Day Smoker - Smokeless tobacco: Never Used Substance Use Topics - Alcohol use: Not on file - Drug use: Not on file Review of Symptoms REVIEW OF SYSTEMS See HPI EXAM: There were no vitals taken for this visit. General Appearance: Patient appears to be in pain, clutching right side of his chest, possibly diaphoretic. Able to talk in complete sentences. Health Maintenance List DTAP,TDAP,TD(1 - Tdap) due on 11/06/1974 HIV SCREENING due on 11/06/1981 LIPID SCREEN due on 11/06/1998 HEPATITIS C SCREENING due on 2007 COLORECTAL CANCER SCREENING,SEE MODIFIER due on 11/06/2013 SHINGRIX VACCINE(1 of 2) due on 11/06/2013 PROSTATE CANCER SCREENING DISCUSSION due on 11/06/2018 DIABETES SCREEN due on 08/05/2019 INFLUENZA(Season Ended) due on 01/13/2020 ASSESSMENT/PLAN: 1. Right-sided chest pain - ICD9: 786.50, ICD10: R07.9 (primary diagnosis) New patient to me with complaint of right sided chest pain radicular to right shoulder. I do not have his records to confirm his workup and negative results. Patient obviously uncomfortable during visit which seemed to worsen. Discussed that this might be related to anxiety symptoms, or could still be cardiac related or possible PE. Recommended he hang up the call and dial 911 and follow up with Dr. Ramachandran. 2. Shortness of breath - ICD9: 786.05, ICD10: R06.02 See #1. I spent 20 minutes in the visit, with more than 50% of the total lwig-ns-ferm time of the visit in counseling / coordination of care. Raúl Grady MD [facility] Vital Signs Date Time Vital Sign Value Performing Clinician Lester tamayo 10-01-2024 08:32-0400 Body mass index (BMI) [Ratio] 23.8 kg/m2 No Primary Care Physician [facility] 10-01-2024 08:32-0400 Body temperature 97.4 [degF] No Primary Care Physician [facility] 10-01-2024 08:32-0400 Body weight 77.56 kg No Primary Care Physician [facility] 10-01-2024 08:32-0400 Diastolic blood pressure 78 mm[Hg] No Primary Care Physician [facility] 10-01-2024 08:32-0400 Heart rate 58 /min No Primary Care Physician [facility] 10-01-2024 08:32-0400 Respiratory rate 18 /min No Primary Care Physician [facility] 10-01-2024 08:32-0400 SaO2% (BldA) [Mass fraction] 99 % No Primary Care Physician [facility] 10-01-2024 08:32-0400 Systolic blood pressure 121 mm[Hg] No Primary Care Physician [facility] 09-03-2024 12:30-0400 Body height 180.34 cm No Primary Care Physician [facility] 09-03-2024 12:30-0400 Body weight 74.84 kg No Primary Care Physician [facility] 09-03-2024 12:30-0400 Heart rate 85 /min No Primary Care Physician [facility] 09-03-2024 12:30-0400 SaO2% (BldA) [Mass fraction] 98 % No Primary Care Physician [facility] 08-20-2024 08:05-0400 Body mass index (BMI) [Ratio] 23.4 kg/m2 No Primary Care Physician [facility] 08-20-2024 08:05-0400 Body temperature 97.3 [degF] No Primary Care Physician [facility] 08-20-2024 08:05-0400 Body weight 76.2 kg No Primary Care Physician [facility] 08-20-2024 08:05-0400 Diastolic blood pressure 70 mm[Hg] No Primary Care Physician [facility] 08-20-2024 08:05-0400 Heart rate 60 /min No Primary Care Physician [facility] 08-20-2024 08:05-0400 Respiratory rate 18 /min No Primary Care Physician [facility] 08-20-2024 08:05-0400 SaO2% (BldA) [Mass fraction] 98 % No Primary Care Physician [facility] 08-20-2024 08:05-0400 Systolic blood pressure 105 mm[Hg] No Primary Care Physician [facility] 05-31-2023 15:00-0500 Body height 180.34 cm No Primary Care Physician [facility] 05-31-2023 15:00-0500 Body mass index (BMI) [Ratio] 27.6 kg/m2 No Primary Care Physician [facility] 05-31-2023 15:00-0500 Body weight 89.81 kg No Primary Care Physician [facility] 05-31-2023 15:00-0500 Diastolic blood pressure 76 mm[Hg] No Primary Care Physician [facility] 05-31-2023 15:00-0500 Heart rate 81 /min No Primary Care Physician [facility] 05-31-2023 15:00-0500 Respiratory rate 18 /min No Primary Care Physician [facility] 05-31-2023 15:00-0500 SaO2% (BldA) [Mass fraction] 96 % No Primary Care Physician [facility] 05-31-2023 15:00-0500 Systolic blood pressure 120 mm[Hg] No Primary Care Physician [facility] 11-30-2022 06:36-0400 Body height 180.34 cm No Primary Care Physician [facility] 11-30-2022 06:36-0400 Body mass index (BMI) [Ratio] 27 kg/m2 No Primary Care Physician [facility] 11-30-2022 06:36-0400 Body temperature 97.4 [degF] No Primary Care Physician [facility] 11-30-2022 06:36-0400 Body weight 87.99 kg No Primary Care Physician [facility] 11-30-2022 06:36-0400 Diastolic blood pressure 80 mm[Hg] No Primary Care Physician [facility] 11-30-2022 06:36-0400 Heart rate 61 /min No Primary Care Physician [facility] 11-30-2022 06:36-0400 Respiratory rate 18 /min No Primary Care Physician [facility] 11-30-2022 06:36-0400 SaO2% (BldA) [Mass fraction] 96 % No Primary Care Physician [facility] 11-30-2022 06:36-0400 Systolic blood pressure 116 mm[Hg] No Primary Care Physician [facility] 07-21-2022 10:49-0500 Body height 180.34 cm No Primary Care Physician [facility] 07-21-2022 10:49-0500 Body mass index (BMI) [Ratio] 29.7 kg/m2 No Primary Care Physician [facility] 07-21-2022 10:49-0500 Body weight 96.61 kg No Primary Care Physician [facility] 07-21-2022 10:49-0500 Diastolic blood pressure 82 mm[Hg] No Primary Care Physician [facility] 07-21-2022 10:49-0500 Heart rate 61 /min No Primary Care Physician [facility] 07-21-2022 10:49-0500 Respiratory rate 18 /min No Primary Care Physician [facility] 07-21-2022 10:49-0500 SaO2% (BldA) [Mass fraction] 96 % No Primary Care Physician [facility] 07-21-2022 10:49-0500 Systolic blood pressure 120 mm[Hg] No Primary Care Physician [facility] 07-19-2022 11:17-0500 Body mass index (BMI) [Ratio] 30.1 kg/m2 No Primary Care Physician [facility] 07-19-2022 11:17-0500 Body temperature 97 [degF] No Primary Care Physician [facility] 07-19-2022 11:17-0500 Body weight 97.97 kg No Primary Care Physician [facility] 07-19-2022 11:17-0500 Diastolic blood pressure 73 mm[Hg] No Primary Care Physician [facility] 07-19-2022 11:17-0500 Heart rate 63 /min No Primary Care Physician [facility] 07-19-2022 11:17-0500 Respiratory rate 17 /min No Primary Care Physician [facility] 07-19-2022 11:17-0500 SaO2% (BldA) [Mass fraction] 98 % No Primary Care Physician [facility] 07-19-2022 11:17-0500 Systolic blood pressure 111 mm[Hg] No Primary Care Physician [facility] 03-22-2022 13:05-0500 Body mass index (BMI) [Ratio] 29.8 kg/m2 No Primary Care Physician [facility] 03-22-2022 13:05-0500 Body temperature 98.3 [degF] No Primary Care Physician [facility] 03-22-2022 13:05-0500 Body weight 97.12 kg No Primary Care Physician [facility] 03-22-2022 13:05-0500 Diastolic blood pressure 87 mm[Hg] No Primary Care Physician [facility] 03-22-2022 13:05-0500 Heart rate 56 /min No Primary Care Physician [facility] 03-22-2022 13:05-0500 Respiratory rate 16 /min No Primary Care Physician [facility] 03-22-2022 13:05-0500 SaO2% (BldA) [Mass fraction] 97 % No Primary Care Physician [facility] 03-22-2022 13:05-0500 Systolic blood pressure 138 mm[Hg] No Primary Care Physician [facility] 12-08-2021 08:45-0400 Body height 180.34 cm No Primary Care Physician [facility] Work Phone: 12-08-2021 08:45-0400 Body weight 98.88 kg No Primary Care Physician [facility] Work Phone: 12-08-2021 08:45-0400 Heart rate 71 /min No Primary Care Physician [facility] Work Phone: 12-08-2021 08:45-0400 SaO2% (BldA) [Mass fraction] 100 % No Primary Care Physician [facility] Work Phone: 11-30-2021 08:57-0400 Body mass index (BMI) [Ratio] 30.7 kg/m2 No Primary Care Physician [facility] Work Phone: 11-30-2021 08:57-0400 Body temperature 97.2 [degF] No Primary Care Physician [facility] Work Phone: 11-30-2021 08:57-0400 Body weight 94.34 kg No Primary Care Physician [facility] Work Phone: 11-30-2021 08:57-0400 Diastolic blood pressure 88 mm[Hg] No Primary Care Physician [facility] Work Phone: 11-30-2021 08:57-0400 Heart rate 57 /min No Primary Care Physician [facility] Work Phone: 11-30-2021 08:57-0400 Respiratory rate 16 /min No Primary Care Physician [facility] Work Phone: 11-30-2021 08:57-0400 SaO2% (BldA) [Mass fraction] 98 % No Primary Care Physician [facility] Work Phone: 11-30-2021 08:57-0400 Systolic blood pressure 133 mm[Hg] No Primary Care Physician [facility] Work Phone: 08-16-2021 12:48-0400 Body height 175.26 cm No Primary Care Physician [facility] Work Phone: 08-16-2021 12:48-0400 Body mass index (BMI) [Ratio] 29.7 kg/m2 No Primary Care Physician [facility] Work Phone: 08-16-2021 12:48-0400 Body weight 91.17 kg No Primary Care Physician [facility] Work Phone: 08-16-2021 12:48-0400 Diastolic blood pressure 84 mm[Hg] No Primary Care Physician [facility] Work Phone: 08-16-2021 12:48-0400 Heart rate 76 /min No Primary Care Physician [facility] Work Phone: 08-16-2021 12:48-0400 Respiratory rate 18 /min No Primary Care Physician [facility] Work Phone: 08-16-2021 12:48-0400 SaO2% (BldA) [Mass fraction] 98 % No Primary Care Physician [facility] Work Phone: 08-16-2021 12:48-0400 Systolic blood pressure 131 mm[Hg] No Primary Care Physician [facility] Work Phone: 06-02-2021 06:48-0500 Body temperature 97.3 [degF] No Primary Care Physician [facility] Work Phone: 06-02-2021 06:48-0500 Body weight 87.99 kg No Primary Care Physician [facility] Work Phone: 06-02-2021 06:48-0500 Diastolic blood pressure 78 mm[Hg] No Primary Care Physician [facility] Work Phone: 06-02-2021 06:48-0500 Heart rate 67 /min No Primary Care Physician [facility] Work Phone: 06-02-2021 06:48-0500 Respiratory rate 18 /min No Primary Care Physician [facility] Work Phone: 06-02-2021 06:48-0500 SaO2% (BldA) [Mass fraction] 93 % No Primary Care Physician [facility] Work Phone: 06-02-2021 06:48-0500 Systolic blood pressure 113 mm[Hg] No Primary Care Physician [facility] Work Phone: 03-10-2021 13:13-0400 Diastolic blood pressure 70 mm[Hg] No Primary Care Physician [facility] 03-10-2021 13:13-0400 Heart rate 68 /min No Primary Care Physician [facility] 03-10-2021 13:13-0400 Respiratory rate 16 /min No Primary Care Physician [facility] 03-10-2021 13:13-0400 SaO2% (BldA) [Mass fraction] 100 % No Primary Care Physician [facility] 03-10-2021 13:13-0400 Systolic blood pressure 105 mm[Hg] No Primary Care Physician [facility] 03-10-2021 10:14-0400 Body mass index (BMI) [Ratio] 26.9 kg/m2 No Primary Care Physician [facility] 03-10-2021 10:14-0400 Body weight 82.55 kg No Primary Care Physician [facility] 01-13-2021 15:13-0400 Body temperature 96.8 [degF] No Primary Care Physician [facility] 12-01-2020 06:35-0400 Body mass index (BMI) [Ratio] 23.7 kg/m2 No Primary Care Physician [facility] Work Phone: 12-08-2019 14:44-0400 BMI (Body Mass Index) 23.29 kg/m2 [facility] 12-08-2019 14:44-0400 Body Temperature 98.8 [degF] [facility] 12-08-2019 14:44-0400 Body weight 75.75 kg James [facility] , [place] 12-08-2019 14:44-0400 BP Diastolic 78 mm[Hg[facility] 12-08-2019 14:44-0400 BP Systolic 113 mm[Hg] James Muñoz [facility] , [place] 12-08-2019 14:44-0400 Height 180.3 cm [facility] , [place] 12-08-2019 14:44-0400 Pulse (Heart Rate) 68 /min James Sandoval [facility], [place] 12-08-2019 14:44-0400 Pulse Oximetry 96 % James Muñoz [facility] , [place] 12-08-2019 14:44-0400 Respiratory Rate 20 /min [facility], MD Encounters Encounter Date Encounter Type Care Provider Facility Start: 01-19-2025 ambulatory No Primary Car e Physician Facility:[facility] Start: 10-01-2024 End: 10-01-2024 Patient encounter procedure Sulma Yoon NP-C -[facility] Work Phone: Start: 10-01-2024 End: 10-01-2024 ambulatory No Primary Care Physician [facility] Work Phone: Start: 09-11-2024 ambulatory Mateus Syd Facility:[facility] Start: 09-11-2024 End: 09-11-2024 Patient encounter procedure Sulma Yoon NP-C -Pulmonary Services/Neurology Work Phone: Start: 09-11-2024 End: 09-11-2024 ambulatory No Primary Care Physician Facility:[facility] Start: 09-05-2024 ambulatory Mateus [facility] Start: 09-05-2024 Non-patient / Non-visit Dr. Mateus michael DO -[facility] Start: 09-03-2024 End: 09-03-2024 Patient encounter procedure Sulma Yoon NP-C -Pulmonary Services/Neurology Work Phone: Start: 09-03-2024 End: 09-03-2024 ambulatory No Primary Care Physician Facility:[facility] Start: 08-20-2024 End: 08-20-2024 Patient encounter procedure Sulma Yoon NP-C -[facility] Work Phone: Start: 08-20-2024 End: 08-20-2024 ambulatory No Primary Care Physician Facility:[facility] Start: 04-21-2024 ambulatory No Primary Car e Physician Facility:[facility] Start: 03-25-2024 End: 03-25-2024 ambulatory No Primary Care Physician Facility:[facility] Start: 02-18-2024 End: 02-18-2024 ambulatory No Primary Care Physician Facility:[facility] Start: 01-22-2024 End: 01-22-2024 ambulatory No Primary Care Physician Facility:[facility] Start: 08-27-2023 End: 08-27-2023 ambulatory No Primary Care Physician [facility] Work Phone: Start: 08-27-2023 End: 08-27-2023 Patient encounter procedure No Primary Care Physician [facility]-Laboratory Work Phone: Start: 05-31-2023 End: 05-31-2023 Patient encounter procedure No Primary Care Physician [facility] Work Phone: Start: 01-16-2023 End: 01-16-2023 ambulatory No Primary Care Physician [facility] Work Phone: Start: 01-16-2023 End: 01-16-2023 Patient encounter procedure No Primary Care Physician [facility]-Cat Scan, [facility] Work Phone: Start: 12-22-2022 Registered Recurring No Primar y Care Physician [facility] Start: 11-30-2022 End: 11-30-2022 Patient encounter procedure No Primary Care Physician [facility] [place] Work Phone: Start: 08-01-2022 Non-patient / Non-visit No Jenifer lise Care Physician [facility] Start: 08-01-2022 End: 08-01-2022 ambulatory No Primary Care Physician [facility] Work Phone: Start: 08-01-2022 End: 08-01-2022 Patient encounter procedure No Primary Care Physician [facility]-Cardiovascular Services Start: 07-21-2022 End: 07-21-2022 Patient encounter procedure No Primary Care Physician [facility]-Laboratory Start: 07-21-2022 End: 07-21-2022 Patient encounter procedure No Primary Care Physician [facility] Start: 07-19-2022 End: 07-19-2022 Patient encounter procedure No Primary Care Physician [facility] Start: 07-14-2022 End: 07-14-2022 ambulatory No Primary Care Physician [facility] Work Phone: Start: 07-14-2022 End: 07-14-2022 Patient encounter procedure No Primary Care Physician [facility]-Cat Scan, [facility] Start: 05-31-2022 Registered Recurring No Primar y Care Physician [facility] Start: 03-22-2022 End: 03-22-2022 Patient encounter procedure No Primary Care Physician [facility] Start: 03-15-2022 End: 03-15-2022 ambulatory No Primary Care Physician [facility] Work Phone: Start: 03-15-2022 End: 03-15-2022 Patient encounter procedure No Primary Care Physician [facility]-Cat Scan, [facility] Start: 02-02-2022 Registered Recurring No Primar y Care Physician [facility] Start: 12-09-2021 Non-patient / Non-visit No Jenifer lise Care Physician [facility] Start: 12-08-2021 End: 12-08-2021 Patient encounter procedure No Primary Care Physician [facility]-Pulmonary Services/Neurology Start: 11-30-2021 End: 11-30-2021 Patient encounter procedure No [facility] Start: 09-19-2021 End: 09-19-2021 Patient encounter procedure No Primary Care Physician [facility]-Cat Scan, [facility] Start: 08-25-2021 Registered Recurring No Primar y Care Physician [facility] Start: 08-16-2021 End: 08-16-2021 Patient encounter procedure No Primary Care Physician [facility] Start: 06-02-2021 End: 06-02-2021 Patient encounter procedure No [facility] Start: 12-08-2019 End: 12-08-2019 Subsequent hospital visit by physician James Muñoz Work Phone: [facility] Pre-Admit Testing Comment on above: Snoring (Primary Dx) ; Bronchogenic cancer of left lung (HCC); Pre-op exam Start: 01-29-2017 Ambulatory Jack Chapa [facility] Start: 08-04-2016 End: 08-04-2016 Emergency department patient visit BHARATI FARAH Facility:[facility] Procedures Date Procedure Procedure Detail Performing Clinician Start: 01-16-2023 CT of thorax with contrast No Primary Care Physician Start: 07-14-2022 CT of thorax with contrast No Primary Care Physician Start: 03-15-2022 CT of chest and abdomen No Primary Care Physician Start: 09-19-2021 CT of chest and abdomen No Primary Care Physician Start: 01-06-2020 PET/CT Tumor Base -Thigh Subs No Primary Care Physician Start: 12-08-2019 COVID-19 Ortiz Solano Work Phone: Start: 12-08-2019 Basic metabolic pane l calcium total Melanie L Ramirez Work Phone: Start: 12-08-2019 Blood count complete automated Melanie L Ramirez Work Phone: Start: 12-08-2019 Blood typing serolog ic abo Melanie L Ramirez Work Phone: Start: 12-08-2019 Ecg routine ecg w/least 12 lds w/i&r Melanie L Ramirez Work Phone: Start: 08-26-2019 History of placement of stent for coronary artery disease History of coronary artery stent placement No Primary Care Physician Comment on above: PCI-ACOSTA proximal LAD with a 3.0 x 24 Promus Synergy Stent 08/26/2019 Start: 08-04-2019 PET/CT Tumor Base -Thigh Init No Primary Care Physician Plan of Treatment Date Care Activity Detail Author Start: 01-16-2023 Venous catheter care management [facility] Start: 07-14-2022 Venous catheter care management [facility] Start: 03-15-2022 Venous catheter care management [facility] Work Phone: Start: 05-05-2021 Venous catheter care management [facility] Start: 02-24-2021 Vital signs measurements [facility] Start: 01-27-2021 Vital signs measurements [facility] Start: 12-30-2020 Vital signs measurements [facility] Start: 12-02-2020 Vital signs measurements [facility] Start: 11-04-2020 Vital signs measurements [facility] Start: 10-07-2020 Vital signs measurements [facility] Start: 09-09-2020 Vital signs measurements [facility] Start: 08-12-2020 Vital signs measurements [facility] Start: 07-08-2020 Vital signs measurements [facility] Start: 06-08-2020 Vital signs measurements [facility] Start: 05-11-2020 Vital signs measurements [facility] Start: 04-13-2020 Vital signs measurements [facility] Start: 03-30-2020 Venous catheter care management [facility] Start: 02-09-2020 Patient referral to dietitian [facility] Start: 01-13-2020 Influenza vaccination Flu vaccine (# 1) [place], [place] Start: 01-08-2020 [facility] Start: 12-11-2019 End: 12-11-2019 Appointment [facility] General Surgery Start: 11-06-2013 Screening for malign ant neoplasm of colon Colon cancer screen colonoscopy [place], [place] Start: 11-06-2013 Shingles Vaccine (1 of 2) Shingles Vaccine (1 of 2) [place] Start: 11-06-1982 DTaP/Tdap/Td vaccine (1 - Tdap) DTaP/Tdap/Td vaccine (1 - Tdap) [place] Start: 11-06-1978 HIV screening HIV screen [place], [place] Start: 11-06-1973 Lipid panel Lipid screen [place], [place] Start: 11-06-1969 Pneumococcal 0-64 ye ars Vaccine (1 of 1 - PPSV23) Pneumococcal 0-64 years Vaccine (1 of 1 - PPSV23) [place], [place] Start: 1965 Creatinine measurement Creatinine mo nitoring [place], [place] Start: 1965 Hepatitis C screening Hepatitis C sc reen [place], [place] Start: 1965 Potassium monitoring Potassium monit oring [place] EKG 12 Lead EKG 12 Lead ECG Routine 12/08/2019 3:28 PM EDT [place] End: 12-08-2019 PREPARE RBC (CROSSMATCH), 2 Units PREPARE RBC (CROSSMATCH), 2 Units Blood Bank Non-Stat Once for 1 Occurrences starting 12/08/2019 until 12/08/2019 [place] Comment on above: Once for 1 Occurrenc es starting 12/08/2019 until 12/08/2019 PREPARE RBC (CROSSMATCH), 2 Units PREPARE RBC (CROSSMATCH), 2 Units Blood Bank Routine 12/08/2019 3:44 PM EDT [facility] Immunizations Immunization Date Immunization Notes Care Provider Natalie cat 02-18-2024 influenza, injectabl e, madin jayden canine kidney, preservative free No Primary Care Physician [facility] 04-07-2020 influenza, injectable,quadrivalent , preservative free, pediatric No Primary Care Physician [facility] 04-07-2020 Seasonal, quadrivale nt, recombinant, injectable influenza vaccine, preservative free No Primary Care Physician [facility] 04-07-2020 Flucelvax Quad (PF) (flu vac qs 2019(4 yr up)CD(PF)) 60 mcg (15 mcg x No Primary Care Physician [facility] Work Phone: Payers Date Payer Category Payer Unknown [id number] 2021 Medicare [id number] 2019 Unknown [facility] MEDICAID [id number] 2019-Present [phone] CLAIMS DEPARTMENT [address] [place] [address] [id number] 2019 Medicaid [id number] 2019 Medicare [id number] 2019 Self-pay Unknown Unknown [id number] Unknown [id number] Unknown [id number] Unknown [id number] Unknown [id number] Unknown [id number] Unknown [id number] Unknown [id number] Unknown [id number] Unknown [id number] Unknown [id number] Unknown [id number] Unknown [id number] Unknown [id number] Social History Date Type Detail Facility Start: 12-08-2019 Tobacco smoking stat [facility] Current every day smoker [place], [place] History of tobacco use Cigarette Smoker [place], [place] Start: 12-08-2019 Cigarettes smoked current (pack per day) - Reported [place] Start: 12-08-2019 Tobacco use and exposure Never used [place] Start: 12-08-2019 Alcohol intake Ex-drinker (finding) [place], [place] Sex Assigned At Not on file [place] Exposure to SARS-CoV -2 (event) Not sure [place] Start: 08-16-2021 End: 05-31-2023 Tobacco smoking status NHIS Unknown if ever smoked [facility] Start: 08-26-2019 None [facility] Start: 08-26-2019 Spouse/ Signif icant Other [facility] Start: 08-26-2020 Cigarettes [facility] Start: 1965 Sex Assigned At Male [facility] Start: 05-31-2023 Tobacco smoking stat us FLIS Ex-smoker (finding) [facility] Medical Equipment Procedure Code Equipment Code Equipment Origin al Text Equipment Identifier Dates Insertion, vascular access port PORT,POWER 8FR FDA Start: 01-30-2020 Insertion, vascular access port PORT,POWER 8FR FDA Start: 01-30-2020 Insertion, vascular access port PORT,POWER 8FR FDA Start: 01-30-2020 Insertion, vascular access port PORT,POWER 8FR FDA Start: 01-30-2020 Insertion, vascular access port PORT,POWER 8FR FDA Start: 01-30-2020 Insertion, vascular access port PORT,POWER 8FR FDA Start: 01-30-2020 Insertion, vascular access port PORT,POWER 8FR FDA Start: 01-30-2020 Cardiac Stent-08/26/2019 [id number] Start: 08-26-2019 Progress note 10-01-2024 Note Date & Type Note Facility 10-01-2024 Progress note [facility] Progress note 10-01-2024 Note Date & Type Note Facility 10-01-2024 Progress note Note Date/Time October 01, 2024 9:40a m [facility] Pul[facility] of [address] [place] [address] OFFICE VISIT Date of Service: 10/01/24 MR#: [id number] Acct: [id number] Name: LÁZARO MIMS Rep #: [id number] : 1965 Provider: CRISTINA Yoon Age/Sex: 58/M Location: [facility] Status: Signed Assessment and Plan Assessment and Plan (1) SOB (shortness of breath): Status: Chronic Plan: Improved today. No additional testing at this time. PFT ruled out COPD. Walking oximetry ruled out exertional hypoxia. Follow-up in 1 year. (2) Adenocarcinoma of lung: Status: Chronic Qualifiers: Laterality: left Qualified Code(s): C34.92 - Malignant neoplasm of unspecified part of left bronchus or lung Comment: Finished maintenance therapy with Durvalumab on 03/10/2021. On observation. Comes for follow up. CT on 01/17/2024 reviewed, stable density L lower lobe. No evidence of progressive disease. Plan: Complicates exam, plan, care and prognosis. Oncology is managing serial imaging. He is now having a CT chest once yearly. It looks like this is probably due in January. Plan Details Additional Comments: This note was generated with [employer] dictation software. It may contain incorrectwords, spelling, and punctuation that were not noted in checking the note beforesigning. Follow Up: 1 Year HPI 6 wk FU Chief Complaint: test results HPI Comments Details: This patient presents to the office today to follow-up on his shortness of breath and adenocarcinoma of the lung. He is ambulatory and currently on room air. He has not been seen in the ED or urgent care for any respiratory illnesses. Hehas not required any antibiotics or prednisone for any breathing problems. Is compliant with the use of DuoNebs. He uses it a couple times a week. He continues complete smoking cessation since 2020. He denies any shortness of breath. He denies any cough, sputum production or hemoptysis. He denies any chest pain or palpitations or chest tightness. He does occasionally experience some occasional wheezing. He has not had any fever, chills or body aches. Test results personally patient: Pulmonary stress test completed on September 03, 2024. The patient was able to ambulate total of 1180 feet over the course of 6 minutes. He did not become hypoxic and does not currently require supplemental oxygen. Pulmonary function test completed on September 11, 2024. Impression is grossly normal. Intake Vital Signs 08/20/24 08:05 10/01/24 08:32 Height 5 ft 11 in 5 ft 11 in Weight: 171 lb BMI 23.8 BP 121/78 H Blood Pressure Location Lt brachial Position Sitting Respiration 18 Pulse 58 L Pulse Source Monitor Temp 97.4 F L Temperature Source Temporal Artery Pulse Oximetry (%) 99 Oxygen Delivery Method room air Intake Visit Reasons: 6 wk FU Pilot Required: No Accompanied by: Self Allergies acetaminophen (From Tylenol-Codeine #3) Adverse Reaction (Severe, Verified 10/01/24 09:15) Nausea codeine (From Tylenol-Codeine #3) Adverse Reaction (Severe, Verified 10/01/24 09:15) Nausea naproxen (From Aleve) Adverse Reaction (Severe, Verified 10/01/24 09:15) Nausea Medications ?Medication ?Instructions ?Recorded ?Confirmed ?Type ondansetron HCl 8 mg tablet 8 mg PO Q8H PRN PRN Nausea 10 days 01/15/20 10/01/24 Rx #30 tabs prochlorperazine maleate 10 mg 10 mg PO Q6H PRN PRN Na usea 10 01/15/20 10/01/24 Rx tablet days #30 tabs food supplemt, lactose-reduced 120 ml PO DAILY 30 days ##30 02/10/20 10/01/24 Rx 0.08 gram-1.5 kcal/mL oral liquid bupropion HCl (smoking deter) 150 150 mg PO BID #60 ta bs 03/14/21 10/01/24 Rx mg tablet,12 hr sustained-release(smoking deterrent) aspirin 81 mg chewable tablet 81 mg PO DAILY #90 tabs 07/31/23 10/01/24 Rx pantoprazole 20 mg tablet,delayed 20 mg PO DAILY #90 t abs 09/26/23 10/01/24 Rx release albuterol sulfate 90 mcg/actuation 2 puff inhalation Q 4H PRN 02/18/24 10/01/24 Rx aerosol inhaler shortness of breath or wheez ing #1 device atorvastatin 80 mg tablet 80 mg PO QHS #90 tabs 10/01/24 Rx carvedilol 3.125 mg tablet 3.125 mg PO BID #180 tabs 1 05/25/23 10/01/24 Rx losartan 25 mg tablet 12.5 mg (1/2 x 25 mg) PO MARY LY #45 03/25/24 10/01/24 Rx tabs Nebulizer machine #1 ea 08/21/24 10/01/24 Rx ipratropium 0.5 mg-albuterol 3 mg 3 ml inhalation Q4H PRN PRN SOB 08/21/24 10/01/24 Rx (2.5 mg base)/3 mL nebulization &/OR WHEEZING #180 mL soln levothyroxine 112 mcg tablet 112 mcg PO QDAY 10/01/24 10/01/24 History PFSH Medical History SOB (shortness of breath) Increased thyroid stimulating hormone (TSH) level Radiation fibrosis of lung Nicotine dependence, cigarettes, in remission Erectile dysfunction History of non-ST elevation myocardial infarction (NSTEMI) (06/2019) History of ST elevation myocardial infarction (STEMI) (08/26/19) Atherosclerotic heart disease of [place] coronary artery without angina pectoris Hypothyroidism Hypothyroidism (acquired) Exertional dyspnea Immunotherapy encounter Odynophagia Encounter for adjustment and management of vascular access device Low back pain Chemotherapy management, encounter for Encounter for education Ischemic cardiomyopathy GERD (gastroesophageal reflux disease) Tobacco abuse Adenocarcinoma of lung Mediastinal lymphadenopathy Surgical History History of removal of Port-a-Cath History of coronary artery stent placement (08/26/19) Family History Mother Heart disease COPD (chronic obstructive pulmonary disease) Kidney disease Aunt Diabetes Sister Cancer Social History Smoking Status: Former smoker quit date: 01/25/21 Tobacco: How many years used: 15 second hand exposure: Yes alcohol intake: never substance use type: marijuana caffeine: Yes Type: carbonated beverages Number of servings: 4 and coffee what type of physical activity do you participate in: walking seatbelt use: never do you feel safe at home: Yes Review of Systems Resp Respiratory: Yes as per HPI Exam Const Constitutional: Positive conversant, cooperative, in no acute respiratory distress, well developed, well nourished and good hygiene Head Head: Yes normocephalic, Yes atraumatic and No cyanosis of lips/distal nose Eyes Eye: Positive clear conjunctiva; Negative nystagmus Ears Ear: Positive hearing normal and external ears normal Nose Nose: Yes external nose normal Mouth Mouth: Positive oral mucosae normal Neck Neck: Positive normal visual inspection and trachea midline Chest Wall Chest: Positive symmetric chest movement; Negative increased A/P diameter Resp lung sounds: Positive diminished lung sounds, wheezes, normal expiratory time and normal respiratory effort; Negative rhonchi or rales Cardio Cardiac: Positive regular rate, regular rhythm, S1 normal and S2 normal; Negative murmur, rub or gallop GI GI: Positive normal to inspection Genitourinary: Positive deferred Musc Musculoskeletal: Positive steady gait Skin Pulmonary Skin Exam: Positive intact; Negative lesion, rash, ulcers or dermal atrophy Extremities Extremities: No clubbing, No cyanosis and No edema Neuro Neurologic: Yes no focal neuro deficits, Yes conversant, Yes cooperative, Yes normal cognition, Yes normal coordination, Yes normal concentration and Yes understands questions Psych Appearance: Positive grossly normal, eye contact and well kempt Mental Status: Positive mental status grossly normal Mood: Positive congruent mood Affect: Positive normal affect Coding Level of Care Code Off vis,est,level 3 Diagnoses SOB (shortness of breath) R06.02 Adenocarcinoma of left lung C34.92 Laterality: left 10/01/24 0940 <Electronically signed by Sulma araujo NP COTTON CLASSER AIDE-C> Date _ Sulma Yoon NP COTTON CLASSER AIDE-C Cosigner Signature: Date (if applicable) CC: ~ [place] [employer] Work Phone: Evaluation note 08-20-2024 Note Date & Type Note Facility 08-20-2024 Evaluation note Diagnosis Onset Date Resolution Adenocarcinoma of lung chronic Ap 2024 1:54pm SOB (shortness of breath) chronic August 20, 2024 1:54pm Adenocarcinoma of lung chronic Ma y 2024 8:41am SOB (shortness of breath) chronic October 01, 2024 8:41am [place] [employer] Work Phone: Evaluation note 08-26-2019 Note Date & Type Note Facility 08-26-2019 Evaluation note Diagnosis Onset Date History of coronary artery stent placement August 26, 2019 chronic [facility]schemic [facility]: Evaluation note Note Date & Type Note Facility Evaluation note Diagnosis Onset Date Adenocarcinoma of lung chron ic Tobacco abuse chronic Hypothyroidism (acquired) [facility] Atherosclerotic heart diseas e of [place] coronary artery without angina pectoris chronic Ischemic cardiomyopathy chromosomal disorders counselor neeru Chemotherapy management, encounter for acute Encounter for education acut e Exertional dyspnea acute Hypothyroidism (acquired) [facility] [place] Immunotherapy encounter acut e Low back pain acute Odynophagia acute Adenocarcinoma of lung chron ic GERD (gastroesophageal reflux disease) chronic Ischemic cardiomyopathy chromosomal disorders counselor neeru Tobacco abuse [facility] Work Phone: Evaluation note Note Date & Type Note Facility Evaluation note Diagnosis Onset Date Nicotine dependence, cigaret arlene, in remission acute SOB (shortness of breath) [facility] Adenocarcinoma of lung chron ic Chemotherapy management, encounter for acute Encounter for education acut e Exertional dyspnea acute Hypothyroidism (acquired) [facility] [place] Immunotherapy encounter acut e Low back pain acute Odynophagia acute Adenocarcinoma of lung chron ic GERD (gastroesophageal reflux disease) chronic Ischemic cardiomyopathy chromosomal disorders counselor neeru Tobacco abuse [facility] Work Phone: Evaluation note Note Date & Type Note Facility Evaluation note Diagnosis Onset Date Adenocarcinoma of lung chron ic Adenocarcinoma of lung chron ic [facility]schemic cardiomyopathy [facility] Work Phone: Evaluation note Note Date & Type Note Facility Evaluation note Diagnosis Onset Date Adenocarcinoma of lung chron ic Ischemic cardiomyopathy chromosomal disorders counselor neeru Adenocarcinoma of lung chron ic Atherosclerotic heart diseas e of [place] coronary artery without angina pectoris chronic [facility]schemic cardiomyopathy [facility] Work Phone: Reason for referral (narrative) Note Date & Type Note Facility Reason for referral (narrative) No reason for referral information available [facility] Work Phone: Summary Purpose Family History No Family History Records Found Relationship Condition Age at Onset Recorded Date/T nat[place] mother Cardiac disease Unknown Chronic obstructive pulmonary disease Unk nown Kidney disorder Unknown aunt Diabetes mellitus Unknown sister Malignant neoplasm Unknown Advance Directives No Advanced Directives Records FoundDocuments on File Type Date Recorded Patient Nick Setter Expl anation Advance Directives and Living Will Power of Car Hopper Advance Directive Response Recorded Date/ Time Advance Directives No March 10, 2021 11:08am Living Will No March 10 11:08am Power of Car Hopper No March 10, 2021 11:08am Advance Directive Response Recorded Date/ Time Advance Directives on File No Octob er 2020 10:08am Advance Directives No March 10, 2021 10:08am Living Will No March 10 10:08am Power of Car Hopper No March 10, 2021 10:08am Advance Directive Response Recorded Date/ Time Advance Directives on File No Octob er 2020 11:08am Advance Directives No March 10, 2021 11:08am Living Will No March 10 11:08am Power of Car Hopper No March 10, 2021 11:08am Advance Directive Response Recorded Date/ Time Living Will No March 10 11:08am Do you have a Healthcare Power of Car Hopper? No March 10, 2021 11:08am Advance Directives No March 10, 2021 11:08am Reason for Referral Status Reason Specialty Diagnoses / Procedures Referred By Contact Referred To Contact [facility] Required Sleep Medicine / Pulmonology Diagnoses Snoring Melanie Ramirez PA-C [address] [address] Shireen Plummer MD [address] [facility] [address] [place] [id number] Scheduling Instructions [facility] [place] [facility] [place] Shireen Plummer MD [address] [address] Discharge Instructions * Instructions* Lorraine Yeh RN - 12/08/2019 Please bring your [facility] Surgical Information folder on the day of surgery. Please jack the last dose taken (date and time ) on your Daily Medications List provided in your After Visit Summary. Please bring a photo ID and insurance information TAKE the following medications the morning of your surgery - Aspirin, Carvedilol You may take your prescription pain medications. You may take Tylenol (Acetaminophen) if needed forpain. No Motrin, Ibuprofen, or Advil 24 hours prior to surgery, or longer if instructed by your surgeon. No Aleve or Naprosyn 3 days prior to surgery, or longer if instructed by your surgeon. If you are on BLOOD THINNERS or ASPIRIN - Continue Aspirin, Last dose of Brillinta was on 12/04. Additional instructions - Follow all instructions given to you by Dr. Muñoz. You will receive a reminder call the day before surgery with your Same Day Surgery arrival time. If you have specific questions, please call your surgeon. * Attachments The following attachments cannot be sent through Care Everywhere. * Lung Resection: Pre-op (Vincentian) * Thoracotomy: Pre-op (Vincentian) documented in this encounter History of Present Illness * Lorraine Yeh, RN - 12/08/2019 2:00 PM EDT Informed pt of need to refrain from smoking, vaping, using snuff or chew for 24 hours before surgery. Informed pt of anesthesia's right to cancel surgery if they have used these products. Pt verbalizes understanding. documented in this encounter Assessments Diagnosis Bronchogenic cancer of left lung (HCC) Pre-op exam Preoperative examination, unspecified Snoring Other dyspnea and respiratory abnormality Chief Complaint and Reason for Visit Chief Complaint 6 M FU 6 M FU STAGING LUNG CA LUNG CA IV CONTRAST ONLY Reason for Visit Adenocarcinoma of [place] Tobacco abuse Hypothyroidism (acquired) Atherosclerotic heart disease of [place] coronary artery without angina pectoris Ischemic cardiomyopathy Chemotherapy management, encounter for Encounter for education Exertional dyspnea Hypothyroidism (acquired) Immunotherapy encounter Low back pain Odynophagia Adenocarcinoma of lung GERD (gastroesophageal reflux disease) Ischemic cardiomyopathy Tobacco abuse Chief Complaint 6 M FU J44.9 J44.9 STAGING LUNG CA Malignant neoplasm of lower lobe, left bronchus or Reason for Visit Nicotine dependence, cigarettes, in remission SOB (shortness of breath) Adenocarcinoma of lung Chemotherapy management, encounter for Encounter for education Exertional dyspnea Hypothyroidism (acquired) Immunotherapy encounter Low back pain Odynophagia Adenocarcinoma of lung GERD (gastroesophageal reflux disease) Ischemic cardiomyopathy Tobacco abuse Chief Complaint 6MO LABS REVIEW CT STAGING LUNG CA LUNG CA Reason for Visit Adenocarcinoma of [place] Adenocarcinoma of lung Ischemic cardiomyopathy Chief Complaint STAGING LUNG CA LUNG CA 3MO NO LABS REVIEW CT 9 M FU E-ORDER DILATED CARDIOMYOPATHY Reason for Visit Adenocarcinoma of [place] Ischemic cardiomyopathy Adenocarcinoma of lung Atherosclerotic heart disease of [place] coronary artery without angina pectoris Ischemic cardiomyopathy Chief Complaint 1 Y FU STAGING LUNG CA Malignant neoplasm of lower lobe, left bronchus or Reason for Visit Adenocarcinoma of [place] Adenocarcinoma of lung Ischemic cardiomyopathy Chief Complaint 9 M FU E ORDERS Reason for Visit History of coronary artery stent placement Ischemic cardiomyopathy Chief Complaint Admit Date 6 M FU August 20, 2024 1:54 pm R06.02 - Shortness of breath September 03, 2024 12:12pm R06.02 - Shortness of breath September 05, 2024 12:24pm R06.02 - Shortness of breath September 11 8:28am 6 wk FU October 01, 2024 8:41a m Reason for Visit Admit Date Adenocarcinoma of lung August 20, 2024 1 :54pm SOB (shortness of breath) August 20 1:54pm Adenocarcinoma of lung October 01, 2024 8: 41am SOB (shortness of breath) October 01, 2024 8:41am Additional Source Comments (unrecognized sect ion and content) No Status Records FoundNo Status Records FoundNo Status Records FoundNo Status Records FoundNo Status Records Found INFORMATION SOURCE (unrecogn ized section and content) DATE CREATED AUTHOR 2017 [employer] DATE CREATED AUTHOR AUTHOR'S ORGANIZ ATION 2017 [facility] DATE CREATED AUTHOR AUTHOR'S ORGANIZ ATION 08/26/2019 [facility] DATE CREATED AUTHOR AUTHOR'S ORGANIZ ATION 12/14/2019 [employer] DATE CREATED AUTHOR AUTHOR'S ORGANIZ ATION 01/18/2025 [facility] Goals (unrecognized section and content) Goals may be documented in a n alternate sectionGoals may be documented in an alternate sectionGoals may be documented in an alternate sectionGoals may be documented in an alternate sectionGoals may be documented in an alternate sectionGoals may be documented in an alternate sectionGoals may be documented in an alternate section Care Teams (unrecognized sec tion and content) Team Status: Active Member Role Status Dates Dr. Melina Bailey , DO Family Provider Active No Primary Care Physician Primary Care Provider Active Team Status: Inactive Member Role Status Dates No Primary Care Physician Primary Care Provider, Refer ring Provider Active Dr. Justin Ramachandran MD Attending Provider Active Team Status: Active Member Role Status Dates No Primary Care Physician Primary Care Provider Active Dr. Justin Ramachandran MD Attending Provider Active Sulma Yoon COTTON CLASSER AIDE, COTTON CLASSER AIDE-C Referring Provider Active Dr. Keyon Schrader , Other Provider Active Team Status: Inactive Member Role Status Dates No Primary Care Physician Primary Care Provider Active Dr. Justin Ramachandran MD Attending Provider Active Team Status: Inactive Member Role Status Dates No Primary Care Physician Primary Care Provider, Refer ring Provider Active Dr. Jose Carlos Schultz MD Active Myra Renteria PA, PA Attending Provider Active Team Status: Active Member Role Status Dates No Primary Care Physician Primary Care Provider Active Dr. Jose Carlos Schultz MD Attending Provider Active Team Status: Inactive Member Role Status Dates No Primary Care Physician Primary Care Provider Active Myra Renteria PA, PA Attending Provider, Referr ing Provider Active Team Status: Inactive Member Role Status Dates No Primary Care Physician Primary Care Provider, Refer ring Provider Active Dr. Mateus Velarde DO Attending Provider Active Team Status: Inactive Member Role Status Dates No Primary Care Physician Primary Care Provider Active Dr. Justin Ramachandran MD Attending Provider, Referring Pro vider Active Team Status: Inactive Member Role Status Dates No Primary Care Physician Primary Care Provider, Refer ring Provider Active Nat Wiley COTTON CLASSER AIDE, COTTON CLASSER AIDE-C Attending Provider Active Team Status: Inactive Member Role Status Dates No Primary Care Physician Primary Care Provider Active Dr. Jose Carlos Schultz MD Attending Provider, Referring Pro vider Active Team Status: Active Member Role Status Dates No Primary Care Physician Primary Care Provider Active Team Status: Inactive Member Role Status Dates No Primary Care Physician Primary Care Provider Active Start: August 20, 2024 End: August 20, 2024 No Primary Care Physician Referring Provider Active Start: August 20, 2024 End: August 20, 2024 Sulma Yoon COTTON CLASSER AIDE, COTTON CLASSER AIDE-C Attending Provider Active Start: August 20, 2024 End: August 20, 2024 Team Status: Inactive Member Role Status Dates No Primary Care Physician Primary Care Provider Active Start: September 03, 2024 End: September 03, 2024 Sulma Yoon COTTON CLASSER AIDE, COTTON CLASSER AIDE-C Attending Provider Active Start: September 03, 2024 End: September 03, 2024 Sulma Yoon COTTON CLASSER AIDE, COTTON CLASSER AIDE-C Referring Provider Active Start: September 03, 2024 End: September 03, 2024 Team Status: Active Member Role Status Dates No Primary Care Physician Primary Care Provider Active Start: September 05, 2024 Sulma Yoon COTTON CLASSER AIDE, COTTON CLASSER AIDE-C Referring Provider Active Start: September 05, 2024 Sulma Yoon COTTON CLASSER AIDE, COTTON CLASSER AIDE-C Other Provider Active Start: September 05, 2024 Dr. Mateus Velarde , Attending Provider Active S tart: September 05, 2024 Team Status: Inactive Member Role Status Dates No Primary Care Physician Primary Care Provider Active Start: September 11, 2024 End: September 11, 2024 Sulma Yoon COTTON CLASSER AIDE, COTTON CLASSER AIDE-C Attending Provider Active Start: September 11, 2024 End: September 11, 2024 Sulma Yoon NP, COTTON CLASSER AIDE-C Referring Provider Active Start: September 11, 2024 End: September 11, 2024 Team Status: Inactive Member Role Status Dates No Primary Care Physician Primary Care Provider Active Start: October 01, 2024 End: October 01, 2024 No Primary Care Physician Referring Provider Active Start: October 01, 2024 End: October 01, 2024 Sulma Yoon COTTON CLASSER AIDE, COTTON CLASSER AIDE-C Attending Provider Active Start: October 01, 2024 End: October 01, 2024 FOR RECORDS PERTAINING TO PATIENTS WHO ARE OR HAVE BEEN ENROLLED IN A CHEMICAL DEPENDENCY/SUBSTANCEABUSE PROGRAM, SOME INFORMATION MAY BE OMITTED. This clinical summary was aggregated from multiple sources. Caution should be exercised in using it in the provision of clinical care. This summary normalizes information from multiple sources, and as a consequence, information in this document may materially change the coding, format and clinical context of patient data. In addition, data may be omitted in some cases. CLINICAL DECISIONS SHOULD BE BASED ON THE PRIMARY CLINICAL RECORDS. [employer] provides no warranty or guarantee of the accuracy or completeness of information in this document.
== END | disposition home or self-care (01) ==
LOC: CT 07:01
PROVIDERS: Referring Provider Internal Medicine Medical Oncology; Visit Provider Internal Medicine Medical Oncology
DX: C34.92 Malignant neoplasm of unspecified part of left bronchus or lung (principal)
CPT/HCPCS: 71260; 74160; Q9967